=== PATIENT | female | born 1940 | race Caucasian/White ===

== ENCOUNTER 2025-08-19 11:07 | Inpatient (IN) | payer MEDICARE, SELFPAY ==
[2025-08-18] VITALS (8 sets, daily range): BP systolic 123–168; BP diastolic 82–103; BMI 29.9
[2025-08-18 13:05] LABS: Hematocrit 35.8 % (37.0-47.0); Hemoglobin 12.0 g/dL (12.0-16.0); Mean Corp Hgb Conc. 33.5 g/dL (33.0-37.0); Mean Corpuscular Volume 91.6 fL (81.0-99.0); Nucleated Red Blood Cells % 0 %; Platelet Count 263 10^3/uL (130-400); Red Cell Dist. Width 14.0 % (11.5-14.5)
[2025-08-18 13:22] LABS: ALT (SGPT) 13 U/L (0-35); AST (SGOT) 22 U/L (14-36); Albumin 4.5 g/dl (3.5-5.0); Alkaline Phosphatase 81 U/L (38-126); Blood Urea Nitrogen 21 mg/dl (7-17); Calcium 9.5 mg/dl (8.4-10.2); Carbon Dioxide 21 mmol/L (22-30); Chloride 101 mmol/L (98-107); Glucose 86 mg/dl (70-99); Potassium 3.9 mmol/L (3.5-5.1); Sodium 132 mmol/L (135-145); Total Protein 8.3 g/dl (6.3-8.2); eGFR 49.55
--- NOTE | 2025-08-18 17:34 | ED.GENMED ---
History of Present Illness
<Johnnie Oconnell MD - Last Filed: 08/18/25 19:00>
General
Chief Complaint: Swelling
Time Seen by Provider: 08/18/25 17:15
<Sai Wilkerson Jr., PA-C - Last Filed: 08/18/25 20:24>
General
Source: patient
Exam Limitations: none
Nursing documentation reviewed up to this point in time: agreed with
History of Present Illness
History of Present Illness:
85-year-old female past medical history of A-fib CAD presenting to the emergency department today with concerns of leg swelling worsening weight gain difficulty with ambulation over the past few days. Recently had urinary retention as well was
treated in [place] 1 week ago. Denies any specific chest pain does have shortness of breath with exertion.
Past History
<Sai Wilkerson Jr., PA-C - Last Filed: 08/18/25 20:24>
Past History
ED Past Medical History: Arrthythmia, HTN and Other
ED Past Surgical History: Cardiac and Other
Social History
Tobacco: Former smoker
Alcohol: None
Drug: None
Personal:
Living: with family
Employment: Retired
Family History
Family History: Other
Review of Systems
<Sai Wilkerson Jr., PA-C - Last Filed: 08/18/25 20:24>
Review of Systems
Allergies reviewed?: Yes
All Other Systems: ROS reviewed and negative except as documented in HPI and ROS
Phy Exam
<Sai Wilkerson Jr., PA-C - Last Filed: 08/18/25 20:24>
Physical Exam
Physical Exam:
GENERAL: Alert , in no apparent distress
EYE: pupils equal and reactive
NECK: Supple, no significant adenopathy.
ENT: o/p clr, mmm.
CARDIAC: Regular rate and rhythm .
LUNGS: Clear breath sounds bilaterally, no acute respiratory distress, no wheezes/rales/rhonchi
ABDOMEN: Soft, without focal tenderness, no r/g, no cvat
NEUROLOGICAL: Alert and oriented, no focal neuro deficits
SKIN: Warm and dry, skin intact.
MUSCULOSKELETAL: Significant edema to the lower extremities bilaterally from the mid thighs distally.
PSYCH: Normal and appropriate interaction.
Scores
<Sai Wilkerson Jr., PA-C - Last Filed: 08/18/25 20:24>
Heart Failure Risk
Heart Failure Risk Score: Not Applicable
Course
<Johnnie Oconnell MD - Last Filed: 08/18/25 19:00>
Orders/Labs/Results
Orders:
Orders
08/18/25 12:53
Complete Blood Count/With Diff Urgent
Comprehensive Metabolic Panel Urgent
Free T4 Urgent
Comment: ADD ON
TSH Urgent
Comment: ADD ON
08/18/25 17:32
EKG [Electrocardiogram (*1)] Urgent
Reason for Study: Fatigue / Weakness
EKG- Treatment ONCE
Chest [CR Chest - 2 Views ] Urgent
Comment:
Reason For Exam: sob
08/18/25 17:33
Furosemide [Lasix] 40 mg IV NOW STA
08/18/25 17:46
BNP [NT-proBNP] Urgent
Troponin I Urgent
08/18/25 18:20
Add On- LAB Urgent
Tests Added?: tsh free t4
Abnormal Lab Results
08/18/25
12:53
RBC 3.91 L 10^6/uL
(4.20-5.40)
Hct 35.8 L %
(37.0-47.0)
Sodium 132 L mmol/L
(135-145)
Carbon Dioxide 21 L mmol/L
(22-30)
BUN 21 H mg/dl
(7-17)
Creatinine 1.1 H mg/dL
(0.6-1.0)
Total Protein 8.3 H g/dl
(6.3-8.2)
TSH 34.40 H uIU/ml
(0.47-4.68)
08/18/25 12:53
08/18/25 12:53
Vital Signs
Initial and Last Documented VS:
Initial Vital Signs
Temp Pulse Resp BP Pulse Ox
98.4 F 86 18 151/97 97
08/18/25 12:31 08/18/25 12:31 08/18/25 12:31 08/18/25 12:31 08/18/25 12:31
Last Documented Vital Signs
Temp Pulse Resp BP Pulse Ox
97.9 F 91 15 162/98 99
08/18/25 15:32 08/18/25 19:15 08/18/25 19:15 08/18/25 19:00 08/18/25 19:15
<Sai Wilkerson Jr., PA-C - Last Filed: 08/18/25 20:24>
Orders/Labs/Results
Orders:
Orders
08/18/25 12:53
Complete Blood Count/With Diff Urgent
Comprehensive Metabolic Panel Urgent
Free T4 Urgent
Comment: ADD ON
TSH Urgent
Comment: ADD ON
08/18/25 17:32
EKG [Electrocardiogram (*1)] Urgent
Reason for Study: Fatigue / Weakness
EKG- Treatment ONCE
Chest [CR Chest - 2 Views ] Urgent
Comment:
Reason For Exam: sob
08/18/25 17:33
Furosemide [Lasix] 40 mg IV NOW STA
08/18/25 17:46
BNP [NT-proBNP] Urgent
Troponin I Urgent
08/18/25 18:20
Add On- LAB Urgent
Tests Added?: tsh free t4
Abnormal Lab Results
08/18/25
12:53
RBC 3.91 L 10^6/uL
(4.20-5.40)
Hct 35.8 L %
(37.0-47.0)
Sodium 132 L mmol/L
(135-145)
Carbon Dioxide 21 L mmol/L
(22-30)
BUN 21 H mg/dl
(7-17)
Creatinine 1.1 H mg/dL
(0.6-1.0)
Total Protein 8.3 H g/dl
(6.3-8.2)
TSH 34.40 H uIU/ml
(0.47-4.68)
08/18/25 12:53
08/18/25 12:53
Vital Signs
Initial and Last Documented VS:
Initial Vital Signs
Temp Pulse Resp BP Pulse Ox
98.4 F 86 18 151/97 97
08/18/25 12:31 08/18/25 12:31 08/18/25 12:31 08/18/25 12:31 08/18/25 12:31
Last Documented Vital Signs
Temp Pulse Resp BP Pulse Ox
97.9 F 91 15 162/98 99
08/18/25 15:32 08/18/25 19:15 08/18/25 19:15 08/18/25 19:00 08/18/25 19:15
<Sai Wilkerson Jr., PA-C - Last Filed: 08/18/25 20:24>
MDM/Problems Addressed
MDM/Problems Addressed:
85-year-old female presenting to the emergency department today with concerns of worsening leg swelling weight gain difficulty with ambulation. Patient appears to have worsening heart failure symptoms plan for IV diuresis and admission.
<Sai Wilkerson Jr., PA-C - Last Filed: 08/18/25 20:24>
*Pulse Oximetry
SaO2: 93
Oxygen Mode of Delivery: Room air
Patient hypoxic: no (99)
*Critical Care Note
Total Time (30-74mins, 75-104mins- exclusive of procedures): Not Applicable
ED Attending Note
<Johnnie Oconnell MD - Last Filed: 08/18/25 19:00>
ED Attending Note
Patient seen and examined by attending physician: Yes
I performed the substantive portion of visit, reviewed & personally made and approve the management plan that is documented in note by myself or LINDSAY.: Yes
ED Attending Note:
85-year-old female presents with multiple complaints most significant appears to be significant weight gain in a very short brief period of time along with leg swelling. In addition general weakness fatigue constipation. Being treated for UTI.
Diagnosed with urinary retention last week. Multiple recent hospitalizations at [facility].
On exam patient is nontoxic. Chronically ill. However no acute distress.
Lungs have mild crackles in the bases. No respiratory distress. Heart mildly irregular. Abdomen benign. She has significant lower extremity edema bilaterally with mild pitting.
EKG shows atrial fibrillation with at times mild RVR. Labs are stable otherwise.
Pression is heart failure fib with mild RVR. Check thyroid check chest x-ray. Admission for further care
<Sai Wilkerson Jr., PA-C - Last Filed: 08/18/25 20:24>
-
Portions of this chart may have been created with voice recognition software.� Occasional wrong word or��sound alike� substitutions may have occurred due to the inherent limitations of voice recognition software.
Discharge Plan
Departure
Patient Disposition: Admit
Date of Disposition: 08/18/25
Time of Disposition: 20:24
Admit to: Telemetry
Admit to doctor: Jatinder
Presentation/result/management discussed w/ accepting MD/DO: Hospitalist
Patient with high blood pressure during this ER visit?: No
Condition: Good
Covid-19: Not Applicable
Discharge Problem:
Acute exacerbation of CHF (congestive heart failure)
Prescriptions:
No Action
aspirin 81 MG tablet,delayed release (DR/EC)
81 mg PO DAILY
cholecalciferol (vitamin D3) 2,000 UNITS tablet
2,000 unit PO DAILY
acetaminophen [Tylenol Extra Strength] 500 MG tablet
1,000 mg PO TIDPRN PRN (Reason: mild pain)
sennosides [senna] 8.6 mg Tablet
17.2 mg PO HS
cefuroxime axetil 250 mg Tablet
250 mg PO BID
Rx Instructions:
for 10 days starting 08/12/25
thiamine HCl (vitamin B1) 100 mg Tablet
100 mg PO DAILY
levothyroxine [Synthroid] 25 mcg Tablet
25 mcg PO DAILY
docusate sodium [Colace] 100 mg Capsule
100 mg PO BID
gabapentin 100 mg Capsule
100 mg PO TIDPRN PRN (Reason: mild pain)
amiodarone [Pacerone] 200 MG tablet
200 mg PO DAILY
furosemide 20 MG tablet
20 mg PO DAILY
multivitamin with folic acid [Tab-A-Laex] 1 TABLET tablet
1 tab PO DAILY
Referrals:
Shirley Soriano MD [Family Provider]
Interventions
Interventions:
*Risk Screen - Suicide Last Done: 08/18/25 18:57
*General Assessment Last Done: 08/18/25 18:57
*Neglect/Abuse Screening Last Done: 08/18/25 18:57
ED- Cardiac Assessment Last Done: 08/18/25 18:57
ED- Pulmonary Assessment Last Done: 08/18/25 18:57
ED-Skin Assessment Last Done: 08/18/25 18:57
Discharge Date and Time
Print Language: IVORIAN
[2025-08-18] MEDS: LASIX 40 MG IV (17:48)
[2025-08-18 18:23] LABS: Troponin I < 0.012 ng/ml
[2025-08-18 19:07] LABS: TSH 34.40 uIU/ml (0.47-4.68)
--- NOTE | 2025-08-18 19:58 | HPS.HSE ---
Addendum entered and electronically signed by Stanislav Macias MD 08/18/25 21:15:
This is an addendum to H&P written by Yeni Rabago on 08/18/2025. �Patient seen and examined independently with [facility]BA UNDERWRITER.
85-year-old female history of severe aortic stenosis status post aortic valve replacement, CAD status post CABG, paroxysmal atrial fibrillation on Eliquis, paroxysmal SVT, bradycardia/possible sick sinus syndrome, hypertension, hyperlipidemia,
spinal fusion/chronic back pain, remote history of syncope after back surgery, bilateral cataract surgery, fibromyalgia, urinary retention with current Godfrey catheter placed last week presenting for leg swelling and weight gain and chest tightness
but denies shortness of breath.�
She had urinary symptoms last week treated with antibiotic and Godfrey catheter.
She has lower abdominal pain with no bowel movement in 6 days.
Vital signs show tachycardia up to 107.
Labs show cardiac BNP of 1500. �Troponin negative.
Chest x-ray shows no acute abnormality.
Patient with primary issue of increased lower extremity edema, seemingly mild CHF exacerbation. �40 IV Lasix was given. Continue home dose lasix thereafter.�
Patient also with subclinical hypothyroidism with TSH of 34, free T4 of 1.07. �Increase levothyroxine from 25 mcg to 37.5 mcg.
Patient also with constipation so add MiraLAX to docusate and senna. �Dulcolax suppository. �Urinary retention likely from constipation for which she has Godfrey catheter. Continue cefuroxime for UTI until 08/21.�
Original Note:
Family Physician
-
Family Physician: Shirley Soriano MD
Chief Complaint
-
bilateral lower extremity edema
History of Present Illness
Patient is a 85-year-old female with past medical history of hypertension, paroxysmal atrial fibrillation, CAD, hypothyroidism and fibromyalgia who presented to [facility] ED for evaluation of increased bilateral lower extremity edema. Patient reports
increased edema to bilateral lower extremities that resulted in difficulty getting around. Patient reports her BP this morning was elevated so she called her visiting nurse who recommended patient come to ED for evaluation. Patient also reports
significant constipation with last bowel movement 6 days ago. Patient notes mild shortness of breath this morning that has since resolved. Patient seen last week for urinary symptoms and placed on antibiotics for UTI and Godfrey place for acute
urinary retention. She denies any fever, chills, cough, chest pain, palpitations or diarrhea.
Medical History
Past Medical History
Past Medical History: Reports Other
Additional Past Medical History:
hypertension
paroxysmal atrial fibrillation
CAD
hypothyroidism
fibromyalgia
severe aortic stenosis
Past Surgical History: Reports Other
Additional Past Surgical History:
spinal fusion 03/2016
Laparoscopy 03/2016
Tonsillectomy (1958)
Cataract surgery - left eye (2004), right eye (2005)
Left elbow fracture, left wrist injury, left rotator cuff tear from syncope/fall (03/2016)
AVR with a 21mm Trifecta pericardial tissue valve (11/09/17 JSA)
CAB x 1 with SVG to PDA (11/09/17 J[facility])
Social History
Tobacco: Former Smoker (quit 1973)
Alcohol: None
Living: With Family (lives with and caregiver for disabled daughter )
Family History
Family History: Not pertinent
Allergies / Home Medications
Allergies reflects when Allergies were last updated in [facility].
Home Medications with original date entered in [facility]
Allergy/Medication List:
Allergies
Allergy/AdvReac Type Severity Reaction Status Date / Time
bee venom protein (honey bee) Allergy Anaphylaxis Verified 11/26/17 12:18
hydromorphone Allergy Vomiting Verified 08/18/25 20:46
nitrofurantoin Allergy rash and Verified 08/18/25 20:46
itch
nitroglycerin Allergy 'bottomed Verified 11/26/17 12:18
out' with
SL
spider venom Allergy 'poisoning' Verified 11/26/17 12:18
sulfamethoxazole Allergy rash and Verified 08/18/25 20:46
itch
trimethoprim Allergy rash and Verified 08/18/25 20:46
itch
Home Medications
aspirin 81 mg tablet,delayed release 81 mg PO DAILY Heart Disease/Condition 11/08/17
cholecalciferol (vitamin D3) 50 mcg (2,000 unit) tablet 2,000 unit PO DAILY Supplement 11/08/17
acetaminophen 500 mg tablet (Tylenol Extra Strength) 1,000 mg PO TIDPRN PRN mild pain 11/26/17
amiodarone 200 mg tablet (Pacerone) 200 mg PO DAILY Heart Disease/Condition 08/18/25
cefuroxime axetil 250 mg tablet 250 mg PO BID Infection 08/18/25
docusate sodium 100 mg capsule (Colace) 100 mg PO BID Constipation 08/18/25
furosemide 20 mg tablet 20 mg PO DAILY Fluid Retention/Swelling 08/18/25
gabapentin 100 mg capsule 100 mg PO TIDPRN PRN mild pain 08/18/25
levothyroxine 25 mcg tablet (Synthroid) 25 mcg PO DAILY Thyroid 08/18/25
multivitamin with folic acid 400 mcg tablet (Tab-A-Alex) 1 tab PO DAILY Supplement 08/18/25
sennosides 8.6 mg tablet (senna) 17.2 mg PO HS Constipation 08/18/25
thiamine HCl (vitamin B1) 100 mg tablet 100 mg PO DAILY Supplement 08/18/25
Review of Systems
-
History Source: Patient
Constitutional: Reports Weight Gain; Denies Fever or Chills
EENT: Denies Sore Throat
Respiratory: Reports Trouble Breathing (mild shortness of breath earlier today ); Denies Cough or Hemoptysis
Cardiac: Denies Chest Pain, Diaphoresis, Palpitations or Syncope
Abdomen/GI: Reports Constipated (last BM 6 days ago ); Denies Abdominal Pain, Nausea, Vomiting or Diarrhea
: Reports Godfrey (draining clear yellow urine ); Denies Dysuria, Frequency or Urgency
Musculoskeletal: Reports Edema (bilateral lower extremity edema ); Denies Joint Pain
Skin: Denies Itching
Neurological: Denies Dizzy, Headache, Weakness or Numbness
Endocrine: Denies Polyuria or Polydipsia
Hematologic/Lymphatic: Denies Bleeding
Physical Exam
Vital Signs
Vital Signs
Temp Pulse Resp BP Pulse Ox
97.9 F 96 22 168/103 93
08/18/25 15:32 08/18/25 18:45 08/18/25 18:45 08/18/25 18:00 08/18/25 19:00
Physical Exam
General: Well Developed, Well Nourished, No Apparent Distress, Comfortable, Conversant and Obese
HEENT: NormoCephalic, PERRLA, Nose Appears Normal and Ears Appear Normal
Respiratory: Clear and Non Labored Respirations; No Wheezes, Rales or Rhonchi
Cardiac: S1/S2, Regular Rhythm and Peripheral Edema (bilateral lower extremity edema ); No Murmur
GI: Soft, Non Tender, Non Distended and Normal Bowel Sounds
Musculoskeletal: No Clubbing and No Cyanosis
Skin: Warm and IV/Catheter Site
Neuro: Awake and AO x 3
Psych: Calm
Laboratory Results
-
08/18/25 12:53
08/18/25 12:53
Laboratory Results
Total Bilirubin 0.8 mg/dl (0.2-1.3) 08/18/25 12:53
AST 22 U/L (14-36) 08/18/25 12:53
ALT 13 U/L (0-35) 08/18/25 12:53
Alkaline Phosphatase 81 U/L (38-126) 08/18/25 12:53
Troponin I < 0.012 ng/ml 08/18/25 17:46
Data Reviewed
-
Diagnostic Radiology: Report Reviewed by me (CXRL 1. No radiographic evidence for acute pulmonary edema or pleural effusion. 2. Previous CABG surgery and aortic valve replacement. 3. Severe calcific atherosclerotic plaque in aorta. 4.
Moderate tortuosity of the descending thoracic aorta. 5. Osteoporosis.)
Medical Tests (Nuc Med, Echo, EKG etc): Report Reviewed by me (EKG: ATRIAL FIBRILLATION WITH RAPID VENTRICULAR RESPONSE LOW VOLTAGE QRS INCOMPLETE RIGHT BUNDLE BRANCH BLOCK NONSPECIFIC ST AND T WAVE ABNORMALITY)
Lab Data: Labs Reviewed by me (Na 132, BUN 21, Creat 1.1, eGFR 49.55, trop < 0.012, pBNP 1490, TSH 34.40)
Impression/Plan
-
IMPRESSION/PLAN:
#bilateral lower extremity edema 2/2 acute HF vs. generalized edema vs. cellulitis
Na 132, BUN 21, Creat 1.1, eGFR 49.55, trop < 0.012, pBNP 1490
previous hospitalization nots indicate 07/26/25 weight was 75kg
CXR: 1. No radiographic evidence for acute pulmonary edema or pleural effusion.
2. Previous CABG surgery and aortic valve replacement.
3. Severe calcific atherosclerotic plaque in aorta.
4. Moderate tortuosity of the descending thoracic aorta.
5. Osteoporosis.
EKG: ATRIAL FIBRILLATION WITH RAPID VENTRICULAR RESPONSE
LOW VOLTAGE QRS
INCOMPLETE RIGHT BUNDLE BRANCH BLOCK
NONSPECIFIC ST AND T WAVE ABNORMALITY
- Admit to telemetry
- IV lasix given in ED
- I & Os
- daily weights
#UTI
- continue cefuroxime
#urinary retention
Godfrey in place at arrival
likely 2/2 constipation
- monitor I & Os
#constipation
- bowel regimen
- continue Colace and Senna
- suppository now
- start daily Miralax
#paroxysmal atrial fibrillation
- continue amiodarone
#CAD
- continue aspirin
#hypothyroidism
TSH 34.40
- increase levothyroxine 50mcg
#fibromyalgia
- continue gabapentin
#severe aortic stenosis
#hypertension
Code status: full code
DVT prophylaxis: heparin sq
[2025-08-18] MEDS: DULCOLAX 10 MG RECTAL (21:25)
[2025-08-18] MEDS: MIRALAX 17 GRAMS PO (23:54)
[2025-08-18] MEDS: SENOKOT 17.2 MG PO (23:55)
[2025-08-18] MEDS: HEPARIN 5000 UNITS SC (23:55)
--- NOTE | 2025-08-19 00:11 | PTCARENOTE ---
Pt arrived to unit approx 2315, AAOx3, anxious. Per ED report, pt had constipation which was treated. PERFUME COMPOUNDER notified. Per report, disimpaction and suppository administered in ED. On unit, pt given prune juice, senna, and miralax. Pt was oriented to
unit, cooperative with admission process, indwelling odell in place, odell wipes completed on unit, call delgado in reach, pt in lowest position, bed locked.
[2025-08-19 01:29] VITALS: BMI 29.9
[2025-08-19 04:03] VITALS: BP 157/86
[2025-08-19 06:00] VITALS: BMI 29.9
[2025-08-19 07:00] VITALS: BP 155/98
[2025-08-19] MEDS: LASIX 20 MG PO (08:27)
[2025-08-19] MEDS: CEFTIN 250 MG PO ×2 (08:27→19:44)
[2025-08-19] MEDS: ASPIR LOW (ENTERIC COATED) 81 MG PO (08:27)
[2025-08-19] MEDS: SYNTHROID 37.5 MCG PO (08:27)
--- NOTE | 2025-08-19 08:27 | W.PN.HOSP.TC ---
Today's Communication/Plan
-
patient still has bilateral lower extremity edema.
Will switch oral Lasix to IV Lasix.
Assessment / Plan
Assessment / Plan
Impression:
85-year-old female history of severe aortic stenosis status post aortic valve replacement, CAD status post CABG, paroxysmal atrial fibrillation on Eliquis, paroxysmal SVT, bradycardia/possible sick sinus syndrome, hypertension, hyperlipidemia,
spinal fusion/chronic back pain, remote history of syncope after back surgery, bilateral cataract surgery, fibromyalgia, urinary retention with current Godfery catheter placed last week presenting for leg swelling and weight gain and chest tightness
but denies shortness of breath.� She had urinary symptoms last week treated with antibiotic and Godfrey catheter, She has lower abdominal pain with no bowel movement in 6 days.
Patient with primary issue of increased lower extremity edema, seemingly mild CHF exacerbation. �40 IV Lasix was given. Continue home dose lasix thereafter.�
Patient also with subclinical hypothyroidism with TSH of 34, free T4 of 1.07. �Increase levothyroxine from 25 mcg to 37.5 mcg.
Patient also with constipation. Received a bowel regimen now she has diarrhea.
Still bilateral extremity RACHELLE, switch Lasix to IV
Assessment/plan:
bilateral lower extremity edema 2/2 acute HF vs. generalized edema vs. cellulitis
Na 132, BUN 21, Creat 1.1, eGFR 49.55, trop < 0.012, pBNP 1490
previous hospitalization nots indicate 07/26/25 weight was 75kg
CXR: 1. No radiographic evidence for acute pulmonary edema or pleural effusion.
2. Previous CABG surgery and aortic valve replacement.
3. Severe calcific atherosclerotic plaque in aorta.
4. Moderate tortuosity of the descending thoracic aorta.
5. Osteoporosis.
EKG: ATRIAL FIBRILLATION WITH RAPID VENTRICULAR RESPONSE
LOW VOLTAGE QRS
INCOMPLETE RIGHT BUNDLE BRANCH BLOCK
NONSPECIFIC ST AND T WAVE ABNORMALITY
- Admit to telemetry
- IV lasix given in ED
- I & Os
- daily weights
08/19
patient still has bilateral lower extremity edema.
Will switch oral Lasix to IV Lasix.
#UTI
- continue cefuroxime
#urinary retention
Godfrey in place at arrival
likely 2/2 constipation
- monitor I & Os
#constipation
Resolved.
#paroxysmal atrial fibrillation
- continue amiodarone
#CAD
- continue aspirin
#hypothyroidism
TSH 34.40
- increase levothyroxine 37.5 mcg
#fibromyalgia
- continue gabapentin
#severe aortic stenosis
#hypertension
CODE STATUS: Full code
DVT prophylaxis: Heparin
Diet: Cardiac diet
Disposition: patient still has bilateral lower extremity edema.
Will switch oral Lasix to IV Lasix.
Total time spent on today's encounter was 55 minutes which included time spent in counseling the patient/family regarding diagnosis and treatment plan as listed above, goals of care, and symptom management. Case was discussed with nursing staff,
specialists, and care coordinators/case management. All labs and imaging personally reviewed by me. Remainder the time spent in detailed review of previous records, lab data, imaging, and other medical provider documentation.
Anticipated Discharge: Within 24 hours
Subjective/Interval History
-
Date of Service: August 19, 2025
Patient seen and examined at bedside, denies any chest pain or shortness of breath, constipation resolved, patient still has bilateral lower extremity edema.
Will switch oral Lasix to IV Lasix.
Objective Data
-
Labs:
Laboratory Results
08/19/25
08:12
Sodium Pending
Potassium Pending
Chloride Pending
Carbon Dioxide Pending
BUN Pending
Creatinine Pending
Glucose Pending
Calcium Pending
Vital Signs:
Vital Signs
Temp Pulse Resp BP Pulse Ox
98.2 F 110 12 155/98 100
08/19/25 07:00 08/19/25 07:00 08/19/25 07:00 08/19/25 07:00 08/19/25 07:00
I&O
08/18/25 08/19/25 08/20/25
06:59 06:59 06:59
Intake Total 60 / 60
Output Total 2600 / 2600
Balance -2540 / -2540
Physical Exam
-
General: Well Developed, Well Nourished, No Apparent Distress and Comfortable
HEENT: Normocephalic, Atraumatic, Moist Mucous Membranes, No Ptosis, PERRLA and Nose Appears Normal
Respiratory: Clear to Auscultation and Non Labored Respirations
Cardiac: Regular Rhythm and S1/S2
Breast: Deferred by me
GI: Soft, Nontender, Nondistended and Normal Bowel Sounds
Genito-urinary: No Costovertebral Tender
Musculoskeletal: No Clubbing, No Cyanosis, Edema, Right Lower Extrem and Edema, Left Lower Extrem
Skin: Warm
Neuro: Awake, Alert, Oriented, AO x 3 and No Motor Deficits
Psych: Calm
Data Reviewed
-
Diagnostic Radiology: Image personally visualized and interpreted and Report Reviewed by me
CT Scan: Image personally visualized and interpreted and Report Reviewed by me
Ultrasound: Image personally visualized and interpreted and Report Reviewed by me
MRI: Image personally visualized and interpreted and Report Reviewed by me
Medical Tests (Nuc Med, Echo etc): Image personally visualized and interpreted and Report Reviewed by me
Labs: Labs Reviewed by me
Old Records: Reviewed
[2025-08-19] MEDS: HEPARIN 5000 UNITS SC ×2 (08:28→16:34)
[2025-08-19] MEDS: PACERONE 200 MG PO (08:28)
[2025-08-19] MEDS: COLACE PO ×2 (08:30→19:44)
[2025-08-19] MEDS: MIRALAX PO (08:30)
[2025-08-19 09:03] LABS: Calcium 9.1 mg/dl (8.4-10.2); Chloride 100 mmol/L (98-107); Potassium 3.5 mmol/L (3.5-5.1); Sodium 134 mmol/L (135-145)
[2025-08-19 09:13] LABS: Blood Urea Nitrogen 21 mg/dl (7-17); Carbon Dioxide 26 mmol/L (22-30); Estimated Creatinine Clearance 32 ml/min; Glucose 102 mg/dl (70-99); eGFR 44.64
[2025-08-19 11:34] VITALS: BP 117/64
[2025-08-19 14:59] VITALS: BP 119/60
--- NOTE | 2025-08-19 17:14 | CM ---
resource conservation manager reviewed patient's chart and patient was admitted under OBS, BETANCOURT letter provided to patient. Patient lives with her daughter is independent with adl's and ambulation, no longer drives, patient is current with [facility] visiting nurses.
PCP: Shirley Soriano
Pharmacy: [facility] in [place]
Home with [facility] visiting nurses.
[facility]
[phone]
[2025-08-19] MEDS: SENOKOT PO (19:44)
[2025-08-19] MEDS: DESENEX/MITRAZOL/ZEASORB 1 APPLIC TOPICAL (19:44)
[2025-08-19 20:37] VITALS: BP 143/83
[2025-08-19 23:36] VITALS: BP 129/81
[2025-08-20] VITALS (7 sets, daily range): BP systolic 80–154; BP diastolic 57–90; PULSE 81; O2SAT 99; BMI 29.5
[2025-08-20] MEDS: HEPARIN 5000 UNITS SC ×4 (00:33→23:10)
[2025-08-20 08:44] LABS: Hematocrit 28.7 % (37.0-47.0); Hemoglobin 9.7 g/dL (12.0-16.0); Mean Corp Hgb Conc. 33.8 g/dL (33.0-37.0); Mean Corpuscular Volume 91.1 fL (81.0-99.0); Platelet Count 218 10^3/uL (130-400); Red Cell Dist. Width 13.8 % (11.5-14.5)
[2025-08-20] MEDS: LASIX 20 MG IV (08:51)
[2025-08-20] MEDS: CEFTIN 250 MG PO ×2 (09:01→19:47)
[2025-08-20] MEDS: SYNTHROID 37.5 MCG PO (09:01)
[2025-08-20] MEDS: PACERONE 200 MG PO (09:02)
[2025-08-20] MEDS: ASPIR LOW (ENTERIC COATED) 81 MG PO (09:03)
[2025-08-20] MEDS: COLACE 100 MG PO ×2 (09:04→19:47)
[2025-08-20] MEDS: MIRALAX PO (09:06)
[2025-08-20] MEDS: DESENEX/MITRAZOL/ZEASORB 1 APPLIC TOPICAL ×2 (09:07→19:48)
[2025-08-20 09:15] LABS: Blood Urea Nitrogen 22 mg/dl (7-17); Calcium 8.6 mg/dl (8.4-10.2); Carbon Dioxide 28 mmol/L (22-30); Chloride 102 mmol/L (98-107); Estimated Creatinine Clearance 34 ml/min; Glucose 94 mg/dl (70-99); Potassium 3.5 mmol/L (3.5-5.1); Sodium 135 mmol/L (135-145); eGFR 49.55
[2025-08-20] MEDS: TYLENOL 650 MG PO (10:20)
--- NOTE | 2025-08-20 12:00 | WOUNDNOTE ---
[facility] RN note: Patient seen during prevention rounds. Patient admitted with dermal ulcers on coccyx/buttocks suspect r/t moisture. Perineal MASD. Patient incontinent of loose soft brown stool. [place] care given. Silicone border foam applied to
sacral/buttocks. Patient turns with 1 assist. She is on a [employer] air bed. Patient turned to R semi side lying position. Heels off bed with pillow. Air chair cushion given. Discussed with EDMUNDO Modi. Care plan and discharge instructions to be updated.
Consult if needed.
--- NOTE | 2025-08-20 13:52 | W.PN.HOSP.TC ---
Today's Communication/Plan
-
Continue Lasix IV, bowel regimen, pending physical therapy evaluation.
Assessment / Plan
Assessment / Plan
Impression:
85-year-old female history of severe aortic stenosis status post aortic valve replacement, CAD status post CABG, paroxysmal atrial fibrillation on Eliquis, paroxysmal SVT, bradycardia/possible sick sinus syndrome, hypertension, hyperlipidemia,
spinal fusion/chronic back pain, remote history of syncope after back surgery, bilateral cataract surgery, fibromyalgia, urinary retention with current Godfrey catheter placed last week presenting for leg swelling and weight gain and chest tightness
but denies shortness of breath.� She had urinary symptoms last week treated with antibiotic and Godfrey catheter, She has lower abdominal pain with no bowel movement in 6 days.
Patient with primary issue of increased lower extremity edema, seemingly mild CHF exacerbation. �40 IV Lasix was given. Continue home dose lasix thereafter.�
Patient also with subclinical hypothyroidism with TSH of 34, free T4 of 1.07. �Increase levothyroxine from 25 mcg to 37.5 mcg.
Patient also with constipation. Received a bowel regimen now she has diarrhea.
Still bilateral extremity RACHELLE, switch Lasix to IV
Assessment/plan:
bilateral lower extremity edema 2/2 acute HF vs. generalized edema vs. cellulitis
Na 132, BUN 21, Creat 1.1, eGFR 49.55, trop < 0.012, pBNP 1490
previous hospitalization nots indicate 07/26/25 weight was 75kg
CXR: 1. No radiographic evidence for acute pulmonary edema or pleural effusion.
2. Previous CABG surgery and aortic valve replacement.
3. Severe calcific atherosclerotic plaque in aorta.
4. Moderate tortuosity of the descending thoracic aorta.
5. Osteoporosis.
EKG: ATRIAL FIBRILLATION WITH RAPID VENTRICULAR RESPONSE
LOW VOLTAGE QRS
INCOMPLETE RIGHT BUNDLE BRANCH BLOCK
NONSPECIFIC ST AND T WAVE ABNORMALITY
- Admit to telemetry
- IV lasix given in ED
- I & Os
- daily weights
08/19
patient still has bilateral lower extremity edema.
Will switch oral Lasix to IV Lasix.
08/20
Improved with IV lasix
#UTI
- continue cefuroxime
#urinary retention
Godfrey in place at arrival
likely 2/2 constipation
- monitor I & Os
#constipation
Resolved.
#paroxysmal atrial fibrillation
- continue amiodarone
#CAD
- continue aspirin
#hypothyroidism
TSH 34.40
- increase levothyroxine 37.5 mcg
#fibromyalgia
- continue gabapentin
#severe aortic stenosis
#hypertension
CODE STATUS: Full code
DVT prophylaxis: Heparin
Diet: Cardiac diet
Disposition: Continue Lasix IV, bowel regimen, pending physical therapy evaluation.
Total time spent on today's encounter was 55 minutes which included time spent in counseling the patient/family regarding diagnosis and treatment plan as listed above, goals of care, and symptom management. Case was discussed with nursing staff,
specialists, and care coordinators/case management. All labs and imaging personally reviewed by me. Remainder the time spent in detailed review of previous records, lab data, imaging, and other medical provider documentation.
Anticipated Discharge: Within 24 hours
Subjective/Interval History
-
Date of Service: August 20, 2025
Patient seen and examined at bedside, denies any chest pain or shortness of breath, no abdominal pain, no nausea, no vomiting, no more diarrhea , complaining of headache
Objective Data
-
Labs:
Laboratory Results
08/20/25
08:24
WBC 6.4
Hgb 9.7 L
Hct 28.7 L
Plt Count 218
Sodium 135
Potassium 3.5
Chloride 102
Carbon Dioxide 28
BUN 22 H
Creatinine 1.1 H
Glucose 94
Calcium 8.6
Vital Signs:
Vital Signs
Temp Pulse Resp BP Pulse Ox
98 F 78 16 143/77 99
08/20/25 11:00 08/20/25 11:00 08/20/25 11:00 08/20/25 11:00 08/20/25 11:00
I&O
08/19/25 08/20/25 08/21/25
06:59 06:59 06:59
Intake Total 60 / 60 1080 / 1080
Output Total 2600 / 2600 825 / 825
Balance -2540 / -2540 255 / 255
Physical Exam
-
General: Well Developed, Well Nourished, No Apparent Distress and Comfortable
HEENT: Normocephalic, Atraumatic, Moist Mucous Membranes, No Ptosis, PERRLA and Nose Appears Normal
Respiratory: Clear to Auscultation and Non Labored Respirations
Cardiac: Regular Rhythm and S1/S2
Breast: Deferred by me
GI: Soft, Nontender, Nondistended and Normal Bowel Sounds
Genito-urinary: No Costovertebral Tender
Musculoskeletal: No Clubbing, No Cyanosis, Edema, Right Lower Extrem and Edema, Left Lower Extrem
Skin: Warm
Neuro: Awake, Alert, Oriented, AO x 3 and No Motor Deficits
Psych: Calm
--- NOTE | 2025-08-20 16:45 | CM ---
inside sales territory manager spoke with physical therapy and they are recommending skilled placement, per patient she has just completed rehab and has no skilled days left, and patient states she would have to private pay for rehab placement and she cannot afford
to private pay, patient states she wants to return to home with [facility] visiting nurses for PT/OT, nursing and an aide.
[facility]
[phone]
[2025-08-20] MEDS: SENOKOT 17.2 MG PO (19:47)
[2025-08-21] VITALS (7 sets, daily range): BP systolic 106–153; BP diastolic 61–90; PULSE 84–108
[2025-08-21 07:40] LABS: Hematocrit 31.5 % (37.0-47.0); Hemoglobin 10.6 g/dL (12.0-16.0); Mean Corp Hgb Conc. 33.7 g/dL (33.0-37.0); Mean Corpuscular Volume 92.4 fL (81.0-99.0); Platelet Count 244 10^3/uL (130-400); Red Cell Dist. Width 13.6 % (11.5-14.5)
[2025-08-21 08:02] LABS: Blood Urea Nitrogen 18 mg/dl (7-17); Calcium 8.8 mg/dl (8.4-10.2); Carbon Dioxide 30 mmol/L (22-30); Chloride 101 mmol/L (98-107); Estimated Creatinine Clearance 34 ml/min; Glucose 86 mg/dl (70-99); Potassium 3.4 mmol/L (3.5-5.1); Sodium 134 mmol/L (135-145); eGFR 49.55
[2025-08-21] MEDS: SYNTHROID 37.5 MCG PO (09:59)
[2025-08-21] MEDS: COLACE 100 MG PO ×2 (09:59→19:42)
[2025-08-21] MEDS: PACERONE 200 MG PO (10:01)
[2025-08-21] MEDS: CEFTIN 250 MG PO ×2 (10:06→19:42)
[2025-08-21] MEDS: SENOKOT 17.2 MG PO ×2 (10:08→19:42)
[2025-08-21] MEDS: ASPIR LOW (ENTERIC COATED) 81 MG PO (10:08)
[2025-08-21] MEDS: MIRALAX 17 GRAMS PO (10:09)
[2025-08-21] MEDS: HEPARIN 5000 UNITS SC ×3 (10:09→23:21)
[2025-08-21] MEDS: LASIX 20 MG PO (10:09)
[2025-08-21] MEDS: DESENEX/MITRAZOL/ZEASORB 1 APPLIC TOPICAL ×2 (10:11→19:42)
--- NOTE | 2025-08-21 10:37 | PN.CDI ---
CDI
- -
CDI:
Physician Documentation Request
Admit Date: 08/19/25 11:07
Dear Doctor Dedra,
Please review the following and provide your response in the progress notes.
Clinical Indicators:
Pt admitted with bilateral lower extremity edema 2/2 acute HF vs. generalized edema vs. cellulitis
Sodium levels are as below /Pt has been on IV lasix
Laboratory Tests
08/18/25 08/19/25 08/21/25
12:53 08:12 06:47
Sodium 132 L 134 L 134 L
Based on the above, could you clarify in the progress notes, the appropriate diagnosis, if significant, that supports the above abnormalities and additional evaluation, monitoring and/or treatment rendered:
Hyponatremia
Abnormal lab value only
Other ( please specify)
Use of terms such as suspected, likely, concern for, or probable (associated with a specific diagnosis that is being evaluated, monitored, or treated as if it exists) are acceptable and can be coded in the inpatient setting, when documented at the
time of discharge.
Thank you,
Maki Horta RN
CDI Specialist
[place] [facility]
Please use your independent medical judgment in providing your response.
--- NOTE | 2025-08-21 10:43 | PN.CDI ---
CDI
- -
CDI:
Physician Documentation Request
Admit Date: 08/19/25 11:07
Dear Doctor Dedra,
Please review the following and provide your response in the progress notes.
Clinical Indicators:
Pt admitted with bilateral lower extremity edema 2/2 acute HF vs. generalized edema vs. cellulitis
Documented per H&P, ' Patient with primary issue of increased lower extremity edema, seemingly mild CHF exacerbation. �40 IV Lasix was given. Continue home dose lasix thereafter.�..'
Progress note 08/20,' pBNP 1490previous hospitalization nots indicate 07/26/25 weight was 75kg...08/19patient still has bilateral lower extremity edema.Will switch oral Lasix to IV Lasix.08/20Improved with IV Lasix...'
Documented per 11/08/17 scanned cardiology document ,' EF (estimated ) 55 %...'
Per DEC pt is on 20mg PO Lasix at home daily
Please provide further specificity regarding the most likely type and acuity of CHF you are evaluating, treating or monitoring.
Acute on Chronic Diastolic CHF
Acute Diastolic CHF
Acute on Chronic Systolic CHF
Acute Systolic CHF
Use of terms such as suspected, likely, concern for, or probable (associated with a specific diagnosis that is being evaluated, monitored, or treated as if it exists) are acceptable and can be coded in the inpatient setting, when documented at the
time of discharge.
Thank you,
Maki Horta RN
CDI Specialist
[place] [facility]
Please use your independent medical judgment in providing your response.
[2025-08-21] MEDS: LASIX IV (10:56)
--- NOTE | 2025-08-21 11:01 | PN.CDI ---
CDI
- -
CDI:
Physician Documentation Request
Admit Date: 08/19/25 11:07
Dear Doctor Dedra ,
Please review the following and provide your response in the progress notes.
Clinical Indicators:
Pt admitted with bilateral lower extremity edema 2/2 acute HF vs. generalized edema vs. cellulitis
Documented per nursing [facility]OC[facility] documentation 08/18, Present on admission coccyx/buttock pressure injury stage 2....treatment provided silcone border...'
Physician documentation of the type and location of wounds is required for compliant documentation. Based on the above clinical findings and your assessment, please provide the following in your progress note:
1. Location of the ulcer/wound, including laterality.
2. Type (etiology) of ulcer/wound:
- Pressure (decubitus) ulcer
- Non-pressure ulcer
- Other
Use of terms such as suspected, likely, concern for, or probable (associated with a specific diagnosis that is being evaluated, monitored, or treated as if it exists) are acceptable and can be coded in the inpatient setting, when documented at the
time of discharge.
Thank you,
Maki Horta RN
CDI Specialist
[facility]
Please use your independent medical judgment in providing your response.
*Source: National Pressure Ulcer Advisory Panel (NPUAP)
[2025-08-21] MEDS: KLOR-CON 20 MEQ PO (12:46)
--- NOTE | 2025-08-21 13:33 | W.PN.HOSP.TC ---
Today's Communication/Plan
-
Physical therapy evaluation, switch Lasix to oral, check orthostatic.
Assessment / Plan
Assessment / Plan
Impression:
85-year-old female history of severe aortic stenosis status post aortic valve replacement, CAD status post CABG, paroxysmal atrial fibrillation on Eliquis, paroxysmal SVT, bradycardia/possible sick sinus syndrome, hypertension, hyperlipidemia,
spinal fusion/chronic back pain, remote history of syncope after back surgery, bilateral cataract surgery, fibromyalgia, urinary retention with current Godfrey catheter placed last week presenting for leg swelling and weight gain and chest tightness
but denies shortness of breath.� She had urinary symptoms last week treated with antibiotic and Godfrey catheter, She has lower abdominal pain with no bowel movement in 6 days.
Patient with primary issue of increased lower extremity edema, seemingly mild CHF exacerbation. �40 IV Lasix was given. Continue home dose lasix thereafter.�
Patient also with subclinical hypothyroidism with TSH of 34, free T4 of 1.07. �Increase levothyroxine from 25 mcg to 37.5 mcg.
Patient also with constipation. Received a bowel regimen now she has diarrhea.
Still bilateral extremity RACHELLE, switch Lasix to IV
Assessment/plan:
bilateral lower extremity edema
Acute on Chronic Diastolic CHF
Na 132, BUN 21, Creat 1.1, eGFR 49.55, trop < 0.012, pBNP 1490
previous hospitalization nots indicate 07/26/25 weight was 75kg
CXR: 1. No radiographic evidence for acute pulmonary edema or pleural effusion.
2. Previous CABG surgery and aortic valve replacement.
3. Severe calcific atherosclerotic plaque in aorta.
4. Moderate tortuosity of the descending thoracic aorta.
5. Osteoporosis.
EKG: ATRIAL FIBRILLATION WITH RAPID VENTRICULAR RESPONSE
LOW VOLTAGE QRS
INCOMPLETE RIGHT BUNDLE BRANCH BLOCK
NONSPECIFIC ST AND T WAVE ABNORMALITY
Patient received IV Lasix 20 mg daily.
Was orthostatic with physical therapy.
Switch to oral lasix
Orthostatic hypotension.
Switch Lasix to oral
UTI
- continue cefuroxime (was prescribed as outpatient for 10 days starting 08/12)
Hyponatremia
Continue to monitor
hypokalemia
Replace and continue to monitor
Urinary retention
Godfrey in place at arrival
likely 2/2 constipation
- monitor I & Os
Constipation
Resolved.
Paroxysmal atrial fibrillation
- continue amiodarone
CAD
- continue aspirin
Hypothyroidism
TSH 34.40
- increase levothyroxine 37.5 mcg
Fibromyalgia
- continue gabapentin
Severe aortic stenosis
Hypertension
Coccyx/buttock pressure injury stage 2.
Wound care consult
CODE STATUS: Full code
DVT prophylaxis: Heparin
Diet: Cardiac diet
Disposition: Physical therapy evaluation, switch Lasix to oral, check orthostatic.
Total time spent on today's encounter was 55 minutes which included time spent in counseling the patient/family regarding diagnosis and treatment plan as listed above, goals of care, and symptom management. Case was discussed with nursing staff,
specialists, and care coordinators/case management. All labs and imaging personally reviewed by me. Remainder the time spent in detailed review of previous records, lab data, imaging, and other medical provider documentation.
Anticipated Discharge: Within 24 hours
Subjective/Interval History
-
Date of Service: August 21, 2025
Patient seen and examined at bedside, denies any chest pain or shortness of breath, no abdominal pain, no nausea, no vomiting, patient was orthostatic with physical therapy yesterday, Lasix switched to oral.
Objective Data
-
Labs:
Laboratory Results
08/21/25
06:47
WBC 7.5
Hgb 10.6 L
Hct 31.5 L
Plt Count 244
Sodium 134 L
Potassium 3.4 L
Chloride 101
Carbon Dioxide 30
BUN 18 H
Creatinine 1.1 H
Glucose 86
Calcium 8.8
Vital Signs:
Vital Signs
Temp Pulse Resp BP Pulse Ox
98.5 F 89 16 143/82 98
08/21/25 11:04 08/21/25 11:04 08/21/25 11:04 08/21/25 11:04 08/21/25 11:04
I&O
08/20/25 08/21/25 08/22/25
06:59 06:59 06:59
Intake Total 1080 / 1080 520 / 520
Output Total 825 / 825 1100 / 1100
Balance 255 / 255 -580 / -580
Physical Exam
-
General: Well Developed, Well Nourished, No Apparent Distress and Comfortable
HEENT: Normocephalic, Atraumatic, Moist Mucous Membranes, No Ptosis, PERRLA and Nose Appears Normal
Respiratory: Clear to Auscultation and Non Labored Respirations
Cardiac: Regular Rhythm and S1/S2
Breast: Deferred by me
GI: Soft, Nontender, Nondistended and Normal Bowel Sounds
Genito-urinary: No Costovertebral Tender
Musculoskeletal: No Clubbing, No Cyanosis, Edema, Right Lower Extrem and Edema, Left Lower Extrem
Skin: Warm
Neuro: Awake, Alert, Oriented, AO x 3 and No Motor Deficits
Psych: Calm
--- NOTE | 2025-08-21 14:13 | CM ---
Chart reviewed and will follow up with patient's progress, patient insists on returning to home as she just completed rehab, plan is to home with [facility] visiting nurses.
Plan; Home with [facility] visiting nurses.
[facility]
[phone]
--- NOTE | 2025-08-21 18:37 | PTCARENOTE ---
Assumed care of pt from previous nurse. Pt with no output, greatest bladder scan output since bladder scan this a.m. is 74. will cont bladder scan protocol. Pt call delgado is within reach, pt rings kishore. will cont to monitor.
--- NOTE | 2025-08-21 18:40 | PTCARENOTE ---
Assumed care of pt from previous nurse. Pt denies pain. pt conts to be positive orthostatic, MD aware. Pt call delgado is within reach, pt rings kishore. will cont to monitor.
[2025-08-21] MEDS: TYLENOL 650 MG PO (22:29)
[2025-08-22] VITALS (8 sets, daily range): BP systolic 104–166; BP diastolic 67–97; PULSE 100–103; BMI 28.6
[2025-08-22] MEDS: SYNTHROID 37.5 MCG PO (05:47)
[2025-08-22] MEDS: CEFTIN 250 MG PO (08:36)
[2025-08-22] MEDS: PACERONE 200 MG PO (08:41)
[2025-08-22] MEDS: ASPIR LOW (ENTERIC COATED) 81 MG PO (08:42)
[2025-08-22] MEDS: COLACE 100 MG PO ×2 (08:42→19:46)
[2025-08-22] MEDS: SENOKOT 17.2 MG PO ×2 (08:42→19:46)
[2025-08-22] MEDS: MIRALAX 17 GRAMS PO (08:43)
[2025-08-22] MEDS: HEPARIN 5000 UNITS SC ×3 (08:43→23:11)
[2025-08-22] MEDS: LASIX 20 MG PO (08:44)
[2025-08-22] MEDS: DESENEX/MITRAZOL/ZEASORB 1 APPLIC TOPICAL ×2 (08:45→19:48)
[2025-08-22 09:14] LABS: Hematocrit 32.2 % (37.0-47.0); Hemoglobin 10.4 g/dL (12.0-16.0); Mean Corp Hgb Conc. 32.3 g/dL (33.0-37.0); Mean Corpuscular Volume 98.2 fL (81.0-99.0); Platelet Count 239 10^3/uL (130-400); Red Cell Dist. Width 13.5 % (11.5-14.5)
[2025-08-22 09:37] LABS: Blood Urea Nitrogen 15 mg/dl (7-17); Calcium 9.0 mg/dl (8.4-10.2); Carbon Dioxide 32 mmol/L (22-30); Chloride 100 mmol/L (98-107); Estimated Creatinine Clearance 34 ml/min; Glucose 87 mg/dl (70-99); Potassium 4.5 mmol/L (3.5-5.1); Sodium 136 mmol/L (135-145); eGFR 49.55
--- NOTE | 2025-08-22 11:31 | CON.CAR ---
Addendum entered and electronically signed by Cj Cervantes MD 08/22/25 16:27:
I saw and examined the patient independently, and performed majority of MDM.
The BIOMEDICAL ENGINEERING PROFESSOR's note was reviewed and I agree with the note with changes/additions below (specifically regarding eliquis after discussion with daughter).
Comment: 85 yo female with PMH of paroxysmal A fib, atrial flutter (type unknown), hemorrhagic stroke, CAD, h/o CABG and bio-AVR, admitted with severe constipation, edema, weight gain. Her main complaint to me today is constipation. Exam with
irregular rhythm, no murmurs, trace LE edema. Tele: A flutter, HR avg 80s. Cr 1.1. Echo: EF 50-55%, bio-AVR (grads 06/20, no AR).
Paroxysmal A fib, atrial flutter (type unknown). I spoke with her daughter who knows her medical history well. She is on amiodarone for rate control, due to hypotension with other agents. Eliquis was stopped previously due to hemorrhagic stroke.
Continue amiodarone. Remain off of eliquis.
Acute HFPEF, new. Improved s/p IV lasix. Continue lasix 20mg PO daily.
Please call us back with any new issues. She can follow up with her outpatient healthcare network pricing consultant once non-cardiac issues are resolved.
Original Note:
Consultation
Consultation Request
Date/Time Consultation Requested: 08/22/25 11a
Date/Time Consultation Performed: 08/22/25 11:30a
Requesting Provider: Dr. Matthews
Performing Provider: BHARGAV Rothman for Dr. Cervantes
Reason for Consultation: Afib
Medical History
-
Chief Complaint: LE edema
History of Present Illness:
Mrs. Yanes is an 85 yo female with AVR/CABG 11/09/[address] Hui, HTN, HLD, paroxysmal Afib previously on Eliquis (DCCV 10/2017, PVI [address] Melara) off Eliquis per healthcare network pricing consultant/EP, then recurrent Afib with Aflutter last year that is now
permanent, CVA 02/17/25, PSVT, sinus bradycardia/SSS, spinal fusion, chronic back pain, urinary retention with indwelling Godfrey catheter, and fibromyalgia, who presents with c/o LE edema, chest heaviness and weight gain. She is admitted to the
hospitalist service and we are consulted for Afib/Aflutter.
healthcare network pricing consultant Dr. Cabrera [facility]
EP healthcare network pricing consultant Dr. Melara [facility]
Past Medical History
Past Medical History: Other (as above)
Past Surgical History: Cardiac (AVR/CABG)
Social History
Tobacco: Former Smoker
Alcohol: None
Living: With Family
Family History
Family History: Reviewed & Not Pertinent
Allergies / Home Medications
Allergy/AdvReac Type Severity Reaction Status Date / Time
bee venom protein (honey bee) Allergy Anaphylaxis Verified 11/26/17 12:18
hydromorphone Allergy Vomiting Verified 08/18/25 20:46
nitrofurantoin Allergy rash and Verified 08/18/25 20:46
itch
nitroglycerin Allergy 'bottomed Verified 11/26/17 12:18
out' with
SL
spider venom Allergy 'poisoning' Verified 11/26/17 12:18
sulfamethoxazole Allergy rash and Verified 08/18/25 20:46
itch
trimethoprim Allergy rash and Verified 08/18/25 20:46
itch
�Medication �Instructions �Recorded �Confirmed �Type
aspirin 81 mg tablet,delayed 81 mg PO DAILY Heart 11/08/17 08/18/25 History
release Disease/Condition
cholecalciferol (vitamin D3) 50 2,000 unit PO DAILY Supplement 11/08/17 08/18/25 History
mcg (2,000 unit) tablet
acetaminophen 500 mg tablet 1,000 mg PO TIDPRN PRN mild pain 11/26/17 08/18/25 History
(Tylenol Extra Strength)
amiodarone 200 mg tablet (Pacerone) 200 mg PO DAILY Heart 08/18/25 08/18/25 History
Disease/Condition
cefuroxime axetil 250 mg tablet 250 mg PO BID Infection 08/18/25 08/18/25 History
docusate sodium 100 mg capsule 100 mg PO BID Constipation 08/18/25 08/18/25 History
(Colace)
furosemide 20 mg tablet 20 mg PO DAILY Fluid 08/18/25 08/18/25 History
Retention/Swelling
gabapentin 100 mg capsule 100 mg PO TIDPRN PRN mild pain 08/18/25 08/18/25 History
levothyroxine 25 mcg tablet 25 mcg PO DAILY Thyroid 08/18/25 08/18/25 History
(Synthroid)
multivitamin with folic acid 400 1 tab PO DAILY Supplement 08/18/25 08/18/25 History
mcg tablet (Tab-A-Alex)
sennosides 8.6 mg tablet (senna) 17.2 mg PO HS Constipation 08/18/25 08/18/25 History
thiamine HCl (vitamin B1) 100 mg 100 mg PO DAILY Supplement 08/18/25 08/18/25 History
tablet
Review of Systems
-
History Source: Patient
All other systems: Negative unless noted
Physical Exam
Vital Signs
Temp Pulse Resp BP Pulse Ox
97.8 F 89 17 143/77 98
08/22/25 11:17 08/22/25 11:17 08/22/25 11:17 08/22/25 11:17 08/22/25 11:17
Lab Results
08/22/25 08:16
08/22/25 08:16
Troponin I < 0.012 ng/ml 08/18/25 17:46
Psp-N-Zmkhelomiyb Pept 1490 pg/ml 08/18/25 17:46
Physical Exam
General: Well Developed and Well Nourished
HEENT: Normocephalic and Anicteric
Respiratory: Clear and Non Labored Respirations
Cardiac: S1/S2, Irregular Rhythm and Peripheral Edema (mild b/l LE)
Breast: Deferred by me
GI: Soft, Non Tender and Normal Bowel Sounds
Rectal: Deferred by Provider
Genito-urinary: Clear Urine
Musculoskeletal: No Clubbing and No Cyanosis
Skin: Warm and Dry
Neuro: AO x 3
Hematologic/Lymphatic: No Lymphadenopathy
Psych: Calm
Impression / Plan
-
Afib/Aflutter - permanent (per patient).
- rate controlled on Amiodarone.
- s/p ablation in 2022 then Aflutter occurred in 2023 and has been permanent for 1 year.
- she reports plan for repeat PVI as an outpatient at some point.
- [id number] score is 7 (age, female, HTN, CAD, CVA).
- previously on Eliquis then stopped per EP post PVI in 2022 and never resumed despite recurrence of Afib/Aflutter in 2023 and s/p CVA 02/2025, has been on ASA.
- recommend Eliquis 5mg BID and stop ASA.
- h/o sinus bradycardia with SSS, monitor on tele.
CAD - s/p CABG in 2017.
- stable w/o angina.
- continue medical therapy.
AVR - 2017.
- check echo.
CVA - 02/17/25.
- not on OAC, recommend OAC as above.
HTN - stable on medical therapy, continue.
Data Reviewed
-
EKG: Tracing Personally Visualized and interpreted (Afib with RVR 102 bpm, [id number])
Radiology: Report Reviewed by me (CXR: No radiographic evidence for acute pulmonary edema or pleural effusion.)
Medical Tests (Nuc Med, Echo etc): Report Reviewed by me (cath 09/2017 single vessel CAD, EF 63%.)
Labs: Labs Reviewed by me
Old Records: Reviewed
--- NOTE | 2025-08-22 13:38 | W.PN.HOSP.TC ---
Today's Communication/Plan
-
Cardiology consult
Echocardiogram pending
JOEL stockings
Abdominal x-ray with large colonic stool burden
Enema
Assessment / Plan
Assessment / Plan
Impression:
85-year-old female history of severe aortic stenosis status post aortic valve replacement, CAD status post CABG, paroxysmal atrial fibrillation on Eliquis, paroxysmal SVT, bradycardia/possible sick sinus syndrome, hypertension, hyperlipidemia,
spinal fusion/chronic back pain, remote history of syncope after back surgery, bilateral cataract surgery, fibromyalgia, urinary retention with current Godfrey catheter placed last week presenting for leg swelling and weight gain and chest tightness
but denies shortness of breath.� She had urinary symptoms last week treated with antibiotic and Godfrey catheter, She has lower abdominal pain with no bowel movement in 6 days.
Patient with primary issue of increased lower extremity edema, seemingly mild CHF exacerbation. �40 IV Lasix was given. Continue home dose lasix thereafter.�
Patient also with subclinical hypothyroidism with TSH of 34, free T4 of 1.07. �Increase levothyroxine from 25 mcg to 37.5 mcg.
Patient also with constipation. Received a bowel regimen now she has diarrhea.
Still bilateral extremity RACHELLE, switch Lasix to IV
Assessment/plan:
bilateral lower extremity edema
Acute on Chronic Diastolic CHF ?
pBNP 1490
previous hospitalization nots indicate 07/26/25 weight was 75kg
CXR: 1. No radiographic evidence for acute pulmonary edema or pleural effusion.
Outpatient pipe and tank fabricator Dr. Colvin, Dr. Raman and bias machine operator helper of [place]
-Cardiology consult
-Update echocardiogram
Patient received IV Lasix 20 mg daily.
Was orthostatic with physical therapy.
Switch to oral lasix 20 mg
Orthostatic hypotension.
Orthostatic vitals today showed orthostatic hypotension
Switch Lasix to oral
- JOEL stockings
UTI
- continue cefuroxime (was prescribed as outpatient for 10 days starting 08/12)
Hyponatremia, resolved
Continue to monitor
hypokalemia, improved
Replace and continue to monitor
Urinary retention
Godfrey in place at arrival
likely 2/2 constipation
- monitor I & Os
Constipation
-Colace twice daily
-MiraLAX daily
-Senokot twice daily
- Enema 08/22
- 08/22 abdominal x-ray with large colonic stool burden, nonobstructive gas pattern
Paroxysmal atrial fibrillation
- continue amiodarone
- Rate controlled
CAD
- continue aspirin
Hypothyroidism
TSH 34.40
- increase levothyroxine 37.5 mcg
Fibromyalgia
- continue gabapentin
Severe aortic stenosis
Hypertension
Coccyx/buttock pressure injury stage 2.
Wound care consult
CODE STATUS: Full code
DVT prophylaxis: Heparin
Diet: Cardiac diet
Disposition: Physical therapy recommending SNF
Anticipated Discharge: Within 24 hours
Subjective/Interval History
-
Saw patient at bedside, complained of abdominal pain/burning feels like she is constipated again. Patient is unclear whether she has had a diagnosis of heart failure before, reports she was taken off of her anticoagulation for planned procedure but
never put back on follows with Dr. Raman and Dr. Colvin at [facility] operator [facility] of [place]. Reports no shortness of breath no chest pain no palpitations no nausea or vomiting no fevers or chills. Date of Service: August 22, 2025
Objective Data
-
Labs:
Laboratory Results
08/22/25
08:16
WBC 6.0
Hgb 10.4 L
Hct 32.2 L
Plt Count 239
Sodium 136
Potassium 4.5 D
Chloride 100
Carbon Dioxide 32 H
BUN 15
Creatinine 1.1 H
Glucose 87
Calcium 9.0
Vital Signs:
Vital Signs
Temp Pulse Resp BP Pulse Ox
97.8 F 89 17 143/77 98
08/22/25 11:17 08/22/25 11:17 08/22/25 11:17 08/22/25 11:17 08/22/25 11:17
I&O
08/21/25 08/22/25 08/23/25
06:59 06:59 06:59
Intake Total 520 / 520 1440 / 1440
Output Total 1100 / 1100 2500 / 2500
Balance -580 / -580 -1060 / -1060
Review of Systems
-
History Source: Patient
Constitutional: Denies Fever or Chills
EENT: Denies Runny Nose
Respiratory: Denies Cough, Trouble Breathing or Wheezing
Cardiac: Denies Chest Pain or Palpitations
Abdomen/GI: Reports Abdominal Pain and Constipated; Denies Nausea, Vomiting or Diarrhea
Genitourinary: Denies Dysuria
Skin: Denies Itching or Rash
Neuro: Denies Headache or Weakness
Physical Exam
-
General: Well Developed, Well Nourished, No Apparent Distress and Comfortable; Negative Fever
HEENT: Atraumatic
Respiratory: Clear to Auscultation; Negative Wheezes or Non Labored Respirations
Cardiac: S1/S2 and Irregular Rhythm; Negative Murmur
GI: Soft, Nontender, Nondistended and Normal Bowel Sounds
Musculoskeletal: No Clubbing and No Edema
Skin: Warm and Dry
Neuro: Awake, Alert and Oriented
[2025-08-22] MEDS: NSS 250 IV (16:38)
--- NOTE | 2025-08-22 16:43 | CM ---
Patient wants to return to home when stable, has declined skilled placement, patient has been set up with [facility] visiting nurses.
Plan; Home with [facility] visiting nurses
[facility]
[phone]
[2025-08-23] VITALS (7 sets, daily range): BP systolic 107–177; BP diastolic 55–103; BMI 28.3
[2025-08-23] MEDS: SYNTHROID 37.5 MCG PO (05:49)
[2025-08-23 06:50] LABS: Hematocrit 30.8 % (37.0-47.0); Hemoglobin 10.4 g/dL (12.0-16.0); Mean Corp Hgb Conc. 33.8 g/dL (33.0-37.0); Mean Corpuscular Volume 91.9 fL (81.0-99.0); Platelet Count 245 10^3/uL (130-400); Red Cell Dist. Width 13.7 % (11.5-14.5)
[2025-08-23 07:14] LABS: Blood Urea Nitrogen 14 mg/dl (7-17); Calcium 8.9 mg/dl (8.4-10.2); Carbon Dioxide 27 mmol/L (22-30); Chloride 101 mmol/L (98-107); Estimated Creatinine Clearance 37 ml/min; Glucose 77 mg/dl (70-99); Potassium 3.3 mmol/L (3.5-5.1); Sodium 134 mmol/L (135-145); eGFR 55.55
[2025-08-23] MEDS: KCL 40 MEQ PO (08:22)
[2025-08-23] MEDS: SENOKOT 17.2 MG PO ×2 (08:25→20:18)
[2025-08-23] MEDS: COLACE 100 MG PO ×2 (08:29→20:17)
[2025-08-23] MEDS: HEPARIN 5000 UNITS SC ×2 (08:29→15:37)
[2025-08-23] MEDS: LASIX 20 MG PO (08:29)
[2025-08-23] MEDS: PACERONE 200 MG PO (08:30)
[2025-08-23] MEDS: ASPIR LOW (ENTERIC COATED) 81 MG PO (08:30)
[2025-08-23] MEDS: DESENEX/MITRAZOL/ZEASORB 1 APPLIC TOPICAL ×2 (08:31→20:17)
--- NOTE | 2025-08-23 10:32 | W.PN.HOSP.TC ---
Today's Communication/Plan
-
Midodrine as needed
Void trial
Echo EF 50-55%
Dispo planning
Assessment / Plan
Assessment / Plan
Impression:
85-year-old female history of severe aortic stenosis status post aortic valve replacement, CAD status post CABG, paroxysmal atrial fibrillation on Eliquis, paroxysmal SVT, bradycardia/possible sick sinus syndrome, hypertension, hyperlipidemia,
spinal fusion/chronic back pain, remote history of syncope after back surgery, bilateral cataract surgery, fibromyalgia, urinary retention with current Godfrey catheter placed last week presenting for leg swelling and weight gain and chest tightness
but denies shortness of breath.� She had urinary symptoms last week treated with antibiotic and Godfrey catheter, She has lower abdominal pain with no bowel movement in 6 days.
Patient with primary issue of increased lower extremity edema, seemingly mild CHF exacerbation. �40 IV Lasix was given. Continue home dose lasix thereafter.�
Patient also with subclinical hypothyroidism with TSH of 34, free T4 of 1.07. �Increase levothyroxine from 25 mcg to 37.5 mcg.
Patient also with constipation. Received a bowel regimen now she has diarrhea.
Still bilateral extremity RACHELLE, switch Lasix to IV
Assessment/plan:
#Bilateral lower extremity edema, resolving
#Acute on Chronic Diastolic CHF with preserved ejection fraction, resolved
pBNP 1490
previous hospitalization nots indicate 07/26/25 weight was 75kg
CXR: 1. No radiographic evidence for acute pulmonary edema or pleural effusion.
Outpatient boats renter Dr. Colvni, Dr. Raman and wharf tender helper of [place]
-Cardiology consult appreciate recs
- echocardiogram: EF 50-55%, bio-AVR
Was orthostatic with physical therapy.
Switch to oral lasix 20 mg
#Orthostatic hypotension
Due to autonomic dysfunction
Outpatient patient was prescribed midodrine 5 mg 3 times daily, patient did not tolerate well
Midodrine 2.5 mg as needed with therapy
Repeat orthostatic vitals
Switch Lasix to oral
- Tubigrip stockings
UTI
- Completed cefuroxime
- Godfrey in place
Hyponatremia, resolved
Continue to monitor
hypokalemia, improved
Replace and continue to monitor
Urinary retention
Godfrey in place at arrival
likely 2/2 constipation
- monitor I & Os
- Void trial
- Measure PVR
Constipation, resolving
Patient reports not taking opioids
-Colace twice daily
-MiraLAX on hold as it makes patient constipated
-Senokot twice daily
- Enema 08/22
- 08/22 abdominal x-ray with large colonic stool burden, nonobstructive gas pattern
- Manual disimpaction 08/22
Paroxysmal atrial fibrillation
- continue amiodarone
- Rate controlled
- Not on Eliquis due to history of hemorrhagic stroke and cerebral amyloid angiopathy
CAD
- continue aspirin
Hypothyroidism
TSH 34.40
- increase levothyroxine 37.5 mcg
Fibromyalgia
- continue gabapentin
Severe aortic stenosis
Hypertension
Coccyx/buttock pressure injury stage 2.
Wound care consult
CODE STATUS: Full code
DVT prophylaxis: Heparin
Diet: Cardiac diet
Disposition: Physical therapy recommending SNF
Anticipated Discharge: Within 24 hours
Subjective/Interval History
-
Patient seen at bedside. She feels much better than yesterday and was able to stool after disimpaction twice. She reports no fevers chills shortness of breath or vomiting. She does report mild nausea and mild headache. Date of Service: August
2024
Objective Data
-
Labs:
Laboratory Results
08/23/25
05:54
WBC 7.3
Hgb 10.4 L
Hct 30.8 L
Plt Count 245
Sodium 134 L
Potassium 3.3 L D
Chloride 101
Carbon Dioxide 27
BUN 14
Creatinine 1.0
Glucose 77
Calcium 8.9
Vital Signs:
Vital Signs
Temp Pulse Resp BP Pulse Ox
98.3 F 96 18 146/96 99
08/23/25 07:07 08/23/25 07:07 08/23/25 07:07 08/23/25 07:07 08/23/25 07:07
I&O
08/22/25 08/23/25 08/24/25
06:59 06:59 06:59
Intake Total 1440 / 1440 480 / 480
Output Total 2500 / 2500 2200 / 2200
Balance -1060 / -1060 -1720 / -1720
Review of Systems
-
History Source: Patient
Constitutional: Denies Fever or Chills
EENT: Denies Sore Throat or Runny Nose
Respiratory: Denies Cough or Trouble Breathing
Cardiac: Denies Chest Pain or Palpitations
Abdomen/GI: Reports Nausea; Denies Abdominal Pain, Vomiting, Diarrhea or Constipated
Genitourinary: Denies Dysuria
Musculoskeletal: Denies Edema
Neuro: Reports Headache; Denies Weakness or Numbness
Physical Exam
-
General: Well Developed, Well Nourished, No Apparent Distress and Comfortable; Negative Fever or Chills
HEENT: Normocephalic and Atraumatic
Respiratory: Clear to Auscultation and Non Labored Respirations; Negative Wheezes or Crackles
Cardiac: S1/S2 and Irregular Rhythm; Negative Murmur
GI: Soft, Nontender, Nondistended and Normal Bowel Sounds
Genito-urinary: Clear Urine and Godfrey
Musculoskeletal: No Clubbing and No Edema
Skin: Warm and Dry
Neuro: Awake, Alert and Oriented
--- NOTE | 2025-08-23 16:15 | CM ---
F/U: Hospitalist put in consult, FAHAD Bradford read notes and told Hospitalist patient is set up with [facility] when she can discharge, patient cannot go to SNF. IMM completed. PLAN: Home w/ [facility].
[2025-08-24] VITALS (9 sets, daily range): BP systolic 100–159; BP diastolic 64–91; PULSE 82–105; O2SAT 99; BMI 28.4
[2025-08-24] MEDS: HEPARIN 5000 UNITS SC ×3 (00:22→16:34)
[2025-08-24] MEDS: SYNTHROID 37.5 MCG PO (03:56)
[2025-08-24] MEDS: COLACE 100 MG PO (08:15)
[2025-08-24] MEDS: ASPIR LOW (ENTERIC COATED) 81 MG PO (08:15)
[2025-08-24] MEDS: PACERONE 200 MG PO (08:15)
[2025-08-24] MEDS: LASIX 20 MG PO (08:15)
[2025-08-24] MEDS: SENOKOT 17.2 MG PO (08:15)
[2025-08-24] MEDS: DESENEX/MITRAZOL/ZEASORB 1 APPLIC TOPICAL ×2 (08:16→20:32)
--- NOTE | 2025-08-24 10:16 | W.PN.HOSP.TC ---
Today's Communication/Plan
-
Repeat orthostatics
Dispo pending
Assessment / Plan
Assessment / Plan
Impression:
85-year-old female history of severe aortic stenosis status post aortic valve replacement, CAD status post CABG, paroxysmal atrial fibrillation on Eliquis, paroxysmal SVT, bradycardia/possible sick sinus syndrome, hypertension, hyperlipidemia,
spinal fusion/chronic back pain, remote history of syncope after back surgery, bilateral cataract surgery, fibromyalgia, urinary retention with current Godfrey catheter placed last week presenting for leg swelling and weight gain and chest tightness
but denies shortness of breath.� She had urinary symptoms last week treated with antibiotic and Godfrey catheter, She has lower abdominal pain with no bowel movement in 6 days.
Patient with primary issue of increased lower extremity edema, seemingly mild CHF exacerbation. �40 IV Lasix was given. Continue home dose lasix thereafter.�
Patient also with subclinical hypothyroidism with TSH of 34, free T4 of 1.07. �Increase levothyroxine from 25 mcg to 37.5 mcg.
Patient also with constipation. Received a bowel regimen now she has diarrhea.
Still bilateral extremity RACHELLE, switch Lasix to IV
Assessment/plan:
#Bilateral lower extremity edema, resolving
#Acute on Chronic Diastolic CHF with preserved ejection fraction, resolved
pBNP 1490
previous hospitalization nots indicate 07/26/25 weight was 75kg
CXR: 1. No radiographic evidence for acute pulmonary edema or pleural effusion.
Outpatient ring barker operator Dr. Colvin, Dr. Raman and portrait artist of [place]
-Cardiology consult appreciate recs
- echocardiogram: EF 50-55%, bio-AVR
Was orthostatic with physical therapy.
Switch to oral lasix 20 mg
#Orthostatic hypotension
Due to autonomic dysfunction
Outpatient patient was prescribed midodrine 5 mg 3 times daily, patient did not tolerate well
Midodrine 2.5 mg as needed with therapy
Repeat orthostatic vitals
Switch Lasix to oral
- Tubigrip stockings
UTI
- Completed cefuroxime
- Godfrey in place
Hyponatremia, resolved
Continue to monitor
hypokalemia, improved
Replace and continue to monitor
Urinary retention
Godfrey removed
likely 2/2 constipation
- monitor I & Os
- Void trial successful
Constipation, resolving
Patient reports not taking opioids
-Colace twice daily
-MiraLAX on hold as it makes patient constipated
-Senokot twice daily
- Enema 08/22
- 08/22 abdominal x-ray with large colonic stool burden, nonobstructive gas pattern
- Manual disimpaction 08/22
Paroxysmal atrial fibrillation
- continue amiodarone
- Rate controlled
- Not on Eliquis due to history of hemorrhagic stroke and cerebral amyloid angiopathy
CAD
- continue aspirin
Hypothyroidism
TSH 34.40
- increase levothyroxine 37.5 mcg
Fibromyalgia
- continue gabapentin
Severe aortic stenosis
Hypertension
Coccyx/buttock pressure injury stage 2.
Wound care consult
CODE STATUS: Full code
DVT prophylaxis: Heparin
Diet: Cardiac diet
Disposition: Physical therapy recommending SNF
Anticipated Discharge: Within 24 hours
Subjective/Interval History
-
Patient seen at bedside, with no complaints. Patient was able to pass void trial yesterday. Patient still feels weak to walk, discussed that we will get PT involved otherwise no chest pain palpitations no shortness of breath no abdominal pain no
nausea no vomiting or constipation. Date of Service: August 24, 2025
Objective Data
-
Labs:
Laboratory Results
08/24/25
06:00
WBC Pending
Hgb Pending
Hct Pending
Plt Count Pending
Sodium Pending
Potassium Pending
Chloride Pending
Carbon Dioxide Pending
BUN Pending
Creatinine Pending
Glucose Pending
Calcium Pending
Vital Signs:
Vital Signs
Temp Pulse Resp BP Pulse Ox
98.4 F 86 18 150/91 98
08/24/25 07:12 08/24/25 07:12 08/24/25 07:12 08/24/25 08:15 08/24/25 07:12
I&O
08/23/25 08/24/25 08/25/25
06:59 06:59 06:59
Intake Total 480 / 480 640 / 640
Output Total 2200 / 2200
Balance -1720 / -1720 640 / 640
Review of Systems
-
History Source: Patient
Constitutional: Reports No Symptoms; Denies Fever or Chills
EENT: Reports No Symptoms Reported; Denies Runny Nose
Respiratory: Reports No Symptoms; Denies Cough or Trouble Breathing
Cardiac: Denies Chest Pain or Palpitations
Abdomen/GI: Denies Abdominal Pain, Nausea, Vomiting, Diarrhea or Constipated
Genitourinary: Denies Dysuria
Musculoskeletal: Reports Joint Pain (Hip pain at site of arthroplasty)
Neuro: Reports Weakness; Denies Headache
Physical Exam
-
General: Well Developed, Well Nourished, No Apparent Distress and Comfortable; Negative Fever
HEENT: Normocephalic and Atraumatic
Respiratory: Clear to Auscultation and Non Labored Respirations; Negative Wheezes or Crackles
Cardiac: S1/S2 and Irregular Rhythm; Negative Murmur
GI: Soft, Nontender, Nondistended and Normal Bowel Sounds
Genito-urinary: Negative Godfrey
Musculoskeletal: No Clubbing and No Edema
Skin: Warm and Dry
Neuro: Awake and Alert
Psych: Calm
--- NOTE | 2025-08-24 12:01 | PTCARENOTE ---
pt was assisted up to the chair by PT/OT. While only sitting in the chair for five minutes, the pt rang and said that she didn't feel right. The tech was taking vital signs and I had asked her to get some vital signs, and she was 77/40. We helped
her up from the chair and got her back to bed and within two minutes his BP was in the 130's/80's. + orthos noted.
[2025-08-24 12:41] LABS: Hematocrit 32.0 % (37.0-47.0); Hemoglobin 10.5 g/dL (12.0-16.0); Mean Corp Hgb Conc. 32.8 g/dL (33.0-37.0); Mean Corpuscular Volume 94.7 fL (81.0-99.0); Platelet Count 235 10^3/uL (130-400); Red Cell Dist. Width 13.8 % (11.5-14.5)
[2025-08-24 12:58] LABS: Blood Urea Nitrogen 16 mg/dl (7-17); Calcium 9.0 mg/dl (8.4-10.2); Carbon Dioxide 27 mmol/L (22-30); Chloride 101 mmol/L (98-107); Estimated Creatinine Clearance 34 ml/min; Glucose 99 mg/dl (70-99); Potassium 3.4 mmol/L (3.5-5.1); Sodium 131 mmol/L (135-145); eGFR 49.55
--- NOTE | 2025-08-24 15:08 | CM ---
publication manager reviewed patient's chart and spoke with team today, and plan is for possible evaluation for acute rehab, options reviewed with patient and she is agreeable to [facility], referral sent to [facility] at [place]
Plan; Referral sent to [facility] at [facility].
[2025-08-24] MEDS: SENOKOT PO (20:32)
[2025-08-24] MEDS: COLACE PO (20:32)
[2025-08-25] MEDS: TYLENOL 650 MG PO (00:11)
[2025-08-25] MEDS: HEPARIN 5000 UNITS SC ×3 (00:12→15:15)
[2025-08-25 03:00] VITALS: BP 146/83
[2025-08-25] MEDS: ZOFRAN 4 MG PO (03:02)
[2025-08-25] MEDS: SYNTHROID 37.5 MCG PO (05:18)
[2025-08-25] MEDS: COLACE PO (08:01)
[2025-08-25] MEDS: SENOKOT PO (08:01)
[2025-08-25] MEDS: PACERONE 200 MG PO (08:02)
[2025-08-25] MEDS: ASPIR LOW (ENTERIC COATED) 81 MG PO (08:02)
[2025-08-25] MEDS: DESENEX/MITRAZOL/ZEASORB 1 APPLIC TOPICAL ×2 (08:03→21:04)
[2025-08-25] MEDS: LASIX 20 MG PO (08:04)
--- NOTE | 2025-08-25 10:26 | W.PN.HOSP.TC ---
Addendum entered and electronically signed by Samia Colmenares MD 08/25/25 12:14:
Attending�addendum:
I saw and evaluated the patient. I reviewed the resident�s note and agree with findings and plan as documented in the resident�s note.��patient seen and examined at bedside, denies any chest pain or shortness of breath, no abdominal pain, no nausea,
no vomiting, no diarrhea or constipation.
Physical�exam:
GENERAL : Patient is awake, alert, oriented x3
HEENT: Nonicteric sclerae, PERRLA, EOMI. Oropharynx clear. Moist mucous membranes. Conjunctivae appear well perfused.
CHEST: Chest wall is nontender.
HEART: Regular rate and rhythm without murmurs.
LUNGS: Clear to auscultation bilaterally.
ABDOMEN: Soft, positive bowel sounds, nontender, no organomegaly.
RECTAL: Deferred.
MUSCLES/EXTREMITIES: Improved edema
NEUROLOGIC: Cranial nerves II-XII intact without motor/sensory deficit.
�
Assessment/plan:
Acute on chronic diastolic CHF.
Continue Lasix
Orthostatic hypotension.
Added midodrine.
PT/OT,
UTI.
Completed cephalexin
Urinary retention.
Godfrey removed
CODE STATUS: Full code
DVT prophylaxis: Heparin
Diet: cardiac diet
Disposition: Requires statics, midodrine, PT evaluation.
�
Total time spent on today�s encounter was 51 minutes which included time spent in counseling the patient/family regarding diagnosis and treatment plan as listed above, goals of care, and symptom management. Case was discussed with nursing staff,
specialists, and care coordinators/case management. All labs and imaging personally reviewed by me. Remainder the time spent in detailed review of previous records, lab data, imaging, and other medical provider documentation.
Original Note:
Today's Communication/Plan
-
Scheduled midodrine
PM&R consult
Dispo planning
Assessment / Plan
Assessment / Plan
Impression:
85-year-old female history of severe aortic stenosis status post aortic valve replacement, CAD status post CABG, paroxysmal atrial fibrillation on Eliquis, paroxysmal SVT, bradycardia/possible sick sinus syndrome, hypertension, hyperlipidemia,
spinal fusion/chronic back pain, remote history of syncope after back surgery, bilateral cataract surgery, fibromyalgia, urinary retention with current Godfrey catheter placed last week presenting for leg swelling and weight gain and chest tightness
but denies shortness of breath. she had urinary symptoms last week treated with antibiotic and Godfrey catheter, She has lower abdominal pain with no bowel movement in 6 days and received manual disimpaction in the ER. proBNP measured at 1490,
patient received IV Lasix for edema and exacerbation. Cardiology was consulted who updated her echo which showed an EF of 50-55%, stable bio AVR. Outside rate quoting operator were contacted provided more information of patient's home regimen and lack of AC
due to brain hemorrhage previously. Patient also was receiving midodrine outpatient for orthostatic hypotension which was resumed here. Patient's constipation worsened requiring manual disimpaction a second time with relief. After resolving
constipation patient was able to complete successful void trial after completion of antibiotics.
Patient with primary issue of increased lower extremity edema, seemingly mild CHF exacerbation. �40 IV Lasix was given. Continue home dose lasix thereafter.�
Patient also with subclinical hypothyroidism with TSH of 34, free T4 of 1.07. �Increase levothyroxine from 25 mcg to 37.5 mcg.
Patient also with constipation. Received a bowel regimen now she has diarrhea.
Still bilateral extremity RACHELLE, switch Lasix to IV
Assessment/plan:
#Bilateral lower extremity edema, resolving
#Acute on Chronic Diastolic CHF with preserved ejection fraction, resolved
pBNP 1490
previous hospitalization nots indicate 07/26/25 weight was 75kg
CXR: 1. No radiographic evidence for acute pulmonary edema or pleural effusion.
Outpatient rate quoting operator Dr. Colvin, Dr. Raman and substation wireman of [place]
-Cardiology consult appreciate recs
- echocardiogram: EF 50-55%, bio-AVR
Was orthostatic with physical therapy.
Switch to oral lasix 20 mg
#Orthostatic hypotension
Due to autonomic dysfunction
Outpatient patient was prescribed midodrine 5 mg 3 times daily, patient did not tolerate well
Midodrine 2.5 mg scheduled
Repeat orthostatic vitals
Switch Lasix to oral
- Tubigrip stockings
- Consider abdominal binder
UTI
- Completed cefuroxime
- Godfrey removed
Hyponatremia, resolved
Continue to monitor
hypokalemia, improved
Replace and continue to monitor
Urinary retention
Godfrey removed
likely 2/2 constipation
- monitor I & Os
- Void trial successful
Constipation, resolving
Patient reports not taking opioids
-Colace twice daily
-MiraLAX on hold as it makes patient constipated
-Senokot twice daily
- Enema 08/22
- 08/22 abdominal x-ray with large colonic stool burden, nonobstructive gas pattern
- Manual disimpaction 08/22
Paroxysmal atrial fibrillation
- continue amiodarone
- Rate controlled
- Not on Eliquis due to history of hemorrhagic stroke and cerebral amyloid angiopathy
CAD
- continue aspirin
Hypothyroidism
TSH 34.40
- increase levothyroxine 37.5 mcg
Fibromyalgia
- continue gabapentin
Severe aortic stenosis
Hypertension
Coccyx/buttock pressure injury stage 2.
Wound care consult
CODE STATUS: Full code
DVT prophylaxis: Heparin
Diet: Cardiac diet
Disposition: Physical therapy recommending acute, PM&R consult
Anticipated Discharge: Within 24 hours
Subjective/Interval History
-
Patient was seen at bedside, reported dizziness and orthostasis yesterday during PT. Blood pressures dropped to 70/40 this morning without dizziness in bed patient amenable to trying midodrine. No shortness of breath no chest pain no nausea no
vomiting. Date of Service: August 25, 2025
Objective Data
-
Vital Signs:
Vital Signs
Temp Pulse Resp BP Pulse Ox
97.6 F 81 16 146/83 98
08/25/25 03:00 08/25/25 03:00 08/25/25 03:00 08/25/25 03:00 08/25/25 03:00
I&O
08/24/25 08/25/25 08/26/25
06:59 06:59 06:59
Intake Total 640 / 640 540 / 540
Balance 640 / 640 540 / 540
Review of Systems
-
History Source: Patient
Constitutional: Denies Fever or Chills
EENT: Denies Sore Throat or Runny Nose
Respiratory: Denies Cough or Trouble Breathing
Cardiac: Denies Chest Pain or Palpitations
Abdomen/GI: Denies Abdominal Pain, Nausea, Vomiting, Diarrhea or Constipated
Genitourinary: Denies Dysuria
Musculoskeletal: Denies Edema
Skin: Denies Itching or Rash
Neuro: Reports Dizzy; Denies Headache or Weakness
Physical Exam
-
General: Well Developed, Well Nourished, No Apparent Distress and Comfortable; Negative Fever
HEENT: Normocephalic and Atraumatic
Respiratory: Clear to Auscultation and Non Labored Respirations; Negative Wheezes or Crackles
Cardiac: S1/S2 and Irregular Rhythm; Negative Murmur
GI: Soft, Nontender, Nondistended and Normal Bowel Sounds
Musculoskeletal: No Clubbing and No Edema
Neuro: Awake and Alert
[2025-08-25 11:49] VITALS: BP 102/62; BP 110/69; BP 132/75; PULSE 114; PULSE 81; PULSE 86
[2025-08-25 13:23] VITALS: BP 128/63
--- NOTE | 2025-08-25 13:26 | CM ---
Chart reviewed, referral sent to [facility] acute rehab at [facility], PM&R have been consulted.
Plan: Await PM&R, referral sent to [facility] at [facility].
[2025-08-25 17:22] VITALS: BP 121/77; BP 126/80; PULSE 81; PULSE 86; PULSE 93; O2SAT 96
[2025-08-25 19:32] VITALS: BP 110/62
[2025-08-25] MEDS: COLACE 100 MG PO (21:04)
[2025-08-25] MEDS: SENOKOT 17.2 MG PO (21:04)
[2025-08-25 23:13] VITALS: BP 158/77
[2025-08-26] MEDS: HEPARIN 5000 UNITS SC ×2 (00:13→07:28)
[2025-08-26] MEDS: TYLENOL 650 MG PO (03:06)
[2025-08-26 03:09] VITALS: BP 136/78
[2025-08-26] MEDS: SYNTHROID 37.5 MCG PO (05:04)
[2025-08-26 06:00] VITALS: BMI 28.8
[2025-08-26 07:00] VITALS: BP 141/80
[2025-08-26] MEDS: COLACE 100 MG PO (07:25)
[2025-08-26] MEDS: PACERONE 200 MG PO (07:25)
[2025-08-26] MEDS: SENOKOT 17.2 MG PO (07:26)
[2025-08-26] MEDS: DESENEX/MITRAZOL/ZEASORB 1 APPLIC TOPICAL (07:26)
[2025-08-26] MEDS: NEURONTIN 100 MG PO (07:26)
[2025-08-26] MEDS: ASPIR LOW (ENTERIC COATED) 81 MG PO (07:26)
[2025-08-26] MEDS: LASIX 20 MG PO (07:30)
[2025-08-26 07:52] LABS: Hematocrit 29.3 % (37.0-47.0); Hemoglobin 10.2 g/dL (12.0-16.0); Mean Corp Hgb Conc. 34.8 g/dL (33.0-37.0); Mean Corpuscular Volume 92.1 fL (81.0-99.0); Platelet Count 225 10^3/uL (130-400); Red Cell Dist. Width 13.6 % (11.5-14.5)
[2025-08-26 08:24] LABS: Calcium 9.1 mg/dl (8.4-10.2); Carbon Dioxide 25 mmol/L (22-30); Glucose 84 mg/dl (70-99); Potassium 4.0 mmol/L (3.5-5.1)
--- NOTE | 2025-08-26 08:30 | CON.MD ---
Documented by User: Tamara Terry PA-C 08/26/25 09:35
Consultation - Medical
-
Referring Provider:�Aiden Osman
Chief Complaint:�Debility, CHF
�
History of Present Illness:�85-year-old female with PMH of (severe aortic stenosis s/p aortic valve replacement, CAD s/p CABG, paroxysmal atrial fibrillation on Eliquis, paroxysmal SVT, bradycardia/possible sick sinus syndrome, hypertension,
hyperlipidemia, spinal fusion/chronic back pain, remote history of syncope after back surgery, bilateral cataract surgery, fibromyalgia, urinary retention with current Godfrey catheter placed last week presenting for leg swelling and weight gain and
chest tightness but denies shortness of breath.�
She had urinary symptoms last week was treated with antibiotic and Godfrey catheter at [facility]. She has lower abdominal pain with no bowel movement in 6 days. Vital signs show tachycardia up to 107. Labs show cardiac BNP of 1500. �Troponin negative.
Chest x-ray shows no acute abnormality. Patient with primary issue of increased lower extremity edema, seemingly mild CHF exacerbation. �40 IV Lasix was given.
Cardiology was consulted who updated her echo which showed an EF of 50-55%, stable bio AVR. Outside garment cutter ([facility]- Dr. Cabrera- per patient is her garment cutter) were contacted provided more information of patient's home regimen and lack of
AC due to brain hemorrhage previously. Patient also was receiving midodrine outpatient for orthostatic hypotension which was resumed here. Patient's constipation worsened requiring manual disimpaction a second time with relief. After resolving
constipation patient was able to complete successful void trial after completion of antibiotics.
Patient seen at bedside, she is overall improving and doing better. 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 She was told that she has multiple microhemorrhage in her brain. She was hospitalized at [facility]. She has minimal residual
weakness on the right upper extremity. She has weakness in bilateral lower extremities due to lumbar spinal fusion. She also has difficulty with fine motor skills, writing with her right hand and tingling in the bilateral hands, she thinks since
the stroke. She currently voices low back pain rated at 7/10. Cannot find a comfortable position in bed. She also have radicular pain down the bilateral anterior thighs described as an ache. She has some bladder urgency and incontinence due to
inability to get to the bathroom on time. At home she usually uses a pull-up.
She report her last bowel movement to have been 3 days ago. States that MiraLAX does the opposite and causes constipation for her. She is on senna and Colace. She is currently voiding without any issues. She has urinary frequency due to water
pill.
She does not voice any chest pain, shortness of breath, dizziness, lightheadedness, nausea, vomiting, fever, chills, dysuria, abdominal pain. She has orthostasis with standing. She feels that the Tubigrip make her legs stronger when she has them
on. She was receiving home PT/OT once a week at home since her stroke.
�
Past Medical History:�Fibromyalgia, hypertension, constipation, UTI, paroxysmal atrial fibrillation, CAD, severe aortic stenosis,
Procedure History:�Spinal fusion�03/2016, laparoscopy�03/2016, tonsillectomy�195, cataract surgery�left eye�200, right eye�200, left elbow fracture, left wrist injury, left rotator cuff tear from syncope/fall�03/2016, AVR�11/09/2017, CABG x 1 with
SVG to PDA�11/09/2017
Family History:�Mom�hypertension, heart disease, Dad� from [place], brother�CVA, heart disease
�
Social History:�
Functional Level Premorbidly:�Independent with all activities, has [facility] visiting nursing�
Functional Level Currently:�Bed mobility�min assist, transfer�mid�mod assist, ambulation�1 time 15 feet with rolling walker and mod assist x 1. Second person for chair follow given concerns for orthostasis, lower extremity care�dependent,
�
Tobacco:�Denies�
Alcohol:�Denies�
Drug use:�Denies�
�
Lives with:�At home with disabled daughter. Both have left recliners and rolling walkers, Meals on Wheels and grandson who delivers food
24-hour assistance available:�Patient and daughter help each other as far as housework and ADLs. Patient was having home care
Number of floors:�multi level
# steps to enter:�1 7
# steps to second floor:
Potential First floor set up:�Yes
Driving:�no
Occupation:�Retired
�
�
Allergies:�
Allergy/AdvReac Type Severity Reaction Status Date / Time
bee venom protein (honey bee) Allergy Anaphylaxis Verified 11/26/17 12:18
hydromorphone Allergy Vomiting Verified 08/18/25 20:46
nitrofurantoin Allergy rash and Verified 08/18/25 20:46
itch
nitroglycerin Allergy 'bottomed Verified 11/26/17 12:18
out' with
SL
spider venom Allergy 'poisoning' Verified 11/26/17 12:18
sulfamethoxazole Allergy rash and Verified 08/18/25 20:46
itch
trimethoprim Allergy rash and Verified 08/18/25 20:46
itch
�
Review of Systems:�
Constitutional: (x) Normal _
Eye: (x) Normal _
Ear/Nose/Throat: (x) Normal _
Respiratory: (x) Normal _
Cardiovascular: (x) abNormal _A-fib, bilateral leg edema, CHF, orthostatic hypotension
Gastrointestinal: (x) abNormal _constipation requiring disimpaction
Genitourinary: (x) abNormal _urinary retention requiring Godfrey placement and removal
Musculoskeletal: (x) abNormal _low back and bilateral thigh pain, numbness bilateral hands
Integumentary: (x) Normal _
Neurologic: (x) Normal _
Psychiatric: (x) Normal _
Endocrine: (x) abNormal _hypothyroidism
Hematologic/Lymphatic: (x) Normal _
Allergic/Immunologic: (x) Normal _
�
Medications:�
Active Current Visit Medication List
Category Date Time Status
Acetaminophen [Tylenol] Med 08/20/25 09:23 Active
650 mg PO Q6HPRN PRN
Amiodarone [Pacerone] Med 08/19/25 08:00 Active
200 mg PO DAILY
Aspirin Low Dose EC [Aspir Low (Enteric Coated)] Med 08/19/25 08:00 Active
81 mg PO DAILY
Bisacodyl [Dulcolax] Med 08/18/25 22:59 Active
10 mg RECTAL [id number] PRN
Docusate Sodium [Colace] Med 08/19/25 08:00 Active
100 mg PO BID
Flush (0.9% Sodium Chloride) [Flush (Nss)] Med 08/18/25 23:00 Active
See Dose Instructions IV PER PROTOCOL
Furosemide [Lasix] Med 08/21/25 10:00 Active
20 mg PO DAILY
Gabapentin [Neurontin] Med 08/18/25 22:59 Active
100 mg PO TIDPRN PRN mild pain
Heparin Med 08/19/25 00:00 Active
5,000 units SC Q8
Levothyroxine [Synthroid] Med 08/25/25 06:00 Active
37.5 mcg PO DAILY@0600
Miconazole Nitrate [Desenex/Mitrazol/Zeasorb] Med 08/19/25 20:00 Active
See Dose Instructions TOPICAL BID
Midodrine [ProAmatine] Med 08/24/25 20:00 Active
2.5 mg PO BID
Ondansetron HCl [Zofran] Med 08/23/25 08:48 Active
4 mg PO Q8HPRN PRN
Polyethylene Glycol Powder [Miralax] Med 08/19/25 08:00 Hold
17 grams PO DAILY
Sennosides [Senokot] Med 08/20/25 09:23 Active
17.2 mg PO BID
�
Vitals:�
Temp Pulse Resp BP Pulse Ox
98.2 F 80 16 141/80 98
08/26/25 07:00 08/26/25 07:00 08/26/25 07:00 08/26/25 07:00 08/26/25 07:00
Height 5 ft 1 in
Actual Weight 69.059 kg
Body Mass Index (BMI) 28.8
�
Physical Exam:�
General Appearance/Observation: Well-developed, well-nourished individual in no apparent distress.�
Pain/Comfort Assessment: Low back and bilateral upper thighs
Mood/Affect: Appropriate�
�
Integumentary/Operative Site:�
�� Pressure Ulcer Evaluation: absent over heels.�
��
�� Other Type of Wound: absent�
��
�
Eyes: Conjunctiva/Lids: normal���� Pupils: pupils equal round and reactive to light and Accommodation�
Ears/Nose/Throat: oral mucosa moist,� throat clear.������������ Lips/Teeth/Gums: normal�
Neck: No muscle spasm or tenderness�
Cardiovascular: Heart: irregular,irreg, murmur�
Pulses: dorsalis pedis 2+ bilaterally�
Respiratory: Respiratory Effort/Chest Expansion: normal������� Auscultation: Clear to auscultation bilaterally�
Gastrointestinal: abdomen not tender, no distension, normal abdominal bowel sounds
Genitourinary: No Godfrey�
Extremities:�Edema: b/l legs 2+�Cyanosis: None�Trophic�changes: None
�
Neurology Exam:
Orientation: Alert, Oriented to self, Time, Place�
Memory: Intact for immediate medical concerns, Good historian, good talker
Comprehension: Intact
Two step command: Intact
Naming: Intact
Cranial Nerves:
�� CNII:�Pupillary light reflex: Intact����Visual Field: Intact
�� CN III, IV, : Extraocular muscles: Intact�
�� CN V:�Facial Sensation�at�Forehead: Intact,�Maxilla: Intact,�Mandible: Intact
�� CN VII:�Facial movement: Symmetric
�� CN VIII:�Hearing: Normal
�� CN IX/X:�Speech & swallow: Normal,�Position of Uvula: Midline
�� CN XI:�Shoulder shrug: Symmetric
�� CN XII:�Tongue protrusion: Midline
Sensory:
�� Light touch: Intact in bilateral upper and lower extremities
��
�
Reflexes:
�� Biceps: 2+ bilaterally
�� Brachioradialis: 2+ bilaterally
�� Triceps: 2+ bilaterally
�� Patellar:absent bilaterally
�� Achilles:absent bilaterally
�� Babinski: Down going bilaterally
�� Clonus: None
�� Jose: Negative bilaterally�
Cerebellar: Dysmetria/Ataxia: None�
Musculoskeletal:
Motor: (Manual muscle scale 0-5)�
Muscle SA EF WE EE FF FA HF KE DF EHL PF
Right� 5 4+ 4+ 4 4 3+ 5 5 5 5 5
Left 4+ 4 4 5 4 3+ 4 4+ 5 5 5
�
Tone: Normal in all extremities�
Range of Motion: Passively within normal limits ,diminished rom of left shoulder
�
Lab Results:
Labs
WBC 5.6 10^3/uL (4.8-10.8) 08/26/25 07:16
RBC 3.18 10^6/uL (4.20-5.40) L 08/26/25 07:16
Hgb 10.2 g/dL (12.0-16.0) L 08/26/25 07:16
Hct 29.3 % (37.0-47.0) L 08/26/25 07:16
MCV 92.1 fL (81.0-99.0) 08/26/25 07:16
MCH 32.1 pg (27.0-31.0) H 08/26/25 07:16
MCHC 34.8 g/dL (33.0-37.0) 08/26/25 07:16
RDW 13.6 % (11.5-14.5) 08/26/25 07:16
Plt Count 225 10^3/uL (130-400) 08/26/25 07:16
MPV 10.0 fL (7.4-10.4) 08/26/25 07:16
Abs Immat Gran (auto) 0.0 10^3/uL (0-0.05) 08/18/25 12:53
Absolute Neuts (auto) 3.4 10^3/uL (1.4-6.5) 08/18/25 12:53
Absolute Lymphs (auto) 1.5 10^3/uL (1.2-3.4) 08/18/25 12:53
Absolute Monos (auto) 0.5 10^3/uL (0.1-0.6) 08/18/25 12:53
Absolute Eos (auto) 0.2 10^3/uL (0-0.7) 08/18/25 12:53
Absolute Basos (auto) 0.0 10^3/uL (0-0.2) 08/18/25 12:53
Immature Gran % 0.4 % (0-0.5) 08/18/25 12:53
Neutrophils % 59.8 % (42.2-75.2) 08/18/25 12:53
Lymphocytes % 26.8 % (20.5-51.1) 08/18/25 12:53
Monocytes % 8.8 % (1.7-9.3) 08/18/25 12:53
Eosinophils % 3.5 % (0-6) 08/18/25 12:53
Basophils % 0.7 % (0-2) 08/18/25 12:53
Nucleated RBC % 0 % 08/18/25 12:53
Sodium 135 mmol/L (135-145) 08/26/25 07:16
Potassium 4.0 mmol/L (3.5-5.1) 08/26/25 07:16
Chloride 103 mmol/L (98-107) 08/26/25 07:16
Carbon Dioxide 25 mmol/L (22-30) 08/26/25 07:16
BUN 18 mg/dl (7-17) H 08/26/25 07:16
Creatinine 1.2 mg/dL (0.6-1.0) H 08/26/25 07:16
Estimated Creat Clear 31 ml/min 08/26/25 07:16
eGFR 44.64 08/26/25 07:16
Glucose 84 mg/dl (70-99) 08/26/25 07:16
Calcium 9.1 mg/dl (8.4-10.2) 08/26/25 07:16
Total Bilirubin 0.8 mg/dl (0.2-1.3) 08/18/25 12:53
AST 22 U/L (14-36) 08/18/25 12:53
ALT 13 U/L (0-35) 08/18/25 12:53
Alkaline Phosphatase 81 U/L (38-126) 08/18/25 12:53
Troponin I < 0.012 ng/ml 08/18/25 17:46
Hod-W-Ujifwqicicn Pept 1490 pg/ml 08/18/25 17:46
Total Protein 8.3 g/dl (6.3-8.2) H 08/18/25 12:53
Albumin 4.5 g/dl (3.5-5.0) 08/18/25 12:53
TSH 34.40 uIU/ml (0.47-4.68) H 08/18/25 12:53
Free T4 1.07 ng/dl (0.78-2.19) 08/18/25 12:53
�
Diagnostic Results:�as per HPI�
abdominal x-ray, :
Nonobstructive bowel gas pattern. No appreciable intraperitoneal free. Chronic degenerative changes of the spine. Posterior fusion of the lower lumbar spine. Left hip hemiarthroplasty.
�
Large volume colonic stool suggesting constipation.
Nonobstructive bowel gas pattern. No appreciable intraperitoneal free. Chronic degenerative changes of the spine. Posterior fusion of the lower lumbar spine. Left hip hemiarthroplasty.
chest x-ray- 08/22/25
There is evidence for a previous midline sternotomy, coronary artery bypass graft surgery, and aortic valve replacement. The heart appears normal in size. There is severe calcific atherosclerotic plaque in the thoracic and abdominal aorta. There is
moderate tortuosity of the descending thoracic aorta. There is mild cephalization of the upper lobe pulmonary vessels. There is no focal airspace opacity suspicious for pneumonia. There is no radiographic evidence for pleural effusion or
pneumothorax.
The bones appear diffusely demineralized. There is mild bilateral osteoarthritis of the acromioclavicular joints. There is a mild right convex curvature of the midthoracic spine. There is severe multilevel lower thoracic and upper lumbar discogenic
degenerative disease. There is a vertebral body endplate insufficiency fracture in the midthoracic spine with mild to moderate loss of vertebral body height. There is no radiographic evidence for pneumoperitoneum or abnormal bowel dilatation in the
upper abdomen.
IMPRESSION:
1. No radiographic evidence for acute pulmonary edema or pleural effusion.
2. Previous CABG surgery and aortic valve replacement.
3. Severe calcific atherosclerotic plaque in aorta.
4. Moderate tortuosity of the descending thoracic aorta.
5. Osteoporosis.
Assessment: 85-year-old female with PMH of severe aortic stenosis status post aortic valve replacement, CAD status post CABG, paroxysmal atrial fibrillation, hypertension, hyperlipidemia, spinal fusion admitted, CVA in February 2025, admitted for
bilateral lower extremity edema and acute on chronic diastolic CHF.
�
Plan�
PM&R�PT/OT to increase independence with ADLs, improve balance, coordination, endurance, strength, mobility, community reintegration, decreased burden of care on others and family education.�
�
Debility: PT/OT
Acute on chronic CHF: EF 50-55%, stable bio AVR, continue Lasix
Orthostatic hypotension: previously on midodrine 5 mg 3 times decreased to Midodrine 2.5mg bid.
HLD: Statin�
Hypothyroidism: levothyroxine
Coronary artery disease�: Aspirin, statin, beta-lencho�
paroxysmal atrial fibrillation: Amiodarone 200mg ���������������������������
Anemia: Likely multifactorial.� Continue to monitor.��
Psych: Psychology consult.� Monitor mood, adjust medications as needed.�
Skin: monitor for pressure sores/rashes/lesions.�
Chronic back pain: H/o lumbar fusion ,acetaminophen as needed.�Recommend encouraging getting out of bed and sitting more in chair, and when eating
Bowel: Colace and Senna, PRN bisacodyl.� MiraLAX 17 g daily
Bladder/UTI: Time void, PVRs, PRN straight cath.� Completed cephalexin. Godfrey removed. Voiding on own
GI Prophylaxis: Pantoprazole�
DVT Prophylaxis: Heparin 5000 units every 8 hours
Pulmonary: Incentive spirometry�
Safety: Continue to reinforce assistance with all transfers.�
Code Status:� Full code
Dispo�(date/plan/equipment needs): Home with family care.� Social history reviewed.�
�
Functional and Medical Goals:�Modified Independent with ADL�s, ambulation, transfers�
�
Discharge Destination:�Patient would benefit from acute inpatient rehabilitation once medically stable for PT/OT to increase independence with ADLs, improve balance, coordination, endurance, strength, mobility, community reintegration, decreased
burden of care on others and family education.�
�
Summary of recommendations:
Orthostatic hypotension: cont Midodrine 2.5mg bid. Keep patient in upright position in bed after receiving med and schedule medicine at least 30 minutes prior to patient getting out of bed .Add Teds properly sized for patient's legs and as tolerated.
Bowel: Continue Colace and Senna. Add bisacodyl 10mg daily and prn.�
Chronic back pain: H/o lumbar fusion ,acetaminophen as needed.�Recommending patient spending less time in bed and sitting more in chair, and when eating. Can add Lidocaine patch, Bengay PRN, ice bhumika
Pulmonary: Incentive spirometry�
Bladder/UTI: Time void, PVRs, PRN straight cath.
�
Thank you for allowing me to care for your patient. Please contact me with any questions or concerns.
Consultation
-
Date/Time Consultation Requested: 08/25/2025
Date/Time Consultation Performed: 08/26/2025
Requesting Provider: Aiden Osman
Performing Provider: Tamara Terry/Dr. Daugherty
Reason for Consultation: Debility, CHF

Documented by User: Felipe Daugherty MD 08/26/25 21:14
Consultation - Medical
-
Referring Provider:�Aiden Osman
Chief Complaint:�Debility, CHF
�
History of Present Illness:�85-year-old Right handed female with PMH of (severe aortic stenosis s/p aortic valve replacement, CAD s/p CABG, paroxysmal atrial fibrillation on Eliquis, paroxysmal SVT, bradycardia/possible sick sinus syndrome,
hypertension, hyperlipidemia, spinal fusion/chronic back pain, remote history of syncope after back surgery, bilateral cataract surgery, fibromyalgia, urinary retention with current Godfrey catheter placed last week presenting for leg swelling and
weight gain and chest tightness but denies shortness of breath.�
She had urinary symptoms last week was treated with antibiotic and Godfrey catheter at [facility]. She has lower abdominal pain with no bowel movement in 6 days. Vital signs show tachycardia up to 107. Labs show cardiac BNP of 1500. �Troponin negative.
Chest x-ray shows no acute abnormality. Patient with primary issue of increased lower extremity edema, seemingly mild CHF exacerbation. �40 IV Lasix was given.
Cardiology was consulted who updated her echo which showed an EF of 50-55%, stable bio AVR. Outside garment cutter ([facility]- Dr. Cabrera- per patient is her garment cutter) were contacted provided more information of patient's home regimen and lack of
AC due to brain hemorrhage previously. Patient also was receiving midodrine outpatient for orthostatic hypotension which was resumed here. Patient's constipation worsened requiring manual disimpaction a second time with relief. After resolving
constipation patient was able to complete successful void trial after completion of antibiotics.
Patient seen at bedside, she is overall improving and doing better. 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 She was told that she has multiple microhemorrhage in her brain. She was hospitalized at [facility]. She has minimal residual
weakness on the right upper extremity. She has weakness in bilateral lower extremities due to lumbar spinal fusion. She also has difficulty with fine motor skills, writing with her right hand and tingling in the bilateral hands, she thinks since
the stroke. She currently voices low back pain rated at 7/10. Cannot find a comfortable position in bed. She also have radicular pain down the bilateral anterior thighs described as an ache. She has some bladder urgency and incontinence due to
inability to get to the bathroom on time. At home she usually uses a pull-up.
She report her last bowel movement to have been 3 days ago. States that MiraLAX does the opposite and causes constipation for her. She is on senna and Colace. She is currently voiding without any issues. She has urinary frequency due to water
pill.
She does not voice any chest pain, shortness of breath, dizziness, lightheadedness, nausea, vomiting, fever, chills, dysuria, abdominal pain. She has orthostasis with standing. She feels that the Tubigrip make her legs stronger when she has them
on. She was receiving home PT/OT once a week at home since her stroke.
�
Past Medical History:�Fibromyalgia, hypertension, constipation, UTI, paroxysmal atrial fibrillation, CAD, severe aortic stenosis, CVA
Procedure History:�Spinal fusion�03/2016, laparoscopy�03/2016, tonsillectomy�195, cataract surgery�left eye�2005, right eye�2006, left elbow fracture, left wrist injury, left rotator cuff tear from syncope/fall�03/2016, AVR�11/09/2017, CABG x 1 with
SVG to PDA�11/09/2017
Family History:�Mom�hypertension, heart disease, Dad� from [place], brother�CVA, heart disease
�
Social History:�
Functional Level Premorbidly:�Independent with all activities, has [facility] visiting nursing�
Functional Level Currently:�Bed mobility�min assist, transfer�mid�mod assist, ambulation�1 time 15 feet with rolling walker and mod assist x 1. Second person for chair follow given concerns for orthostasis, lower extremity care�dependent,
�
Tobacco:�Denies�
Alcohol:�Denies�
Drug use:�Denies�
�
Lives with:�At home with disabled daughter. Both have left recliners and rolling walkers, Meals on Wheels and grandson who delivers food
24-hour assistance available:�Patient and daughter help each other as far as housework and ADLs. Patient was having home care
Number of floors:�multi level
# steps to enter:�1 7
# steps to second floor:
Potential First floor set up:�Yes
Driving:�no
Occupation:�Retired
�
�
Allergies:�
Allergy/AdvReac Type Severity Reaction Status Date / Time
bee venom protein (honey bee) Allergy Anaphylaxis Verified 11/26/17 12:18
hydromorphone Allergy Vomiting Verified 08/18/25 20:46
nitrofurantoin Allergy rash and Verified 08/18/25 20:46
itch
nitroglycerin Allergy 'bottomed Verified 11/26/17 12:18
out' with
SL
spider venom Allergy 'poisoning' Verified 11/26/17 12:18
sulfamethoxazole Allergy rash and Verified 08/18/25 20:46
itch
trimethoprim Allergy rash and Verified 08/18/25 20:46
itch
�
Review of Systems:�
Constitutional: (x) Normal _
Eye: (x) Normal _
Ear/Nose/Throat: (x) Normal _
Respiratory: (x) Normal _
Cardiovascular: (x) abNormal _A-fib, bilateral leg edema, CHF, orthostatic hypotension
Gastrointestinal: (x) abNormal _constipation requiring disimpaction
Genitourinary: (x) abNormal _urinary retention requiring Godfrey placement and removal
Musculoskeletal: (x) abNormal _low back and bilateral thigh pain, numbness bilateral hands
Integumentary: (x) Normal _
Neurologic: (x) Normal _
Psychiatric: (x) Normal _
Endocrine: (x) abNormal _hypothyroidism
Hematologic/Lymphatic: (x) Normal _
Allergic/Immunologic: (x) Normal _
�
Medications:�
Active Current Visit Medication List
Category Date Time Status
Acetaminophen [Tylenol] Med 08/20/25 09:23 Active
650 mg PO Q6HPRN PRN
Amiodarone [Pacerone] Med 08/19/25 08:00 Active
200 mg PO DAILY
Aspirin Low Dose EC [Aspir Low (Enteric Coated)] Med 08/19/25 08:00 Active
81 mg PO DAILY
Bisacodyl [Dulcolax] Med 08/18/25 22:59 Active
10 mg RECTAL [id number] PRN
Docusate Sodium [Colace] Med 08/19/25 08:00 Active
100 mg PO BID
Flush (0.9% Sodium Chloride) [Flush (Nss)] Med 08/18/25 23:00 Active
See Dose Instructions IV PER PROTOCOL
Furosemide [Lasix] Med 08/21/25 10:00 Active
20 mg PO DAILY
Gabapentin [Neurontin] Med 08/18/25 22:59 Active
100 mg PO TIDPRN PRN mild pain
Heparin Med 08/19/25 00:00 Active
5,000 units SC Q8
Levothyroxine [Synthroid] Med 08/25/25 06:00 Active
37.5 mcg PO DAILY@0600
Miconazole Nitrate [Desenex/Mitrazol/Zeasorb] Med 08/19/25 20:00 Active
See Dose Instructions TOPICAL BID
Midodrine [ProAmatine] Med 08/24/25 20:00 Active
2.5 mg PO BID
Ondansetron HCl [Zofran] Med 08/23/25 08:48 Active
4 mg PO Q8HPRN PRN
Polyethylene Glycol Powder [Miralax] Med 08/19/25 08:00 Hold
17 grams PO DAILY
Sennosides [Senokot] Med 08/20/25 09:23 Active
17.2 mg PO BID
�
Vitals:�
Temp Pulse Resp BP Pulse Ox
98.2 F 80 16 141/80 98
08/26/25 07:00 08/26/25 07:00 08/26/25 07:00 08/26/25 07:00 08/26/25 07:00
Height 5 ft 1 in
Actual Weight 69.059 kg
Body Mass Index (BMI) 28.8
�
Physical Exam:�
General Appearance/Observation: Well-developed, well-nourished individual in no apparent distress.�
Pain/Comfort Assessment: Low back and bilateral upper thighs
Mood/Affect: Appropriate�
�
Integumentary/Operative Site:�
�� Pressure Ulcer Evaluation: absent over heels.�
Eyes: Conjunctiva/Lids: normal���� Pupils: pupils equal round and reactive to light and Accommodation�
Ears/Nose/Throat: oral mucosa moist,� throat clear.������������ Lips/Teeth/Gums: normal�
Neck: No muscle spasm or tenderness�
Cardiovascular: Heart: irregular,irreg, murmur�
Pulses: dorsalis pedis 2+ bilaterally�
Respiratory: Respiratory Effort/Chest Expansion: normal������� Auscultation: Clear to auscultation bilaterally�
Gastrointestinal: abdomen not tender, no distension, normal abdominal bowel sounds
Genitourinary: No Godfrey�
Extremities:�Edema: mild bilateral LE edema�Cyanosis: None�Trophic�changes: None
�
Neurology Exam:
Orientation: Alert, Oriented to self, Time, Place�
Memory: Intact for immediate medical concerns, Good historian, good talker
Comprehension: Intact
Two step command: Intact
Naming: Intact
Cranial Nerves:
�� CNII:�Pupillary light reflex: Intact����Visual Field: Intact
�� CN III, IV, : Extraocular muscles: Intact�
�� CN V:�Facial Sensation�at�Forehead: Intact,�Maxilla: Intact,�Mandible: Intact
�� CN VII:�Facial movement: Symmetric
�� CN VIII:�Hearing: Normal
�� CN IX/X:�Speech & swallow: Normal,�Position of Uvula: Midline
�� CN XI:�Shoulder shrug: Symmetric
�� CN XII:�Tongue protrusion: Midline
Sensory:
�� Light touch: Intact in bilateral upper and lower extremities
��
�
Reflexes:
�� Biceps: 2+ bilaterally
�� Brachioradialis: 2+ bilaterally
�� Triceps: 2+ bilaterally
�� Patellar:absent bilaterally
�� Achilles:absent bilaterally
�� Babinski: Down going bilaterally
�� Clonus: None
�� Jose: Negative bilaterally�
Cerebellar: Dysmetria/Ataxia: None�
Musculoskeletal: Motor: (Manual muscle scale 0-5)�
Muscle SA EF WE EE FF FA HF KE DF EHL PF
Right� 5 4+ 4+ 4 4 3+ 4 5 5 5 5
Left 4+ 4 4 5 4 3+ 3+ 4+ 5 5 5
�
Tone: Normal in all extremities�
Range of Motion: Passively within normal limits ,diminished rom of left shoulder
�
Lab Results:
Labs
WBC 5.6 10^3/uL (4.8-10.8) 08/26/25 07:16
RBC 3.18 10^6/uL (4.20-5.40) L 08/26/25 07:16
Hgb 10.2 g/dL (12.0-16.0) L 08/26/25 07:16
Hct 29.3 % (37.0-47.0) L 08/26/25 07:16
MCV 92.1 fL (81.0-99.0) 08/26/25 07:16
MCH 32.1 pg (27.0-31.0) H 08/26/25 07:16
MCHC 34.8 g/dL (33.0-37.0) 08/26/25 07:16
RDW 13.6 % (11.5-14.5) 08/26/25 07:16
Plt Count 225 10^3/uL (130-400) 08/26/25 07:16
MPV 10.0 fL (7.4-10.4) 08/26/25 07:16
Abs Immat Gran (auto) 0.0 10^3/uL (0-0.05) 08/18/25 12:53
Absolute Neuts (auto) 3.4 10^3/uL (1.4-6.5) 08/18/25 12:53
Absolute Lymphs (auto) 1.5 10^3/uL (1.2-3.4) 08/18/25 12:53
Absolute Monos (auto) 0.5 10^3/uL (0.1-0.6) 08/18/25 12:53
Absolute Eos (auto) 0.2 10^3/uL (0-0.7) 08/18/25 12:53
Absolute Basos (auto) 0.0 10^3/uL (0-0.2) 08/18/25 12:53
Immature Gran % 0.4 % (0-0.5) 08/18/25 12:53
Neutrophils % 59.8 % (42.2-75.2) 08/18/25 12:53
Lymphocytes % 26.8 % (20.5-51.1) 08/18/25 12:53
Monocytes % 8.8 % (1.7-9.3) 08/18/25 12:53
Eosinophils % 3.5 % (0-6) 08/18/25 12:53
Basophils % 0.7 % (0-2) 08/18/25 12:53
Nucleated RBC % 0 % 08/18/25 12:53
Sodium 135 mmol/L (135-145) 08/26/25 07:16
Potassium 4.0 mmol/L (3.5-5.1) 08/26/25 07:16
Chloride 103 mmol/L (98-107) 08/26/25 07:16
Carbon Dioxide 25 mmol/L (22-30) 08/26/25 07:16
BUN 18 mg/dl (7-17) H 08/26/25 07:16
Creatinine 1.2 mg/dL (0.6-1.0) H 08/26/25 07:16
Estimated Creat Clear 31 ml/min 08/26/25 07:16
eGFR 44.64 08/26/25 07:16
Glucose 84 mg/dl (70-99) 08/26/25 07:16
Calcium 9.1 mg/dl (8.4-10.2) 08/26/25 07:16
Total Bilirubin 0.8 mg/dl (0.2-1.3) 08/18/25 12:53
AST 22 U/L (14-36) 08/18/25 12:53
ALT 13 U/L (0-35) 08/18/25 12:53
Alkaline Phosphatase 81 U/L (38-126) 08/18/25 12:53
Troponin I < 0.012 ng/ml 08/18/25 17:46
Iyc-U-Cjlmhyvgqvv Pept 1490 pg/ml 08/18/25 17:46
Total Protein 8.3 g/dl (6.3-8.2) H 08/18/25 12:53
Albumin 4.5 g/dl (3.5-5.0) 08/18/25 12:53
TSH 34.40 uIU/ml (0.47-4.68) H 08/18/25 12:53
Free T4 1.07 ng/dl (0.78-2.19) 08/18/25 12:53
�
Diagnostic Results:�as per HPI�
abdominal x-ray, :
Nonobstructive bowel gas pattern. No appreciable intraperitoneal free. Chronic degenerative changes of the spine. Posterior fusion of the lower lumbar spine. Left hip hemiarthroplasty.
�
Large volume colonic stool suggesting constipation.
Nonobstructive bowel gas pattern. No appreciable intraperitoneal free. Chronic degenerative changes of the spine. Posterior fusion of the lower lumbar spine. Left hip hemiarthroplasty.
chest x-ray- 08/22/25
There is evidence for a previous midline sternotomy, coronary artery bypass graft surgery, and aortic valve replacement. The heart appears normal in size. There is severe calcific atherosclerotic plaque in the thoracic and abdominal aorta. There is
moderate tortuosity of the descending thoracic aorta. There is mild cephalization of the upper lobe pulmonary vessels. There is no focal airspace opacity suspicious for pneumonia. There is no radiographic evidence for pleural effusion or
pneumothorax.
The bones appear diffusely demineralized. There is mild bilateral osteoarthritis of the acromioclavicular joints. There is a mild right convex curvature of the midthoracic spine. There is severe multilevel lower thoracic and upper lumbar discogenic
degenerative disease. There is a vertebral body endplate insufficiency fracture in the midthoracic spine with mild to moderate loss of vertebral body height. There is no radiographic evidence for pneumoperitoneum or abnormal bowel dilatation in the
upper abdomen.
IMPRESSION:
1. No radiographic evidence for acute pulmonary edema or pleural effusion.
2. Previous CABG surgery and aortic valve replacement.
3. Severe calcific atherosclerotic plaque in aorta.
4. Moderate tortuosity of the descending thoracic aorta.
5. Osteoporosis.
Assessment:
85-year-old female with PMH of severe aortic stenosis status post aortic valve replacement, CAD status post CABG, paroxysmal atrial fibrillation, hypertension, hyperlipidemia, spinal fusion admitted, CVA in February 2025, admitted for bilateral lower
extremity edema and acute on chronic diastolic CHF.
�
Plan�
PM&R�PT/OT to increase independence with ADLs, improve balance, coordination, endurance, strength, mobility, community reintegration, decreased burden of care on others and family education.�
�
Debility: PT/OT
Acute on chronic CHF: EF 50-55%, stable bio AVR, continue Lasix
Orthostatic hypotension: previously on midodrine 5 mg 3 times decreased to Midodrine 2.5mg bid.
HLD: Statin�
CVA history: monitor neuro status, patient reports microhemorrhages. Control BP.
Hypothyroidism: levothyroxine
Coronary artery disease�: Aspirin, statin, beta-lencho�
paroxysmal atrial fibrillation: Amiodarone 200mg ���������������������������
Normocytic Anemia: Likely multifactorial.� Continue to monitor.��
Psych: Psychology consult.� Monitor mood, adjust medications as needed.�
Skin: monitor for pressure sores/rashes/lesions.�
Chronic back pain: H/o lumbar fusion ,acetaminophen as needed.�Recommend encouraging getting out of bed and sitting more in chair, and when eating
Bowel: Colace and Senna, PRN bisacodyl.� MiraLAX 17 g daily
Bladder/UTI: Time void, PVRs, PRN straight cath.� Completed cephalexin. Godfrey removed. Voiding on own
GI Prophylaxis: Pantoprazole�
DVT Prophylaxis: Heparin 5000 units every 8 hours
Pulmonary: Incentive spirometry�
Safety: Continue to reinforce assistance with all transfers.�
Code Status:� Full code
Dispo�(date/plan/equipment needs): Home with family care.� Social history reviewed.�
Functional and Medical Goals:�Modified Independent with ADL�s, ambulation, transfers�
Discharge Destination:�Patient would benefit from acute inpatient rehabilitation once medically stable for PT/OT to increase independence with ADLs, improve balance, coordination, endurance, strength, mobility, community reintegration, decreased
burden of care on others and family education.�
Attending Statement: I saw and examined the patient today.� Reviewed care plan with patient, therapy, nursing, and physician program assistant.� I agree with the above subjective and physical exam, and plan as documented by CRISTIANA Terry with adjustments
made as necessary. A total of 60 minutes were spent with the patient preparing for the evaluation, obtaining history, performing examination and evaluation, counseling, data review, case management, care coordination, production recorder, and EMR
documentation.
�
Summary of recommendations:
Orthostatic hypotension: Midodrine 2.5mg bid. Keep patient in upright position in bed after receiving med and schedule medicine at least 30 minutes prior to patient getting out of bed. Add Teds properly sized for patient's legs and as tolerated.
Bowel: Colace and Senna. Add bisacodyl 10mg daily and prn.�
Chronic back pain: H/o lumbar fusion ,acetaminophen as needed.�Recommending patient spending less time in bed and sitting more in chair, and when eating. Can add Lidocaine patch, Bengay PRN, ice bhumika
Pulmonary: Incentive spirometry�
Bladder/UTI: Time void, PVRs, PRN straight cath.
�
Thank you for allowing me to care for your patient. Please contact me with any questions or concerns.
[2025-08-26 08:33] LABS: Blood Urea Nitrogen 18 mg/dl (7-17); Chloride 103 mmol/L (98-107); Estimated Creatinine Clearance 31 ml/min; Sodium 135 mmol/L (135-145); eGFR 44.64
[2025-08-26 09:15] VITALS: BP 117/77; BP 137/69; BP 156/91; PULSE 113; PULSE 87; PULSE 92
[2025-08-26] MEDS: DULCOLAX 5 MG PO (10:41)
--- NOTE | 2025-08-26 11:22 | W.PN.HOSP.TC ---
Addendum entered and electronically signed by Samia Colemnares MD 08/26/25 14:33:
Orthostatic hypotension with autonomic dysfunction only
Addendum entered and electronically signed by Samia Colmenares MD 08/26/25 14:21:
Attending�addendum:
I saw and evaluated the patient. I reviewed the resident�s note and agree with findings and plan as documented in the resident�s note.��patient seen and examined at bedside, denies any chest pain or shortness of breath, no abdominal pain, no nausea,
no vomiting, no diarrhea or constipation.
Physical�exam:
GENERAL : Patient is awake, alert, oriented x3
HEENT: Nonicteric sclerae, PERRLA, EOMI. Oropharynx clear. Moist mucous membranes. Conjunctivae appear well perfused.
CHEST: Chest wall is nontender.
HEART: Regular rate and rhythm without murmurs.
LUNGS: Clear to auscultation bilaterally.
ABDOMEN: Soft, positive bowel sounds, nontender, no organomegaly.
RECTAL: Deferred.
MUSCLES/EXTREMITIES: Improved edema
NEUROLOGIC: Cranial nerves II-XII intact without motor/sensory deficit.
�
Assessment/plan:
Acute on chronic diastolic CHF.
Continue Lasix
Orthostatic hypotension.
Added midodrine.
PT/OT,
UTI.
Completed cephalexin
Urinary retention.
Godfrey removed
CODE STATUS: Full code
DVT prophylaxis: Heparin
Diet: cardiac diet
Disposition: Discharge to rehab, increased midodrine
�
Total time spent on today�s encounter was 51 minutes which included time spent in counseling the patient/family regarding diagnosis and treatment plan as listed above, goals of care, and symptom management. Case was discussed with nursing staff,
specialists, and care coordinators/case management. All labs and imaging personally reviewed by me. Remainder the time spent in detailed review of previous records, lab data, imaging, and other medical provider documentation.
Original Note:
Today's Communication/Plan
-
Midodrine 3 times a day
Pain control with Toradol
EKG with no significant changes
Dispo planning to acute rehab
Assessment / Plan
Assessment / Plan
Impression:
85-year-old female history of severe aortic stenosis status post aortic valve replacement, CAD status post CABG, paroxysmal atrial fibrillation on Eliquis, paroxysmal SVT, bradycardia/possible sick sinus syndrome, hypertension, hyperlipidemia,
spinal fusion/chronic back pain, remote history of syncope after back surgery, bilateral cataract surgery, fibromyalgia, urinary retention with current Godfrey catheter placed last week presenting for leg swelling and weight gain and chest tightness
but denies shortness of breath. she had urinary symptoms last week treated with antibiotic and Godfrey catheter, She has lower abdominal pain with no bowel movement in 6 days and received manual disimpaction in the ER. proBNP measured at 1490,
patient received IV Lasix for edema and exacerbation. Cardiology was consulted who updated her echo which showed an EF of 50-55%, stable bio AVR. Outside segmental wall installer were contacted provided more information of patient's home regimen and lack of AC
due to brain hemorrhage previously. Patient also was receiving midodrine outpatient for orthostatic hypotension which was resumed here. Patient's constipation worsened requiring manual disimpaction a second time with relief. After resolving
constipation patient was able to complete successful void trial after completion of antibiotics.
Patient with primary issue of increased lower extremity edema, seemingly mild CHF exacerbation. �40 IV Lasix was given. Continue home dose lasix thereafter.�
Patient also with subclinical hypothyroidism with TSH of 34, free T4 of 1.07. �Increase levothyroxine from 25 mcg to 37.5 mcg.
Patient also with constipation. Received a bowel regimen now she has diarrhea.
Still bilateral extremity RACHELLE, switch Lasix to IV
Assessment/plan:
#Bilateral lower extremity edema, resolving
#Acute on Chronic Diastolic CHF with preserved ejection fraction, resolved
pBNP 1490
previous hospitalization nots indicate 07/26/25 weight was 75kg
CXR: 1. No radiographic evidence for acute pulmonary edema or pleural effusion.
Outpatient segmental wall installer Dr. Colvin, Dr. Raman and centrifugal separator of [place]
-Cardiology consult appreciate recs
- echocardiogram: EF 50-55%, bio-AVR
Was orthostatic with physical therapy.
Switch to oral lasix 20 mg
#Orthostatic hypotension Due to autonomic dysfunction, only
Outpatient patient was prescribed midodrine 5 mg 3 times daily, patient did not tolerate well
Midodrine 2.5 mg 3 times daily scheduled
Repeat orthostatic vitals
Switch Lasix to oral
- JOEL stockings
- Consider abdominal binder
UTI, resolved
Episodes of incontinence
- Completed cefuroxime
- Godfrey removed
Hyponatremia, resolved
Continue to monitor
hypokalemia, improved
Replace and continue to monitor
Urinary retention
Godfrey removed
likely 2/2 constipation
- monitor I & Os
- Void trial successful
Constipation, resolving
Patient reports not taking opioids
-Colace twice daily
-MiraLAX on hold as it makes patient constipated
-Senokot twice daily
- Enema 08/22
- 08/22 abdominal x-ray with large colonic stool burden, nonobstructive gas pattern
- Manual disimpaction 08/22
Paroxysmal atrial fibrillation
- continue amiodarone
- Rate controlled
- Not on Eliquis due to history of hemorrhagic stroke and cerebral amyloid angiopathy
CAD
Patient with chest pressure
EKG obtained with no changes to previous
- continue aspirin
Hypothyroidism
TSH 34.40
- increase levothyroxine 37.5 mcg
#Fibromyalgia
#Chronic back pain
History of back surgery
-Toradol 10 mg as needed
-Consider Ultram as needed
- gabapentin 100 3 times daily
Severe aortic stenosis
Hypertension
Coccyx/buttock pressure injury stage 2.
Wound care consult
CODE STATUS: Full code
DVT prophylaxis: Heparin
Diet: Cardiac diet
Disposition: PM&R recommending acute rehab
Anticipated Discharge: Within 24 hours
Subjective/Interval History
-
Patient was seen at bedside this morning. Reported chest pressure but no pain that alleviated overnight, no palpitations no syncope no shortness of breath no cough. Patient had tiny bowel movement today reports no abdominal pain. Patient was able
to work with PT minimally yesterday and had some mild dizziness upon standing. Date of Service: August 26, 2025
Objective Data
-
Labs:
Laboratory Results
08/26/25
07:16
WBC 5.6
Hgb 10.2 L
Hct 29.3 L
Plt Count 225
Sodium 135
Potassium 4.0
Chloride 103
Carbon Dioxide 25
BUN 18 H
Creatinine 1.2 H
Glucose 84
Calcium 9.1
Vital Signs:
Vital Signs
Temp Pulse Resp BP Pulse Ox
98.2 F 80 16 141/80 98
08/26/25 07:00 08/26/25 07:00 08/26/25 07:00 08/26/25 07:00 08/26/25 07:00
I&O
08/25/25 08/26/25 08/27/25
06:59 06:59 06:59
Intake Total 540 / 540
Balance 540 / 540
Review of Systems
-
History Source: Patient
Constitutional: Denies Fever or Chills
EENT: Denies Sore Throat or Runny Nose
Respiratory: Denies Cough or Trouble Breathing
Cardiac: Reports Other (Chest pressure); Denies Chest Pain, Palpitations or Syncope
Abdomen/GI: Denies Abdominal Pain, Nausea, Vomiting, Diarrhea or Constipated
Genitourinary: Reports Incontinence; Denies Dysuria
Neuro: Denies Dizzy or Headache
Physical Exam
-
General: Well Developed, Well Nourished, No Apparent Distress and Comfortable; Negative Fever
HEENT: Normocephalic and Atraumatic
Respiratory: Clear to Auscultation and Non Labored Respirations; Negative Wheezes or Crackles
Cardiac: S1/S2 and Irregular Rhythm; Negative Murmur
GI: Soft, Nontender, Nondistended and Normal Bowel Sounds
Musculoskeletal: No Clubbing and No Edema
Skin: Warm and Dry
Neuro: Awake, Alert and Oriented
[2025-08-26 11:33] VITALS: BP 102/65
--- NOTE | 2025-08-26 11:44 | PN.CDI ---
CDI
- -
CDI:
Physician Documentation Request
Admit Date: 08/19/25 11:07
Dear Doctor Dedra/Resident,
Please review the following and provide your response in the progress notes.
Clinical Indicators:
Pt admitted with CHFpEF exacerbation
Progress note 08/24, 'orthostatic hypotension: Will give low-dose midodrine in anticipation of ambulation with PT/OT Repeat orthostatic vital signs TSH was mildly elevated at 34 during this admission, free T4 within normal limits, home levothyroxine
increased to 37.5 mcg daily...'
Documented per progress notes 08/25&08/26, '#Orthostatic hypotension Due to autonomic dysfunctionOutpatient patient was prescribed midodrine 5 mg 3 times daily, patient did not tolerate wellMidodrine 2.5 mg scheduled Repeat orthostatic vitals...
Tubigrip stockings- Consider abdominal binder...'
Based on the above, could you clarify in the progress notes, the appropriate diagnosis, if significant, that supports the above abnormalities and additional evaluation, monitoring and/or treatment rendered:
Neurogenic orthostatic hypotension
Orthostatic hypotension with autonomic dysfunction only
Other ( please specify)
Use of terms such as suspected, likely, concern for, or probable (associated with a specific diagnosis that is being evaluated, monitored, or treated as if it exists) are acceptable and can be coded in the inpatient setting, when documented at the
time of discharge.
Thank you,
Maki Horta RN
CDI Specialist
[employer]
Please use your independent medical judgment in providing your response.
--- NOTE | 2025-08-26 12:03 | CM ---
Addendum entered by Loretta Pierce 08/26/25 14:06:
Patient has been accepted and approved for [facility] today.
[facility]
Report [id number]
Original Note:
social work manager reviewed patient's chart and PM&R are recommending acute rehab, referral sent to [facility] and per [facility] admissions they have no beds available today but will review for possible bed tomorrow, will need to confirm with [facility] admissions.
Plan; Acute rehab placement.
--- NOTE | 2025-08-26 13:30 | WOUNDNOTE ---
BRYAN RN NOTE: Asked to see patient for buttock pressure injury by lpn or medical assistant Danii. With assistance of nurse Carlyn patient stood from recliner chair. Sacrum is intact, foam changed. MASD remains in gluteal folds, unchanged from previous
picture on 08/20. No visible pressure injury on buttock, Calazime applied. Patient is on an air mattress and air cushion in use. Appetite is good patient reports.
[2025-08-26 14:37] VITALS: BP 107/65; BP 114/70; PULSE 91; O2SAT 98
--- NOTE | 2025-08-26 14:46 | W.DCSUMMARY ---
Addendum entered and electronically signed by Samia Colmenares MD 08/26/25 15:25:
Attending�addendum:
I saw and evaluated the patient. I reviewed the resident�s note and agree with findings and plan as documented in the resident�s note.��patient seen and examined at bedside, denies any chest pain or shortness of breath, no abdominal pain, no nausea,
no vomiting, no diarrhea or constipation.
Physical�exam:
GENERAL : Patient is awake, alert, oriented x3
HEENT: Nonicteric sclerae, PERRLA, EOMI. Oropharynx clear. Moist mucous membranes. Conjunctivae appear well perfused.
CHEST: Chest wall is nontender.
HEART: Regular rate and rhythm without murmurs.
LUNGS: Clear to auscultation bilaterally.
ABDOMEN: Soft, positive bowel sounds, nontender, no organomegaly.
RECTAL: Deferred.
MUSCLES/EXTREMITIES: Improved edema
NEUROLOGIC: Cranial nerves II-XII intact without motor/sensory deficit.
�
Assessment/plan:
Acute on chronic diastolic CHF.
Continue Lasix
Orthostatic hypotension.
Added midodrine.
PT/OT,
UTI.
Completed cephalexin
Urinary retention.
Godfrey removed
CODE STATUS: Full code
DVT prophylaxis: Heparin
Diet: cardiac diet
Disposition: Discharge to rehab, increased midodrine
�
Total time spent on today�s encounter was 40 minutes which included time spent in counseling the patient/family regarding diagnosis and treatment plan as listed above, goals of care, and symptom management. Case was discussed with nursing staff,
specialists, and care coordinators/case management. All labs and imaging personally reviewed by me. Remainder the time spent in detailed review of previous records, lab data, imaging, and other medical provider documentation.
Original Note:
Documented by User: Aiden Matthews MD, Resident 08/26/25 14:56
Discharge Summary
Discharge Data
Date of Admission: 08/19/25
Date of Discharge: 08/26/25
-
Pending Results: No
Hospital Course
Discharging Physician :
Dr. Colmenares
Dr. Matthews
Disposition :
Acute rehab
Primary care physician :
Shirley Soriano MD
Principal Discharge diagnosis :
Acute on chronic heart failure exacerbation
Chronic Discharge diagnosis :
Essential hypertension
paroxysmal atrial fibrillation
CAD s/p CABG
CVA with hemorrhage
hypothyroidism
Spinal fusion with chronic back pain
Aortic valve replacement
Orthostatic hypotension
Hypertension
Hospital Course :
Ms. 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
SVT, bradycardia, autonomic orthostatic hypotension, hyperlipidemia, spinal fusion/chronic back pain, remote history of syncope after back surgery, bilateral cataract surgery, fibromyalgia, recent urinary retention who presented for leg swelling and
weight gain and chest tightness but denies shortness of breath. She had urinary symptoms 1 week prior to presentation treated with antibiotic and Godfrey catheter, She has lower abdominal pain with no bowel movement in past 6 days prior to
presentation and received manual disimpaction in the ER. proBNP was measured at 1490, patient received IV Lasix for edema and exacerbation. Cardiology was consulted who updated her echo which showed an EF of 50-55%, stable bio AVR. Outside
rn clinical appeals were contacted provided more information of patient's home regimen and lack of AC due to brain hemorrhage previously. Patient also was receiving midodrine outpatient for orthostatic hypotension which was resumed here at a lower dose,
patient received OJEL stockings with slight improvement in orthostatics and symptoms. Patient's constipation worsened requiring manual disimpaction a second time with relief. After resolving constipation patient was able to complete successful void
trial after completion of antibiotics. Patient was evaluated by physical therapy and determined to be a rehab candidate. At discharge patient was afebrile with stable vital signs.
Important imaging findings :
Chest x-ray 08/18/2025:
IMPRESSION:
1. No radiographic evidence for acute pulmonary edema or pleural effusion.
2. Previous CABG surgery and aortic valve replacement.
3. Severe calcific atherosclerotic plaque in aorta.
4. Moderate tortuosity of the descending thoracic aorta.
5. Osteoporosis.
Abdominal x-ray 08/22/2025:
FINDINGS/IMPRESSION:
Large volume colonic stool suggesting constipation.
Nonobstructive bowel gas pattern. No appreciable intraperitoneal free. Chronic degenerative changes of the spine. Posterior fusion of the lower lumbar spine. Left hip hemiarthroplasty.
Procedure findings :
Echocardiogram 08/22/2025:
SUMMARY
1. Normal left ventricular size, and systolic function. Ejection fraction is 50-55%.
2. Well seated - normally functioning Aortic valve replacement with size 21 Trifecta - Peak gradient 9 mmHg - Mean gradient 5mmHg. No evidence of aortic regurgitation.
3. Mild/moderate mitral valve regurgitation.
4. No prior study available for comparison.
Discharge Plan
-
Patient Disposition: Acute Rehab Facility
Discharge Diagnosis/Procedures: Bilateral lower extremity edema, resolving
Acute on Chronic Diastolic CHF with preserved ejection fraction, resolved
Orthostatic hypotension
Constipation
Diet: Low Cholesterol
Activity: With assistance and As tolerated
Other Services: PT and OT
Activity Restrictions/Additional Instructions:
Wound Care Instructions
Coccyx/buttocks skin breakdown-clean with saline or soap and water, silicone border foam, change every 3 days and as needed for loosened dressing. If foam ineffective, apply zinc barrier ointment 3 times a day instead.
Turning schedule
Pressure redistributing chair cushion (i.e. Air chair cushion).
air mattress
Elevate heels off bed with pillow/s
Follow up at wound care center call for an appointment.
Referrals:
Shirley Soriano MD [Family Provider]
Prescriptions:
New
miconazole nitrate [Miconazorb AF] 2 % Powder
1 applic topical BID Qty: 0 0RF
bisacodyl 10 mg Suppository
10 mg KS [id number] PRN (Reason: constipation) Qty: 0 0RF
bisacodyl 5 mg Tablet,Delayed Release (Dr/Ec)
5 mg PO DAILY Qty: 0 0RF
polyethylene glycol 3350 17 gram Powder In Packet
17 g PO DAILY Qty: 0 0RF
ketorolac 10 mg Tablet
10 mg PO Q4HPRN PRN (Reason: moderate pain) Qty: 0 0RF
midodrine 2.5 mg Tablet
2.5 mg PO TID@0800,1300,1800 Qty: 0 0RF
ondansetron HCl 4 mg Tablet
4 mg PO Q8HPRN PRN (Reason: nausea) Qty: 0 0RF
Continued
aspirin 81 MG tablet,delayed release (DR/EC)
81 mg PO DAILY
cholecalciferol (vitamin D3) 2,000 UNITS tablet
2,000 unit PO DAILY
acetaminophen [Tylenol Extra Strength] 500 MG tablet
1,000 mg PO TIDPRN PRN (Reason: mild pain)
sennosides [senna] 8.6 mg Tablet
17.2 mg PO HS
thiamine HCl (vitamin B1) 100 mg Tablet
100 mg PO DAILY
docusate sodium [Colace] 100 mg Capsule
100 mg PO BID
gabapentin 100 mg Capsule
100 mg PO TIDPRN PRN (Reason: mild pain)
amiodarone [Pacerone] 200 MG tablet
200 mg PO DAILY
furosemide 20 MG tablet
20 mg PO DAILY
multivitamin with folic acid [Tab-A-Alex] 1 TABLET tablet
1 tab PO DAILY
Changed
levothyroxine [Synthroid] 25 mcg Tablet
37.5 mcg PO DAILY Qty: 0 0RF
Discontinued
cefuroxime axetil 250 mg Tablet
250 mg PO BID
Rx Instructions:
for 10 days starting 08/12/25
Discharge Orders:
Discharge Patient (As Directed); Ordered 08/26/25
Ordered By: Samia Colmenares
Discharge Date and Time
Print Language: ITALIAN

Documented by User: Samia Colmenares MD 08/26/25 15:24
Discharge Summary
Discharge Data
Date of Admission: 08/19/25
Date of Discharge: 08/26/25
Discharge Plan
-
Patient Disposition: Acute Rehab Facility
Discharge Diagnosis/Procedures: Bilateral lower extremity edema, resolving
Acute on Chronic Diastolic CHF with preserved ejection fraction, resolved
Orthostatic hypotension
Constipation
Diet: Low Cholesterol
Activity: With assistance and As tolerated
Other Services: PT and OT
Activity Restrictions/Additional Instructions:
Wound Care Instructions
Coccyx/buttocks skin breakdown-clean with saline or soap and water, silicone border foam, change every 3 days and as needed for loosened dressing. If foam ineffective, apply zinc barrier ointment 3 times a day instead.
Turning schedule
Pressure redistributing chair cushion (i.e. Air chair cushion).
air mattress
Elevate heels off bed with pillow/s
Follow up at wound care center call for an appointment.
Referrals:
Shirley Soriano MD [Family Provider]
Prescriptions:
New
miconazole nitrate [Miconazorb AF] 2 % Powder
1 applic topical BID Qty: 0 0RF
bisacodyl 10 mg Suppository
10 mg KS [id number] PRN (Reason: constipation) Qty: 0 0RF
bisacodyl 5 mg Tablet,Delayed Release (Dr/Ec)
5 mg PO DAILY Qty: 0 0RF
polyethylene glycol 3350 17 gram Powder In Packet
17 g PO DAILY Qty: 0 0RF
ketorolac 10 mg Tablet
10 mg PO Q4HPRN PRN (Reason: moderate pain) Qty: 0 0RF
midodrine 2.5 mg Tablet
2.5 mg PO TID@0800,1300,1800 Qty: 0 0RF
ondansetron HCl 4 mg Tablet
4 mg PO Q8HPRN PRN (Reason: nausea) Qty: 0 0RF
Continued
aspirin 81 MG tablet,delayed release (DR/EC)
81 mg PO DAILY
cholecalciferol (vitamin D3) 2,000 UNITS tablet
2,000 unit PO DAILY
acetaminophen [Tylenol Extra Strength] 500 MG tablet
1,000 mg PO TIDPRN PRN (Reason: mild pain)
sennosides [senna] 8.6 mg Tablet
17.2 mg PO HS
thiamine HCl (vitamin B1) 100 mg Tablet
100 mg PO DAILY
docusate sodium [Colace] 100 mg Capsule
100 mg PO BID
gabapentin 100 mg Capsule
100 mg PO TIDPRN PRN (Reason: mild pain)
amiodarone [Pacerone] 200 MG tablet
200 mg PO DAILY
furosemide 20 MG tablet
20 mg PO DAILY
multivitamin with folic acid [Tab-A-Alex] 1 TABLET tablet
1 tab PO DAILY
Changed
levothyroxine [Synthroid] 25 mcg Tablet
37.5 mcg PO DAILY Qty: 0 0RF
Discontinued
cefuroxime axetil 250 mg Tablet
250 mg PO BID
Rx Instructions:
for 10 days starting 08/12/25
Discharge Orders:
Discharge Patient (As Directed); Ordered 08/26/25
Ordered By: Samia Colmenares
Discharge Date and Time
Print Language: ITALIAN
[2025-08-26] MEDS: TORADOL 10 MG PO (15:50)
--- NOTE | 2025-08-27 09:21 | W.HF.CON ---
Heart Failure
- LV Function
Left ventricular function study result: LV Ejection fraction >/= 50%
Ejection Fraction Percentage: 50-55
- ARNI
Patient already on ARNI: No
Heart Failure ARNI Not Indicated: LV Ejection Fraction >/= 40%
- ACEI/ARB
Patient already on ACEI/ARB: No
Heart Failure ACEI/ARB Not Indicated: LV Ejection Fraction > 40%
- Beta Jose A
Patient already on Evidence Based Beta Jose A: No
Heart Failure Evidence Based Beta Jose A Not Indicated: LV Ejection Fraction > 40%
- Mineralocorticord Receptor Antagonist
Patient already on MRA: No
Heart Failure MRA Not Indicated: LV Ejection Fraction > 40%
- SGLT-2 Inhibitor
Patient already on SGLT-2 Inhibitor: No
Heart Failure SGLT-2 Inhibitor Contraindication: Patient Refusal (UTI)
- Afib Anticoagulation
Patient already on Anticoagulation for Afib: No
Heart Failure Afib Anticoagulation Contraindication: Hemorrhagic Tendencies (stroke)
- NYHA CHF Classification
NYHA CHF Classification Level: Class III - Symptoms w/ min exertion, interferes w/ nml daily activity
- ACC/AHA Stage
ACC/AHA Stage: Stage C: Symptomatic Heart Failure
== END 2025-08-26 16:33 | DRG 291 ==
LOC: 4 WEST ACU 11:07
PROVIDERS: Emergency Medicine; Nurse Practitioner Family; Physician Assistant; Student in an Organized Health Care Education/Training Program; ADMITTING PHYSICIAN Hospitalist; ATTENDING PHYSICIAN General Practice; CONSULT PHYSICIAN Internal Medicine; CONSULT PHYSICIAN Physical Medicine & Rehabilitation; EMERGENCY PHYSICIAN Emergency Medicine; FAMILY PHYSICIAN Family Medicine
DX: I11.0 Hypertensive heart disease with heart failure (principal); I50.33 Acute on chronic diastolic (congestive) heart failure; N39.0 Urinary tract infection, site not specified; I95.1 Orthostatic hypotension; Z95.1 Presence of aortocoronary bypass graft; Z95.2 Presence of prosthetic heart valve; Z79.01 Long term (current) use of anticoagulants; E78.5 Hyperlipidemia, unspecified; G89.29 Other chronic pain; M79.7 Fibromyalgia; E03.8 Other specified hypothyroidism; K59.00 Constipation, unspecified; I48.0 Paroxysmal atrial fibrillation; I25.10 Atherosclerotic heart disease of native coronary artery without angina pectoris; Z87.891 Personal history of nicotine dependence; Z88.3 Allergy status to other anti-infective agents; Z79.82 Long term (current) use of aspirin; Z79.890 Hormone replacement therapy; Z79.899 Other long term (current) drug therapy; Z88.2 Allergy status to sulfonamides; Z88.8 Allergy status to other drugs, medicaments and biological substances; L89.152 Pressure ulcer of sacral region, stage 2; I34.0 Nonrheumatic mitral (valve) insufficiency; I69.30 Unspecified sequelae of cerebral infarction; M81.0 Age-related osteoporosis without current pathological fracture; Z82.49 Family history of ischemic heart disease and other diseases of the circulatory system; Z98.1 Arthrodesis status
CPT/HCPCS: 71046; 74018; 80048; 80053; 83880; 84439; 84443; 84484; 85025; 85027; 87045; 87046; 87324; 87427; 87449; 89055; 93005; 93306; 96374; 97110; 97163; 97167; 97530; 97535; 99283

== ENCOUNTER 2025-09-03 16:59 | Inpatient (IN) | payer MEDICARE, SELFPAY ==
[2025-09-03] VITALS (24 sets, daily range): BP systolic 78–173; BP diastolic 53–113; BMI 28.6
--- NOTE | 2025-09-03 14:50 | ED.GENMED ---
History of Present Illness
<Rodrigo Leung DO - Last Filed: 09/03/25 15:25>
General
Chief Complaint: Change in Mental Status
Time Seen by Provider: 09/03/25 14:46
<Roe May PA-C - Last Filed: 09/03/25 19:04>
History of Present Illness
History of Present Illness:
85-year-old female with history of CHF and prior stroke as well as paroxysmal A-fib no longer on Eliquis presents from [facility] as a medical emergency due to abrupt unresponsive episode. She was apparently doing physical therapy when she reported
headache and nausea, when she was taken back to her room she was abruptly noted to be unresponsive. On arrival the patient responds to loud verbal cues with some confusion, appears to be globally weak with no demonstrable effort against gravity to
the extremities. She does have notable blood in the left side of the mouth. No documented history of seizures. 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
Past History
<Rodrigo Leung DO - Last Filed: 09/03/25 15:25>
Past History
ED Past Medical History: Arrthythmia, HTN and Other
ED Past Surgical History: Cardiac and Other
Social History
Tobacco: Former smoker
Alcohol: None
Drug: None
Personal:
Living: with family
Employment: Retired
Family History
Family History: Other
Review of Systems
<Roe May PA-C - Last Filed: 09/03/25 19:04>
Review of Systems
Allergies reviewed?: Yes
All Other Systems: ROS reviewed and negative except as documented in HPI and ROS
Phy Exam
<Roe May PA-C - Last Filed: 09/03/25 19:04>
Physical Exam
Physical Exam:
GEN: Ill-appearing
HEENT: Oral mucosa moist, no scleral icterus, no nasal congestion
Cardiac: Irregular, controlled rate
Lung: No respiratory distress, no tachypnea
MSK: No gross deformity or injuries
Skin: Good color, no pallor or jaundice, no rashes
Neuro: Somnolent, arouses to loud verbal stimuli, oriented to place but confused to time, unable to perform extremity maneuvers, globally weak to all extremities, response to pinprick to 4 extremities symmetrically
Psych: Calm, cooperative
Course
<Rodrigo Leung, DO - Last Filed: 09/03/25 15:25>
Orders/Labs/Results
Orders:
Orders
09/03/25
Electrocardiogram (*1) Stat
Comment: DONE
09/03/25 Breakfast
Sodium, 2 Gram
At Your Request: Limited, Millroom Supervisor Required
09/03/25 14:46
CT HEAD STROKE ALERT W/o Cont Urgent
Comment:
Reason For Exam: AMS
Bedside Glucose- Treatment ONCE
09/03/25 14:56
CT HEAD/NECK ANG STROKE ALERT Urgent
Comment:
Reason For Exam: decreased responsiveness, L sided weakness
09/03/25 14:59
CT BRAIN PERF STROKE ALERT Urgent
Comment:
Reason For Exam: left-sided weakness, decreased responsiveness
Levetiracetam Injectable [Keppra] 4,000 mg IV NOW STA
09/03/25 15:00
Lorazepam [Ativan] 2 mg IV NOW STA
09/03/25 15:02
Lorazepam [Ativan] 4 mg .ROUTE .STK-MED ONE
09/03/25 15:15
EEG [Rapid Point of Care EEG (ED/ICU ONLY)] Q1H
Indications for use:: Altered Mental Status
09/03/25 15:36
Complete Blood Count/No Diff Urgent
Comprehensive Metabolic Panel Urgent
Prothrombin Time Urgent
Troponin I Urgent
09/03/25 15:59
Urinalysis Reflex To Culture Urgent
09/03/25 16:01
US Cerebrovascular Routine
Comment:
Reason For Exam: stenosis
09/03/25 16:12
Admit/Transfer Patient As Directed
Co-Sign Provider:
Level of Care: Inpatient admission
Assign to:: ICU
Physician / Group: Hollie
Diagnosis: Seizure
Reason for Hospitalization: Seizure Work-up
Expected length of stay greater than two midnights?: Yes
ELOS- Estimated Length of Stay in days: 3
I certify the patient meets the requirements for IP care: Yes
PRN Pain Medication Management As Directed
May give lesser potent ordered pain med per pt: Yes
preference::
Protocol:: Medication orders for pain may be administered in a
manner that supports deferring to patient preference
when the pt is:
- Requesting an ordered lesser potent pain medication.
Least to most potent pain medications are defined
as: acetaminophen < NSAID < tramadol < opioids
(morphine, oxycodone, hydromorphone).
- Requesting a lesser dose of the same medication IF
ORDERED.
- Requesting a less intrusive route of administration
if both routes are prescribed by the provider (PO <
IV).
09/03/25 16:17
Code Status As Directed
Resuscitation Status: Full Code
Nursing to Place Non Medication Order As Directed
Physician Order: please bladder scan and TT me result
Above order entered?: Yes
09/03/25 16:32
Urine Osmolality Random [Osmolality, Random Urine] Routine
Urine Sodium Routine
09/03/25 17:41
Acetaminophen [Tylenol] 650 mg PO Q4HPRN PRN
09/03/25 17:41
Advertising Project Manager Consult Routine
Consulting Provider: Low Gimenez
Was physician already notified: Yes
NEUROLOGY CONSULT Routine
Consulting Provider: Declan Chavez
Was physician already notified: Yes
CBC/With Diff [Complete Blood Count/With Diff] Routine
MR Brain Without Contrast Routine
Comment:
Reason For Exam: Seizure
Recent pill cam endoscopy?: No
Activity As Directed
Activity Level: Out of Bed- Chair
Bladder Scan As Directed
Follow Bladder Retention/Intermittent Cath Algorithm?: Yes
PRN if no void in __ hours: 6
Frequency: Per Retention Algorithm
If Bladder Scan Result >: 400
then:: Straight cath
I&O [Intake/ Output] As Directed
Frequency: q12h
Neurological Checks As Directed
Frequency: Per unit guidelines
Precautions As Directed
Type of Precautions: Seizure
Straight Cath As Directed
Frequency: Per Retention Algorithm
Additional Instructions: straight cath as needed per acute urinary retention algorithm for 24 hrs
Additional Instructions: for bladder scan greater than 400 mL
Teds [Anti-embolism (JOEL) Hose] As Directed
Type: Knee high
Vital Signs As Directed
Frequency: Per unit guidelines
Weight As Directed
Frequency: Daily
09/03/25 18:00
Midodrine [ProAmatine] 10 mg PO TID@0800,1300,1800
09/03/25 22:00
Gabapentin [Neurontin] 100 mg PO TID
Sennosides [Senokot] 17.2 mg PO HS
09/04/25 00:00
Heparin 5,000 units SC Q8
09/04/25 06:00
Basic Metabolic Panel IN AM
Levothyroxine [Synthroid] 37.5 mcg PO DAILY@0600
09/04/25 08:00
Amiodarone [Pacerone] 200 mg PO DAILY
Aspirin Low Dose EC [Aspir Low (Enteric Coated)] 81 mg PO DAILY
Bisacodyl [Dulcolax] 10 mg PO DAILY
Levetiracetam Injectable [Keppra] 1,000 mg IV Q12
Pantoprazole [Protonix] 40 mg PO DAILY
Polyethylene Glycol Powder [Miralax] 17 grams PO DAILY
09/04/25 16:30
Orthostatic Vital Signs As Directed
Orthostatic VS Frequency: BID
09/04/25 22:00
Famotidine [Pepcid] 20 mg PO Q48H
Abnormal Lab Results
09/03/25
15:36
RBC 3.53 L 10^6/uL
(4.20-5.40)
Hgb 11.0 L g/dL
(12.0-16.0)
Hct 34.3 L %
(37.0-47.0)
MCH 31.2 H pg
(27.0-31.0)
MCHC 32.1 L g/dL
(33.0-37.0)
RDW 14.6 H %
(11.5-14.5)
Sodium 129 L mmol/L
(135-145)
Chloride 94 L mmol/L
(98-107)
BUN 20 H mg/dl
(7-17)
Creatinine 1.6 H mg/dL
(0.6-1.0)
09/03/25 15:36
09/03/25 15:36
Vital Signs
Initial and Last Documented VS:
Initial Vital Signs
BP
173/105
09/03/25 15:17
Last Documented Vital Signs
Temp Pulse Resp BP Pulse Ox
97.6 F 69 18 158/84 97
09/03/25 18:09 09/03/25 18:32 09/03/25 18:15 09/03/25 18:30 09/03/25 18:30
<Roe May PA-C - Last Filed: 09/03/25 19:04>
Orders/Labs/Results
Orders:
Orders
09/03/25
Electrocardiogram (*1) Stat
Comment: DONE
09/03/25 Breakfast
Sodium, 2 Gram
At Your Request: Limited, Millroom Supervisor Required
09/03/25 14:46
CT HEAD STROKE ALERT W/o Cont Urgent
Comment:
Reason For Exam: AMS
Bedside Glucose- Treatment ONCE
09/03/25 14:56
CT HEAD/NECK ANG STROKE ALERT Urgent
Comment:
Reason For Exam: decreased responsiveness, L sided weakness
09/03/25 14:59
CT BRAIN PERF STROKE ALERT Urgent
Comment:
Reason For Exam: left-sided weakness, decreased responsiveness
Levetiracetam Injectable [Keppra] 4,000 mg IV NOW STA
09/03/25 15:00
Lorazepam [Ativan] 2 mg IV NOW STA
09/03/25 15:02
Lorazepam [Ativan] 4 mg .ROUTE .STK-MED ONE
09/03/25 15:15
EEG [Rapid Point of Care EEG (ED/ICU ONLY)] Q1H
Indications for use:: Altered Mental Status
09/03/25 15:36
Complete Blood Count/No Diff Urgent
Comprehensive Metabolic Panel Urgent
Prothrombin Time Urgent
Troponin I Urgent
09/03/25 15:59
Urinalysis Reflex To Culture Urgent
09/03/25 16:01
US Cerebrovascular Routine
Comment:
Reason For Exam: stenosis
09/03/25 16:12
Admit/Transfer Patient As Directed
Co-Sign Provider:
Level of Care: Inpatient admission
Assign to:: ICU
Physician / Group: Hollie
Diagnosis: Seizure
Reason for Hospitalization: Seizure Work-up
Expected length of stay greater than two midnights?: Yes
ELOS- Estimated Length of Stay in days: 3
I certify the patient meets the requirements for IP care: Yes
PRN Pain Medication Management As Directed
May give lesser potent ordered pain med per pt: Yes
preference::
Protocol:: Medication orders for pain may be administered in a
manner that supports deferring to patient preference
when the pt is:
- Requesting an ordered lesser potent pain medication.
Least to most potent pain medications are defined
as: acetaminophen < NSAID < tramadol < opioids
(morphine, oxycodone, hydromorphone).
- Requesting a lesser dose of the same medication IF
ORDERED.
- Requesting a less intrusive route of administration
if both routes are prescribed by the provider (PO <
IV).
09/03/25 16:17
Code Status As Directed
Resuscitation Status: Full Code
Nursing to Place Non Medication Order As Directed
Physician Order: please bladder scan and TT me result
Above order entered?: Yes
09/03/25 16:32
Urine Osmolality Random [Osmolality, Random Urine] Routine
Urine Sodium Routine
09/03/25 17:41
Acetaminophen [Tylenol] 650 mg PO Q4HPRN PRN
09/03/25 17:41
Advertising Project Manager Consult Routine
Consulting Provider: Low Gimenez
Was physician already notified: Yes
NEUROLOGY CONSULT Routine
Consulting Provider: Declan Chavez
Was physician already notified: Yes
CBC/With Diff [Complete Blood Count/With Diff] Routine
MR Brain Without Contrast Routine
Comment:
Reason For Exam: Seizure
Recent pill cam endoscopy?: No
Activity As Directed
Activity Level: Out of Bed- Chair
Bladder Scan As Directed
Follow Bladder Retention/Intermittent Cath Algorithm?: Yes
PRN if no void in __ hours: 6
Frequency: Per Retention Algorithm
If Bladder Scan Result >: 400
then:: Straight cath
I&O [Intake/ Output] As Directed
Frequency: q12h
Neurological Checks As Directed
Frequency: Per unit guidelines
Precautions As Directed
Type of Precautions: Seizure
Straight Cath As Directed
Frequency: Per Retention Algorithm
Additional Instructions: straight cath as needed per acute urinary retention algorithm for 24 hrs
Additional Instructions: for bladder scan greater than 400 mL
Teds [Anti-embolism (JOEL) Hose] As Directed
Type: Knee high
Vital Signs As Directed
Frequency: Per unit guidelines
Weight As Directed
Frequency: Daily
09/03/25 18:00
Midodrine [ProAmatine] 10 mg PO TID@0800,1300,1800
09/03/25 22:00
Gabapentin [Neurontin] 100 mg PO TID
Sennosides [Senokot] 17.2 mg PO HS
09/04/25 00:00
Heparin 5,000 units SC Q8
09/04/25 06:00
Basic Metabolic Panel IN AM
Levothyroxine [Synthroid] 37.5 mcg PO DAILY@0600
09/04/25 08:00
Amiodarone [Pacerone] 200 mg PO DAILY
Aspirin Low Dose EC [Aspir Low (Enteric Coated)] 81 mg PO DAILY
Bisacodyl [Dulcolax] 10 mg PO DAILY
Levetiracetam Injectable [Keppra] 1,000 mg IV Q12
Pantoprazole [Protonix] 40 mg PO DAILY
Polyethylene Glycol Powder [Miralax] 17 grams PO DAILY
09/04/25 16:30
Orthostatic Vital Signs As Directed
Orthostatic VS Frequency: BID
09/04/25 22:00
Famotidine [Pepcid] 20 mg PO Q48H
Abnormal Lab Results
09/03/25
15:36
RBC 3.53 L 10^6/uL
(4.20-5.40)
Hgb 11.0 L g/dL
(12.0-16.0)
Hct 34.3 L %
(37.0-47.0)
MCH 31.2 H pg
(27.0-31.0)
MCHC 32.1 L g/dL
(33.0-37.0)
RDW 14.6 H %
(11.5-14.5)
Sodium 129 L mmol/L
(135-145)
Chloride 94 L mmol/L
(98-107)
BUN 20 H mg/dl
(7-17)
Creatinine 1.6 H mg/dL
(0.6-1.0)
09/03/25 15:36
09/03/25 15:36
Vital Signs
Initial and Last Documented VS:
Initial Vital Signs
BP
173/105
09/03/25 15:17
Last Documented Vital Signs
Temp Pulse Resp BP Pulse Ox
97.6 F 69 18 158/84 97
09/03/25 18:09 09/03/25 18:32 09/03/25 18:15 09/03/25 18:30 09/03/25 18:30
Melvinlt;Roe May PA-C - Last Filed: 09/03/25 19:04>
MDM/Problems Addressed
MDM/Problems Addressed:
85-year-old female arrives from [facility] as a rapid response due to episode of unresponsiveness. On arrival a stroke alert was called due to the severe mental status abnormalities and global weakness with concern for intracranial hemorrhage given
severe hypertension. However during workup with CT imaging she was noted to have tonic-clonic seizure lasting proxy 1 minute. Did not require benzodiazepines for this event but was ultimately loaded with levetiracetam. Neurology was present at
the bedside throughout evaluation. Given that her postictal period was notable for profound left-sided weakness, it was deemed that the patient is not a thrombolytic candidate as the events that preceded her arrival as well as in the emergency
department most likely represent recurrent seizures with postictal paralysis. Cerebell was initiated in the emergency department and remained quiet with no seizure episodes after Keppra load. No evidence for large vessel occlusion or intracranial
hemorrhage. Will be admitted to the intensive care unit
<Roe May PA-C - Last Filed: 09/03/25 19:04>
*Pulse Oximetry
Patient hypoxic: no
*Critical Care Note
Total Time (30-74mins, 75-104mins- exclusive of procedures): 45 minutes
comment:
Critical care time: 45 minutes
Critical care time was exclusive of: Separately billable procedures, treating other patients, and teaching time
Critical care was necessary to treat or prevent imminent or life-threatening deterioration of the following conditions: Encephalopathy/seizures
Critical care time spent personally by me on the following activities:
[x] Review of old charts
[x] Obtaining history from patient or surrogate
[x] Ordering and review of the laboratory studies
[x] Ordering and review of radiographic studies
[x] Ordering and performing treatments and interventions
[x] Patient patient's response to treatment
[x] Development of treatment plan with patient or surrogate
[x] Discussion with consultants
ED Attending Note
<Rodrigo Leung DO - Last Filed: 09/03/25 15:25>
ED Attending Note
Patient seen and examined by attending physician: Yes
I performed the substantive portion of visit, reviewed & personally made and approve the management plan that is documented in note by myself or LINDSAY.: Yes
ED Attending Note:
I have seen and evaluated the patient with a [id number] encounter. I have spoken to the advance practicer provider and involved in the medical history, the physical exam, medical decision making.
Evaluation and management service: agree unless noted differently below.
Results interpretation: agree unless noted differently below.
Focused HPI: 85-year-old female [facility] as a ' emergency response alert'. Bradycardia alert, patient became unresponsive and hypertensive. Patient is weak and fatigued
Physical exam: Very weak appearing. Frail. Poor muscle strength throughout
Medical Decision Making: Prior records indicate history of CVA and recent CHF exacerbation. Stroke alert was called given the sudden onset of mental status change. Patient sent to CT scan immediately
Update: Patient had a seizure while in CAT scan. CT negative for any obvious bleeding. Neurology indicating patient is not a TNK candidate
The seizing did resolve. Patient was brought back to her room. The portable cerebral EEG was placed on the patient. Patient started on Keppra. At this point, Ativan was not given since the seizure self resolved
-
Portions of this chart may have been created with voice recognition software.� Occasional wrong word or��sound alike� substitutions may have occurred due to the inherent limitations of voice recognition software.
Discharge Plan
Departure
Patient Disposition: Admit
Date of Disposition: 09/03/25
Time of Disposition: 15:31
Admit to: ICU
Presentation/result/management discussed w/ accepting MD/DO: Hospitalist
Discharge Problem:
Seizure
Interventions
Interventions:
*Risk Screen - Suicide Last Done: 09/03/25 15:20
*General Assessment Last Done: 09/03/25 15:20
*Neglect/Abuse Screening Last Done: 09/03/25 15:20
*ED- Fall Risk Assessment Last Done: 09/03/25 15:20
*ED COVID-19 Vaccine History Last Done: 09/03/25 15:20
*ED Influenza Vaccine History Last Done: 09/03/25 15:20
*Nursing Disposition Last Done: 09/03/25 17:53
ED- Pulmonary Assessment Last Done: 09/03/25 17:53
ED-Psychological Assessment Last Done: 09/03/25 17:53
ED- Neurological Assessment Last Done: 09/03/25 15:20
ED- Cardiac Assessment Last Done: 09/03/25 17:53
ED Swallowing Screen Last Done: 09/03/25 17:53
Discharge Date and Time
Discharge Date/Time: 09/03/25 17:54
--- NOTE | 2025-09-03 15:03 | CON.NEURO4 ---
Addendum entered and electronically signed by Declan Chavez MD 09/03/25 16:22:
Studies reviewed.
I have personally examined the patient. I reviewed and agree with the GASKET SUPERVISOR's Note.
My addenda:
Awake, interactive, sluggishly. No acute distress.
Speech reduced significantly and output. Clarity of speech intact.
Follows 1-step requests w/ difficulty. No tremor.
Extra-ocular movements grossly intact.
Facial movements minimally weaker on the left. Hearing intact to normal conversational volume.
Minimal movements left upper and left lower extremity. Appears to be full movements on the right-hand side
Neck: full ROM.
Chest: no dyspnea
Heart: no JVD
Ext: (-) Clubbing, (-) Cyanosis, (-) Edema
IMPRESSIONS/RECOMMENDATIONS:
Abrupt onset of change in mental status and witnessed 1 minute seizure separately. In a patient with described recent CHF. The etiology for the patient's seizure could be her recent stroke. Correction. The patient did not receive lorazepam in
the CT scanner when her [address].
Provide levetiracetam, loading dose 4 g then 1 g twice a day
Check Ceribell device as availability of EEG is limited at this hour for possible status epilepticus
Continue thiamine
Check MRI of brain without contrast to ensure no recurrent stroke is taken place, although CTP did not suggest same currently
Check carotid ultrasound as there is a suggestion by CTA that there is a left ICA 66% stenosis. Goal of carotid ultrasound is to confirm or refute narrowing
Will continue to follow patient.
Original Note:
Documented by User: Yeni Hamilton NP 09/03/25 15:59
Consultation - Neurology 4
-
CONSULTING PHYSICIAN: Declan Chavez MD
REFERRING PHYSICIAN: MONICO/Roe May PA-C
DICTATED BY: BHARGAV Marie
DATE/TIME OF REQUEST: 09/03/25
DATE/TIME OF CONSULTATION: 09/03/25
Reason for Consultation: Stroke Alert
History of Present Illness:
This is an 85-year-old female who has presented to the hospital from [facility] with report of decreased responsiveness, left-sided weakness, and tongue bite. Patient was hospitalized at [facility] in February 2025 for right upper extremity
weakness and was found to have 'multiple microhemorrhages' in her brain. Her apixaban that she taking for Afib was held indefinitely at that time and she was ultimately started on aspirin 81mg daily.
She was hospitalized at [facility] from 08/19/25-08/26/25 with increased bilateral lower extremity edema and elevated blood pressure reading. One week prior she was started on antibiotics for a UTI/urinary retention. She was treated for a mild CHF
exacerbation and discharged to [facility] on 08/26/25. She reports persistent headaches since her hemorrhage in February and had a head CT completed on 09/02/25 due to report of headache, it was negative for any acute abnormalities.
This afternoon (09/03/25), she was in physical therapy when she reported having a bad headache and nausea. She was taken back to her room and then became unresponsive, prompting a rapid response to be called. She was noted to have blood on the left
side of her mouth following this event. In the ER, a stroke alert was activated due to left-sided weakness and altered mental status. NIHSS was 9. She notably had left-sided weakness with a left gaze preference and perseveration of speech
intermittently. While in the CT scanner, she had witnessed whole body shaking with facial twitching lasting one minute. She was given lorazepam and loaded with levetiracetam. She is currently still weak on the left-side. CT head, CTA head/neck, and
CT brain perfusion are negative for any acute abnormalities. CTA is suggestive of L ICA 66% stenosis. She is not a candidate for TNK/IAT due to low concern for stroke, no LVO, and recent reported cerebral hemorrhages. She reports ongoing headache,
nausea, and chronic back pain.
Past Medical History: Afib (aspirin), cerebral microhemorrhages [facility] 02/2025, orthostatic hypotension, HFpEF, HTN, HLD, severe aortic stenosis s/p AVR, CAD s/p CABG, SVT, bradycardia/possible sick sinus syndrome, syncope, fibromyalgia, chronic back
pain, urinary retention
Surgical History: AVR, CABG, lumbar spinal fusion, tonsillectomy, b/l cataract removal, left elbow repair
Family History: Reviewed and noncontributory.
Social History: Former smoker. Denies alcohol and illicit drug use.
Allergies: See below.
Home Medications: See below.
Review of Symptoms:
Patient denies any fever, headache, chest pain, shortness of breath, or symptoms.
�Per the HPI.�All systems are reviewed negative except above.
Physical Exam:
The patient is afebrile, abdomen is nondistended, breathing is unlabored, skin is warm and dry, +2 BLE edema. There is a left tongue laceration.
NIH Stroke Scale:
I performed the NIH stroke scale on the patient on 09/03/25 at 1500. The patient scored 9 points on the NIH stroke scale assessment, which were assigned as follows: See below.
Neurologic Examination:
The patient is drowsy, opens eyes to voice. She is oriented x3. She is able to follow commands and answer questions appropriately. There is mild aphasia with perseveration. No dysarthria. On cranial nerve assessment, pupils are 3 mm bilateral,
round and reactive to light and accommodation. Visual brandon are challenging to assess but appear full. Extraocular movements are intact, left gaze preference resolved after lorazepam was administered. There is no facial asymmetry. Hearing is intact
bilaterally to normal conversation volume. Tongue palate and uvula are midline, there is a left tongue laceration. Motor strengths are 5-/5 RUE, 2/5 LUE, 4/5 RLE, 2/5 LLE on medical research [place] scale. Currently there is no involuntary movement
noted. Deep tendon reflexes are 1+ bilateral upper and lower extremities and Babinski is absent bilaterally. EVERARDO double simultaneous due to aphasia. Coordination is intact by finger to nose in the RUE, EVERARDO LUE.
Lab Results: See below.
Neuro Imaging:
1. CT head 09/03/25: No evidence of acute intracranial abnormality. ASPECT score: 10.
2. CTA head/neck 09/03/25: No evidence for intracranial large vessel occlusion or high-grade stenosis. No evidence for hemodynamically significant stenosis of the right carotid bulb or proximal right internal carotid artery. Focal calcification and
luminal narrowing of the proximal left ICA 2 cm superior to its origin, measured diameter reduction of 66%, likely a hemodynamically significant stenosis. As warranted, consider further evaluation with cerebrovascular ultrasound. No significant
narrowing involving the vertebral or basilar arteries. Enlargement of the main pulmonary artery, suggesting pulmonary hypertension.
3. CT Brain perfusion 09/03/25: CBF 0ml, Tmax 0ml.
Differentials for the patient's presentation include:
1. Altered mental status associated with left-sided weakness, left gaze preference, and left tongue bite in the setting of a witnessed generalized seizure. Cannot entirely exclude an acute small ischemic stroke due to not being on anticoagulation
for Afib.
2. Cerebral microhemorrhages 02/2025.
3. Hypertensive urgency.
Patient has the following risk factors for their symptoms: Microhemorrhages, Afib not on OAC, HTN
IV Tenecteplase/IAT candidacy: She is not a candidate for TNK/IAT due to low concern for stroke and recent reported cerebral hemorrhages.
Recommendations:
-Continue levetiracetam 1000mg q12hrs.
-MRI brain w/ and w/o contrast.
-Carotid ultrasound pending for confirmation of L ICA stenosis.
-Continue aspirin 81mg daily.
-Neurological checks per unit guidelines.
-Seizure precautions.
-DVT prophylaxis.
Discussed patient care with: Dr. Chavez, the patient
Medications
-
Active Medications
Generic Name Dose Route Start Last Admin
Trade Name Freq PRN Reason Stop Dose Admin
Lorazepam 2 mg 09/03/25 15:00
Lorazepam 2 Mg/Ml Vial IV 09/03/25 15:01
NOW STA
Home Medications
�Medication �Instructions �Recorded
aspirin 81 mg tablet,delayed 81 mg PO DAILY Heart 11/08/17
release Disease/Condition
cholecalciferol (vitamin D3) 50 2,000 unit PO DAILY Supplement 11/08/17
mcg (2,000 unit) tablet
acetaminophen 500 mg tablet 1,000 mg PO TIDPRN PRN mild pain 11/26/17
(Tylenol Extra Strength)
amiodarone 200 mg tablet (Pacerone) 200 mg PO DAILY Heart 08/18/25
Disease/Condition
docusate sodium 100 mg capsule 100 mg PO BID Constipation 08/18/25
(Colace)
furosemide 20 mg tablet 20 mg PO DAILY Fluid 08/18/25
Retention/Swelling
gabapentin 100 mg capsule 100 mg PO TIDPRN PRN mild pain 08/18/25
multivitamin with folic acid 400 1 tab PO DAILY Supplement 08/18/25
mcg tablet (Tab-A-Alex)
sennosides 8.6 mg tablet (senna) 17.2 mg PO HS Constipation 08/18/25
thiamine HCl (vitamin B1) 100 mg 100 mg PO DAILY Supplement 08/18/25
tablet
bisacodyl 10 mg rectal suppository 10 mg MI [id number] PRN constipation 08/26/25
#0 ea
bisacodyl 5 mg tablet,delayed 5 mg PO DAILY #0 tabs 08/26/25
release
ketorolac 10 mg tablet 10 mg PO Q4HPRN PRN moderate pain 08/26/25
#0 tabs
levothyroxine 25 mcg tablet 37.5 mcg (1.5 x 25 mcg) PO DAILY 08/26/25
(Synthroid) Thyroid #0 tabs
miconazole nitrate 2 % topical 1 applic topical BID #0 grams 08/26/25
powder (Miconazorb AF)
midodrine 2.5 mg tablet 2.5 mg PO TID@0800,1300,1800 #0 08/26/25
tabs
ondansetron HCl 4 mg tablet 4 mg PO Q8HPRN PRN nausea #0 tabs 08/26/25
polyethylene glycol 3350 17 gram 17 g PO DAILY #0 ea 08/26/25
oral powder packet
NIH Stroke Score
Subsequent NIH Scale
Date of Subsequent NIH Scale: 09/03/25
Time of Subsequent NIH Scale: 15:00
NIH Stroke Score
Level of Consciousness: 1 - Arousable
LOC Questions: 0-Answers both correctly
LOC Commands: 0-Performs both correctly
Best Horizontal Gaze: 0-Normal
Visual Brandon: 0=Normal, no visual loss
Facial Palsy: 0=Normal, symmetrical
Motor - Right Arm: 0=No drift 10 seconds
Motor - Left Arm: 3=None vs. gravity
Motor - Right Le-Drift < 5 seconds
Motor - Left Le-None vs. gravity
Limb Ataxia: 0-Absent
Sensation: 0-Normal
Best Language: 1-Mild aphasia
Dysarthria: 0-Normal
Extinction and Inattention: 0-No abnormality
NIH Total Score:: 9
Modified [place] (mRS) Score
Modified [place] Scale (mRS): Moderately severe disability. Unable to attend to bodily needs/walk.
Score: 4
Alteplase Contraindication
Inclusion and Exclusion criteria reviewed: Yes
IAT Contraindications: Imaging doesn't show large vessel occlusion as cause of stroke
Vital Signs and Labs
-
Vital Signs and Labs:
Vital Signs
Temp Pulse Resp BP Pulse Ox
96.5 F L 79 12 173/105 94
09/03/25 15:20 09/03/25 15:30 09/03/25 15:30 09/03/25 15:20 09/03/25 15:30
Lab Results
09/03/25 15:36
09/03/25 15:36
PT 13.2 Sec (11.4-14.6) 09/03/25 15:36
INR 0.95 09/03/25 15:36
Sodium 129 mmol/L (135-145) L 09/03/25 15:36
Potassium 4.7 mmol/L (3.5-5.1) 09/03/25 15:36
BUN 20 mg/dl (7-17) H 09/03/25 15:36
Glucose 85 mg/dl (70-99) 09/03/25 15:36
Calcium 9.2 mg/dl (8.4-10.2) 09/03/25 15:36

Documented by User: Declan Chavez MD 09/03/25 16:11
NIH Stroke Score
NIH Stroke Score
NIH Total Score:: 9
Modified [place] (mRS) Score
Score: 4
[2025-09-03] MEDS: KEPPRA 4000 MG IV (15:35)
[2025-09-03 15:46] LABS: Hematocrit 34.3 % (37.0-47.0); Hemoglobin 11.0 g/dL (12.0-16.0); Mean Corp Hgb Conc. 32.1 g/dL (33.0-37.0); Mean Corpuscular Volume 97.2 fL (81.0-99.0); Platelet Count 247 10^3/uL (130-400); Red Cell Dist. Width 14.6 % (11.5-14.5)
--- NOTE | 2025-09-03 15:46 | W.PN.UPDATE ---
Addendum entered and electronically signed by Valentine Browne MD 09/03/25 18:47:
carotid US ordered for finding of left ICA narrowing on CTA
Original Note:
Update Note
Progress Note Update
This is an addendum to H&P written by DIGITAL TRAFFIC COORDINATOR Deanne Gracia
I saw and examined the patient.
The DIGITAL TRAFFIC COORDINATOR's note was reviewed and I agree with the note.
Comment:
Ms. Flora Yanes is a 85 yo woman with hx paroxysmal afib/aflutter, hemorrhagic stroke (03/09), CAD s/p CABG, severe s/p bio AVR, admission 08/19-08/26/25 for acute heart failure exacerbation discharged to [facility] sent to the ER for abrupt unresponsive
episode. Patient was sent to CT scan upon arrival with witnessed seizure activity. Portable cerebral EEG placed and patient was started on Keppra.
Triage VS significant for hypertension. Labs: WBC 10.3, Hg 11, PLT 247, Na 129, K+ 4.7, Cr 1.6, liver enzymes WNL
HEAD CT
IMPRESSION:
No evidence of acute intracranial abnormality.
HEAD/NECK CTA
IMPRESSION: No evidence for intracranial large vessel occlusion or high-grade stenosis.
No evidence for hemodynamically significant stenosis of the right carotid bulb or proximal right internal carotid artery.
Focal calcification and luminal narrowing of the proximal left ICA 2 cm superior to its origin, measured diameter reduction of 66%, likely a hemodynamically significant stenosis. As warranted, consider further evaluation with cerebrovascular
ultrasound.
No significant narrowing involving the vertebral or basilar arteries.
Enlargement of the main pulmonary artery, suggesting pulmonary hypertension.
Percent stenosis is calculated using NASCET criteria.
If the patient has emphysema, patient should be assessed for an annual low dose lung cancer CT program, as pulmonary emphysema is an independent risk factor for lung cancer.
Seizure
-s/p Keppra in ER
-admit to ICU as required for Ceribell testing
-appreciate neurology input
-continue Keppra BID
-MRI Brain
Acute on chronic kidney injury
CKD III
-patient had urinary retention - will continue bladder scans with straight cath PRN, may need odell catheter if persists
-patient does not look overloaded on exam. Hold WATER RECLAMATION SYSTEMS OPERATOR Lasix for now - monitor volume status closely
Heart Failure preserved EF
-hold WATER RECLAMATION SYSTEMS OPERATOR Lasix for now
-daily weights, monitor volume status closely
Urinary Retention
-recent treatment of UTI with Ertapenem
-patient is s/p 4 days of treatment, hold further antibiotics
-bladder scan and straight cath PRN (patient required straight cath this morning at [facility])
Paroxysmal Afib/Aflutter
-continue WATER RECLAMATION SYSTEMS OPERATOR Amiodarone
-patient is not on Eliquis given hx hemorrhagic stroke and cerebral amyloid angiopathy
Hyponatremia
-follow up urine studies
-fluid restriction
Hx Hemorrhagic stroke 03/09
CAD s/p CABG 11/09/17
Aortic Stenosis s/p AVR 11/09/17
-WATER RECLAMATION SYSTEMS OPERATOR aspirin
Hypothyroidism - WATER RECLAMATION SYSTEMS OPERATOR Synthroid
Remainder of plan per PA note
76 minutes spent on patient care
[2025-09-03 15:53] LABS: INR 0.95; PT 13.2 Sec (11.4-14.6)
[2025-09-03 15:57] LABS: ALT (SGPT) 18 U/L (0-35); AST (SGOT) 22 U/L (14-36); Albumin 4.6 g/dl (3.5-5.0); Alkaline Phosphatase 72 U/L (38-126); Blood Urea Nitrogen 20 mg/dl (7-17); Calcium 9.2 mg/dl (8.4-10.2); Carbon Dioxide 23 mmol/L (22-30); Chloride 94 mmol/L (98-107); Glucose 85 mg/dl (70-99); Potassium 4.7 mmol/L (3.5-5.1); Sodium 129 mmol/L (135-145); Total Protein 7.5 g/dl (6.3-8.2); eGFR 31.61
--- NOTE | 2025-09-03 16:05 | HPS.HSE ---
Family Physician
-
Family Physician: INTERVIEWE UNKNOWN - PT NOT
Chief Complaint
-
Seizure
History of Present Illness
Patient is a 85 y/o female past medical history of CHF, CAD, Aortic Stenosis, A-Fib, Cerebral Microhemorrhages, Orthostatic Hypotension and Hypothyroidism who presents following a seizure. Patient was recently hospitalized at [place] in the
spring with cerebral microhemorrhages, and decision was made to stop her anticoagulation. Patient was hospitalized at [facility] from Aug 19- with acute heart failure. She was diuresed and then discharge to [facility]. Patient notes
headaches since she was diagnosed with the microhemorrhages. Today patient was complaining of worsening headache with nausea, and while working with PT her blood pressure was noted to be very high. She was taken back to her room and became
unresponsive. While in the CT scan patient had a witnessed episode of seizure activity. Patient was being treated with Invanz for a urinary tract infection the past few days, and her midodrine dose has been increased due to persistent orthostatic
hypotension.
Medical History
Past Medical History
Past Medical History: Reports Other
Additional Past Medical History:
Chronic HFpEF
Coronary Artery Disease s/p CABG
Severe Aortic Stenosis s/p TAVR
Paroxysmal Atrial Fibrillation
Cerebral Microhemorrhages
Orthostatic Hypotension
Hypothyroidism
Fibromyalgia
Past Surgical History: Reports Other
Additional Past Surgical History:
spinal fusion 03/2016
Laparoscopy 03/2016
Tonsillectomy (1958)
Cataract surgery - left eye (2004), right eye (2005)
Left elbow fracture, left wrist injury, left rotator cuff tear from syncope/fall (03/2016)
AVR with a 21mm Trifecta pericardial tissue valve (11/09/17 JSA)
CAB x 1 with SVG to PDA (11/09/17 JSA)
Social History
Tobacco: Former Smoker (quit 1973)
Alcohol: None
Living: With Family (lives with and caregiver for disabled daughter )
Family History
Family History: Not pertinent
Allergies / Home Medications
Allergies reflects when Allergies were last updated in [facility].
Home Medications with original date entered in [facility]
Allergy/Medication List:
Allergies
Allergy/AdvReac Type Severity Reaction Status Date / Time
bee venom protein (honey bee) Allergy Anaphylaxis Verified 11/26/17 12:18
hydromorphone Allergy Vomiting Verified 08/18/25 20:46
nitrofurantoin Allergy rash and Verified 08/18/25 20:46
itch
nitroglycerin Allergy 'bottomed Verified 11/26/17 12:18
out' with
SL
spider venom Allergy 'poisoning' Verified 11/26/17 12:18
sulfamethoxazole Allergy rash and Verified 08/18/25 20:46
itch
trimethoprim Allergy rash and Verified 08/18/25 20:46
itch
Home Medications
aspirin 81 mg tablet,delayed release 81 mg PO DAILY Heart Disease/Condition 11/08/17
cholecalciferol (vitamin D3) 50 mcg (2,000 unit) tablet 2,000 unit PO DAILY Supplement 11/08/17
acetaminophen 500 mg tablet (Tylenol Extra Strength) 1,000 mg PO TIDPRN PRN mild pain 11/26/17
amiodarone 200 mg tablet (Pacerone) 200 mg PO DAILY Heart Disease/Condition 08/18/25
docusate sodium 100 mg capsule (Colace) 100 mg PO BID Constipation 08/18/25
furosemide 20 mg tablet 20 mg PO DAILY Fluid Retention/Swelling 08/18/25
gabapentin 100 mg capsule 100 mg PO TID 08/18/25
multivitamin with folic acid 400 mcg tablet (Tab-A-Alex) 1 tab PO DAILY Supplement 08/18/25
sennosides 8.6 mg tablet (senna) 17.2 mg PO HS Constipation 08/18/25
bisacodyl 10 mg rectal suppository 10 mg HI [id number] PRN constipation #0 ea 08/26/25
levothyroxine 25 mcg tablet (Synthroid) 37.5 mcg (1.5 x 25 mcg) PO DAILY Thyroid #0 tabs 08/26/25
miconazole nitrate 2 % topical powder (Miconazorb AF) 1 applic topical BID #0 grams 08/26/25
ondansetron HCl 4 mg tablet 4 mg PO Q8HPRN PRN nausea #0 tabs 08/26/25
polyethylene glycol 3350 17 gram oral powder packet 17 g PO DAILY #0 ea 08/26/25
Lactobac no.2-Bifidobac no.1-S. thermo 112.5 billion cell capsule (Visbiome) 1 cap PO DAILY 09/03/25
aluminum-mag hydroxide-simethicone 200 mg-200 mg-20 mg/5 mL oral susp 30 ml PO QIDPRN PRN gerd 09/03/25
bisacodyl 5 mg tablet,delayed release 10 mg PO DAILY 09/03/25
clotrimazole 1 % topical cream 1 applic topical BID buttock,b/l breasts 09/03/25
cyanocobalamin (vitamin B-12) 1,000 mcg tablet 1,000 mcg PO DAILY 09/03/25
ertapenem 1 gram solution for injection 1 g IV DAILY 09/03/25
famotidine 20 mg tablet (Pepcid) 20 mg PO HS 09/03/25
heparin (porcine) 5,000 unit/mL injection solution 5,000 unit SC TID 09/03/25
loratadine 10 mg tablet (Claritin) 10 mg PO DAILY 09/03/25
methyl salicylate 15 %-menthol 10 % topical cream 1 applic topical TID lower back 09/03/25
midodrine 2.5 mg tablet 10 mg PO TID@0800,1300,1800 09/03/25
pantoprazole 40 mg tablet,delayed release (Protonix) 40 mg PO DAILY 09/03/25
tamsulosin 0.4 mg capsule 0.4 mg PO HS 09/03/25
zinc oxide 1 applic topical TID perianal area 09/03/25
Review of Systems
-
Unable to obtain full review of systems at this time due to: Acuity (Patient is post-ictal)
Physical Exam
Vital Signs
Vital Signs
Temp Pulse Resp BP Pulse Ox
96.5 F L 79 12 173/105 94
09/03/25 15:20 09/03/25 15:30 09/03/25 15:30 09/03/25 15:20 09/03/25 15:30
Physical Exam
General: Well Developed and Well Nourished
HEENT: Anicteric and Moist mucous membranes
Respiratory: Clear and Non Labored Respirations
Cardiac: S1/S2, Irregular Rhythm and Murmur; No Tachycardia
GI: Soft and Non Tender
Musculoskeletal: No Clubbing, No Cyanosis and No Edema
Skin: Warm and Dry
Neuro: Other (Slightly lethargiv but easily arousable; She follows some commands and answers a few simple questions)
Psych: Calm
Laboratory Results
-
09/03/25 15:36
09/03/25 15:36
Laboratory Results
PT 13.2 Sec (11.4-14.6) 09/03/25 15:36
INR 0.95 09/03/25 15:36
Total Bilirubin 0.3 mg/dl (0.2-1.3) 09/03/25 15:36
AST 22 U/L (14-36) 09/03/25 15:36
ALT 18 U/L (0-35) 09/03/25 15:36
Alkaline Phosphatase 72 U/L (38-126) 09/03/25 15:36
Data Reviewed
-
CT Scan: Report Reviewed by me
Lab Data: Labs Reviewed by me
Impression/Plan
-
New Onset Seizure
-Admit to ICU for Ceribell continuous EEG monitoring
-Appreciate Neurology consult
-Continue Keppra
-Check Brain MRI
Elevated Creatinine, possibly related to urinary retention
-Hold Lasix
-Continue to trend
Recent Citrobacter UTI
-Patient received 4 doses of Invanz
-Hold on further antibiotics
-Recheck urinalysis
Urinary Retention
-Patient has been requiring intermittent straight cath
-Continue to monitor bladder scans
-Patient started on Flomax, but would recommend stopping as this can worsen her orthostatic hypotension
Hyponatremia, slightly lower than baseline
-Lasix on hold
-Check urine sodium and urine osmo
Left Carotid Artery Stenosis
-CTA with 66% of left internal carotid artery
-Check carotid ultrasound
Chronic HFpEF
-Lasix on hold as above
-Monitor Daily Weights
Coronary Artery Disease s/p CABG
-Continue aspirin
Severe Aortic Stenosis s/p TAVR
-Monitor Daily Weights
Paroxysmal Atrial Fibrillation
-Patient is not on anticoagulation secondary to cerebral microhemorrhages
-Continue amiodarone
Cerebral Microhemorrhages
-Stable
Orthostatic Hypotension
-BP running high in the ED
-Add parameters to hold midodrine for SBP greater than 140
-Stop Flomax
-Add JOEL stocking
-Monitor orthostatic VS
Hypothyroidism
-Continue levothyroxine
Chronic Constipation
-Continue bowel regimen
GERD
-Continue Pepcid and Protonix
DVT proph: SC Heparin
Code Status: Full Code
[2025-09-03 16:07] LABS: Troponin I < 0.012 ng/ml
[2025-09-03 18:05] LABS: Glucose - Point of Care 102 mg/dl (70-99)
--- NOTE | 2025-09-03 18:30 | PTCARENOTE ---
Rec'd patient from ED at 1745. Patient drowsy. Oriented. MAEx4; generalized weakness. Anxious, tearful. Aflutter on monitor. BP elevated. Midodrine held per parameters. Saturated in urine. Complete bed bath performed. Ceribell placed on and
monitoring initiated at 1800. Seizure burden 0%.
[2025-09-03 19:20] LABS: Magnesium 2.0 mg/dl (1.6-2.3)
[2025-09-03 20:08] LABS: Urine Character Clear (Clear)
[2025-09-03 20:27] LABS: Urine Squamous Cell 26-30 /LPF (Few)
[2025-09-03 20:35] LABS: Urine White Cell 70-80 /HPF (0-5)
[2025-09-03] MEDS: SENOKOT PO (21:16)
[2025-09-03] MEDS: NEURONTIN PO (21:16)
--- NOTE | 2025-09-03 21:35 | PTCARENOTE ---
on assessment pt drowsy but AAOx3, c/o head pressure, wrong size ceribell band placed by ED, new band placed and pt states feeling 'much better', tearful but calm, family called and updated, AFIB/flutter on the monitor in the 60s ASSISTANT PROFESSOR OF DIETETICS made aware, temp
95.5 rectally, cliff hugger placed per orders, RA 98%, NPO at 0000, purwick in place, urine sent, foam placed on sacrum, bed alarm on and call delgado in reach
--- NOTE | 2025-09-03 23:04 | PTCARENOTE ---
pt remains drowsy, AAOx3, cliff MELGOZA on medium, temp now 97.1
[2025-09-03] MEDS: HEPARIN 5000 UNITS SC (23:43)
[2025-09-04] VITALS (29 sets, daily range): BP systolic 89–152; BP diastolic 51–89; PULSE 77–92; O2SAT 98; BMI 28.4
[2025-09-04 02:17] LABS: APTT 37.6 Sec (23.4-35.0); INR 0.95; PT 13.2 Sec (11.4-14.6)
[2025-09-04 02:30] LABS: Hematocrit 20.8 % (37.0-47.0); Hemoglobin 7.0 g/dL (12.0-16.0); Mean Corp Hgb Conc. 33.7 g/dL (33.0-37.0); Mean Corpuscular Volume 93.7 fL (81.0-99.0); Platelet Count 288 10^3/uL (130-400); Red Cell Dist. Width 14.6 % (11.5-14.5)
[2025-09-04 02:37] LABS: Blood Urea Nitrogen 21 mg/dl (7-17); Calcium 9.2 mg/dl (8.4-10.2); Carbon Dioxide 30 mmol/L (22-30); Chloride 97 mmol/L (98-107); Estimated Creatinine Clearance 25 ml/min; Glucose 77 mg/dl (70-99); Potassium 4.3 mmol/L (3.5-5.1); Sodium 134 mmol/L (135-145); eGFR 34.15
[2025-09-04 02:53] LABS: Hematocrit 31.7 % (37.0-47.0); Hemoglobin 10.8 g/dL (12.0-16.0); Mean Corp Hgb Conc. 34.1 g/dL (33.0-37.0); Mean Corpuscular Volume 94.9 fL (81.0-99.0); Platelet Count 234 10^3/uL (130-400); Red Cell Dist. Width 14.5 % (11.5-14.5)
[2025-09-04 03:23] LABS: Blood Urea Nitrogen 21 mg/dl (7-17); Calcium 9.1 mg/dl (8.4-10.2); Carbon Dioxide 30 mmol/L (22-30); Chloride 97 mmol/L (98-107); Estimated Creatinine Clearance 25 ml/min; Glucose 78 mg/dl (70-99); Potassium 4.2 mmol/L (3.5-5.1); Sodium 133 mmol/L (135-145); eGFR 34.15
--- NOTE | 2025-09-04 04:43 | W.PN.UPDATE ---
Update Note
Progress Note Update
DC Ceribell, no seizure burden noted.
--- NOTE | 2025-09-04 05:12 | PTCARENOTE ---
ceribell removed per TOMATO PASTE MAKER, 0% seizure burden noted, pt AAOx3, bed alarm on and call delgado in reach
[2025-09-04] MEDS: SYNTHROID PO (06:02)
--- NOTE | 2025-09-04 07:22 | W.RAPID.EEG ---
Rapid EEG
-
Procedure Date: 09/03/25
Patient Status: Emergency Room
Results:
Impression:
No evidence status epilepticus
Recording Information:
Diagnostic Recording Time: 04:36:23 (276 minutes)
Recording 1:
Start Time: Sep 03, 2025 15:41 PM End Time: Sep 03, 2025 20:17 PM
Recording Technique: This EEG was obtained using a 10 lead, 8 channel system positioned circumferentially without any parasagittal coverage (rapid EEG). Computer selected EEG is reviewed as well as background features and all clinically significant
events. Clarity algorithm utilized and implemented to provide analysis of underlying activity and seizure detection used to facilitate reading. ICD-10 Code NE52A22
Clinical History: LINDA SORTO is a 85 year old Prior Seizure patient undergoing EEG to screen for non-convulsive status epilepticus.
--- NOTE | 2025-09-04 07:27 | W.RAPID.EEG ---
Rapid EEG
-
Procedure Date: 09/03/25
Patient Status: Inpatient
Results:
Impression:
No evidence of status epilepticus in this repeat study
Recording Information:
Diagnostic Recording Time: 05:07:19 (307 minutes)
Recording 1:
Start Time: Sep 03, 2025 20:22 PM End Time: Sep 04, 2025 01:30 AM
Recording Technique: This EEG was obtained using a 10 lead, 8 channel system positioned circumferentially without any parasagittal coverage (rapid EEG). Computer selected EEG is reviewed as well as background features and all clinically significant
events. Clarity algorithm utilized and implemented to provide analysis of underlying activity and seizure detection used to facilitate reading. ICD-10 Code KM40E47
Clinical History: LINDA SORTO is a 85 year old Prior Seizure patient undergoing EEG to screen for non-convulsive status epilepticus.
--- NOTE | 2025-09-04 07:39 | EEGC.RPT ---
Continuous EEG Report
Recording
Start Date of Data Reviewed: 09/03/25
Start Time of Data Reviewed: 07:00
End Date of Data Reviewed: 09/04/25
End Time of Data Reviewed: 07:00
Type of EEG: Continuous
Done with Video Recording: Yes
Study Sequence: Continuation of ongoing Study
Electrocardiogram: Unremarkable
Patient Status: Inpatient
[2025-09-04] MEDS: HEPARIN 5000 UNITS SC ×2 (08:50→15:19)
[2025-09-04] MEDS: KEPPRA 1000 MG IV ×2 (08:51→21:06)
--- NOTE | 2025-09-04 09:22 | W.PN.NEURO.1 ---
Today's Communication / Plan
-
Based on the patient's improvement, continue levetiracetam 1 g twice a day
Continue thiamine
Await MRI of brain to ensure no new structural abnormality
Await carotid ultrasound due to suggested left internal carotid artery significant stenosis
repeat MRI lumbar spine due to incontinence if structural etiology not discovered otherwise and routine self catheterization is persistently needed
Neuro Assessment/Plan
Assessment
Abrupt onset of change in mental status including 1 witnessed 1 minute seizure separately. The etiology for the patient's seizure could be her recent stroke.
Plan
Based on the patient's improvement, continue levetiracetam 1 g twice a day
Continue thiamine
Await MRI of brain to ensure no new structural abnormality
Await carotid ultrasound due to suggested left internal carotid artery significant stenosis
repeat MRI lumbar spine due to incontinence if structural etiology not discovered otherwise and routine self catheterization is persistently needed
Will follow, peripherally
Subjective/Objective
Subjective Data
Date of Service: September 04, 2025
Improved. Had aura of headache.
Objective Data
Vital Signs
Temp Pulse Resp BP Pulse Ox
36.1 C L 74 17 122/73 99
09/04/25 08:00 09/04/25 09:00 09/04/25 09:00 09/04/25 09:00 09/04/25 09:06
Lab Results
09/04/25 02:40
09/04/25 02:40
PT 13.2 Sec (11.4-14.6) 09/04/25 01:51
INR 0.95 09/04/25 01:51
APTT 37.6 Sec (23.4-35.0) H 09/04/25 01:51
Sodium 133 mmol/L (135-145) L 09/04/25 02:40
Potassium 4.2 mmol/L (3.5-5.1) 09/04/25 02:40
BUN 21 mg/dl (7-17) H 09/04/25 02:40
Glucose 78 mg/dl (70-99) 09/04/25 02:40
Calcium 9.1 mg/dl (8.4-10.2) 09/04/25 02:40
Phosphorus Cancelled 09/03/25 17:51
Patient Allergies
bee venom protein (honey bee) Allergy (Verified 11/26/17 12:18)
Anaphylaxis
nitrofurantoin Allergy (Verified 08/18/25 20:46)
rash and itch
spider venom Allergy (Verified 11/26/17 12:18)
'poisoning'
sulfamethoxazole Allergy (Verified 08/18/25 20:46)
rash and itch
trimethoprim Allergy (Verified 08/18/25 20:46)
rash and itch
hydromorphone Adverse Reaction (Verified 09/03/25 18:00)
Vomiting
nitroglycerin Adverse Reaction (Verified 09/03/25 18:00)
'bottomed out' with SL
Review of Systems
-
History Source: Patient
All other systems: Reviewed and negative
Respiratory: Negative Trouble Breathing
Cardiac: Negative Chest Pain
Genitourinary: Negative Incontinence
Musculoskeletal: Neck Pain; Negative Back Pain
Neuro: Headache; Negative Dizzy
Physical Exam
-
General: No Apparent Distress and Appears Stated Age
Eyes: Round OU, [place] Conjunctivae and No Ptosis
HEENT: Anicteric and Moist Mucous Membranes
Neck: Full Range of Motion
Respiratory: No Dyspnea
Cardiac: No JVD
GI: Non-distended
Skin: Unremarkable
Extremities: No Clubbing, No Cyanosis and No Edema
Psych: Negative Intact Judgement/Insight
Extended Neurological Exam
Mood & Affect: Mood Unremarkable and Affect Unremarkable
Attention Span & Concentration: Awake, Alert, Interactive and Other (no problem 1-step requests)
Memory: Able to Recall (Month, year, location), Unable to Recall (Events in the last 12 hours) and Other (Some repetitive questions)
Tremor: Hand Tremor Absent and Head Tremor Absent
Speech: Quality Unremarkable and Quantity Unremarkable
Cranial Nerve II: Left Eye: Pupillary Size Unremarkable and Visual Brandon Grossly Intact
Cranial Nerve II: Right Eye: Pupillary Size Unremarkable and Visual Brandon Grossly Intact
Cranial Nerves III, IV, : Extraocular Movement: Grossly Intact
Cranial Nerve VII: Facial Symmetry: Normal Facial Symmetry
Cranial Nerve VIII: Hearing: Unremarkable Hearing to Normal Conversational Volume
Cranial Nerve XI: Shoulder Shrug: Unremarkable
Muscle Strength, Overall: Full in Upper Extremities
Muscle Bulk & Tone: Bulk Unremarkable and Tone Unremarkable
Pronator Drift: No Drift in Upper Extremities
Touch Sensation: Unremarkable
Coordination: [id number] Testing Unremarkable
Data Reviewed
-
CT-A: Report Reviewed
CT-Perfusion: Report Reviewed
CT Head: Report Reviewed
MRI Head: Ordered
Carotid Ultrasound: Pending
EEG: Report Reviewed
Labs: Report Reviewed
Reviewed with: Physician, Nurse and Patient
Old Records: Summarized
--- NOTE | 2025-09-04 09:30 | PTCARENOTE ---
Rec'd care of patient at 0700. AAOx3, drowsy. PERRLA. MAEx4; strength improved. Forgetful. Severe headache resolved per patient. Afib/aflutter, rate controlled. +2 edema in b/l LE. JOEL stockings reapplied. Pulse ox 98-99% on RA. Lung sounds
diminished; crackles auscultated in left base. +BS. No BM. NPO. contacted for diet advancement. Patient continues to require intermittent straight catheterizations. Purewick removed. Peripheral sites capped. Carotid US and MRI of brain ordered
for today.
--- NOTE | 2025-09-04 10:43 | CM ---
Chart reviewed Spoke with patient in ICU room 2130
Recent hx of admission at 08/19- for UTI per previous CM note pt exhausted 100 SNF days
tx to [facility] at 08/26-09/03 then readmitted here with seizure?
PLOF at home
Lives with dtr at home Independent with ADLs and ambulation
at [facility] needs assist with all ADLs and ambulation
PCP Dr. Shirley Benjamin
Pharmacy [facility] in [place]
VN was opened to [facility] in [facility]
CM spoke with Ly at [facility]
hx of [facility]
DCP to be discussed
acute rehab vs home with services?
CM will continue to follow up for any dcp needs
--- NOTE | 2025-09-04 11:00 | PTCARENOTE ---
Patient downgraded to tele level of care. Diet advanced. Patient c/o some difficulty swallowing at times. Swallow eval completed prior to administration of meds. No urine output. Scanned for > 500 cc's. Straight cath'd for 540 cc's.
--- NOTE | 2025-09-04 11:06 | W.PN.HOSP.TC ---
Today's Communication/Plan
-
Empiric IV Zosyn for UTI
Continue Keppra
Transfer to floor
Assessment / Plan
Assessment / Plan
85F with paroxysmal afib/aflutter, hemorrhagic stroke (03/09), CAD s/p CABG, severe s/p bio AVR, admission 08/19-08/26/25 for acute heart failure exacerbation discharged to [facility] sent to the ER for abrupt unresponsive episode. Patient was sent to
CT scan upon arrival with witnessed seizure activity. Portable cerebral EEG placed and patient was started on Keppra.
Seizure
- No further seizure activity
- No seizure on Ceribell testing
-appreciate neurology input
-continue Keppra BID, thiamine
- MRI Brain pending
- Mild hyponatremia, doubt this is contributing
Possible carotid stenosis
CTA with finding of left ICA narrowing
Carotid ultrasound pending for confirmation
If confirmed, will have vascular surgery consult
Acute on chronic kidney injury
CKD III
-patient had urinary retention - will continue bladder scans with straight cath PRN, may need odell catheter if persists
-patient does not look overloaded on exam. Hold HOSE TENDER Lasix for now - monitor volume status closely
If urinary retention persists, consider repeat MRI lumbar spine as per neurology recommendation
Heart Failure preserved EF
-hold HOSE TENDER Lasix for now
-daily weights, monitor volume status closely
Urinary tract infection
UA positive, UCX pending
Based on recent culture data, will start Zosyn
Paroxysmal Afib/Aflutter
-continue HOSE TENDER Amiodarone
-patient is not on Eliquis given hx hemorrhagic stroke and cerebral amyloid angiopathy
Hyponatremia, mild
- Improving
-Normal urine sodium, low Uosm
- fluid restriction
Hx Hemorrhagic stroke 03/09
CAD s/p CABG 11/09/17
Aortic Stenosis s/p AVR 11/09/17
-HOSE TENDER aspirin
Hypothyroidism
Synthroid
Orthostatic Hypotension
-Add parameters to hold midodrine for SBP greater than 140
-Stop Flomax
-Add JOEL stocking
-Monitor orthostatic VS
DVT PPx
Heparin SC
Anticipated Discharge: > 48 hours
Subjective/Interval History
-
Date of Service: September 04, 2025
States she is having a mild headache, denies vision issues, some abdominal pain, described as aching, mild, denies N/V. RN at bedside
Objective Data
-
Labs:
Laboratory Results
09/04/25 09/04/25
01:51 02:40
WBC 7.7 5.6
Hgb 7.0 L D 10.8 L D
Hct 20.8 L* 31.7 L
Plt Count 288 234
PT 13.2
INR 0.95
APTT 37.6 H
Sodium 134 L 133 L
Potassium 4.3 4.2
Chloride 97 L 97 L
Carbon Dioxide 30 30
BUN 21 H 21 H
Creatinine 1.5 H 1.5 H
Glucose 77 78
Calcium 9.2 9.1
Vital Signs:
Vital Signs
Temp Pulse Resp BP Pulse Ox
96.9 F L 91 14 129/78 97
09/04/25 08:00 09/04/25 10:00 09/04/25 10:00 09/04/25 10:00 09/04/25 10:00
I&O
09/03/25 09/04/25 09/05/25
06:59 06:59 06:59
Output Total 800 / 800
Balance -800 / -800
Review of Systems
-
All other systems: Reviewed and negative
Physical Exam
-
General: No Apparent Distress
HEENT: Moist Mucous Membranes, Anicteric and PERRLA
Respiratory: Clear to Auscultation; Negative Wheezes, Rales or Rhonchi
Cardiac: Regular Rhythm and S1/S2; Negative Murmur, Rub or Gallop
GI: Soft, Nontender, Nondistended and Normal Bowel Sounds
Musculoskeletal: No Edema
Skin: Warm and Dry; Negative Rash, Ulcers or Lesions
Neuro: Awake, AO x 3, No Motor Deficits and Nonfocal/Grossly Intact; Negative Tremors
Hematologic / Lymphatic: No Lymphadenopathy
Psych: Calm
Data Reviewed
-
CT Scan: Report Reviewed by me and Discussed with Physician
Labs: Labs Reviewed by me and Discussed with Patient
[2025-09-04] MEDS: DULCOLAX 10 MG PO (11:07)
[2025-09-04] MEDS: ASPIR LOW (ENTERIC COATED) 81 MG PO (11:07)
[2025-09-04] MEDS: PROTONIX 40 MG PO (11:07)
[2025-09-04] MEDS: NEURONTIN 100 MG PO ×2 (11:08→21:05)
[2025-09-04] MEDS: MIRALAX 17 GRAMS PO (11:08)
[2025-09-04] MEDS: PACERONE 200 MG PO (11:08)
[2025-09-04] MEDS: TYLENOL 650 MG PO ×2 (11:12→16:40)
[2025-09-04] MEDS: ZOFRAN 4 MG IV (11:13)
--- NOTE | 2025-09-04 11:18 | W.PN.INTV ---
Addendum entered and electronically signed by Low Gimenez MD 09/04/25 12:21:
- Patient hemodynamically stable, awake, alert, encephalopathy resolved
- No further seizure activity noted
- Patient can be transferred out of ICU, senior sous chef service will sign off, please call as needed
Original Note:
Today's Communication / Plan
Recommendations
MRI brain
Carotid ultrasound
Continue ertapenem for UTI, Zosyn DC'd
Continue Keppra, neurology following
Downgrade to floors
Assessment
-
Assessment:
An 85-year-old female with a past medical history of HFrEF, CAD s/p CABG, severe aortic stenosis s/p TAVR, paroxysmal atrial fibrillation not anticoagulated due to cerebral microhemorrhages, orthostatic hypotension and hypothyroidism who presented
from [facility] with hypertensive urgency and a witnessed seizure in the CT scanner. Concurrent issues include UTI due to Citrobacter, urinary retention requiring intermittent straight catheterization, hyponatremia, MITCHEL and headaches since
microhemorrhage diagnosis. Patient was admitted to the ICU with continuous EEG monitoring and neurological evaluation. EEG was discontinued as no seizure burden was noted 09/04/2025 4:[address] head 09/03/2025: No evidence of acute intracranial abnormality.
CTA head/neck 09/03/2025: No evidence for intracranial large vessel occlusion or high-grade stenosis.
No evidence for hemodynamically significant stenosis of the right carotid bulb or proximal right internal carotid artery.
Focal calcification and luminal narrowing of the proximal left ICA 2 cm superior to its origin, measured diameter reduction of 66%, likely a hemodynamically significant stenosis. As warranted, consider further evaluation with cerebrovascular
ultrasound.
No significant narrowing involving the vertebral or basilar arteries.
Enlargement of the main pulmonary artery, suggesting pulmonary hypertension.
Percent stenosis is calculated using NASCET criteria.
If the patient has emphysema, patient should be assessed for an annual low dose lung cancer CT program, as pulmonary emphysema is an independent risk factor for lung cancer.
CXR 09/03/2025:No acute disease of the chest. Cardiomegaly. Stable
Plan:
# New onset seizures
# Headaches in the setting of cerebral microhemorrhages
- Patient admitted to the ICU for EEG monitoring. EEG discontinued 09/04 4:45 AM as no seizure burden noted
- Neurology consulted and following
- Continue Keppra
- Head CT showed no acute abnormality
- CTA showed 66% left ICA stenosis
- MRI brain pending
- Care to head ultrasound to follow-up on CTA stenosis findings
- Neurochecks
- Monitor for seizures
- Regular diet
# Hypertensive urgency at presentation
# Orthostatic hypotension
# Paroxysmal atrial fibrillation
# Hemorrhagic stroke February 2025
# History of HFpEF, CAD, severe aortic stenosis s/p TAVR
- BP 118/78, HR 81 (rate controlled)
- Hold midodrine for SBP > 140
- Continue aspirin 81 mg daily
- Continue amiodarone 200 mg daily
- JOEL stockings; orthostatic vital signs daily
- Hold Flomax
# Hyponatremia
#Acute on chronic CKD stage III
- 09/03 BUN 20, CR 1.6; 09/04 BUN 21 CR 1.5
- Na 129 on arrival, improved to 133 09/04/2025
- Fluid restriction
- Trend BMP
- Hold Lasix, resume based on renal recovery/volume status
- I/Os, daily weights
- Bladder scan showing > 500 cc urine this morning, continue intermittent straight catheterization
# Recent UTI due to Citrobacter
- Status post ertapenem x4 doses
- Continue ertapenem to finish course. Yuval serrano
- Urine culture pending
- Afebrile, no leukocytosis
- Trend CBC
# Back pain likely in the setting of titanium implant and spine
- Patient will benefit from MRI back
# Sacral decubitus ulcer stage I
# Hypothyroidism
- Continue levothyroxine
DVT prophylaxis: Heparin SC
CODE STATUS: Full code
Subjective Dataa
Subjective Data
Date of Service:
Date of Service: September 04, 2025
Patient evaluated at bedside this morning. She states she had a severe headache overnight but resolved. She has a dull headache now which is similar to headaches she has had since the diagnosis of cerebral microhemorrhages in February 2025. Patient
was straight catheterized at 2 AM last night (800cc urine), repeat bladder scan this morning shows >500 cc. Patient also states that she has been having back pain and has a history of a titanium implant in the spine.
Chief Complaint: Pediatric Geneticist Follow Up
Review of Systems
Genitourinary: Other (Retention)
Objective Data
Data Reviewed
Vital Signs / I&O / Oxygen:
Vital Signs
Temp Pulse Resp BP Pulse Ox
97.4 F 80 19 121/62 98
09/04/25 11:07 09/04/25 11:08 09/04/25 11:00 09/04/25 11:08 09/04/25 11:00
Intake and Output
09/03/25 09/04/25 09/05/25
06:59 06:59 06:59
Output Total 800 / 800
Balance -800 / -800
SaO2 98
Physical Exam
General: Comfortable
HEENT: Normocephalic, Anicteric and Moist Mucous Membranes
Cardiovascular: S1-S2, Irregular Rhythm and Peripheral Edema
Respiratory: Clear and Non-Labored Respirations
GI: Soft, Non Distended and Non Tender
Neurology: Awake and AO x 3
Skin: Warm
Labs/Micro/Reports
Lab Data
09/04/25 02:40
09/04/25 02:40
Laboratory Results
09/03/25 09/03/25 09/04/25
15:36 17:51 01:51
PT 13.2 13.2
INR 0.95 0.95
APTT Cancelled 37.6 H
[2025-09-04] MEDS: INVANZ 55 MG IV (12:15)
--- NOTE | 2025-09-04 13:32 | TRANSFER ---
Patient transferred to via bed. VSS. No complaints.
--- NOTE | 2025-09-04 13:46 | PTCARENOTE ---
pt arrived from ICU via bed. VSS, pt AAOx3 no complaints at this time. POC ongoing.
--- NOTE | 2025-09-04 14:44 | PN.CDI ---
CDI
- -
CDI:
Physician Documentation Request
Admit Date: 09/03/25 16:59
Dear Doctor Juan Carlos,
Clinical Indicators:
Patient admitted with new onset seizure
09/04 PN, 'Hyponatremia'
Urine studies:
09/03/25
19:58
Urine Osmolality 233 L
Urine Sodium 68
Based on the above, could you clarify in the progress notes, the appropriate diagnosis, if significant, that supports the above abnormalities and additional evaluation, monitoring and/or treatment rendered:
SIADH
Hyponatremia only
Other, please specify
Use of terms such as suspected, likely, concern for, or probable (associated with a specific diagnosis that is being evaluated, monitored, or treated as if it exists) are acceptable and can be coded in the inpatient setting, when documented at the
time of discharge.
Thank you,
ARABELLA Ghotra RN
CDI Specialist
available via tiger text
Please use your independent medical judgment in providing your response.
--- NOTE | 2025-09-04 14:55 | PN.CDI ---
CDI
- -
CDI:
Physician Documentation Request
Admit Date: 09/03/25 16:59
Dear Doctor Juan Carlos,
Clinical Indicators:
Patient admitted with new onset seizure.
09/04 PN, 'Heart Failure preserved EF-hold COMPUTATOR Lasix for now'
Please specify the acuity of the HFpEF:
Chronic
Other, please specify
Use of terms such as suspected, likely, concern for, or probable (associated with a specific diagnosis that is being evaluated, monitored, or treated as if it exists) are acceptable and can be coded in the inpatient setting, when documented at the
time of discharge.
Thank you,
ARABELLA Ghotra RN
CDI Specialist
available via tiger text
Please use your independent medical judgment in providing your response.
[2025-09-04] MEDS: NEURONTIN PO ×2 (15:19→15:23)
[2025-09-04] MEDS: SENOKOT 17.2 MG PO (21:05)
[2025-09-04] MEDS: PEPCID 20 MG PO (21:05)
[2025-09-05] VITALS (9 sets, daily range): BP systolic 71–151; BP diastolic 49–93; PULSE 82–95; O2SAT 99; BMI 28.2
[2025-09-05] MEDS: HEPARIN 5000 UNITS SC ×3 (00:42→18:22)
[2025-09-05] MEDS: SYNTHROID 37.5 MCG PO (05:43)
[2025-09-05 08:03] LABS: Hematocrit 34.3 % (37.0-47.0); Hemoglobin 11.1 g/dL (12.0-16.0); Mean Corp Hgb Conc. 32.4 g/dL (33.0-37.0); Mean Corpuscular Volume 99.4 fL (81.0-99.0); Nucleated Red Blood Cells % 0 %; Platelet Count 239 10^3/uL (130-400); Red Cell Dist. Width 14.6 % (11.5-14.5)
[2025-09-05 08:36] LABS: Blood Urea Nitrogen 19 mg/dl (7-17); Calcium 9.3 mg/dl (8.4-10.2); Carbon Dioxide 30 mmol/L (22-30); Chloride 97 mmol/L (98-107); Estimated Creatinine Clearance 28 ml/min; Glucose 69 mg/dl (70-99); Potassium 4.4 mmol/L (3.5-5.1); Sodium 134 mmol/L (135-145); eGFR 40.55
[2025-09-05] MEDS: PROTONIX 40 MG PO (08:37)
[2025-09-05] MEDS: DULCOLAX 10 MG PO (08:37)
[2025-09-05] MEDS: NEURONTIN 100 MG PO ×3 (08:38→21:51)
[2025-09-05] MEDS: PACERONE 200 MG PO (08:39)
[2025-09-05] MEDS: ASPIR LOW (ENTERIC COATED) 81 MG PO (08:39)
[2025-09-05] MEDS: DESENEX/MITRAZOL/ZEASORB 1 APPLIC TOPICAL ×2 (08:40→21:56)
[2025-09-05] MEDS: KEPPRA 1000 MG IV ×2 (08:40→19:47)
[2025-09-05] MEDS: TYLENOL 650 MG PO (08:52)
[2025-09-05] MEDS: MIRALAX PO (09:11)
[2025-09-05 10:12] LABS: Folate 7.5 ng/ml (2.76-20); Vitamin B12 672 pg/ml (239-931)
--- NOTE | 2025-09-05 10:15 | W.PN.HOSP.TC ---
Today's Communication/Plan
-
Repeat EEG for continued headache
MRI brain, T/L-spine
Odell
Amoxicillin for UTI
Assessment / Plan
Assessment / Plan
85F with paroxysmal afib/aflutter, hemorrhagic stroke (03/09), CAD s/p CABG, severe s/p bio AVR, admission 08/19-08/26/25 for acute heart failure exacerbation discharged to [facility] sent to the ER for abrupt unresponsive episode. Patient was sent to
CT scan upon arrival with witnessed seizure activity. Portable cerebral EEG placed and patient was started on Keppra.
Seizure
-continue Keppra BID, thiamine. Considered Keppra as the etiology of headache, have discussed with neurology, will continue Keppra for now. Seizure was preceded by severe headache, patient is again reporting headache, discussed with neurology Dr.
Chavez he will check another EEG.
-Could be sequela of stroke, or new structural abnormality in brain, consider possible adverse effect of ertapenem which was recently started, also has Mild hyponatremia, doubt this is contributing. Recheck TSH as it was abnormal 3 weeks ago.
- MRI Brain pending
Ruled out carotid stenosis
CTA with finding of left ICA narrowing 66%
Follow-up carotid ultrasound did not show significant stenosis
Improved� acute on chronic kidney injury
CKD III
-patient had urinary retention - will continue bladder scans with straight cath PRN, may need odell catheter if persists
-patient does not look overloaded on exam. Hold TURBO OPERATOR Lasix for now - monitor volume status closely
Urinary retention
Was started on Flomax at rehab facility on 09/03. Per notes was previously using a Odell, but then passed a void trial. Here in the hospital has not been able to void on her own, requiring frequent straight caths.
MRI thoracic/lumbar spine as per neurology recommendation
Have discussed with urology, no indication for inpatient consult, will have Odell placed and follow-up as outpatient
Heart Failure preserved EF
-hold TURBO OPERATOR Lasix for now
-daily weights, monitor volume status closely
Urinary tract infection
09/03 UA positive, UCX shows enterococcus. Final C/S pending. Empirically placed on amoxicillin.
Reviewed previous urine culture, 08/28 Citrobacter freundii that was resistant to amoxicillin/Keflex/ceftriaxone. reviewed [facility] notes, they were concerned about her listed allergies to Bactrim and nitrofurantoin, and shows ertapenem.
Ertapenem stopped on admission per admitting team, notably ertapenem can cause SQL SERVER CONSULTANT effects including seizure, RF include history of stroke. Another dose was given when patient was in ICU, however will stop.
Per patient, her allergy to Bactrim/Macrobid was a rash that occurred in the 70s. Unclear if she remains allergic but she may benefit from outpt allergy eval to see if she can tolerate these in the future.
Paroxysmal Afib/Aflutter
-continue TURBO OPERATOR Amiodarone
-patient is not on Eliquis given hx hemorrhagic stroke and cerebral amyloid angiopathy
Hyponatremia, resolved
- Improving
-Normal urine sodium, low Uosm
- fluid restriction
Hx Hemorrhagic stroke 03/09
CAD s/p CABG 11/09/17
Aortic Stenosis s/p AVR 11/09/17
-TURBO OPERATOR aspirin
Hypothyroidism
Synthroid
TSH 34 on 08/18, recheck now
Orthostatic Hypotension
-Add parameters to hold midodrine for SBP greater than 140
-Stop Flomax
-Add JOEL stocking
-Monitor orthostatic VS
DVT PPx
Heparin SC
Anticipated Discharge: > 48 hours
Subjective/Interval History
-
Date of Service: September 05, 2025
Patient reports worsening of her headache. Feeling quite tired did not sleep well overnight, says that was uncomfortable. Patient retaining urine, has had multiple straight caths, discussed with RN at bedside
Objective Data
-
Labs:
Laboratory Results
09/05/25
06:40
WBC 4.8
Hgb 11.1 L
Hct 34.3 L
Plt Count 239
Sodium 134 L
Potassium 4.4
Chloride 97 L
Carbon Dioxide 30
BUN 19 H
Creatinine 1.3 H
Glucose 69 L
Calcium 9.3
Vital Signs:
Vital Signs
Temp Pulse Resp BP Pulse Ox
98.3 F 77 16 129/83 96
09/05/25 07:08 09/05/25 08:38 09/05/25 07:08 09/05/25 08:38 09/05/25 07:08
I&O
09/04/25 09/05/25 09/06/25
06:59 06:59 06:59
Intake Total 595 / 595
Output Total 800 / 800 990 / 990
Balance -800 / -800 -395 / -395
Review of Systems
-
All other systems: Reviewed and negative
Physical Exam
-
General: No Apparent Distress
HEENT: Moist Mucous Membranes, Anicteric and PERRLA
Respiratory: Clear to Auscultation; Negative Wheezes, Rales or Rhonchi
Cardiac: Regular Rhythm and S1/S2; Negative Murmur, Rub or Gallop
GI: Soft, Nontender, Nondistended and Normal Bowel Sounds
Musculoskeletal: No Edema
Skin: Warm and Dry; Negative Rash, Ulcers or Lesions
Neuro: Awake, AO x 3, No Motor Deficits and Nonfocal/Grossly Intact; Negative Tremors
Hematologic / Lymphatic: No Lymphadenopathy
Psych: Calm
Data Reviewed
-
CT Scan: Report Reviewed by me and Discussed with Physician
Labs: Labs Reviewed by me and Discussed with Patient
[2025-09-05] MEDS: AMOXIL 500 MG PO ×2 (10:17→18:21)
[2025-09-05] MEDS: COMPAZINE 10 MG PO (10:18)
--- NOTE | 2025-09-05 13:36 | EEG.RPT ---
Electroencephalogram Report
Recording
Date of EE09/05/25
Type of EEG: Routine
Length of EEG recordin minutes
Done with Video Recording: Yes
Patient Status: Inpatient
Recording Conditions: Awake, Drowsy and Asleep
Hyperventilation Performed: No
Photic Stimulation Performed: Yes
Report
GREATER THAN 1 HOUR EEG REPORT
EEG INTERPRETATION:
Likely unremarkable EEG for age
CLINICAL CORRELATION:
Although normative values not been established for a person of this advanced age, the patient�s symmetry of the background suggests that this study was unremarkable.
A normal EEG does not rule out a diagnosis of epilepsy. If clinical suspicion for seizure persists, a prolonged recording may be warranted.
Clinical correlation is advised.
METHODS:
A 21 channel digitized electroencephalogram (EEG) was performed using the 10/20 international system of electrode placement and one-lead of ECG recorded. The [employer] quantitative review system was utilized.
ELECTROENCEPHALOGRAPHER IMPRESSION(S):
Quality of study
Good
Background
There was an unremarkable anterior-posterior voltage gradient of alpha frequency.
With eye opening the background activity changed to a low voltage mixture of frequencies.
There were no significant asymmetries of background activity noted.
Sleep
Drowsiness present
Stage II sleep characterized by K complexes and sleep spindles
Photic Stimulation
No driving
ECG
Normal sinus rhythm
--- NOTE | 2025-09-05 16:32 | PTCARENOTE ---
1600 patient is off unit, neuro check is not completed.
[2025-09-05] MEDS: DULCOLAX 10 MG RECTAL (19:47)
[2025-09-05] MEDS: SENOKOT 17.2 MG PO (21:51)
[2025-09-05] MEDS: COLACE 100 MG PO (21:51)
[2025-09-06] MEDS: HEPARIN 5000 UNITS SC ×4 (01:08→23:00)
[2025-09-06] MEDS: AMOXIL 500 MG PO ×2 (01:08→10:06)
[2025-09-06 03:43] VITALS: BP 145/95
[2025-09-06] MEDS: SYNTHROID 37.5 MCG PO (05:53)
[2025-09-06 06:00] VITALS: BMI 28.4
[2025-09-06 06:47] LABS: Hematocrit 31.0 % (37.0-47.0); Hemoglobin 10.7 g/dL (12.0-16.0); Mean Corp Hgb Conc. 34.5 g/dL (33.0-37.0); Mean Corpuscular Volume 92.0 fL (81.0-99.0); Nucleated Red Blood Cells % 0 %; Platelet Count 218 10^3/uL (130-400); Red Cell Dist. Width 14.5 % (11.5-14.5)
[2025-09-06 07:15] VITALS: BP 125/70
[2025-09-06 07:52] LABS: Blood Urea Nitrogen 19 mg/dl (7-17); Calcium 9.2 mg/dl (8.4-10.2); Carbon Dioxide 28 mmol/L (22-30); Chloride 100 mmol/L (98-107); Estimated Creatinine Clearance 28 ml/min; Glucose 89 mg/dl (70-99); Potassium 4.2 mmol/L (3.5-5.1); Sodium 133 mmol/L (135-145); eGFR 40.55
[2025-09-06] MEDS: ASPIR LOW (ENTERIC COATED) 81 MG PO (09:23)
[2025-09-06] MEDS: DULCOLAX 10 MG PO (09:23)
[2025-09-06] MEDS: PACERONE 200 MG PO (09:23)
[2025-09-06] MEDS: COLACE 100 MG PO ×2 (09:24→20:04)
[2025-09-06] MEDS: NEURONTIN 100 MG PO ×3 (09:24→21:00)
[2025-09-06] MEDS: PROTONIX 40 MG PO (09:24)
[2025-09-06] MEDS: KEPPRA 1000 MG IV ×2 (09:25→20:05)
[2025-09-06] MEDS: MIRALAX 17 GRAMS PO (09:25)
[2025-09-06] MEDS: TYLENOL 650 MG PO ×2 (09:27→18:48)
[2025-09-06] MEDS: DESENEX/MITRAZOL/ZEASORB 1 APPLIC TOPICAL ×2 (09:37→20:04)
[2025-09-06 11:29] VITALS: BP 124/82; BP 142/81; PULSE 76; PULSE 81
--- NOTE | 2025-09-06 11:54 | W.PN.HOSP.TC ---
Today's Communication/Plan
-
Continued headache, discussed with neurology
Based on sensitivities, changed to vancomycin for UTI
Assessment / Plan
Assessment / Plan
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 Patient was sent to
CT scan upon arrival with witnessed seizure activity. Portable cerebral EEG placed and patient was started on Keppra.
Seizure
-continue Keppra BID, thiamine. Considered Keppra as the etiology of headache, have discussed with neurology, will continue Keppra for now. Seizure was preceded by severe headache, patient is again reporting headache, discussed with neurology DrHipolito
Kathy he states will check another EEG.
-Could be sequela of stroke, or new structural abnormality in brain, consider possible adverse effect of ertapenem which was recently started, also has Mild hyponatremia, doubt this is contributing. Recheck TSH as it was abnormal 3 weeks ago.
- MRI Brain shows no acute infarct, amyloid angiopathy
Ruled out carotid stenosis
CTA with finding of left ICA narrowing 66%
Follow-up carotid ultrasound did not show significant stenosis
Improved� acute on chronic kidney injury
CKD III
-patient had urinary retention -Godfrey placed.
-patient does not look overloaded on exam. Hold MEMBER OF TECHNICAL STAFF Lasix for now - monitor volume status closely
Urinary retention
Was started on Flomax at rehab facility on 09/03. Per notes was previously using a Godfrey, but then passed a void trial. Here in the hospital has not been able to void on her own, requiring frequent straight caths. Godfrey placed. Discussed with
urology, no indication for inpatient consult, will have outpatient follow-up
MRI thoracic/lumbar spine as per neurology recommendation reviewed, severe right foraminal stenosis at L1-2
Have discussed with urology, no indication for inpatient consult, will have Godfrey placed and follow-up as outpatient
Heart Failure preserved EF
-hold [employer] Lasix for now
-daily weights, monitor volume status closely
Urinary tract infection
09/03 UA positive, UCX shows enterococcus. R to ampicillin, levofloxacin, tetracycline. S to Macrobid, vancomycin, gentamicin. Changed to vancomycin.
Reviewed previous urine culture, 08/28 Citrobacter freundii that was resistant to amoxicillin/Keflex/ceftriaxone. reviewed [facility] notes, they were concerned about her listed allergies to Bactrim and nitrofurantoin, and shows ertapenem.
Ertapenem stopped on admission per admitting team, notably ertapenem can cause YARN WRAPPER effects including seizure, RF include history of stroke. Another dose was given when patient was in ICU, however will stop.
Per patient, her allergy to Bactrim/Macrobid was a rash that occurred in the 70s. Unclear if she remains allergic but she may benefit from outpt allergy eval to see if she can tolerate these in the future.
Paroxysmal Afib/Aflutter
-continue MEM[employer]AFF Amiodarone
-patient is not on Eliquis given hx hemorrhagic stroke and cerebral amyloid angiopathy
Hyponatremia, resolved
- Improving
-Normal urine sodium, low Uosm
- fluid restriction
Hx Hemorrhagic stroke 03/09
CAD s/p CABG 11/09/17
Aortic Stenosis s/p AVR 11/09/17
-MEMBER OF TECHNICAL STAFF aspirin
Hypothyroidism
Synthroid
TSH 34 on 08/18, recheck now
Orthostatic Hypotension
-Add parameters to hold midodrine for SBP greater than 140
-Stop Flomax
-Add JOEL stocking
-Monitor orthostatic VS
DVT PPx
Heparin SC
Anticipated Discharge: > 48 hours
Subjective/Interval History
-
Date of Service: September 06, 2025
Patient still having headache, denies vision issues, nausea or vomiting.
Objective Data
-
Labs:
Laboratory Results
09/06/25
06:18
WBC 6.1
Hgb 10.7 L
Hct 31.0 L
Plt Count 218
Sodium 133 L
Potassium 4.2
Chloride 100
Carbon Dioxide 28
BUN 19 H
Creatinine 1.3 H
Glucose 89
Calcium 9.2
Vital Signs:
Vital Signs
Temp Pulse Resp BP Pulse Ox
98.1 F 76 18 142/81 98
09/06/25 11:29 09/06/25 11:29 09/06/25 11:29 09/06/25 11:29 09/06/25 11:29
I&O
09/05/25 09/06/25 09/07/25
06:59 06:59 06:59
Intake Total 595 / 595 1000 / 1000
Output Total 990 / 990 650 / 650
Balance -395 / -395 350 / 350
Review of Systems
-
All other systems: Reviewed and negative
Physical Exam
-
General: No Apparent Distress
HEENT: Moist Mucous Membranes, Anicteric and PERRLA
Respiratory: Clear to Auscultation; Negative Wheezes, Rales or Rhonchi
Cardiac: Regular Rhythm and S1/S2; Negative Murmur, Rub or Gallop
GI: Soft, Nontender, Nondistended and Normal Bowel Sounds
Musculoskeletal: No Edema
Skin: Warm and Dry; Negative Rash, Ulcers or Lesions
Neuro: Awake, AO x 3, No Motor Deficits and Nonfocal/Grossly Intact; Negative Tremors
Hematologic / Lymphatic: No Lymphadenopathy
Psych: Calm
Data Reviewed
-
CT Scan: Report Reviewed by me and Discussed with Physician
MRI: Report Reviewed by me, Discussed with Physician and Discussed with Patient
Labs: Labs Reviewed by me and Discussed with Patient
--- NOTE | 2025-09-06 12:14 | PHA.VAN.IN ---
Assessment
- Assessment
Renal Function: SCR Appears Elevated from baseline (BASELINE SCR ~1.1 MG/DL)
Plan
- Plan
Initial / Loading Dose: VANCO 1500MG X1
Monitoring: RANDOM 09/07 @0600
Pharmacokinetics Vancomycin I
- -
Patient Age: 85
Patient Sex: Female
Vancomycin Day #: 1
Indication: Genito-Urinary Tract
Pertinent Antimicrobial Allergies:
NITROFURANTOIN (RASH AND ITCH)
TRIMETHOPRIM-SULFAMETHOXAZOLE (RASH AND ITCH)
Height / Weight:
Height 5 ft 1 in
Actual Weight 68.152 kg
- Vital Signs / Lab Results
Temp Pulse Resp BP Pulse Ox
98.1 F 76 18 142/81 98
09/06/25 11:29 09/06/25 11:29 09/06/25 11:29 09/06/25 11:29 09/06/25 11:29
Lab Results - Hematology
09/03/25 09/03/25 09/04/25
15:36 17:41 01:51
WBC 10.3 Cancelled 7.7
09/04/25 09/05/25 09/06/25
02:40 06:40 06:18
WBC 5.6 4.8 6.1
Lab Results - Chemistry
09/03/25 09/04/25 09/04/25
15:36 01:51 02:40
BUN 20 H 21 H 21 H
Creatinine 1.6 H 1.5 H 1.5 H
Estimated Creat Clear 25 25
Albumin 4.6
09/05/25 09/06/25
06:40 06:18
BUN 19 H 19 H
Creatinine 1.3 H 1.3 H
Estimated Creat Clear 28 28
Albumin
Lab Results - Urine
09/03/25
19:58
Urine Nitrite (Reflex) Negative
Leukocyte Esterase Rfl 3+ A
Urine WBC (Reflex) 70-80 A
Ur Squamous Epith Cells 26-30
Urine Bacteria (Reflex) Many A
Microbiology Results
09/03/25 19:58 Urine Culture - Final
Urine Enterococcus faecium
[2025-09-06] MEDS: VANCOCIN 530 MG IV (13:11)
[2025-09-06 13:52] LABS: TSH 41.80 uIU/ml (0.47-4.68)
--- NOTE | 2025-09-06 14:17 | W.PN.NEURO.1 ---
Today's Communication / Plan
-
Start IV methylprednisolone 1g x 3-5 days for treatment of CAARI, conntinue tylenol PRN, continue levetiracetam.
Neuro Assessment/Plan
Assessment
Flora Yanes is a 85 yo F with PMH , AFIB, HTN, HLD, CAD, HFpEF, CKD, aortic stenosis s/p AVR, [facility] with abrupt headache, encephalopathy, followed by event of left gaze deviation, perservative speech, and convulsion
concerning for seizure. MRI brain without evidence of new infarct, however multifocal cortical microbleeds highly consistent with cerebral amyloid angiopathy (CAA). Given concurrent symptoms of severe refractory headache, seizures,
lethargy/cognitive changes, subcortical white matter changes, consider cerebral amyloid angiopathy related inflammation (CAARI). This is treated with high dose corticosteroids. Differential includes refractory migraines, notably also treated with
steroids in refractory cases. Basic workup otherwise unremarkable apart from mild hyponatremia and baseline elevated Cr.
Her headaches are unlikely to be secondary to levetiracetam (only rare side effect and notably preceded initiation of levetiracetam) and can be managed with tylenol PRN.
No hemodynamically significant stenosis > 50% on carotid ultrasound, although has moderate calcified plaques in both proximal ICAS.
Her MRI Lumbar spine demonstrates moderate to severe stenosis at L1-L3 and post-surgical changes at L4-L5, however would favor that these changes are not clearly related to urinary symptoms.
Plan
- start methylprednisolone 1g x3-5 days for treatment of CAARI - evaluate for improvement in headaches and mentation; if improved then consider oral predinsone taper
- continue levetiracetam 1000 mg twice daily (at discharge)
- continue acetominophen 1000 mg PRN for headaches
- continue thiamine supplementation
- continue to avoid anticoagulation
- continue PT/OT
Subjective/Objective
Subjective Data
Date of Service: September 06, 2025
- No interval seizures
- Patient reports headache for at least 1 week. She describes symptoms as initially severe, however currently 'dull' persistent '3-410' frontal, associated with photophobia and nausea. Tylenol 1000 mg TID has not provided benefit.
- Continued of levetiracetam 1000 mg twice daily
Objective Data
Vital Signs
Temp Pulse Resp BP Pulse Ox
36.7 C 76 18 142/81 98
09/06/25 11:29 09/06/25 11:29 09/06/25 11:29 09/06/25 11:29 09/06/25 11:29
Lab Results
09/06/25 06:18
09/06/25 06:18
PT 13.2 Sec (11.4-14.6) 09/04/25 01:51
INR 0.95 09/04/25 01:51
APTT 37.6 Sec (23.4-35.0) H 09/04/25 01:51
Sodium 133 mmol/L (135-145) L 09/06/25 06:18
Potassium 4.2 mmol/L (3.5-5.1) 09/06/25 06:18
BUN 19 mg/dl (7-17) H 09/06/25 06:18
Glucose 89 mg/dl (70-99) 09/06/25 06:18
Calcium 9.2 mg/dl (8.4-10.2) 09/06/25 06:18
Phosphorus Cancelled 09/03/25 17:51
Vitamin B12 Cancelled 09/05/25 07:57
Patient Allergies
bee venom protein (honey bee) Allergy (Verified 11/26/17 12:18)
Anaphylaxis
hydromorphone Allergy (Verified 09/04/25 18:21)
Vomiting
nitrofurantoin Allergy (Verified 08/18/25 20:46)
rash and itch
nitroglycerin Allergy (Verified 09/04/25 18:21)
'bottomed out' with SL
spider venom Allergy (Verified 11/26/17 12:18)
'poisoning'
sulfamethoxazole Allergy (Verified 08/18/25 20:46)
rash and itch
trimethoprim Allergy (Verified 08/18/25 20:46)
rash and itch
MRI brain - multifocal cortical microbleeds and subcortical white matter hyperintensities consistent with cerebral amyloid angiopathy related inflammation
Review of Systems
-
Constitutional: Weakness and Other (Lethargy, diffuse pain)
Neuro: Headache
Physical Exam
-
General: Appears in Distress
HEENT: Normocephalic and Atraumatic
Extended Neurological Exam
Mood & Affect: Mood Unremarkable
Attention Span & Concentration: Lethargic (Oriented to person, place, and time. )
Involuntary Movement: None
Speech: Quality Unremarkable and Quantity Unremarkable
Cranial Nerve II: Left Eye: Visual Brandon Grossly Intact
Cranial Nerve II: Right Eye: Visual Brandon Grossly Intact
Cranial Nerves III, IV, : Extraocular Movement: Extraocular Movement Full in all Directions
Cranial Nerve V: Facial Sensation: Intact to Light Touch
Cranial Nerve VII: Facial Symmetry: Normal Facial Symmetry
Cranial Nerve VIII: Hearing: Unremarkable Hearing to Normal Conversational Volume
Cranial Nerves IX, X: Palate Movement: Palate Elevation Symmetric
Cranial Nerve XI: Shoulder Shrug: Unremarkable
Cranial Nerve XII: Tongue Protusion: Midline
Muscle Strength, Overall: Full Throughout (4/5 in bilateral hip flexion, pain limited, otherwise bursts to full strength in bilateral legs. )
Muscle Bulk & Tone: Decreased Bulk
Pronator Drift: No Drift in Upper Extremities and No Drift in Lower Extremities
Deep Tendon Reflexes: Other (Absent patellars bilaterally, 2+ in uppers and Achilles )
Vibration Sensation: Testing in Upper Extremities and Unremarkable
Touch Sensation: Testing in Upper Extremities and Unremarkable
Coordination: Eutsoh-jhek-qhbktj Testing Unremarkable
Data Reviewed
-
MRI Head: Image Reviewed (MRI brain without contrast (09/05/25): Diffuse volume loss, moderate small vessel ischemic disease, multifocal supra- and infratentorial areas of susceptbility artifact consistent with cortical microbleeds, as in cerebral
amyloid angiopathy (CAA))
MRI Thoracic Spine: Image Reviewed (MRI T spine 09/05: No acute compression or severe abnormality. T9 chronic inferior endplate compression. )
MRI Lumbar Spine: Image Reviewed (MRI Lumbar spine 09/05: Multifocal degenerative changes s/p L4-L5 repair, with moderate to severe central stenosis at L1-L3, multilevel neural foraminal stenosis L>R)
Carotid Ultrasound: Report Reviewed (Moderate amount of calcified plaque within both carotid bulbs and proximal internal carotid arteries. No significant velocity elevations appreciated. Any stenosis is less than 50% based upon velocity criteria.)
[2025-09-06 14:56] VITALS: BP 135/63
[2025-09-06] MEDS: SOLU-MEDROL 258 MG IV (18:35)
[2025-09-06 19:27] VITALS: BP 127/80; BP 130/83; PULSE 79; PULSE 84
[2025-09-06] MEDS: SENOKOT 17.2 MG PO (20:05)
[2025-09-06] MEDS: PEPCID 20 MG PO (21:00)
[2025-09-06 23:03] VITALS: BP 142/91
[2025-09-07] VITALS (7 sets, daily range): BP systolic 121–158; BP diastolic 57–88; PULSE 75–102; BMI 28.8
[2025-09-07] MEDS: TYLENOL 650 MG PO ×2 (03:25→15:33)
[2025-09-07] MEDS: SYNTHROID 37.5 MCG PO (03:25)
[2025-09-07] MEDS: DULCOLAX 10 MG RECTAL (03:55)
[2025-09-07 06:24] LABS: Blood Urea Nitrogen 17 mg/dl (7-17); Calcium 9.3 mg/dl (8.4-10.2); Carbon Dioxide 26 mmol/L (22-30); Chloride 99 mmol/L (98-107); Estimated Creatinine Clearance 34 ml/min; Glucose 149 mg/dl (70-99); Potassium 4.8 mmol/L (3.5-5.1); Sodium 130 mmol/L (135-145); eGFR 49.55
[2025-09-07 06:41] LABS: Hematocrit 31.6 % (37.0-47.0); Hemoglobin 10.9 g/dL (12.0-16.0); Mean Corp Hgb Conc. 34.5 g/dL (33.0-37.0); Mean Corpuscular Volume 94.3 fL (81.0-99.0); Platelet Count 203 10^3/uL (130-400); Red Cell Dist. Width 14.3 % (11.5-14.5)
--- NOTE | 2025-09-07 07:58 | PHA.VAN.FU ---
Vancomycin Assessment / Plan
- Assessment
Renal Function: SCR Decreasing
WBC's are: WNL
In the past 24 hrs, patient has been: Hypothermic (TMIN 96.4 F)
- Assessment - Therapeutic Drug Monitoring
Random Level: 15.2 DRAWN ~16 HRS AFTER PREVIOUS VANCO 1500MG
- Dosing Plan
Dosing by Level: Re-dose today (VANCO 1000MG X1)
- Monitoring Plan
Random Level: 09/08 @0600
- Follow Up
Pharmacy will continue to follow.
Vancomycin Follow UP
- -
Patient Age: 85
Patient Sex: Female
Vancomycin Day #: 2
Indication: Genito-Urinary Tract
Pertinent Antimicrobial Allergies:
NITROFURANTOIN (RASH AND ITCH)
TRIMETHOPRIM-SULFAMETHOXAZOLE (RASH AND ITCH)
Height / Weight:
Height 5 ft 1 in
Actual Weight 69 kg
- Vital Signs / Lab Results
Temp Pulse Resp BP Pulse Ox
97.0 F 70 18 158/88 95
09/07/25 03:34 09/07/25 03:34 09/07/25 03:34 09/07/25 03:34 09/07/25 03:34
Lab Results - Hematology
09/05/25 09/06/25 09/07/25
06:40 06:18 05:16
WBC 4.8 6.1 4.8
Lab Results - Chemistry
09/05/25 09/06/25 09/07/25
06:40 06:18 05:16
BUN 19 H 19 H 17
Creatinine 1.3 H 1.3 H 1.1 H
Estimated Creat Clear 28 28 34
Microbiology Results
09/03/25 19:58 Urine Culture - Final
Urine Enterococcus faecium
Therapeutic Drug Monitoring
Random Vancomycin 15.2 ug/ml 09/07/25 05:16
--- NOTE | 2025-09-07 08:08 | W.PN.HOSP.TC ---
Today's Communication/Plan
-
Initiated high dose IV steroids last night for CAARI
increase synthroid for high TSH
continue IV vancomycin for UTI
Avoiding A/C
Assessment / Plan
Assessment / Plan
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 Patient was sent to
CT scan upon arrival with witnessed seizure activity. Portable cerebral EEG placed and patient was started on Keppra.
Cerebral amyloid angiopathy related inflammation
neurology consulted, appreciate management
IV methylprednisolone 1000mg 3-5 days
avoiding a/c
Seizure
-continue Keppra BID, thiamine. Seizure was preceded by severe headache, patient is again reporting headache, discussed with neurology, treating with prn tylenol.
Suspected secondary to CVA AMNA, see above
-ddx also included sequela of stroke, or new structural abnormality in brain, consider possible adverse effect of ertapenem which was recently started, also has Mild hyponatremia, doubt this is contributing. TSH elevated with T4 WNL.
- MRI Brain shows no acute infarct, +amyloid angiopathy
Urinary retention
Was started on Flomax at rehab facility on 09/03. Per notes was previously using a Godfrey, but then passed a void trial. Here in the hospital has not been able to void on her own, requiring frequent straight caths. Godfrey placed. Discussed with
urology, no indication for inpatient consult, will have outpatient follow-up
MRI thoracic/lumbar spine as per neurology recommendation reviewed, severe right foraminal stenosis at L1-2, not likely the cause of the retention
Have discussed with urology, no indication for inpatient consult, will have Godfrey placed and follow-up as outpatient
Urinary tract infection
09/03 UA positive, UCX shows enterococcus. R to ampicillin, levofloxacin, tetracycline. S to Macrobid, vancomycin, gentamicin. Changed to vancomycin.
Reviewed previous urine culture, 08/28 Citrobacter freundii that was resistant to amoxicillin/Keflex/ceftriaxone. reviewed [facility] notes, they were concerned about her listed allergies to Bactrim and nitrofurantoin, and shows ertapenem.
Ertapenem stopped on admission per admitting team, notably ertapenem can cause GOLD BLOWER effects including seizure, RF include history of stroke. Another dose was given when patient was in ICU, however will stop.
Per patient, her allergy to Bactrim/Macrobid was a rash that occurred in the 70s. Unclear if she remains allergic but she may benefit from outpt allergy eval to see if she can tolerate these in the future.
Ruled out carotid stenosis
CTA with finding of left ICA narrowing 66%
Follow-up carotid ultrasound did not show significant stenosis
Improved� acute on chronic kidney injury
CKD III
-patient had urinary retention -Godfrey placed.
-patient does not look overloaded on exam. Hold FLOOR POLISHER Lasix for now - monitor volume status closely
Heart Failure preserved EF
-hold FLOOR POLISHER Lasix for now
-daily weights, monitor volume status closely
Paroxysmal Afib/Aflutter
-continue FLOOR POLISHER Amiodarone
-patient is not on Eliquis given hx hemorrhagic stroke and cerebral amyloid angiopathy
Hyponatremia
persists, mild
-Normal urine sodium, low Uosm
- fluid restriction
Hx Hemorrhagic stroke 03/09
CAD s/p CABG 11/09/17
Aortic Stenosis s/p AVR 11/09/17
Hypothyroidism
TSH 34 on 08/18, recheck 41, T4 1.05
increase synthroid and repeat in 1 month as outpt. Base don weight her dose should be 110mcg, currently on 37.5mcg, will increase to 62.5 mcg
Orthostatic Hypotension
-Add parameters to hold midodrine for SBP greater than 140
-Stop Flomax
-Add JOEL stocking
-Monitor orthostatic VS
DVT PPx
SCDs
Anticipated Discharge: > 48 hours
Subjective/Interval History
-
Date of Service: September 07, 2025
Patient still noticing headache
Objective Data
-
Labs:
Laboratory Results
09/07/25
05:16
WBC 4.8
Hgb 10.9 L
Hct 31.6 L
Plt Count 203
Sodium 130 L
Potassium 4.8
Chloride 99
Carbon Dioxide 26
BUN 17
Creatinine 1.1 H
Glucose 149 H
Calcium 9.3
Vital Signs:
Vital Signs
Temp Pulse Resp BP Pulse Ox
97.4 F 83 18 135/83 97
09/07/25 07:00 09/07/25 07:00 09/07/25 07:00 09/07/25 07:00 09/07/25 07:00
I&O
09/06/25 09/07/25 09/08/25
06:59 06:59 06:59
Intake Total 1000 / 1000 2290 / 2290
Output Total 650 / 650 575 / 575
Balance 350 / 350 1715 / 1715
Review of Systems
-
All other systems: Reviewed and negative
Physical Exam
-
General: No Apparent Distress
HEENT: Moist Mucous Membranes, Anicteric and PERRLA
Respiratory: Clear to Auscultation; Negative Wheezes, Rales or Rhonchi
Cardiac: Regular Rhythm and S1/S2; Negative Murmur, Rub or Gallop
GI: Soft, Nontender, Nondistended and Normal Bowel Sounds
Musculoskeletal: No Edema
Skin: Warm and Dry; Negative Rash, Ulcers or Lesions
Neuro: Awake, AO x 3, No Motor Deficits and Nonfocal/Grossly Intact; Negative Tremors
Hematologic / Lymphatic: No Lymphadenopathy
Psych: Calm
Data Reviewed
-
CT Scan: Report Reviewed by me and Discussed with Physician
MRI: Report Reviewed by me, Discussed with Physician and Discussed with Patient
Labs: Labs Reviewed by me and Discussed with Patient
[2025-09-07 08:09] LABS: Nucleated Red Blood Cells % 0 %
[2025-09-07] MEDS: NEURONTIN 100 MG PO ×3 (09:35→22:41)
[2025-09-07] MEDS: ASPIR LOW (ENTERIC COATED) 81 MG PO (09:35)
[2025-09-07] MEDS: PACERONE 200 MG PO (09:35)
[2025-09-07] MEDS: DULCOLAX 10 MG PO (09:35)
[2025-09-07] MEDS: HEPARIN SC (09:35)
[2025-09-07] MEDS: COLACE 100 MG PO ×2 (09:35→20:51)
[2025-09-07] MEDS: PROTONIX 40 MG PO (09:36)
[2025-09-07] MEDS: KEPPRA 1000 MG IV ×2 (09:36→20:29)
[2025-09-07] MEDS: DESENEX/MITRAZOL/ZEASORB 1 APPLIC TOPICAL ×2 (09:43→20:52)
[2025-09-07] MEDS: VANCOCIN 200 IV (09:45)
[2025-09-07] MEDS: MIRALAX PO (09:55)
--- NOTE | 2025-09-07 12:50 | CM ---
Patient seen at bedside
OT rec Acute Rehab
Await PT eval
Patient states was at [facility]
had [facility]
PLAN: Acute rehab vs. Home Health
[2025-09-07] MEDS: SOLU-MEDROL 258 MG IV (13:05)
--- NOTE | 2025-09-07 18:07 | W.PN.NEURO.1 ---
Today's Communication / Plan
-
Continue IVMP 1g x3-5 days, trend daily exam (headaches, alertness, cognition, etc).
Neuro Assessment/Plan
Assessment
Flora Yanes is a 85 yo F with PMH , AFIB, HTN, HLD, CAD, HFpEF, CKD, aortic stenosis s/p AVR, initially presenting [facility] with abrupt headache, encephalopathy, followed by event of left gaze deviation, perservative speech, and convulsion
concerning for seizure. MRI brain without evidence of new infarct, however multifocal cortical microbleeds highly consistent with cerebral amyloid angiopathy (CAA). Given concurrent symptoms of severe refractory headache, seizures,
lethargy/cognitive changes, subcortical white matter changes, consider cerebral amyloid angiopathy related inflammation (CAARI). This is treated with high dose corticosteroids. Differential includes refractory migraines, notably also treated with
steroids in refractory cases. Basic workup otherwise unremarkable apart from mild hyponatremia and baseline elevated Cr, UTI. Today s/p day 1 of IVMP she self-reports increased alertness and fluency, also noted on neurological exam. However she
still has refractory dull headache; will continue to monitor following steroid treatment.
- MRI Lumbar spine demonstrates moderate to severe stenosis at L1-L3 and post-surgical changes at L4-L5, however would favor that these changes are not clearly related to urinary symptoms.
Plan
- continue methylprednisolone 1g x3-5 days for treatment of CAARI - evaluate for improvement in headaches and mentation; if improved then consider oral predinsone taper
- continue levetiracetam 1000 mg twice daily (at discharge)
- continue acetominophen 1000 mg PRN for headaches
- continue thiamine supplementation
- continue to avoid anticoagulation
- continue PT/OT
- No hemodynamically significant stenosis > 50% on carotid ultrasound, although has moderate calcified plaques in both proximal ICAS; no indication for surgical intervention.
Subjective/Objective
Subjective Data
Date of Service: September 07, 2025
- Started on IVMP 1g
- Reports that her headache remains persistent and 'dull' frontal, although notes that she is more alert with fluent speech.
Objective Data
Vital Signs
Temp Pulse Resp BP Pulse Ox
36.4 C 81 18 156/57 99
09/07/25 15:05 09/07/25 15:05 09/07/25 15:05 09/07/25 15:05 09/07/25 15:05
Lab Results
09/07/25 05:16
09/07/25 05:16
PT 13.2 Sec (11.4-14.6) 09/04/25 01:51
INR 0.95 09/04/25 01:51
APTT 37.6 Sec (23.4-35.0) H 09/04/25 01:51
Sodium 130 mmol/L (135-145) L 09/07/25 05:16
Potassium 4.8 mmol/L (3.5-5.1) 09/07/25 05:16
BUN 17 mg/dl (7-17) 09/07/25 05:16
Glucose 149 mg/dl (70-99) H 09/07/25 05:16
Calcium 9.3 mg/dl (8.4-10.2) 09/07/25 05:16
Phosphorus Cancelled 09/03/25 17:51
Vitamin B12 Cancelled 09/05/25 07:57
Patient Allergies
bee venom protein (honey bee) Allergy (Verified 11/26/17 12:18)
Anaphylaxis
hydromorphone Allergy (Verified 09/04/25 18:21)
Vomiting
nitrofurantoin Allergy (Verified 08/18/25 20:46)
rash and itch
nitroglycerin Allergy (Verified 09/04/25 18:21)
'bottomed out' with SL
spider venom Allergy (Verified 11/26/17 12:18)
'poisoning'
sulfamethoxazole Allergy (Verified 08/18/25 20:46)
rash and itch
trimethoprim Allergy (Verified 08/18/25 20:46)
rash and itch
Review of Systems
-
All other systems: Reviewed and negative
Physical Exam
-
General: Well Developed and Well Nourished
Eyes: PERRLA
HEENT: Normocephalic and Atraumatic
Extended Neurological Exam
Attention Span & Concentration: Awake, Alert, Interactive and No Difficulty with 2 Step Request
Tremor: Hand Tremor Absent
Involuntary Movement: None
Speech: Quality Unremarkable and Quantity Unremarkable
Cranial Nerve II: Left Eye: Pupillary Reactivity Unremarkable and Visual Brandon Intact
Cranial Nerve II: Right Eye: Pupillary Reactivity Unremarkable and Visual Brandon Intact
Cranial Nerves III, IV, : Extraocular Movement: Extraocular Movement Full in all Directions
Cranial Nerve V: Facial Sensation: Facial Sensation Unremarkable to Cold
Cranial Nerve VII: Facial Symmetry: Normal Facial Symmetry
Cranial Nerve VIII: Hearing: Unremarkable Hearing to Normal Conversational Volume
Cranial Nerves IX, X: Palate Movement: Palate Elevation Symmetric
Cranial Nerve XI: Shoulder Shrug: Unremarkable
Cranial Nerve XII: Tongue Protusion: Midline
Muscle Strength, Overall: Full Throughout
Muscle Bulk & Tone: Bulk Unremarkable
Pronator Drift: No Drift in Upper Extremities and No Drift in Lower Extremities
Touch Sensation: Testing in Upper Extremities and Unremarkable
Coordination: [id number] Testing Unremarkable
Data Reviewed
-
MRI Head: Image Reviewed
[2025-09-07] MEDS: PEPCID 20 MG PO (20:52)
[2025-09-07] MEDS: SENOKOT 17.2 MG PO (20:52)
[2025-09-08] VITALS (9 sets, daily range): BP systolic 121–160; BP diastolic 70–100; PULSE 79–102; O2SAT 98; BMI 29.7
[2025-09-08] MEDS: TYLENOL 650 MG PO ×2 (01:53→11:14)
[2025-09-08] MEDS: MORPHINE SULFATE 1 MG IV (03:13)
[2025-09-08] MEDS: SYNTHROID 62.5 MCG PO (06:41)
[2025-09-08] MEDS: DULCOLAX 10 MG PO (08:03)
[2025-09-08] MEDS: PROTONIX 40 MG PO (08:03)
[2025-09-08] MEDS: PACERONE 200 MG PO (08:03)
[2025-09-08] MEDS: NEURONTIN 100 MG PO ×3 (08:03→22:08)
[2025-09-08] MEDS: ASPIR LOW (ENTERIC COATED) 81 MG PO (08:03)
[2025-09-08] MEDS: KEPPRA 1000 MG IV ×2 (08:04→19:38)
[2025-09-08] MEDS: COLACE 100 MG PO ×2 (08:04→19:37)
[2025-09-08] MEDS: MIRALAX PO (08:05)
[2025-09-08 08:13] LABS: Hematocrit 31.5 % (37.0-47.0); Hemoglobin 10.6 g/dL (12.0-16.0); Mean Corp Hgb Conc. 33.7 g/dL (33.0-37.0); Mean Corpuscular Volume 92.9 fL (81.0-99.0); Nucleated Red Blood Cells % 0 %; Platelet Count 212 10^3/uL (130-400); Red Cell Dist. Width 14.4 % (11.5-14.5)
[2025-09-08] MEDS: DESENEX/MITRAZOL/ZEASORB 1 APPLIC TOPICAL ×2 (08:30→19:38)
[2025-09-08 08:50] LABS: Blood Urea Nitrogen 21 mg/dl (7-17); Calcium 9.5 mg/dl (8.4-10.2); Carbon Dioxide 24 mmol/L (22-30); Chloride 99 mmol/L (98-107); Estimated Creatinine Clearance 34 ml/min; Glucose 128 mg/dl (70-99); Potassium 4.6 mmol/L (3.5-5.1); Sodium 132 mmol/L (135-145); eGFR 49.55
--- NOTE | 2025-09-08 08:56 | CM ---
PT OT indicate acute rehab .
Prior admission to [facility] noted.
[facility] referral placed in care port .
Will follow up with [facility] liaison Dominique.
PLAN Discharge planning ongoing
--- NOTE | 2025-09-08 09:48 | PHA.VAN.FU ---
Vancomycin Assessment / Plan
- Assessment
Renal Function: Stable
WBC's are: WNL
In the past 24 hrs, patient has been: Afebrile
- Assessment - Therapeutic Drug Monitoring
Random Level: 16.5 - drawn ~22H after previous dose of 1g
- Dosing Plan
Dosing by Level: Re-dose today (Vanc 750mg)
Dosing Comments: trial reduced dosing today
- Monitoring Plan
Random Level: 09/09 06
- Follow Up
Pharmacy will continue to follow.
Vancomycin Follow UP
- -
Patient Age: 85
Patient Sex: Female
Vancomycin Day #: 3
Indication: Genito-Urinary Tract
Requesting Provider: Dr. Rangel
Pertinent Antimicrobial Allergies:
nitrofurantoin (rash and itch)
trimethoprim-sulfamethoxazole (rash and itch)
Height / Weight:
Height 5 ft 1 in
Actual Weight 71.214 kg
- Vital Signs / Lab Results
Temp Pulse Resp BP Pulse Ox
97.4 F 85 18 148/85 100
09/08/25 07:58 09/08/25 08:03 09/08/25 07:58 09/08/25 08:03 09/08/25 07:58
Lab Results - Hematology
09/06/25 09/07/25 09/08/25
06:18 05:16 07:57
WBC 6.1 4.8 8.9
Lab Results - Chemistry
09/06/25 09/07/25 09/08/25
06:18 05:16 07:57
BUN 19 H 17 21 H
Creatinine 1.3 H 1.1 H 1.1 H
Estimated Creat Clear 28 34 34
Microbiology Results
09/03/25 19:58 Urine Culture - Final
Urine Enterococcus faecium
Therapeutic Drug Monitoring
Random Vancomycin 16.5 ug/ml 09/08/25 07:57
[2025-09-08] MEDS: SOLU-MEDROL 258 MG IV (11:08)
[2025-09-08] MEDS: TYLENOL 325 MG PO (12:05)
[2025-09-08 12:33] LABS: Magnesium 2.2 mg/dl (1.6-2.3)
[2025-09-08] MEDS: MAGNESIUM SULFATE 100 IV (13:03)
--- NOTE | 2025-09-08 13:03 | W.PN.HOSP.TC ---
Today's Communication/Plan
-
IV methylprednisolone day 3
IV Vancomycin for UTI
trial of compazine for headache
Assessment / Plan
Assessment / Plan
85F with paroxysmal afib/aflutter, hemorrhagic stroke (03/09), CAD s/p CABG, severe s/p bio AVR, admission 08/19-08/26/25 for acute heart failure exacerbation discharged to [facility] sent to the ER for abrupt unresponsive episode. Patient was sent to
CT scan upon arrival with witnessed seizure activity. Portable cerebral EEG placed and patient was started on Keppra.
Cerebral amyloid angiopathy related inflammation
-neurology consulted, appreciate management
-IV methylprednisolone 1000mg 3-5 days, today is day 3
-avoiding a/c
Seizure
-continue Keppra BID, thiamine. Seizure was preceded by severe headache, patient is again reporting headache (see below)
Suspected secondary to CAARI
-ddx also included sequela of stroke, or new structural abnormality in brain, consider possible adverse effect of ertapenem which was recently started, also has Mild hyponatremia, doubt this is contributing. TSH elevated with T4 WNL.
- MRI Brain shows no acute infarct, +amyloid angiopathy
Headache
-additional tylenol, IV Mag, trial of compazine (QTc 468)
Urinary retention
Was started on Flomax at rehab facility on 09/03. Per notes was previously using a Odell, but then passed a void trial. Here in the hospital has not been able to void on her own, requiring frequent straight caths. Odell placed. Discussed with
urology, no indication for inpatient consult, will have outpatient follow-up
MRI thoracic/lumbar spine as per neurology recommendation reviewed, severe right foraminal stenosis at L1-2, not likely the cause of the retention
keep odell in until outpatient Urology follow up, hopefully with treatment of UTI will resolve
Urinary tract infection
09/03 UA positive, UCX shows enterococcus. R to ampicillin, levofloxacin, tetracycline. S to Macrobid, vancomycin, gentamicin. Changed to vancomycin.
Reviewed previous urine culture, 08/28 Citrobacter freundii that was resistant to amoxicillin/Keflex/ceftriaxone. reviewed [facility] notes, they were concerned about her listed allergies to Bactrim and nitrofurantoin, and shows ertapenem.
Ertapenem stopped on admission per admitting team, notably ertapenem can cause NEURO UROLOGIST effects including seizure, RF include history of stroke. Another dose was given when patient was in ICU, however will stop.
Per patient, her allergy to Bactrim/Macrobid was a rash that occurred in the 70s. Unclear if she remains allergic but she may benefit from outpt allergy eval to see if she can tolerate these in the future.
Ruled out carotid stenosis
CTA with finding of left ICA narrowing 66%
Follow-up carotid ultrasound did not show significant stenosis
Improved� acute on chronic kidney injury
CKD III
-patient had urinary retention -Odell placed.
-patient does not look overloaded on exam. Hold CATIA DESIGNER Lasix for now - monitor volume status closely
Heart Failure preserved EF
-hold CATIA DESIGNER Lasix for now
-daily weights, monitor volume status closely
Paroxysmal Afib/Aflutter
-continue CATIA DESIGNER Amiodarone
-patient is not on Eliquis given hx hemorrhagic stroke and cerebral amyloid angiopathy
Hyponatremia
persists, mild
-Normal urine sodium, low Uosm
- fluid restriction
Hx Hemorrhagic stroke 03/09
CAD s/p CABG 11/09/17
Aortic Stenosis s/p AVR 11/09/17
Hypothyroidism
TSH 34 on 08/18, recheck 41, T4 1.05
increase synthroid and repeat in 1 month as outpt. Base don weight her dose should be 110mcg, currently on 37.5mcg, will increase to 62.5 mcg
Orthostatic Hypotension
-Add parameters to hold midodrine for SBP greater than 140
-Stop Flomax
-Add JOEL stocking
-Monitor orthostatic VS
DVT PPx
SCDs
Anticipated Discharge: > 48 hours
Subjective/Interval History
-
Date of Service: September 08, 2025
she continues to have frontal headache, light sensitivity
she is oriented and answering questions appropriatley
Objective Data
-
Labs:
Laboratory Results
09/08/25
07:57
WBC 8.9
Hgb 10.6 L
Hct 31.5 L
Plt Count 212
Sodium 132 L
Potassium 4.6
Chloride 99
Carbon Dioxide 24
BUN 21 H
Creatinine 1.1 H
Glucose 128 H
Calcium 9.5
Vital Signs:
Vital Signs
Temp Pulse Resp BP Pulse Ox
97.5 F 85 18 148/85 96
09/08/25 11:44 09/08/25 08:03 09/08/25 11:44 09/08/25 08:03 09/08/25 11:44
I&O
09/07/25 09/08/25 09/09/25
06:59 06:59 06:59
Intake Total 2290 / 2290 898 / 898 480 / 480
Output Total 575 / 575 300 / 300 325 / 325
Balance 1715 / 1715 598 / 598 155 / 155
Review of Systems
-
History Source: Patient
All other systems: Reviewed and negative
Physical Exam
-
General: Other (appears slightly uncomfortable )
HEENT: PERRLA
Respiratory: Clear to Auscultation; Negative Wheezes
Cardiac: Regular Rhythm and S1/S2
GI: Soft and Nontender
Musculoskeletal: No Edema
Skin: Warm and Dry
Neuro: AO x 3
Psych: Calm
Data Reviewed
-
Diagnostic Radiology: Report Reviewed by me
Labs: Labs Reviewed by me
[2025-09-08] MEDS: VANCOCIN 150 IV (14:13)
[2025-09-08] MEDS: COMPAZINE 5 MG IV ×2 (14:16→18:25)
--- NOTE | 2025-09-08 15:30 | W.PN.NEURO.1 ---
Today's Communication / Plan
-
. MRI brain without evidence of new infarct, however multifocal cortical microbleeds highly consistent with cerebral amyloid angiopathy (CAA). Given concurrent symptoms of severe refractory headache, seizures, lethargy/cognitive changes, subcortical
white matter changes, consider cerebral amyloid angiopathy related inflammation (CAARI). This is treated with high dose corticosteroids.
. Today s/p day 2 of IVMP she self-reports increased alertness and fluency, also noted on neurological exam. However she still has refractory dull headache; will continue to monitor following steroid treatment.
. On neurologic examination the patient is alert and oriented x 3, speech is clear, the cranial nerves II to XII grossly intact, she has antigravity strength in all 4 extremities, and there was no limb ataxia seen.
. Continue Keppra 1,000 mg BID.
. The patient has a history of atrial fibrillation but is not on anticoagulation at this time due to the risk of hemorrhage.
. Continue IV methylprednisolone 1000 mg daily for 3 to 5 days, and the plan is to taper the glucocorticoids over 6 to 12 weeks and to get a repeat MRI of the brain after 4 to 6 weeks.
Subjective/Objective
Subjective Data
Date of Service: September 08, 2025
The patient was seen and examined today.
Flora Yanes is a 85 yo F with PMH , AFIB, HTN, HLD, CAD, HFpEF, CKD, aortic stenosis s/p AVR, initially presenting from [facility] with abrupt headache, encephalopathy, followed by event of left gaze deviation, perservative speech, and convulsion
concerning for seizure.
. MRI brain without evidence of new infarct, however multifocal cortical microbleeds highly consistent with cerebral amyloid angiopathy (CAA). Given concurrent symptoms of severe refractory headache, seizures, lethargy/cognitive changes, subcortical
white matter changes, consider cerebral amyloid angiopathy related inflammation (CAARI). This is treated with high dose corticosteroids.
. Today s/p day 2 of IVMP she self-reports increased alertness and fluency, also noted on neurological exam. However she still has refractory dull headache; will continue to monitor following steroid treatment.
. On neurologic examination the patient is alert and oriented x 3, speech is clear, the cranial nerves II to XII grossly intact, she has antigravity strength in all 4 extremities, and there was no limb ataxia seen.
. Continue Keppra 1,000 mg BID.
. The patient has a history of atrial fibrillation but is not on anticoagulation at this time due to the risk of hemorrhage.
. Continue IV methylprednisolone 1000 mg daily for 3 to 5 days, and the plan is to taper the glucocorticoids over 6 to 12 weeks and to get a repeat MRI of the brain after 4 to 6 weeks.
Objective Data
Vital Signs
Temp Pulse Resp BP Pulse Ox
36.4 C 82 18 144/87 96
09/08/25 11:44 09/08/25 13:30 09/08/25 11:44 09/08/25 13:31 09/08/25 11:44
Lab Results
09/08/25 07:57
09/08/25 07:57
PT 13.2 Sec (11.4-14.6) 09/04/25 01:51
INR 0.95 09/04/25 01:51
APTT 37.6 Sec (23.4-35.0) H 09/04/25 01:51
Sodium 132 mmol/L (135-145) L 09/08/25 07:57
Potassium 4.6 mmol/L (3.5-5.1) 09/08/25 07:57
BUN 21 mg/dl (7-17) H 09/08/25 07:57
Glucose 128 mg/dl (70-99) H 09/08/25 07:57
Calcium 9.5 mg/dl (8.4-10.2) 09/08/25 07:57
Phosphorus Cancelled 09/03/25 17:51
Vitamin B12 Cancelled 09/05/25 07:57
Patient Allergies
bee venom protein (honey bee) Allergy (Verified 11/26/17 12:18)
Anaphylaxis
hydromorphone Allergy (Verified 09/04/25 18:21)
Vomiting
nitrofurantoin Allergy (Verified 08/18/25 20:46)
rash and itch
nitroglycerin Allergy (Verified 09/04/25 18:21)
'bottomed out' with SL
spider venom Allergy (Verified 11/26/17 12:18)
'poisoning'
sulfamethoxazole Allergy (Verified 08/18/25 20:46)
rash and itch
trimethoprim Allergy (Verified 08/18/25 20:46)
rash and itch
Vital Signs and Labs
-
Vital Signs and Labs:
Vital Signs
Temp Pulse Resp BP Pulse Ox
36.5 C 87 18 144/84 98
09/08/25 15:43 09/08/25 15:43 09/08/25 15:43 09/08/25 18:20 09/08/25 15:43
Lab Results
09/08/25 07:57
09/08/25 07:57
PT 13.2 Sec (11.4-14.6) 09/04/25 01:51
INR 0.95 09/04/25 01:51
APTT 37.6 Sec (23.4-35.0) H 09/04/25 01:51
Sodium 132 mmol/L (135-145) L 09/08/25 07:57
Potassium 4.6 mmol/L (3.5-5.1) 09/08/25 07:57
BUN 21 mg/dl (7-17) H 09/08/25 07:57
Glucose 128 mg/dl (70-99) H 09/08/25 07:57
Calcium 9.5 mg/dl (8.4-10.2) 09/08/25 07:57
Phosphorus Cancelled 09/03/25 17:51
Vitamin B12 Cancelled 09/05/25 07:57
Medications
-
Active Medications
Generic Name Dose Route Start Last Admin
Trade Name Freq PRN Reason Stop Dose Admin
Acetaminophen 1,000 mg 09/08/25 11:45 09/08/25 18:22
Acetaminophen 325 Mg Tablet PO 10/06/25 11:44 1,000 mg
Q6HPRN PRN Administration
mild pain/ fever>100.5F
Amiodarone HCl 200 mg 09/04/25 08:00 09/08/25 08:03
Amiodarone 200 Mg Tablet PO 10/02/25 07:59 200 mg
DAILY MICHAEL Administration
Aspirin 81 mg 09/04/25 08:00 09/08/25 08:03
Aspirin 81 Mg (Enteric Coated) Tablet PO 10/02/25 07:59 81 mg
DAILY MICHAEL Administration
Bisacodyl 10 mg 09/04/25 08:00 09/08/25 08:03
Bisacodyl 5 Mg Enteric Coated Tablet PO 10/02/25 07:59 10 mg
DAILY MICHAEL Administration
Docusate Sodium 100 mg 09/05/25 20:50 09/08/25 08:04
Docusate Sodium 100 Mg Capsule PO 10/03/25 20:49 100 mg
BID MICHAEL Administration
Famotidine 20 mg 09/07/25 22:00 09/07/25 20:52
Famotidine 20 Mg Tablet PO 10/05/25 21:59 20 mg
HS MICHAEL Administration
Gabapentin 100 mg 09/03/25 22:00 09/08/25 16:57
Gabapentin 100 Mg Capsule PO 10/01/25 21:59 100 mg
TID MICHAEL Administration
Vancomycin HCl 1 each/ Device 0 mls @ 0 mls/hr 09/06/25 12:05
IV
PER PROTOCOL MICHAEL
As Directed
Methylprednisolone Sodium 258 mls @ 258 mls/hr 09/06/25 18:00 09/08/25 11:08
Succinate 1,000 mg/ Sodium IV 10/04/25 17:59 258 mls
Chloride DAILY@1200 MICHAEL Administration
Levetiracetam 1,000 mg 09/04/25 08:00 09/08/25 08:04
Levetiracetam (100 Mg/Ml) 500 Mg/5 Ml Vial IV 10/02/25 07:59 1,000 mg
Q12 MICHAEL Administration
Levothyroxine Sodium 62.5 mcg 09/08/25 06:00 09/08/25 06:41
Levothyroxine 25 Mcg Tablet PO 10/06/25 05:59 62.5 mcg
DAILY@0600 MICHAEL Administration
Miconazole Nitrate 0 applic 09/05/25 08:00 09/08/25 08:30
Miconazole Powder Bottle TOPICAL 10/03/25 07:59 1 applic
BID MICHAEL Administration
Midodrine 10 mg 09/03/25 18:00 09/08/25 18:20
Midodrine 5 Mg Tablet PO 10/01/25 17:59 Not Given
TID@0800,1300,1800 MICHAEL
Morphine Sulfate 1 mg 09/04/25 18:19 09/08/25 03:13
Morphine 2 Mg/Ml Syringe IV 09/18/25 18:18 1 mg
Q4HPRN PRN Administration
moderate to severe pain
Pantoprazole Sodium 40 mg 09/04/25 08:00 09/08/25 08:03
Pantoprazole 40 Mg Delayed Release Tablet PO 10/02/25 07:59 40 mg
DAILY MICHAEL Administration
Polyethylene Glycol 17 grams 09/04/25 08:00 09/08/25 08:05
Polyethylene Glycol Powder 17 Grams Packet PO 10/02/25 07:59 Not Given
DAILY MICHAEL
Prochlorperazine Edisylate 5 mg 09/08/25 13:05 09/08/25 14:16
Prochlorperazine 10 Mg/2 Ml Vial IV 10/06/25 13:04 5 mg
Q6HPRN PRN Administration
headache, nausea
Sennosides 17.2 mg 09/03/25 22:00 09/07/25 20:52
Sennosides (Senokot) 8.6 Mg Tablet PO 10/01/25 21:59 17.2 mg
HS MICHAEL Administration
Sodium Chloride 0 flush 09/03/25 18:00
Sodium Chloride 0.9% (Flush) Syringe IV 10/01/25 17:59
PER PROTOCOL MICHAEL
Home Medications
�Medication �Instructions �Recorded
aspirin 81 mg tablet,delayed 81 mg PO DAILY Heart 11/08/17
release Disease/Condition
cholecalciferol (vitamin D3) 50 2,000 unit PO DAILY Supplement 11/08/17
mcg (2,000 unit) tablet
acetaminophen 500 mg tablet 1,000 mg PO TIDPRN PRN mild pain 11/26/17
(Tylenol Extra Strength)
amiodarone 200 mg tablet (Pacerone) 200 mg PO DAILY Heart 08/18/25
Disease/Condition
docusate sodium 100 mg capsule 100 mg PO BID Constipation 08/18/25
(Colace)
furosemide 20 mg tablet 20 mg PO DAILY Fluid 08/18/25
Retention/Swelling
gabapentin 100 mg capsule 100 mg PO TID 08/18/25
multivitamin with folic acid 400 1 tab PO DAILY Supplement 08/18/25
mcg tablet (Tab-A-Alex)
sennosides 8.6 mg tablet (senna) 17.2 mg PO HS Constipation 08/18/25
bisacodyl 10 mg rectal suppository 10 mg AK [id number] PRN constipation 08/26/25
#0 ea
levothyroxine 25 mcg tablet 37.5 mcg (1.5 x 25 mcg) PO DAILY 08/26/25
(Synthroid) Thyroid #0 tabs
miconazole nitrate 2 % topical 1 applic topical BID #0 grams 08/26/25
powder (Miconazorb AF)
ondansetron HCl 4 mg tablet 4 mg PO Q8HPRN PRN nausea #0 tabs 08/26/25
polyethylene glycol 3350 17 gram 17 g PO DAILY #0 ea 08/26/25
oral powder packet
Lactobac no.2-Bifidobac no.1-S. 1 cap PO DAILY 09/03/25
thermo 112.5 billion cell capsule
(Visbiome)
aluminum-mag hydroxide-simethicone 30 ml PO QIDPRN PRN gerd 09/03/25
200 mg-200 mg-20 mg/5 mL oral susp
bisacodyl 5 mg tablet,delayed 10 mg PO DAILY 09/03/25
release
clotrimazole 1 % topical cream 1 applic topical BID buttock,b/l 09/03/25
breasts
cyanocobalamin (vitamin B-12) 1,000 mcg PO DAILY 09/03/25
1,000 mcg tablet
ertapenem 1 gram solution for 1 g IV DAILY 09/03/25
injection
famotidine 20 mg tablet (Pepcid) 20 mg PO HS 09/03/25
heparin (porcine) 5,000 unit/mL 5,000 unit SC TID 09/03/25
injection solution
loratadine 10 mg tablet (Claritin) 10 mg PO DAILY 09/03/25
methyl salicylate 15 %-menthol 10 1 applic topical TID lower back 09/03/25
% topical cream
midodrine 2.5 mg tablet 10 mg PO TID@0800,1300,1800 09/03/25
pantoprazole 40 mg tablet,delayed 40 mg PO DAILY 09/03/25
release (Protonix)
tamsulosin 0.4 mg capsule 0.4 mg PO HS 09/03/25
zinc oxide 1 applic topical TID perianal area 09/03/25
[2025-09-08] MEDS: TYLENOL 1000 MG PO (18:22)
[2025-09-08] MEDS: PEPCID 20 MG PO (22:09)
[2025-09-08] MEDS: SENOKOT 17.2 MG PO (22:09)
[2025-09-09] VITALS (8 sets, daily range): BP systolic 133–160; BP diastolic 46–98; PULSE 78–88; BMI 29.3
[2025-09-09] MEDS: SYNTHROID 62.5 MCG PO (06:13)
[2025-09-09] MEDS: TYLENOL 1000 MG PO ×2 (06:29→20:59)
--- NOTE | 2025-09-09 09:08 | PHA.VAN.FU ---
Vancomycin Assessment / Plan
- Assessment
WBC's are: WNL
In the past 24 hrs, patient has been: Afebrile
- Assessment - Therapeutic Drug Monitoring
Random Level: 16.7 - drawn ~17H after previous dose of 750mg
- Dosing Plan
Dosing by Level: Hold off on dosing today (will hold dosing to assess half-life as level relatively stable despite reduced dosing)
- Monitoring Plan
Random Level: 09/10 06
- Follow Up
Pharmacy will continue to follow.
Vancomycin Follow UP
- -
Patient Age: 85
Patient Sex: Female
Vancomycin Day #: 4
Indication: Genito-Urinary Tract
Requesting Provider: Dr. Rangel
Pertinent Antimicrobial Allergies:
nitrofurantoin (rash and itch)
trimethoprim-sulfamethoxazole (rash and itch)
Height / Weight:
Height 5 ft 1 in
Actual Weight 70.335 kg
- Vital Signs / Lab Results
Temp Pulse Resp BP Pulse Ox
98.0 F 84 17 133/83 96
09/09/25 08:00 09/09/25 08:00 09/09/25 08:00 09/09/25 08:00 09/09/25 08:00
Lab Results - Hematology
09/07/25 09/08/25
05:16 07:57
WBC 4.8 8.9
Lab Results - Chemistry
09/07/25 09/08/25
05:16 07:57
BUN 17 21 H
Creatinine 1.1 H 1.1 H
Estimated Creat Clear 34 34
Therapeutic Drug Monitoring
Random Vancomycin 16.7 ug/ml 09/09/25 07:25
[2025-09-09] MEDS: PROTONIX 40 MG PO (09:40)
[2025-09-09] MEDS: NEURONTIN 100 MG PO ×3 (09:40→20:59)
[2025-09-09] MEDS: PACERONE 200 MG PO (09:40)
[2025-09-09] MEDS: DESENEX/MITRAZOL/ZEASORB 1 APPLIC TOPICAL ×2 (09:41→20:34)
[2025-09-09] MEDS: DULCOLAX 10 MG PO (09:41)
[2025-09-09] MEDS: COLACE 100 MG PO ×2 (09:41→20:34)
[2025-09-09] MEDS: MIRALAX PO (09:42)
[2025-09-09] MEDS: KEPPRA 1000 MG IV ×2 (09:42→20:34)
[2025-09-09] MEDS: ASPIR LOW (ENTERIC COATED) 81 MG PO (09:45)
--- NOTE | 2025-09-09 10:54 | W.PN.HOSP.TC ---
Today's Communication/Plan
-
day 4 steroids
continue symptomatic treatment of VILLAR
follow up further Neurology recommendations
Physiatry consult for return to [place] after steroid completion
Assessment / Plan
Assessment / Plan
85F with paroxysmal afib/aflutter, hemorrhagic stroke (03/09), CAD s/p CABG, severe s/p bio AVR, admission 08/19-08/26/25 for acute heart failure exacerbation discharged to [facility] sent to the ER for abrupt unresponsive episode. Patient was sent to
CT scan upon arrival with witnessed seizure activity. Portable cerebral EEG placed and patient was started on Keppra.
Cerebral amyloid angiopathy related inflammation
-neurology consulted, appreciate management
-IV methylprednisolone 1000mg 3-5 days, today is day 3
-avoiding a/c
Seizure
-continue Keppra BID, thiamine. Seizure was preceded by severe headache, patient is again reporting headache (see below)
Suspected secondary to CAARI
-ertapenem may have also lowered threshold
- MRI Brain shows no acute infarct, +amyloid angiopathy
Headache
-increased dose of tylenol
-PRN compazine
-continued monitored response to steroids
Urinary retention
Was started on Flomax at rehab facility on 09/03.
recurrent retention in-house requiring replacement of odell
MRI thoracic/lumbar spine as per neurology recommendation reviewed, severe right foraminal stenosis at L1-2, not likely the cause of the retention
outpatient Urology follow up
treat UTi as below
Urinary tract infection
09/03 UA positive, UCX shows enterococcus. R to ampicillin, levofloxacin, tetracycline. S to Macrobid, vancomycin, gentamicin. Changed to vancomycin.
Reviewed previous urine culture, 08/28 Citrobacter freundii that was resistant to amoxicillin/Keflex/ceftriaxone. reviewed [facility] notes, they were concerned about her listed allergies to Bactrim and nitrofurantoin, and shows ertapenem.
Ertapenem stopped on admission per admitting team, notably ertapenem can cause FARMWORKER effects including seizure, RF include history of stroke. Another dose was given when patient was in ICU, however will stop.
Per patient, her allergy to Bactrim/Macrobid was a rash that occurred in the 70s. Unclear if she remains allergic but she may benefit from outpt allergy eval to see if she can tolerate these in the future.
Ruled out severe carotid stenosis
CTA with finding of left ICA narrowing 66%
Follow-up carotid ultrasound did not show significant stenosis
Improved� acute on chronic kidney injury
CKD III
-patient had urinary retention -Odell placed.
-patient does not look overloaded on exam. Hold FLIGHT SURVEYOR Lasix for now - monitor volume status closely
Heart Failure preserved EF
-hold FLIGHT SURVEYOR Lasix for now
-daily weights, monitor volume status closely
-her weight has been relatively stable
Paroxysmal Afib/Aflutter
-continue FLIGHT SURVEYOR Amiodarone
-patient is not on Eliquis given hx hemorrhagic stroke and cerebral amyloid angiopathy
Hyponatremia
persists, mild
-Normal urine sodium, low Uosm
- fluid restriction
Hx Hemorrhagic stroke 03/09
CAD s/p CABG 11/09/17
Aortic Stenosis s/p AVR 11/09/17
Hypothyroidism
TSH 34 on 08/18, recheck 41, T4 1.05
increase synthroid and repeat in 1 month as outpt. Base don weight her dose should be 110mcg, currently on 37.5mcg, will increase to 62.5 mcg
Orthostatic Hypotension
-Add parameters to hold midodrine for SBP greater than 140
-Stop Flomax
-Add JOEL stocking
-Monitor orthostatic VS
DVT PPx
SCDs
Anticipated Discharge: 24 - 48 hours
Subjective/Interval History
-
Date of Service: September 09, 2025
sitting up in chair
looks improved but headache still present
Objective Data
-
Vital Signs:
Vital Signs
Temp Pulse Resp BP Pulse Ox
98.0 F 84 17 133/83 96
09/09/25 08:00 09/09/25 08:00 09/09/25 08:00 09/09/25 08:00 09/09/25 08:00
I&O
09/08/25 09/09/25 09/10/25
06:59 06:59 06:59
Intake Total 898 / 898 720 / 720
Output Total 300 / 300 735 / 735
Balance 598 / 598 -15 / -15
Review of Systems
-
History Source: Patient
All other systems: Reviewed and negative
Physical Exam
-
General: Other (appears slightly uncomfortable )
HEENT: PERRLA
Respiratory: Clear to Auscultation; Negative Wheezes
Cardiac: Regular Rhythm and S1/S2
GI: Soft and Nontender
Musculoskeletal: No Edema
Skin: Warm and Dry
Neuro: AO x 3
Psych: Calm
Data Reviewed
-
Diagnostic Radiology: Report Reviewed by me
Labs: Labs Reviewed by me
--- NOTE | 2025-09-09 11:18 | PN.CDI ---
CDI
- -
CDI:
Physician Documentation Request
Admit Date: 09/03/25 16:59
Dear Doctor Hollie,
Clinical Indicators:
09/07, 09/08 RN skin/wound assessments, Sacrum Stage 2 Pressure Injury
Treatment: silicone border foam dressing.
Physician documentation of the type and location of wounds is required for compliant documentation. Based on the above clinical findings and your assessment, please provide the following in your progress note:
1. Location of the ulcer/wound, including laterality.
2. Type (etiology) of ulcer/wound:
- Pressure (decubitus) ulcer
- Other
3. If a pressure ulcer, please also include the stage* of the ulcer:
- Stage 1 - Skin intact, non-blanchable redness
- Stage 2 - Partial thickness loss of dermis, includes intact or open blister
- Stage 3 - Full thickness tissue not including bone, tendon or muscle
- Stage 4 - Full thickness tissue loss, including exposed bone, tendon or muscle
- Unstageable - Full thickness loss in which the base of the ulcer is covered by slough (yellow, miller, chu, green or brown) and/or eschar (miller, brown or black) in the wound bed.
- Unable to determine
Use of terms such as suspected, likely, concern for, or probable (associated with a specific diagnosis that is being evaluated, monitored, or treated as if it exists) are acceptable and can be coded in the inpatient setting, when documented at the
time of discharge.
Thank you,
ARABELLA Ghotra RN
CDI Specialist
available via tiger text
Please use your independent medical judgment in providing your response.
*Source: National Pressure Ulcer Advisory Panel (NPUAP)
[2025-09-09] MEDS: SOLU-MEDROL 258 MG IV (12:54)
--- NOTE | 2025-09-09 14:49 | PTCARENOTE ---
Called down to [facility]- pt needs size up in Tubigrip stockings.
--- NOTE | 2025-09-09 15:45 | CM ---
PT OT indicate acute rehab .
Pt would like to return to [facility]
Requested PM&R consult from MD.
Prior admission to [facility] noted.
[facility] referral placed in care port .
Will follow up with [facility] liaison Dominique.
PLAN Discharge planning ongoing
--- NOTE | 2025-09-09 17:04 | W.PN.NEURO.1 ---
Today's Communication / Plan
-
. Continue IV methylprednisolone 1,000 mg today. She self-reports increased alertness and fluency. However she still has refractory dull headache, will continue to monitor following steroid treatment. Starting tomorrow will start prednisone 60 mg
daily. Plan to taper the glucocorticoids over 6 to 12 weeks and to get a repeat MRI of the brain after 4 to 6 weeks.
To start tomorrow prednisone 60 mg daily x 1 week. Plan to decrease prednisone by 10 mg every week.
. Protonix 40 mg daily.
. On neurologic examination the patient is alert and oriented x 3, speech is clear, the cranial nerves II to XII grossly intact, she has antigravity strength in all 4 extremities, and there was no limb ataxia seen.
. Continue Keppra 1,000 mg BID.
. The patient has a history of atrial fibrillation but is not on anticoagulation at this time due to the risk of hemorrhage.
. Follow up in Neurology in 4 weeks.
. Will sign off. Please call if you have any question.
Subjective/Objective
Subjective Data
Date of Service: September 09, 2025
. MRI brain without evidence of new infarct, however multifocal cortical microbleeds highly consistent with cerebral amyloid angiopathy (CAA). Given concurrent symptoms of severe refractory headache, seizures, lethargy/cognitive changes, subcortical
white matter changes, consider cerebral amyloid angiopathy related inflammation (CAARI). This is treated with high dose corticosteroids.
. Continue IV methylprednisolone 1,000 mg today. She self-reports increased alertness and fluency. However she still has refractory dull headache, will continue to monitor following steroid treatment. Starting tomorrow will start prednisone 60 mg
daily. Plan to taper the glucocorticoids over 6 to 12 weeks and to get a repeat MRI of the brain after 4 to 6 weeks.
To start tomorrow prednisone 60 mg daily x 1 week. Plan to decrease prednisone by 10 mg every week.
. Protonix 40 mg daily.
. On neurologic examination the patient is alert and oriented x 3, speech is clear, the cranial nerves II to XII grossly intact, she has antigravity strength in all 4 extremities, and there was no limb ataxia seen.
. Continue Keppra 1,000 mg BID.
. The patient has a history of atrial fibrillation but is not on anticoagulation at this time due to the risk of hemorrhage.
Objective Data
Vital Signs
Temp Pulse Resp BP Pulse Ox
36.7 C 89 18 150/93 98
09/09/25 15:18 09/09/25 15:18 09/09/25 15:18 09/09/25 15:18 09/09/25 15:18
Lab Results
09/08/25 07:57
09/08/25 07:57
PT 13.2 Sec (11.4-14.6) 09/04/25 01:51
INR 0.95 09/04/25 01:51
APTT 37.6 Sec (23.4-35.0) H 09/04/25 01:51
Sodium 132 mmol/L (135-145) L 09/08/25 07:57
Potassium 4.6 mmol/L (3.5-5.1) 09/08/25 07:57
BUN 21 mg/dl (7-17) H 09/08/25 07:57
Glucose 128 mg/dl (70-99) H 09/08/25 07:57
Calcium 9.5 mg/dl (8.4-10.2) 09/08/25 07:57
Phosphorus Cancelled 09/03/25 17:51
Vitamin B12 Cancelled 09/05/25 07:57
Patient Allergies
bee venom protein (honey bee) Allergy (Verified 11/26/17 12:18)
Anaphylaxis
hydromorphone Allergy (Verified 09/04/25 18:21)
Vomiting
nitrofurantoin Allergy (Verified 08/18/25 20:46)
rash and itch
nitroglycerin Allergy (Verified 09/04/25 18:21)
'bottomed out' with SL
spider venom Allergy (Verified 11/26/17 12:18)
'poisoning'
sulfamethoxazole Allergy (Verified 08/18/25 20:46)
rash and itch
trimethoprim Allergy (Verified 08/18/25 20:46)
rash and itch
Vital Signs and Labs
-
Vital Signs and Labs:
Vital Signs
Temp Pulse Resp BP Pulse Ox
36.7 C 89 18 150/93 98
09/09/25 15:18 09/09/25 17:00 09/09/25 15:18 09/09/25 17:00 09/09/25 15:18
Lab Results
09/08/25 07:57
09/08/25 07:57
PT 13.2 Sec (11.4-14.6) 09/04/25 01:51
INR 0.95 09/04/25 01:51
APTT 37.6 Sec (23.4-35.0) H 09/04/25 01:51
Sodium 132 mmol/L (135-145) L 09/08/25 07:57
Potassium 4.6 mmol/L (3.5-5.1) 09/08/25 07:57
BUN 21 mg/dl (7-17) H 09/08/25 07:57
Glucose 128 mg/dl (70-99) H 09/08/25 07:57
Calcium 9.5 mg/dl (8.4-10.2) 09/08/25 07:57
Phosphorus Cancelled 09/03/25 17:51
Vitamin B12 Cancelled 09/05/25 07:57
Medications
-
Active Medications
Generic Name Dose Route Start Last Admin
Trade Name Freq PRN Reason Stop Dose Admin
Acetaminophen 1,000 mg 09/09/25 06:26 09/09/25 06:29
Acetaminophen 500 Mg Tablet PO 10/07/25 06:25 1,000 mg
Q6HPRN PRN Administration
mild pain/ fever>100.5F
Amiodarone HCl 200 mg 09/04/25 08:00 09/09/25 09:40
Amiodarone 200 Mg Tablet PO 10/02/25 07:59 200 mg
DAILY MICHAEL Administration
Aspirin 81 mg 09/04/25 08:00 09/09/25 09:45
Aspirin 81 Mg (Enteric Coated) Tablet PO 10/02/25 07:59 81 mg
DAILY MICHAEL Administration
Bisacodyl 10 mg 09/04/25 08:00 09/09/25 09:41
Bisacodyl 5 Mg Enteric Coated Tablet PO 10/02/25 07:59 10 mg
DAILY MICHAEL Administration
Docusate Sodium 100 mg 09/05/25 20:50 09/09/25 09:41
Docusate Sodium 100 Mg Capsule PO 10/03/25 20:49 100 mg
BID MICHAEL Administration
Famotidine 20 mg 09/07/25 22:00 09/08/25 22:09
Famotidine 20 Mg Tablet PO 10/05/25 21:59 20 mg
HS MICHAEL Administration
Gabapentin 100 mg 09/03/25 22:00 09/09/25 17:09
Gabapentin 100 Mg Capsule PO 10/01/25 21:59 100 mg
TID MICHAEL Administration
Vancomycin HCl 1 each/ Device 0 mls @ 0 mls/hr 09/06/25 12:05
IV
PER PROTOCOL MICHAEL
As Directed
Methylprednisolone Sodium 258 mls @ 258 mls/hr 09/06/25 18:00 09/09/25 12:54
Succinate 1,000 mg/ Sodium IV 10/04/25 17:59 258 mls
Chloride DAILY@1200 MICHAEL Administration
Levetiracetam 1,000 mg 09/04/25 08:00 09/09/25 09:42
Levetiracetam (100 Mg/Ml) 500 Mg/5 Ml Vial IV 10/02/25 07:59 1,000 mg
Q12 MICHAEL Administration
Levothyroxine Sodium 62.5 mcg 09/08/25 06:00 09/09/25 06:13
Levothyroxine 25 Mcg Tablet PO 10/06/25 05:59 62.5 mcg
DAILY@0600 MICHAEL Administration
Miconazole Nitrate 0 applic 09/05/25 08:00 09/09/25 09:41
Miconazole Powder Bottle TOPICAL 10/03/25 07:59 1 applic
BID MICHAEL Administration
Midodrine 10 mg 09/03/25 18:00 09/09/25 17:00
Midodrine 5 Mg Tablet PO 10/01/25 17:59 Not Given
TID@0800,1300,1800 MICHAEL
Morphine Sulfate 1 mg 09/04/25 18:19 09/08/25 03:13
Morphine 2 Mg/Ml Syringe IV 09/18/25 18:18 1 mg
Q4HPRN PRN Administration
moderate to severe pain
Pantoprazole Sodium 40 mg 09/04/25 08:00 09/09/25 09:40
Pantoprazole 40 Mg Delayed Release Tablet PO 10/02/25 07:59 40 mg
DAILY MICHAEL Administration
Polyethylene Glycol 17 grams 09/04/25 08:00 09/09/25 09:42
Polyethylene Glycol Powder 17 Grams Packet PO 10/02/25 07:59 Not Given
DAILY MICHAEL
Prochlorperazine Edisylate 5 mg 09/08/25 13:05 09/08/25 14:16
Prochlorperazine 10 Mg/2 Ml Vial IV 10/06/25 13:04 5 mg
Q6HPRN PRN Administration
headache, nausea
Sennosides 17.2 mg 09/03/25 22:00 09/08/25 22:09
Sennosides (Senokot) 8.6 Mg Tablet PO 10/01/25 21:59 17.2 mg
HS MICHAEL Administration
Sodium Chloride 0 flush 09/03/25 18:00
Sodium Chloride 0.9% (Flush) Syringe IV 10/01/25 17:59
PER PROTOCOL MICHAEL
Home Medications
�Medication �Instructions �Recorded
aspirin 81 mg tablet,delayed 81 mg PO DAILY Heart 11/08/17
release Disease/Condition
cholecalciferol (vitamin D3) 50 2,000 unit PO DAILY Supplement 11/08/17
mcg (2,000 unit) tablet
acetaminophen 500 mg tablet 1,000 mg PO TIDPRN PRN mild pain 11/26/17
(Tylenol Extra Strength)
amiodarone 200 mg tablet (Pacerone) 200 mg PO DAILY Heart 08/18/25
Disease/Condition
docusate sodium 100 mg capsule 100 mg PO BID Constipation 08/18/25
(Colace)
furosemide 20 mg tablet 20 mg PO DAILY Fluid 08/18/25
Retention/Swelling
gabapentin 100 mg capsule 100 mg PO TID 08/18/25
multivitamin with folic acid 400 1 tab PO DAILY Supplement 08/18/25
mcg tablet (Tab-A-Alex)
sennosides 8.6 mg tablet (senna) 17.2 mg PO HS Constipation 08/18/25
bisacodyl 10 mg rectal suppository 10 mg IL [id number] PRN constipation 08/26/25
#0 ea
levothyroxine 25 mcg tablet 37.5 mcg (1.5 x 25 mcg) PO DAILY 08/26/25
(Synthroid) Thyroid #0 tabs
miconazole nitrate 2 % topical 1 applic topical BID #0 grams 08/26/25
powder (Miconazorb AF)
ondansetron HCl 4 mg tablet 4 mg PO Q8HPRN PRN nausea #0 tabs 08/26/25
polyethylene glycol 3350 17 gram 17 g PO DAILY #0 ea 08/26/25
oral powder packet
Lactobac no.2-Bifidobac no.1-S. 1 cap PO DAILY 09/03/25
thermo 112.5 billion cell capsule
(Visbiome)
aluminum-mag hydroxide-simethicone 30 ml PO QIDPRN PRN gerd 09/03/25
200 mg-200 mg-20 mg/5 mL oral susp
bisacodyl 5 mg tablet,delayed 10 mg PO DAILY 09/03/25
release
clotrimazole 1 % topical cream 1 applic topical BID buttock,b/l 09/03/25
breasts
cyanocobalamin (vitamin B-12) 1,000 mcg PO DAILY 09/03/25
1,000 mcg tablet
ertapenem 1 gram solution for 1 g IV DAILY 09/03/25
injection
famotidine 20 mg tablet (Pepcid) 20 mg PO HS 09/03/25
heparin (porcine) 5,000 unit/mL 5,000 unit SC TID 09/03/25
injection solution
loratadine 10 mg tablet (Claritin) 10 mg PO DAILY 09/03/25
methyl salicylate 15 %-menthol 10 1 applic topical TID lower back 09/03/25
% topical cream
midodrine 2.5 mg tablet 10 mg PO TID@0800,1300,1800 09/03/25
pantoprazole 40 mg tablet,delayed 40 mg PO DAILY 09/03/25
release (Protonix)
tamsulosin 0.4 mg capsule 0.4 mg PO HS 09/03/25
zinc oxide 1 applic topical TID perianal area 09/03/25
[2025-09-09] MEDS: SENOKOT 17.2 MG PO (20:35)
[2025-09-09] MEDS: PEPCID 20 MG PO (20:35)
--- NOTE | 2025-09-09 23:46 | CON.MD ---
Consultation - Medical
-
Chief Complaint:�Cerebral amyloid angiopathy
�
History of Present Illness:�85-year-old female with PMH of (severe aortic stenosis s/p aortic valve replacement, CAD s/p CABG, paroxysmal atrial fibrillation on Eliquis, paroxysmal SVT, bradycardia/possible sick sinus syndrome, hypertension,
hyperlipidemia, spinal fusion/chronic back pain, remote history of syncope after back surgery, bilateral cataract surgery, fibromyalgia, urinary retention with Godfrey catheter) presented to [facility] 08/18/2025 with leg swelling and weight
gain and chest tightness but denies shortness of breath.� Concern for mild CHF exacerbation and given Lasix. Echo which showed an EF of 50-55%, stable bio AVR. Outside repairer art objects ([facility]- Dr. Cabrera) - lack of AC due to brain hemorrhage
previously. Patient also was receiving midodrine outpatient for orthostatic hypotension. Patient also with constipation requiring manual disimpaction a second time with relief. After resolving constipation patient was able to complete successful
void trial after completion of antibiotics.
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 She was told that she has multiple microhemorrhage in her brain. She was hospitalized at [facility]. She has minimal residual weakness on the right upper extremity. She has weakness in bilateral
lower extremities due to lumbar spinal fusion. She also has difficulty with fine motor skills, writing with her right hand and tingling in the bilateral hands, she thinks since the stroke. She was admitted to [place] rehab on 08/26/2025. She had
some persistent headaches with CT of the head showing no acute concerns. She had an unresponsive episode and was sent back to [facility] on 09/03/2025.
She was noted to have a seizure in CAT scan. She had mild hyponatremia as well. She was given IV Zosyn and then changed to vancomycin for UTI with Godfrey replaced for retention. MRI of the brain with no new infarct but multifocal cortical
microbleeds highly consistent with cerebral amyloid angiopathy. Given severe refractory headache, seizures, lethargy/cognitive changes, subcortical white matter changes, consider cerebral amyloid angiopathy related inflammation. She was started on
high-dose steroids. MRI lumbar spine noting moderate to severe stenosis at L1-L3 and postsurgical changes L4-L5. This is thought to not be related to her urinary symptoms per neurology.
Overall she is doing better with IV steroids and Keppra. Plan for IV methylprednisolone 1 g daily for 3 to 5 days and then tapering of glucocorticoids over 6 to 12 weeks with a repeat MRI of the brain in 4 to 6 weeks per neurology. Patient is
feeling stiff but overall better. She would like to return to rehab as she feels like her strength has gotten worse since being readmitted to the hospital. Still with headaches.
�
Functional Level Premorbidly:�Independent with all activities, has [facility] visiting nursing�
Functional Level Currently:�Bed mobility�min assist, transfer�mid�mod assist, ambulation�1 time 15 feet with rolling walker and mod assist x 1. Second person for chair follow given concerns for orthostasis, lower extremity care�dependent,
�
Tobacco:�Denies�
Alcohol:�Denies�
Drug use:�Denies�
�
Lives with:�At home with disabled daughter. Both have left recliners and rolling walkers, Meals on Wheels and grandson who delivers food
24-hour assistance available:�Patient and daughter help each other as far as housework and ADLs. Patient was having home care
Number of floors:�multi level
# steps to enter:�1 7
# steps to second floor:
Potential First floor set up:�Yes
Driving:�no
Occupation:�Retired
�
�
Allergies:�
Allergy/AdvReac Type Severity Reaction Status Date / Time
bee venom protein (honey bee) Allergy Anaphylaxis Verified 11/26/17 12:18
hydromorphone Allergy Vomiting Verified 09/04/25 18:21
nitrofurantoin Allergy rash and Verified 08/18/25 20:46
itch
nitroglycerin Allergy 'bottomed Verified 09/04/25 18:21
out' with
SL
spider venom Allergy 'poisoning' Verified 11/26/17 12:18
sulfamethoxazole Allergy rash and Verified 08/18/25 20:46
itch
trimethoprim Allergy rash and Verified 08/18/25 20:46
itch
�
Review of Systems:�
Constitutional: (x) abNormal _fatigue
Eye: (x) Normal _
Ear/Nose/Throat: (x) Normal _
Respiratory: (x) Normal _
Cardiovascular: (x) abNormal _recent CHF
Gastrointestinal: (x) abNormal _had urinary retention, able to void today
Genitourinary: (x) Normal _
Musculoskeletal: (x) Normal _
Integumentary: (x) Normal _
Neurologic: (x) abNormal _headaches with amyloid angiopathy and seizures
Psychiatric: (x) Normal _
Endocrine: (x) Normal _
Hematologic/Lymphatic: (x) Normal _
Allergic/Immunologic: (x) Normal _
�
Medications:�
Active Current Visit Medication List
Category Date Time Status
Acetaminophen [Tylenol] Med 09/09/25 06:26 Active
1,000 mg PO Q6HPRN PRN
Amiodarone [Pacerone] Med 09/04/25 08:00 Active
200 mg PO DAILY
Aspirin Low Dose EC [Aspir Low (Enteric Coated)] Med 09/04/25 08:00 Active
81 mg PO DAILY
Bisacodyl [Dulcolax] Med 09/04/25 08:00 Active
10 mg PO DAILY
Docusate Sodium [Colace] Med 09/05/25 20:50 Active
100 mg PO BID
Famotidine [Pepcid] Med 09/07/25 22:00 Active
20 mg PO HS
Flush (0.9% Sodium Chloride) [Flush (Nss)] Med 09/03/25 18:00 Active
See Dose Instructions IV PER PROTOCOL
Gabapentin [Neurontin] Med 09/03/25 22:00 Active
100 mg PO TID
Levetiracetam Injectable [Keppra] Med 09/04/25 08:00 Active
1,000 mg IV Q12
Levothyroxine [Synthroid] Med 09/08/25 06:00 Active
62.5 mcg PO DAILY@0600
MethylPREDNISolone. [Solu-Medrol] 1,000 mg Med 09/06/25 18:00 Active
0.9% Sodium Chloride 250 ml [Nss] 250 ml
IV DAILY@1200
Miconazole Nitrate [Desenex/Mitrazol/Zeasorb] Med 09/05/25 08:00 Active
See Dose Instructions TOPICAL BID
Midodrine [ProAmatine] Med 09/03/25 18:00 Active
10 mg PO TID@0800,1300,1800
Morphine Sulfate Med 09/04/25 18:19 Active
1 mg IV Q4HPRN PRN
Pantoprazole [Protonix] Med 09/04/25 08:00 Active
40 mg PO DAILY
Polyethylene Glycol Powder [Miralax] Med 09/04/25 08:00 Active
17 grams PO DAILY
Prochlorperazine [Compazine] Med 09/08/25 13:05 Active
5 mg IV Q6HPRN PRN
Sennosides [Senokot] Med 09/03/25 22:00 Active
17.2 mg PO HS
VANCOMYCIN Pharmacy to Dose [VANCOCIN Pharmacy to Dose] Med 09/06/25 12:05 Active
1 each
Pharmacy To Prepare [Call Pharmacy To Prepare] 0
ml
IV PER PROTOCOL
�
Vitals:�
Temp Pulse Resp BP Pulse Ox
98.4 F 93 20 160/96 96
09/09/25 23:57 09/09/25 23:57 09/09/25 23:57 09/09/25 23:57 09/09/25 23:57
Height 5 ft 1 in
Actual Weight 70.335 kg
Body Mass Index (BMI) 29.3
�
Physical Exam:�
General Appearance/Observation: Well-developed, well-nourished female in no apparent distress.�
Pain/Comfort Assessment: Moderate to severe headaches, persistent. Mild to moderate low back pain, chronic.
Mood/Affect: Appropriate�
�
Integumentary/Operative Site:�No lesions noted during course of exam.
�
Eyes: Conjunctiva/Lids: normal��� Pupils: pupils equal round and reactive to light and Accommodation
Ears/Nose/Throat: oral mucosa moist, throat clear.������������ Lips/Teeth/Gums: normal
Neck: No muscle spasm or tenderness�
Cardiovascular: Heart: regular, no murmur�
Pulses: dorsalis pedis 2+ bilaterally�
Respiratory: Respiratory Effort/Chest Expansion: normal������ Auscultation: Clear to auscultation bilaterally
Gastrointestinal: abdomen not tender, no distension, normal abdominal bowel sounds
Genitourinary: No Godfrey�
Rectal Exam: Deferred�
Extremities:�Edema: None�Cyanosis: None�Trophic�changes: None
�
Neurology Exam:
Orientation: Alert, Oriented to self, Time, Place�
Memory: Intact
Comprehension: Intact
Two step command: Intact
Cranial Nerves:
�� CNII:�Pupillary light reflex: Intact���Visual Field: Intact
�� CN III, IV, : Extraocular muscles: Intact�
�� CN V:�Facial Sensation�at�Forehead: Intact,�Maxilla: Intact,�Mandible: Intact
�� CN VII:�Facial movement: Symmetric
�� CN VIII:�Hearing: Normal
�� CN IX/X:�Speech & swallow: Normal,�Position of Uvula: Midline
�� CN XI:�Shoulder shrug: Symmetric
�� CN XII:�Tongue protrusion: Midline
Sensory:
�� Light touch: Intact in bilateral upper and lower extremities
�
Reflexes:
�� Biceps: 2+ bilaterally
�� Brachioradialis: 2+ bilaterally
�� Triceps: 2+ bilaterally
�� Patellar: 2+ bilaterally
�� Achilles: 2+ bilaterally
�� Babinski: Down going bilaterally
�� Clonus: None
�� Jose: Negative bilaterally�
Cerebellar: Dysmetria/Ataxia: None�
Musculoskeletal: Motor: (Manual muscle scale 0-5)
Muscle SA EF WE EE FF FA HF KE DF EHL PF
Right� 5 4+ 4+ 4 4 3+ 4 5 5 5 5
Left 4+ 4 4 5 4 3+ 3+ 4+ 5 5 5
�
Tone: Normal in all extremities�
Range of Motion: Passively within normal limits ,diminished ROM of left shoulder
�
Lab Results
Laboratory Data
09/08/25 07:57
09/08/25 07:57
PT 13.2 Sec (11.4-14.6) 09/04/25 01:51
INR 0.95 09/04/25 01:51
APTT 37.6 Sec (23.4-35.0) H 09/04/25 01:51
Total Bilirubin 0.3 mg/dl (0.2-1.3) 09/03/25 15:36
AST 22 U/L (14-36) 09/03/25 15:36
ALT 18 U/L (0-35) 09/03/25 15:36
Alkaline Phosphatase 72 U/L (38-126) 09/03/25 15:36
Total Protein 7.5 g/dl (6.3-8.2) 09/03/25 15:36
Albumin 4.6 g/dl (3.5-5.0) 09/03/25 15:36
�
Diagnostic Results:�as per HPI�
�
Assessment
85-year-old female with PMH of severe aortic stenosis status post aortic valve replacement, CAD status post CABG, paroxysmal atrial fibrillation, hypertension, hyperlipidemia, spinal fusion admitted, CVA in February 2025, admitted for bilateral lower
extremity edema and acute on chronic diastolic CHF with hospital stay complicated by seizures and severe headache thought secondary to cerebral amyloid angiopathy related inflammation now improved with high-dose steroids but with persistent ADL and
ambulatory dysfunction.
�
Plan�
PM&R�PT/OT to increase independence with ADLs, improve balance, coordination, endurance, strength, mobility, community reintegration, decreased burden of care on others and family education.�
�
Cerebral amyloid angiopathy related inflammation: methylprednisolone 1 g for 3 to 5 days followed by taper with follow-up MRI in 4 to 6 weeks per neurology.
Seizure: Keppra and thiamine. Ertapenem discontinued as it can lower seizure threshold.
Acute on chronic CHF: EF 50-55%, stable bio AVR,
Orthostatic hypotension: Midodrine 10 mg TID of midodrine.
Enterococcus UTI with recent Citrobacter UTI: Vancomycin.
HLD: Statin
h/o CVA- February 2025. 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
Headache: since stroke in February 2025. Tylenol prn. Consider codeine trial
Hypothyroidism: levothyroxine 37.5mg daily
Coronary artery disease�: Aspirin, statin, not on beta-lencho
paroxysmal atrial fibrillation: Amiodarone 200mg daily, aspirin 81 daily. No anticoagulation with hemorrhagic CVA.���������������������������
Anemia: 10.6 from 10.9 from 10.7. Likely multifactorial.� Continue to monitor.��
FEN: Mild persistent hyponatremia. Monitor.
Psych: Monitor mood, adjust medications as needed.�
Chronic back pain: H/o lumbar fusion, acetaminophen PRN.�Gabapentin 100mg tid. Bengay topical
Bowel: Colace, MiraLAX and Senna, PRN bisacodyl.� MiraLAX 17 g daily (09/01) bowel regiment placed on hold due to frequent bowel movements. Visbiome 1 cap daily added
Bladder/urinary retention: Required Godfrey catheter, now removed and patient voiding on her own. Continue to monitor check bladder scan/postvoid residual
GI Prophylaxis/heartburn: Pantoprazole�40mg daily. Maalox as needed
DVT Prophylaxis: Mechanical and consider heparin 5000 units every 8 hours
Pulmonary: Incentive spirometry�
Safety: Continue to reinforce assistance with all transfers.�
Code Status:� Full code
Functional and Medical Goals:�Modified Independent with ADL�s, ambulation, transfers�
Discharge Destination:�Acute inpatient rehabilitation�
A total of 60 minutes were spent with the patient preparing for the evaluation, obtaining history, performing examination and evaluation, counseling, data review, case management, care coordination, weight recorder, and EMR documentation.
�
Thank you for allowing me to care for your patient. Please contact me with any questions or concerns.
Consultation
-
Date/Time Consultation Requested: 09/09/25
Date/Time Consultation Performed: 09/09/25
Requesting Provider: Dr. Valentine Browne
Performing Provider: Dr. Felipe Daugherty
Reason for Consultation: Rehab placement
[2025-09-10 03:35] VITALS: BP 148/93
[2025-09-10] MEDS: SYNTHROID 62.5 MCG PO (05:38)
[2025-09-10 06:00] VITALS: BMI 30.3
[2025-09-10 07:00] VITALS: BP 146/100
--- NOTE | 2025-09-10 08:30 | PHA.VAN.FU ---
Vancomycin Assessment / Plan
- Assessment
Renal Function: No New Labs Today
In the past 24 hrs, patient has been: Afebrile
- Assessment - Therapeutic Drug Monitoring
Random Level: 10.8 - drawn ~22H after previous dose of 16.7; ~38H after prior dose
Calculated ke: 0.0199
Calculated half life (H): 34.9
- Dosing Plan
Dosing by Level: Re-dose today (Vanc 1000mg)
- Monitoring Plan
No level(s) ordered at this time: consider level for Monday based on half-life
- Follow Up
Pharmacy will continue to follow.
Vancomycin Follow UP
- -
Patient Age: 85
Patient Sex: Female
Vancomycin Day #: 5
Indication: Genito-Urinary Tract
Requesting Provider: Dr. Rangel
Pertinent Antimicrobial Allergies:
nitrofurantoin (rash and itch)
trimethoprim-sulfamethoxazole (rash and itch)
Height / Weight:
Height 5 ft 1 in
Actual Weight 72.66 kg
- Vital Signs / Lab Results
Temp Pulse Resp BP Pulse Ox
97.7 F 94 12 146/100 99
09/10/25 07:00 09/10/25 07:00 09/10/25 07:00 09/10/25 07:00 09/10/25 07:00
Lab Results - Hematology
09/08/25
07:57
WBC 8.9
Lab Results - Chemistry
09/08/25
07:57
BUN 21 H
Creatinine 1.1 H
Estimated Creat Clear 34
Therapeutic Drug Monitoring
Random Vancomycin 10.8 ug/ml 09/10/25 05:22
[2025-09-10] MEDS: PACERONE 200 MG PO (08:45)
[2025-09-10] MEDS: COLACE 100 MG PO (08:46)
[2025-09-10] MEDS: NEURONTIN 100 MG PO (08:46)
[2025-09-10] MEDS: DULCOLAX 10 MG PO (08:46)
[2025-09-10] MEDS: PROTONIX 40 MG PO (08:46)
[2025-09-10] MEDS: ASPIR LOW (ENTERIC COATED) 81 MG PO (08:46)
[2025-09-10] MEDS: TYLENOL 1000 MG PO (08:46)
[2025-09-10] MEDS: MIRALAX PO (08:47)
[2025-09-10] MEDS: KEPPRA 1000 MG IV (08:47)
[2025-09-10] MEDS: DESENEX/MITRAZOL/ZEASORB 1 APPLIC TOPICAL (08:48)
--- NOTE | 2025-09-10 10:16 | CM ---
PT OT indicate acute rehab .
PM&R consult indicates Acute rehab
Aleyda Flowers called to say bed was available today at [facility]
notified awaiting MD rizo
Lionel
report [phone]
fax [phone]
PLAN To [place] when medically ready
[2025-09-10] MEDS: VANCOCIN 200 IV (10:52)
[2025-09-10 11:00] VITALS: BP 163/85
--- NOTE | 2025-09-10 12:10 | W.DS.TRANS ---
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
-
Discharge Instructions:
Sleep Apnea Risk Low
Discharge Diagnosis/Procedures seizure, Cerebral amyloid angiopathy related
inflammation, urinary tract infection with
retention
Diet Low Cholesterol
Activity As tolerated
Driving Restrictions No driving
Bathing Restrictions None
Blood Work thyroid function tests in 3 weeks
Other Services PT,OT
Instructions:
Stand-Alone Forms:
Changes to Home Medications: Yes
Discharge Medications:
DC Medications w/original date entered in [facility]
aspirin 81 mg tablet,delayed release 81 mg PO DAILY Heart Disease/Condition 11/08/17
cholecalciferol (vitamin D3) 50 mcg (2,000 unit) tablet 2,000 unit PO DAILY Supplement 11/08/17
acetaminophen 500 mg tablet (Tylenol Extra Strength) 1,000 mg PO TIDPRN PRN mild pain 11/26/17
amiodarone 200 mg tablet (Pacerone) 200 mg PO DAILY Heart Disease/Condition 08/18/25
docusate sodium 100 mg capsule (Colace) 100 mg PO BID Constipation 08/18/25
gabapentin 100 mg capsule 100 mg PO TID 08/18/25
multivitamin with folic acid 400 mcg tablet (Tab-A-Alex) 1 tab PO DAILY Supplement 08/18/25
sennosides 8.6 mg tablet (senna) 17.2 mg PO HS Constipation 08/18/25
bisacodyl 10 mg rectal suppository 10 mg MS [id number] PRN constipation #0 ea 08/26/25
miconazole nitrate 2 % topical powder (Miconazorb AF) 1 applic topical BID #0 grams 08/26/25
polyethylene glycol 3350 17 gram oral powder packet 17 g PO DAILY #0 ea 08/26/25
Lactobac no.2-Bifidobac no.1-S. thermo 112.5 billion cell capsule (Visbiome) 1 cap PO DAILY 09/03/25
aluminum-mag hydroxide-simethicone 200 mg-200 mg-20 mg/5 mL oral susp 30 ml PO QIDPRN PRN gerd 09/03/25
bisacodyl 5 mg tablet,delayed release 10 mg PO DAILY 09/03/25
clotrimazole 1 % topical cream 1 applic topical BID buttock,b/l breasts 09/03/25
cyanocobalamin (vitamin B-12) 1,000 mcg tablet 1,000 mcg PO DAILY 09/03/25
famotidine 20 mg tablet (Pepcid) 20 mg PO HS 09/03/25
loratadine 10 mg tablet (Claritin) 10 mg PO DAILY 09/03/25
methyl salicylate 15 %-menthol 10 % topical cream 1 applic topical TID lower back 09/03/25
midodrine 2.5 mg tablet 10 mg PO TID@0800,1300,1800 09/03/25
pantoprazole 40 mg tablet,delayed release (Protonix) 40 mg PO DAILY 09/03/25
tamsulosin 0.4 mg capsule 0.4 mg PO HS 09/03/25
zinc oxide 1 applic topical TID perianal area 09/03/25
furosemide 20 mg tablet 20 mg PO DAILY PRN Fluid Retention/Swelling #0 tabs 09/10/25
levetiracetam 1,000 mg tablet (Keppra) 1,000 mg PO BID #60 tabs 09/10/25
levothyroxine 25 mcg tablet 62.5 mcg (2.5 x 25 mcg) PO DAILY@0600 #30 tabs 09/10/25
prochlorperazine maleate 5 mg tablet (Compazine) 5 mg PO QID PRN headache or nausea #30 tabs 09/10/25
Home Medication Changes
Your Levothyroxine dosing is increased from 37.5mcg to 62.5mcg (your TSH was 41).
Take Keppra 1,000mg twice a day for seizure prevention
Stop Zofran, Take Compazine as needed for nausea or headache
YOu did not receive Lasix during your hospitalization. Take if needed for lower extremity swelling or weight gain.
Stop Ertapenem, you completed 5 days of Vancomycin during your hospitalization
Pending Results: No
--- NOTE | 2025-09-10 12:10 | W.PN.HOSP.TC ---
Today's Communication/Plan
-
DC to [place] today
Assessment / Plan
Assessment / Plan
85F with paroxysmal afib/aflutter, hemorrhagic stroke (03/09), CAD s/p CABG, severe s/p bio AVR, admission 08/19-08/26/25 for acute heart failure exacerbation discharged to [place] sent to the ER for abrupt unresponsive episode. Patient was sent to
CT scan upon arrival with witnessed seizure activity. Portable cerebral EEG placed and patient was started on Keppra.
Cerebral amyloid angiopathy related inflammation
-neurology consulted, appreciate management
-IV methylprednisolone 1000mg 3-5 days, today is day 5
-avoiding a/c
Seizure
-continue Keppra BID, thiamine. Seizure was preceded by severe headache, patient is again reporting headache (see below)
Suspected secondary to CAARI
-ertapenem may have also lowered threshold
- MRI Brain shows no acute infarct, +amyloid angiopathy
Headache
-increased dose of tylenol
-PRN compazine
-continued monitored response to steroids
-asking Neurology if any further recommendations
Urinary retention
Was started on Flomax at rehab facility on 09/03.
recurrent retention in-house requiring replacement of odell
MRI thoracic/lumbar spine as per neurology recommendation reviewed, severe right foraminal stenosis at L1-2, not likely the cause of the retention
outpatient Urology follow up
s/p treatment UTI
odell removed - patient urinating
Sacrum Stage 2 Pressure Injury
-appreciate wound care
Urinary tract infection
-s/p 5 days IV Vancomycin
Ruled out severe carotid stenosis
CTA with finding of left ICA narrowing 66%
Follow-up carotid ultrasound did not show significant stenosis
Improved� acute on chronic kidney injury
CKD III
-patient had urinary retention -Odell placed.
-patient does not look overloaded on exam. 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
Heart Failure preserved EF
-PRN dosing for Lasix
-daily weights, monitor volume status closely
-her weight has been relatively stable
Paroxysmal Afib/Aflutter
-continue RIVET MACHINE OPERATOR Amiodarone
-patient is not on Eliquis given hx hemorrhagic stroke and cerebral amyloid angiopathy
Hyponatremia
persists, mild
-Normal urine sodium, low Uosm
- fluid restriction
Hx Hemorrhagic stroke 03/09
CAD s/p CABG 11/09/17
Aortic Stenosis s/p AVR 11/09/17
Hypothyroidism
TSH 34 on 08/18, recheck 41, T4 1.05
increase synthroid and repeat in 1 month as outpt. Base don weight her dose should be 110mcg, currently on 37.5mcg, will increase to 62.5 mcg
Orthostatic Hypotension
-Add parameters to hold midodrine for SBP greater than 140
-Stop Flomax
-Add JOEL stocking
-Monitor orthostatic VS
DVT PPx
SCDs
Anticipated Discharge: Today
Subjective/Interval History
-
Date of Service: September 10, 2025
Objective Data
-
Vital Signs:
Vital Signs
Temp Pulse Resp BP Pulse Ox
98 F 87 12 163/85 98
09/10/25 11:00 09/10/25 11:00 09/10/25 11:00 09/10/25 11:00 09/10/25 11:00
I&O
09/09/25 09/10/25 09/11/25
06:59 06:59 06:59
Intake Total 720 / 720 960 / 960
Output Total 735 / 735
Balance -15 / -15 960 / 960
[2025-09-10] MEDS: SOLU-MEDROL 258 MG IV (12:41)
[2025-09-10 13:26] VITALS: BP 148/91; BP 163/85; PULSE 91; PULSE 94
--- NOTE | 2025-09-10 14:58 | W.DCSUMMARY ---
Discharge Summary
Discharge Data
Date of Admission: 09/03/25
Date of Discharge: 09/10/25
-
Pending Results: No
Hospital Course
Discharging Physician : Dr. Valentine Browne
Disposition : Acute Rehab
Principal Discharge diagnosis : Seziure, Cerebral Amyloid Angiopathy Related Inflammation, Headache, Urinary retention and treatment for UTI
Hospital Course :
Ms. Flora Yanes is a 85 yo woman with hx paroxysmal afib/aflutter, hemorrhagic stroke (03/09), CAD s/p CABG, severe s/p bio AVR, admission 08/19-08/26/25 for acute heart failure exacerbation discharged to [facility] sent to the ER for abrupt unresponsive
episode. Triage VS significant for hypertension. Labs: WBC 10.3, Hg 11, PLT 247, Na 129, K+ 4.7, Cr 1.6, liver enzymes WNL Head CT without acute event. Patient was sent to CT scan upon arrival with witnessed seizure activity. Portable cerebral
EEG placed and patient was started on Keppra.
Patient was continued on Keppra 1G twice a day. MRI Brain obtained which showed no acute infarct, amyloid angiopathy. Patient continued to complain of headache and she was lethargic. Concern raised for cerebral amyloid angiopathy and she was
prescribed high dose steroids. She received 5 days with improvement in cognition, alertness, but continues to have headache. She is prescribed Tylenol, Compazine PRN. She is also prescribed a prednisone taper on discharge. Per Neuro, repeat MRI
recommended in 4 weeks and outpatient Neurology follow up.
Patient had urinary retention here requiring odell that is now removed. Urine culture grew Enterococcus and she is s/p 5 days treatment with IV Vancomycin.
Patient had mild MITCHEL on admission. Her Lasix was held. During hospitalization she did not receive Lasix and does not appear volume overloaded. This is changed to PRN on discharge.
Given risk hemorrhages with CAA,she is not on blood thinners for afib.
Patient is discharged back to [facility] [facility].
Time spent on discharge was 45 minutes.
Important imaging findings :
HEAD CT 09/03/25
IMPRESSION:
No evidence of acute intracranial abnormality.
HEAD/NECK CTA 09/03/25
IMPRESSION: No evidence for intracranial large vessel occlusion or high-grade stenosis.
No evidence for hemodynamically significant stenosis of the right carotid bulb or proximal right internal carotid artery.
Focal calcification and luminal narrowing of the proximal left ICA 2 cm superior to its origin, measured diameter reduction of 66%, likely a hemodynamically significant stenosis. As warranted, consider further evaluation with cerebrovascular
ultrasound.
No significant narrowing involving the vertebral or basilar arteries.
Enlargement of the main pulmonary artery, suggesting pulmonary hypertension.
Percent stenosis is calculated using NASCET criteria.
If the patient has emphysema, patient should be assessed for an annual low dose lung cancer CT program, as pulmonary emphysema is an independent risk factor for lung cancer.
Brain MRI 09/05/25
IMPRESSION:
No acute infarct.
Amyloid angiopathy.
Moderate chronic microvascular white matter ischemic disease.
Signal intensity in the right mastoid air cells likely reactive sterile effusion. Recommend clinical correlation to exclude the possibility of mastoiditis.
Lumbar Spine MRI 09/05/25
IMPRESSION:
Postsurgical changes.
Degenerative changes at multiple levels, and multilevel mild anterolisthesis.
Unremarkable conus terminating at T12-L1.
L1-2: Severe right foraminal stenosis. Right lateral recess stenosis compressing the descending right L2 nerve root. Mild central canal narrowing. Moderate left foraminal stenosis.
L2-3: Mild to moderate central canal stenosis. Mild bilateral lateral recess stenosis. Slight compression of the descending L3 nerve roots. Moderate bilateral foraminal stenosis.
L3-4: Mild central canal stenosis. Moderate left and mild right foraminal stenosis.
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
Thoracic Spine MRI 09/05/25
IMPRESSION:
No acute compression. Chronic mild to moderate inferior endplate compression deformity of T9.
Small protrusion at T1 to with mild right foraminal narrowing.
No other disc protrusion, central canal, or foraminal stenosis.
No intrinsic thoracic cord signal alteration.
Procedure findings :
Discharge Plan
-
Patient Disposition: Acute Rehab Facility
Discharge Diagnosis/Procedures: seizure, Cerebral amyloid angiopathy related inflammation, urinary tract infection with retention
Diet: Low Cholesterol
Activity: As tolerated
Driving Restrictions: No driving
Bathing Restrictions: None
Blood Work: thyroid function tests in 3 weeks
Others Tests: MRI of the brain after 4 to 6 weeks
Other Services: PT and OT
Referrals:
Declan Chavez MD [Active, Neurology] - in four to six weeks
UNKNOWN - PT NOT,INTERVIEWE [Family Provider]
Additional Discharge Medication Instructions: Your Levothyroxine dosing is increased from 37.5mcg to 62.5mcg (your TSH was 41).
Take Keppra 1,000mg twice a day for seizure prevention
You are discharged on an oral Prednisone taper: 60mg daily x 1 week then decrease by 10mg every week until off.
You are started on Protonix to protect stomach lining while on steroids.
Stop Zofran, Take Compazine as needed for nausea or headache
YOu did not receive Lasix during your hospitalization. Take if needed for lower extremity swelling or weight gain.
Stop Ertapenem, you completed 5 days of Vancomycin during your hospitalization
Prescriptions:
New
levothyroxine 25 mcg Tablet
62.5 mcg PO DAILY@0600 Qty: 30 0RF
levetiracetam [Keppra] 1,000 mg tablet
1,000 mg PO BID Qty: 60 0RF
prochlorperazine maleate [Compazine] 5 mg tablet
5 mg PO QID PRN (Reason: headache or nausea) Qty: 30 0RF
pantoprazole [Protonix] 40 mg tablet,delayed release (DR/EC)
40 mg PO DAILY Qty: 90 0RF
prednisone 10 mg tablet
10 mg PO DIRECTED Qty: 60 0RF
Rx Instructions:
Take 60mg daily x 1 week then decrease by 10mg every week
Continued
aspirin 81 MG tablet,delayed release (DR/EC)
81 mg PO DAILY
cholecalciferol (vitamin D3) 2,000 UNITS tablet
2,000 unit PO DAILY
acetaminophen [Tylenol Extra Strength] 500 MG tablet
1,000 mg PO TIDPRN PRN (Reason: mild pain)
sennosides [senna] 8.6 mg Tablet
17.2 mg PO HS
docusate sodium [Colace] 100 mg Capsule
100 mg PO BID
gabapentin 100 mg Capsule
100 mg PO TID
amiodarone [Pacerone] 200 MG tablet
200 mg PO DAILY
multivitamin with folic acid [Tab-A-Alex] 1 TABLET tablet
1 tab PO DAILY
miconazole nitrate [Miconazorb AF] 2 % Powder
1 applic topical BID Qty: 0 0RF
bisacodyl 10 mg Suppository
10 mg TX [id number] PRN (Reason: constipation) Qty: 0 0RF
polyethylene glycol 3350 17 gram Powder In Packet
17 g PO DAILY Qty: 0 0RF
cyanocobalamin (vitamin B-12) 1,000 mcg Tablet
1,000 mcg PO DAILY
famotidine [Pepcid] 20 mg Tablet
20 mg PO HS
tamsulosin 0.4 mg Capsule
0.4 mg PO HS
pantoprazole [Protonix] 40 mg Tablet,Delayed Release (Dr/Ec)
40 mg PO DAILY
alum-mag hydroxide-simeth 200-200-20 mg/5 mL Suspension
30 ml PO QIDPRN PRN (Reason: gerd)
clotrimazole 1 % Cream
1 applic TOPICAL BID
loratadine [Claritin] 10 mg Tablet
10 mg PO DAILY
zinc oxide Ointment
1 applic TOPICAL TID
methyl salicylate-menthol 15-10 % Cream
1 applic TOPICAL TID
Visbiome 112.5 billion cell Capsule
1 cap PO DAILY
bisacodyl 5 mg tablet,delayed release (DR/EC)
10 mg PO DAILY
midodrine 2.5 mg tablet
10 mg PO TID@0800,1300,1800
Changed
furosemide 20 MG tablet
20 mg PO DAILY PRN (Reason: Fluid Retention/Swelling) Qty: 0 0RF
Discontinued
ondansetron HCl 4 mg Tablet
4 mg PO Q8HPRN PRN (Reason: nausea) Qty: 0 0RF
levothyroxine [Synthroid] 25 mcg Tablet
37.5 mcg PO DAILY Qty: 0 0RF
heparin (porcine) 5,000 unit/mL Solution
5,000 unit SC TID
ertapenem [Invanz] 1 gram Recon Soln
1 g IV DAILY
Discharge Orders:
Discharge Patient (As Directed); Ordered 09/10/25
Ordered By: Valentine Browne
Discharge Date and Time
Discharge Date/Time: 09/10/25 14:37
Print Language: MAORI
== END 2025-09-10 14:37 | DRG 546 ==
LOC: 4 EAST ACU 16:59
PROVIDERS: Internal Medicine; Nurse Practitioner Primary Care; Physician Assistant; Physician Assistant Medical; ADMITTING PHYSICIAN Student in an Organized Health Care Education/Training Program; CONSULT PHYSICIAN Physical Medicine & Rehabilitation; CONSULT PHYSICIAN Psychiatry & Neurology Neurology; EMERGENCY PHYSICIAN Student in an Organized Health Care Education/Training Program
DX: E85.4 Organ-limited amyloidosis (principal); E87.1 Hypo-osmolality and hyponatremia; N39.0 Urinary tract infection, site not specified; N17.9 Acute kidney failure, unspecified; I13.0 Hypertensive heart and chronic kidney disease with heart failure and stage 1 through stage 4 chronic kidney disease, or unspecified chronic kidney disease; I48.92 Unspecified atrial flutter; I50.32 Chronic diastolic (congestive) heart failure; Z87.891 Personal history of nicotine dependence; I68.0 Cerebral amyloid angiopathy; R56.9 Unspecified convulsions; N18.30 Chronic kidney disease, stage 3 unspecified; I48.0 Paroxysmal atrial fibrillation; Z79.01 Long term (current) use of anticoagulants; E03.9 Hypothyroidism, unspecified; I95.1 Orthostatic hypotension; L89.152 Pressure ulcer of sacral region, stage 2; Z79.899 Other long term (current) drug therapy
CPT/HCPCS: 0042T; 70450; 70496; 70498; 70551; 71045; 72146; 72148; 80048; 80053; 80202; 81003; 81015; 82570; 82607; 82746; 82962; 83735; 83935; 84100; 84300; 84439; 84443; 84484; 85025; 85027; 85610; 85730; 87077; 87086; 87186; 93005; 93880; 95705; 95813; 96361; 97163; 97167; 97530; 97535; 99291; J1335; Q9967

== ENCOUNTER 2025-09-25 16:23 | Inpatient (IN) | payer MEDICARE, SELFPAY ==
[2025-09-25] VITALS (11 sets, daily range): BP systolic 134–184; BP diastolic 90–117; PULSE 84–136; BMI 28.6
--- NOTE | 2025-09-25 13:08 | ED.GENMED ---
History of Present Illness
<Johnnie Oconnell MD - Last Filed: 09/25/25 13:12>
General
Chief Complaint: Blood Pressure Problem
Time Seen by Provider: 09/25/25 11:59
<Kelly Mccoy PA-C - Last Filed: 09/25/25 14:56>
History of Present Illness
History of Present Illness:
Flora is an 85-year-old who was into the ER from [facility] where she had been receiving therapy and found to be recurrently orthostatic despite being on midodrine today had a near syncope while standing. Reports daily dizziness and lightheadedness.
Discussion had with rehab physician client services assistant who states that they are unsure why patient is persistently orthostatic and now extremely symptomatic despite midodrine dosing. She was also tested for UTI with positive urine culture however was not
treated for this as she was asymptomatic at the time. Patient denies any dysuria but reports urinary urgency today.
Past History
<Johnnie Oconnell MD - Last Filed: 09/25/25 13:12>
Past History
ED Past Medical History: Arrthythmia, HTN and Other
ED Past Surgical History: Cardiac and Other
Social History
Tobacco: Former smoker
Alcohol: None
Drug: None
Personal:
Living: with family
Employment: Retired
Family History
Family History: Other
Phy Exam
<Kelly Mccoy PA-C - Last Filed: 09/25/25 14:56>
General Physical Exam
General Presentation: well appearing and no apparent distress
General Skin: warm and dry
General Habitus: normal
General Mental: alert
General Hydration: appears well hydrated
ENT Exam
ENT Exam: EOMI, pharynx normal, neck supple and normocephalic
Eye Exam
Eye Exam: PERRL, cornea clear and conjunctiva normal
Cardiovascular Exam
Cardiovascular Exam: regular rate/rhythm, no edema, no murmur and normal peripheral pulses
Pulmonary Exam
Pulmonary Exam: lungs clear, no respiratory distress, no rales, no crackles, no rhonchi, no stridor, no wheezing and no cough
Gastrointestinal Exam
Gastrointestinal Exam: normal bowel sounds, non tender, soft, no organomegaly, no pulsatile mass and non distended
Neurological Exam
Neurological Exam: alert, oriented x3, no motor deficits and speech normal
Musculoskeletal Exam
Musculoskeletal Exam: full ROM and no edema
Skin Exam
Skin Exam: normal color, warm/dry, no rash and no petechia
Psychiatric Exam
Psychiatric Exam: normal mood/affect
Course
<Johnnie Oconnell MD - Last Filed: 09/25/25 13:12>
Orders/Labs/Results
Orders:
Orders
09/25/25 10:02
Electrocardiogram (*1) Urgent
Reason for Study: Chest Pain
EKG- Treatment ONCE
09/25/25 12:13
Orthostatic VS- Treatment ONCE
09/25/25 13:26
Basic Metabolic Panel Urgent
Complete Blood Count/With Diff Urgent
09/25/25 13:43
Urinalysis Reflex To Culture Urgent
Date Specimen was Collected: 09/25/25
Time Specimen was Collected: 13:37
Urine Microscopic Reflex Cult Urgent
Urine Culture Urgent
PAIGE Source: U
Specimen Description:
Date Specimen was Collected: 09/25/25
Time Specimen was Collected: 13:37
Abnormal Lab Results
09/25/25 09/25/25
13:26 13:43
WBC 12.4 H 10^3/uL
(4.8-10.8)
RBC 3.50 L 10^6/uL
(4.20-5.40)
Hgb 11.1 L g/dL
(12.0-16.0)
Hct 32.1 L %
(37.0-47.0)
MCH 31.7 H pg
(27.0-31.0)
RDW 15.9 H %
(11.5-14.5)
Abs Immat Gran (auto) 0.1 H 10^3/uL
(0-0.05)
Absolute Neuts (auto) 10.9 H 10^3/uL
(1.4-6.5)
Absolute Lymphs (auto) 0.8 L 10^3/uL
(1.2-3.4)
Immature Gran % 0.8 H %
(0-0.5)
Neutrophils % 87.8 H %
(42.2-75.2)
Lymphocytes % 6.4 L %
(20.5-51.1)
Sodium 132 L mmol/L
(135-145)
BUN 34 H mg/dl
(7-17)
Creatinine 1.1 H mg/dL
(0.6-1.0)
Ur Occult Blood Reflex 1+ A
(Negative)
Leukocyte Esterase Rfl 2+ A
(Negative)
Urine RBC 3-6 A /HPF
(0-2)
Urine WBC (Reflex) >100 A /HPF
(0-5)
Urine Bacteria (Reflex) Many A
(Negative)
Urine Albumin (Reflex) 1+ A
(Neg - Trace)
09/25/25 13:26
09/25/25 13:26
Vital Signs
Initial and Last Documented VS:
Initial Vital Signs
Temp Pulse Resp BP Pulse Ox
36.5 C 91 20 134/90 99
09/25/25 09:56 09/25/25 09:56 09/25/25 09:56 09/25/25 09:56 09/25/25 09:56
Last Documented Vital Signs
Temp Pulse Resp BP Pulse Ox
36.5 C 80 12 158/96 99
09/25/25 09:56 09/25/25 14:45 09/25/25 14:15 09/25/25 12:04 09/25/25 13:11
<Kelly Mccoy PA-C - Last Filed: 09/25/25 14:56>
Orders/Labs/Results
Orders:
Orders
09/25/25 10:02
Electrocardiogram (*1) Urgent
Reason for Study: Chest Pain
EKG- Treatment ONCE
09/25/25 12:13
Orthostatic VS- Treatment ONCE
09/25/25 13:26
Basic Metabolic Panel Urgent
Complete Blood Count/With Diff Urgent
09/25/25 13:43
Urinalysis Reflex To Culture Urgent
Date Specimen was Collected: 09/25/25
Time Specimen was Collected: 13:37
Urine Microscopic Reflex Cult Urgent
Urine Culture Urgent
PAIGE Source: U
Specimen Description:
Date Specimen was Collected: 09/25/25
Time Specimen was Collected: 13:37
Abnormal Lab Results
09/25/25 09/25/25
13:26 13:43
WBC 12.4 H 10^3/uL
(4.8-10.8)
RBC 3.50 L 10^6/uL
(4.20-5.40)
Hgb 11.1 L g/dL
(12.0-16.0)
Hct 32.1 L %
(37.0-47.0)
MCH 31.7 H pg
(27.0-31.0)
RDW 15.9 H %
(11.5-14.5)
Abs Immat Gran (auto) 0.1 H 10^3/uL
(0-0.05)
Absolute Neuts (auto) 10.9 H 10^3/uL
(1.4-6.5)
Absolute Lymphs (auto) 0.8 L 10^3/uL
(1.2-3.4)
Immature Gran % 0.8 H %
(0-0.5)
Neutrophils % 87.8 H %
(42.2-75.2)
Lymphocytes % 6.4 L %
(20.5-51.1)
Sodium 132 L mmol/L
(135-145)
BUN 34 H mg/dl
(7-17)
Creatinine 1.1 H mg/dL
(0.6-1.0)
Ur Occult Blood Reflex 1+ A
(Negative)
Leukocyte Esterase Rfl 2+ A
(Negative)
Urine RBC 3-6 A /HPF
(0-2)
Urine WBC (Reflex) >100 A /HPF
(0-5)
Urine Bacteria (Reflex) Many A
(Negative)
Urine Albumin (Reflex) 1+ A
(Neg - Trace)
09/25/25 13:26
09/25/25 13:26
Vital Signs
Initial and Last Documented VS:
Initial Vital Signs
Temp Pulse Resp BP Pulse Ox
36.5 C 91 20 134/90 99
09/25/25 09:56 09/25/25 09:56 09/25/25 09:56 09/25/25 09:56 09/25/25 09:56
Last Documented Vital Signs
Temp Pulse Resp BP Pulse Ox
36.5 C 80 12 158/96 99
09/25/25 09:56 09/25/25 14:45 09/25/25 14:15 09/25/25 12:04 09/25/25 13:11
<Kelly Mccoy PA-C - Last Filed: 09/25/25 14:56>
MDM/Problems Addressed
Differential Diagnosis Includes:
Lab work obtained and reviewed. No evidence of infection given no white blood cell count, afebrile, and UA negative. EKG unchanged from prior. Case discussed with Dr. Francisco and cardiology who feel that patient would benefit from admission for
further workup.
<Johnnie Oconnell MD - Last Filed: 09/25/25 13:12>
*Pulse Oximetry
SaO2: 99
Oxygen Mode of Delivery: Room air
<Kelly Mccoy PA-C - Last Filed: 09/25/25 14:56>
*Pulse Oximetry
Patient hypoxic: no
*Critical Care Note
Total Time (30-74mins, 75-104mins- exclusive of procedures): Not Applicable
ED Attending Note
<Johnnie Oconnell MD - Last Filed: 09/25/25 13:12>
ED Attending Note
Patient seen and examined by attending physician: Yes
I performed the substantive portion of visit, reviewed & personally made and approve the management plan that is documented in note by myself or LINDSAY.: Yes
ED Attending Note:
85-year-old female sent over for recurrent severe orthostatic hypotension. This has been an issue in the past a more severe episode earlier today. She also had a urine which showed E. coli which is currently not being treated. She apparently had
no symptoms. She previously did have an indwelling Godfrey catheter. Currently patient has no acute symptoms denying chest pain shortness of breath headache neurologic symptoms etc.
On exam patient is nontoxic elderly and frail. Fully awake and alert. Mildly pale. Warm and dry. Perfusing well. Lungs are clear and equal. Heart irregular irregular. Abdomen soft and nontender. Grossly nonfocal.
Reviewed the notes from rehab and from inpatient notes.
Concern for very symptomatic orthostatic hypotension and possibly near syncope. Not sure she has ever had this caught in a monitor to see if she has runs of ventricular pauses with her atrial fibrillation. Doubt a UTI is the acute issue although
we will recheck a catheter urine. Will discuss with cardiology
-
Portions of this chart may have been created with voice recognition software.� Occasional wrong word or��sound alike� substitutions may have occurred due to the inherent limitations of voice recognition software.
Discharge Plan
Departure
Patient Disposition: Admit
Date of Disposition: 09/25/25
Time of Disposition: 13:58
Presentation/result/management discussed w/ accepting MD/DO: Hospitalist
Discharge Problem:
Near syncope, Orthostasis, Leukocytosis
Prescriptions:
No Action
aspirin 81 MG tablet,delayed release (DR/EC)
81 mg PO DAILY
cholecalciferol (vitamin D3) 2,000 UNITS tablet
2,000 unit PO DAILY
acetaminophen [Tylenol Extra Strength] 500 MG tablet
1,000 mg PO TIDPRN PRN (Reason: mild pain)
gabapentin 100 mg Capsule
100 mg PO TID
amiodarone [Pacerone] 200 MG tablet
200 mg PO DAILY
multivitamin with folic acid [Tab-A-Alex] 1 TABLET tablet
1 tab PO DAILY
polyethylene glycol 3350 17 gram Powder In Packet
17 g PO DAILY Qty: 0 0RF
cyanocobalamin (vitamin B-12) 1,000 mcg Tablet
1,000 mcg PO DAILY
famotidine [Pepcid] 20 mg Tablet
20 mg PO HS
tamsulosin 0.4 mg Capsule
0.4 mg PO HS
clotrimazole 1 % Cream
1 applic TOPICAL BID
loratadine [Claritin] 10 mg Tablet
10 mg PO DAILY
midodrine 2.5 mg tablet
10 mg PO TID@0800,1300,1800
levothyroxine 25 mcg Tablet
62.5 mcg PO DAILY@0600 Qty: 30 0RF
furosemide 20 MG tablet
20 mg PO DAILY PRN (Reason: Fluid Retention/Swelling) Qty: 0 0RF
levetiracetam [Keppra] 1,000 mg tablet
1,000 mg PO BID Qty: 60 0RF
pantoprazole [Protonix] 40 mg tablet,delayed release (DR/EC)
40 mg PO DAILY Qty: 90 0RF
prednisone 10 mg tablet
10 mg PO DIRECTED Qty: 60 0RF
Rx Instructions:
Take 60mg daily x 1 week then decrease by 10mg every week
Referrals:
Shirley Soriano MD [Family Provider]
Interventions
Interventions:
*Risk Screen - Suicide Last Done: 09/25/25 09:56
*General Assessment Last Done: 09/25/25 09:56
*Neglect/Abuse Screening Last Done: 09/25/25 09:56
*ED COVID-19 Vaccine History Last Done: 09/25/25 13:42
*ED Influenza Vaccine History Last Done: 09/25/25 13:42
[facility] Fall Risk Assessment Tool Last Done: 09/25/25 13:48
ED- Cardiac Assessment Last Done: 09/25/25 13:40
ED- Neurological Assessment Last Done: 09/25/25 13:40
ED- Pulmonary Assessment Last Done: 09/25/25 13:41
Discharge Date and Time
Print Language: SLOVENIAN
[2025-09-25 13:38] LABS: Hematocrit 32.1 % (37.0-47.0); Hemoglobin 11.1 g/dL (12.0-16.0); Mean Corp Hgb Conc. 34.6 g/dL (33.0-37.0); Mean Corpuscular Volume 91.7 fL (81.0-99.0); Nucleated Red Blood Cells % 0 %; Platelet Count 186 10^3/uL (130-400); Red Cell Dist. Width 15.9 % (11.5-14.5)
[2025-09-25 13:49] LABS: Blood Urea Nitrogen 34 mg/dl (7-17); Calcium 9.0 mg/dl (8.4-10.2); Carbon Dioxide 26 mmol/L (22-30); Chloride 98 mmol/L (98-107); Estimated Creatinine Clearance 35 ml/min; Glucose 84 mg/dl (70-99); Sodium 132 mmol/L (135-145); eGFR 49.55
[2025-09-25 13:56] LABS: Urine Character Slightly Cloudy (Clear)
[2025-09-25 14:13] LABS: Urine Squamous Cell 0-2 /LPF (Few)
[2025-09-25 14:15] LABS: Urine White Cell >100 /HPF (0-5)
--- NOTE | 2025-09-25 14:26 | CON.CAR ---
Addendum entered and electronically signed by Cj Cervantes MD 09/25/25 17:47:
I saw and examined the patient independently, and performed majority of MDM.
The [employer] OPERATIONS MANAGER's note was reviewed and I agree with the note with changes/additions below.
Comment: 85 yo female with permanent A fib, atrial flutter (type unknown), hemorrhagic stroke (no OAC), CAD with h/o CABG and aortic valve disease s/p bio-AVR, chronic HFpEF, cerebral amyloid angiopathy, orthostatic hypotension admitted from [facility]
rehab admitted with severe symptomatic orthostatic hypotension. She felt near syncope. No chest pain. Exam with irregular rhythm, no murmurs, 1+ LE edema. Cr 1.1. Tele: A fib 80s-90s.
Severe symptomatic orthostatic hypotension. Will start by holding lasix. Continue midodrine. May need to increase dose.
Chronic HFPEF. Stable. Hold lasix as noted above.
Original Note:
Consultation
Consultation Request
Date/Time Consultation Requested: 09/25/25 1405
Date/Time Consultation Performed: 09/25/25 1427
Requesting Provider: Kelly Mccoy
Performing Provider: Jessica DURANT for Dr. Cervantes
Reason for Consultation: orthostatic hypotension
Medical History
-
Chief Complaint: orthostatic hypotension
History of Present Illness:
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 Melara) with PMH of permanent A fib, atrial flutter (type unknown), hemorrhagic stroke, CAD with h/o CABG and aortic valve disease s/p bio-AVR, HFpEF, cerebral amyloid angiopathy, orthostatic
hypotension, seizures, urinary retention/UTI/hx odell catheter. She has been in rehab at [facility] and has had issues with orthostatic hypotension. She reports this AM was particularly bad. She stood up for therapy and felt like she was swaying. Improves
with sitting. No syncope. Rehab note reports drop from SBP 145 to 79 sitting to standing today. She is wearing compression socks. She is off tamsulosin. She is not on BP medications. She reports she is eating and drinking normally. Recent echo
unremarkable as noted. She is calm and comfortable at the time of my assessment and is happy she is VILLAR free currently. There is also suspicion for UTI per chart.
Past Medical History
Past Medical History: Other (as above)
Past Surgical History: Cardiac (AVR/CABG)
Social History
Tobacco: Former Smoker
Alcohol: None
Living: Other (has been in rehab)
Family History
Family History: Reviewed & Not Pertinent
Allergies / Home Medications
Allergy/AdvReac Type Severity Reaction Status Date / Time
bee venom protein (honey bee) Allergy Anaphylaxis Verified 09/25/25 10:01
hydromorphone Allergy Vomiting Verified 09/25/25 10:01
nitrofurantoin Allergy rash and Verified 09/25/25 10:01
itch
nitroglycerin Allergy 'bottomed Verified 09/25/25 10:01
out' with
SL
spider venom Allergy 'poisoning' Verified 09/25/25 10:01
sulfamethoxazole Allergy rash and Verified 09/25/25 10:01
itch
trimethoprim Allergy rash and Verified 09/25/25 10:01
itch
�Medication �Instructions �Recorded �Confirmed �Type
aspirin 81 mg tablet,delayed 81 mg PO DAILY Heart 11/08/17 09/10/25 History
release Disease/Condition
cholecalciferol (vitamin D3) 50 2,000 unit PO DAILY Supplement 11/08/17 09/10/25 History
mcg (2,000 unit) tablet
acetaminophen 500 mg tablet 1,000 mg PO TIDPRN PRN mild pain 11/26/17 09/10/25 History
(Tylenol Extra Strength)
amiodarone 200 mg tablet (Pacerone) 200 mg PO DAILY Heart 08/18/25 09/10/25 History
Disease/Condition
docusate sodium 100 mg capsule 100 mg PO BID Constipation 08/18/25 09/10/25 History
(Colace)
gabapentin 100 mg capsule 100 mg PO TID 08/18/25 09/10/25 History
multivitamin with folic acid 400 1 tab PO DAILY Supplement 08/18/25 09/10/25 History
mcg tablet (Tab-A-Alex)
sennosides 8.6 mg tablet (senna) 17.2 mg PO HS Constipation 08/18/25 09/10/25 History
bisacodyl 10 mg rectal suppository 10 mg MI [id number] PRN constipation 08/26/25 09/10/25 Rx
#0 ea
miconazole nitrate 2 % topical 1 applic topical BID #0 grams 08/26/25 09/10/25 Rx
powder (Miconazorb AF)
polyethylene glycol 3350 17 gram 17 g PO DAILY #0 ea 08/26/25 09/10/25 Rx
oral powder packet
Lactobac no.2-Bifidobac no.1-S. 1 cap PO DAILY 09/03/25 09/10/25 History
thermo 112.5 billion cell capsule
(Visbiome)
aluminum-mag hydroxide-simethicone 30 ml PO QIDPRN PRN gerd 09/03/25 09/10/25 History
200 mg-200 mg-20 mg/5 mL oral susp
bisacodyl 5 mg tablet,delayed 10 mg PO DAILY 09/03/25 09/10/25 History
release
clotrimazole 1 % topical cream 1 applic topical BID buttock,b/l 09/03/25 09/10/25 History
breasts
cyanocobalamin (vitamin B-12) 1,000 mcg PO DAILY 09/03/25 09/10/25 History
1,000 mcg tablet
famotidine 20 mg tablet (Pepcid) 20 mg PO HS 09/03/25 09/10/25 History
loratadine 10 mg tablet (Claritin) 10 mg PO DAILY 09/03/25 09/10/25 History
methyl salicylate 15 %-menthol 10 1 applic topical TID lower back 09/03/25 09/10/25 History
% topical cream
midodrine 2.5 mg tablet 10 mg PO TID@0800,1300,1800 09/03/25 09/10/25 History
tamsulosin 0.4 mg capsule 0.4 mg PO HS 09/03/25 09/10/25 History
zinc oxide 1 applic topical TID perianal area 09/03/25 09/10/25 History
furosemide 20 mg tablet 20 mg PO DAILY PRN Fluid 09/10/25 09/10/25 Rx
Retention/Swelling #0 tabs
levetiracetam 1,000 mg tablet 1,000 mg PO BID #60 tabs 09/10/25 09/10/25 Rx
(Keppra)
levothyroxine 25 mcg tablet 62.5 mcg (2.5 x 25 mcg) PO 09/10/25 09/10/25 Rx
DAILY@0600 #30 tabs
pantoprazole 40 mg tablet,delayed 40 mg PO DAILY #90 tabs 09/10/25 09/10/25 Rx
release (Protonix)
prednisone 10 mg tablet 10 mg PO DIRECTED #60 tabs 09/10/25 09/10/25 Rx
prochlorperazine maleate 5 mg 5 mg PO QID PRN headache or nausea 09/10/25 09/10/25 Rx
tablet (Compazine) #30 tabs
Review of Systems
-
History Source: Patient and Other (and chart)
All other systems: Negative unless noted
Neurological: Other (swaying feeling with standing at times)
Physical Exam
Vital Signs
Temp Pulse Resp BP Pulse Ox
97.7 F 91 16 158/96 99
09/25/25 09:56 09/25/25 09:56 09/25/25 12:05 09/25/25 12:04 09/25/25 13:11
Lab Results
09/25/25 13:26
09/25/25 13:26
Physical Exam
General: Well Developed, Well Nourished and No Apparent Distress
HEENT: Normocephalic and Anicteric
Respiratory: Clear and Non Labored Respirations
Cardiac: Irregular Rhythm
Musculoskeletal: No Edema
Skin: Warm and Dry
Neuro: AO x 3
Psych: Calm
Impression / Plan
-
Orthostatic hypotension:
-chart reviewed. On midodrine 10 mg po BID. Patient has been off tamsulosin. Not on any BP medications. BLE compression is in place. Eating and drinking normally. Appears euvolemic. Continue to work with PT as tolerated. Can trial abdominal binder
as well if needed.
-recent echo as noted below
Suspected UTI:
-management per primary team
AFIB/flutter: permanent
-not on OAC due to history of hemorrhagic stroke
-on amiodarone for rate control as she cannot tolerate other agents due to hypotension- continue
HFpEF: chronic
-appears euvolemic
-monitor volume
CAD with hx CABG 2018:
-stable without CP
bioAVR:
-stable on recent echo
Data Reviewed
-
EKG: Tracing Personally Visualized and interpreted (Aflutter 84 BPM)
Medical Tests (Nuc Med, Echo etc): Report Reviewed by me (echo 08/22/25: . Normal left ventricular size, and systolic function. Ejection fraction is 50-55%. 2. Well seated - normally functioning Aortic valve replacement with size 21 Trifecta - Peak
gradient 9 mmHg - Mean gradient 5mmHg. No evidence of aortic regurgitation. 3. Mild/moderate MR)
Labs: Labs Reviewed by me
--- NOTE | 2025-09-25 16:02 | HPS.HSE ---
Family Physician
-
Family Physician: Shirley Soriano MD
Chief Complaint
-
Orthostasis, presyncope.
History of Present Illness
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 Patient with extensive
cardiovascular history including atrial flutter, CAD, status post aortic valve replacement, bioprosthetic valve. She does have a chronic orthostasis requiring midodrine. Today in acute rehab while participating with physical therapy patient had
presyncopal episode. She was able to recall events being severely lightheaded and about to pass out, she denies any loss of consciousness. She denies any respiratory symptoms, abdominal complaints or urinary complaints. She recently had Godfrey
catheter removed which was in place for urinary retention. She has been incontinent since after.
While in the emergency room patient presents to be hemodynamically stable, afebrile, stable respiratory status.
On exam she is nontoxic-appearing
Neurologic exam revealed no focal findings
Her EKG showed atrial flutter with alternating block
Urinalysis with pyuria
CBC relevant for mild leukocytosis at 12. BMP with mild azotemia and creatinine of 1.1.
Medical History
Past Medical History
Past Medical History: Reports Arrhythmia (A flutter), CAD, CVA (I am allowed angiopathy), Hypothyroidism and Other (Seizure disorder new onset in the settings of acute CVA)
Past Surgical History: Reports Other (Aortic valve replacement)
Social History
Tobacco: Non-smoker
Alcohol: None
Drug: None
Living: With Family
Family History
Family History: Not pertinent
Allergies / Home Medications
Allergies reflects when Allergies were last updated in [employer].
Home Medications with original date entered in [employer]
Allergy/Medication List:
Allergies
Allergy/AdvReac Type Severity Reaction Status Date / Time
bee venom protein (honey bee) Allergy Anaphylaxis Verified 09/25/25 10:01
hydromorphone Allergy Vomiting Verified 09/25/25 10:01
nitrofurantoin Allergy rash and Verified 09/25/25 10:01
itch
nitroglycerin Allergy 'bottomed Verified 09/25/25 10:01
out' with
SL
spider venom Allergy 'poisoning' Verified 09/25/25 10:01
sulfamethoxazole Allergy rash and Verified 09/25/25 10:01
itch
trimethoprim Allergy rash and Verified 09/25/25 10:01
itch
Home Medications
aspirin 81 mg tablet,delayed release 81 mg PO DAILY Heart Disease/Condition 11/08/17
cholecalciferol (vitamin D3) 50 mcg (2,000 unit) tablet 2,000 unit PO DAILY Supplement 11/08/17
amiodarone 200 mg tablet (Pacerone) 200 mg PO DAILY Heart Disease/Condition 08/18/25
gabapentin 100 mg capsule 100 mg PO BID 08/18/25
polyethylene glycol 3350 17 gram oral powder packet 17 g PO DAILY #0 ea 08/26/25
clotrimazole 1 % topical cream 1 applic topical BID buttock,b/l breasts 09/03/25
cyanocobalamin (vitamin B-12) 1,000 mcg tablet 1,000 mcg PO DAILY 09/03/25
famotidine 20 mg tablet (Pepcid) 20 mg PO HS 09/03/25
loratadine 10 mg tablet (Claritin) 10 mg PO DAILYPRN PRN constipation 09/03/25
levetiracetam 1,000 mg tablet (Keppra) 1,000 mg PO BID #60 tabs 09/10/25
levothyroxine 25 mcg tablet 62.5 mcg (2.5 x 25 mcg) PO DAILY@0600 #30 tabs 09/10/25
pantoprazole 40 mg tablet,delayed release (Protonix) 40 mg PO DAILY #90 tabs 09/10/25
prednisone 10 mg tablet 10 mg PO DIRECTED #60 tabs 09/10/25
Lactobac no.2-Bifidobac no.1-S. thermo 112.5 billion cell capsule (Visbiome) 1 cap PO DAILY 09/25/25
acetaminophen 325 mg tablet (Tylenol) 650 mg PO Q6HPRN PRN mild pain 09/25/25
aluminum-mag hydroxide-simethicone 200 mg-200 mg-20 mg/5 mL oral susp 30 ml PO QIDPRN PRN gerd 09/25/25
ascorbic acid (vitamin C) 250 mg tablet (Vitamin C) 250 mg PO DAILY 09/25/25
bisacodyl 10 mg rectal suppository (Dulcolax (bisacodyl)) 10 mg LA HSPRN PRN if no bm aftr oral tablets 09/25/25
bisacodyl 5 mg tablet,delayed release (Dulcolax (bisacodyl)) 10 mg PO DAILYPRN PRN constipation 09/25/25
camphor 4 %-methyl salicylate 30 %-menthol 10 % topical cream (Bengay Ultra Strength) 1 applic topical TIDPRN PRN lower back 09/25/25
docusate sodium 100 mg capsule (Colace) 100 mg PO BID Constipation 09/25/25
furosemide 20 mg tablet 20 mg PO DAILY Fluid Retention/Swelling 09/25/25
gabapentin 100 mg capsule 200 mg PO HS 09/25/25
heparin (porcine) 5,000 unit/mL injection solution 5,000 unit SC TID 09/25/25
lidocaine 4 % topical patch 1 patch topical DAILY left lower back 09/25/25
miconazole nitrate 2 % topical powder (Desenex) 1 applic topical BID b/l groin 09/25/25
midodrine 10 mg tablet 10 mg PO BID 09/25/25
ondansetron HCl 4 mg tablet 4 mg PO Q6HPRN PRN nausea 09/25/25
prochlorperazine maleate 5 mg tablet (Compazine) 5 mg PO QIDPRN PRN nausea 09/25/25
sennosides 8.6 mg tablet (senna) 17.2 mg PO DAILY@1200 Constipation 09/25/25
Review of Systems
-
A 12 point ROS was completed and negative except as noted: Yes
Physical Exam
Vital Signs
Vital Signs
Temp Pulse Resp BP Pulse Ox
97.7 F 80 18 158/96 99
09/25/25 09:56 09/25/25 14:45 09/25/25 15:18 09/25/25 12:04 09/25/25 13:11
Physical Exam
General: Well Developed, Well Nourished and No Apparent Distress
HEENT: NormoCephalic, Moist mucous membranes and Atraumatic
Respiratory: Clear
Cardiac: S1/S2, Regular Rhythm and Murmur (LSB); No Rub
GI: Soft, Non Tender, Non Distended and Normal Bowel Sounds; No Organomegaly
Rectal: Deferred by Provider
Musculoskeletal: No Clubbing, No Cyanosis and No Edema
Skin: No Rash
Neuro: Awake, Alert, Oriented, AO x 3 and Nonfocal/grossly intact
Laboratory Results
-
09/25/25 13:26
09/25/25 13:26
Impression/Plan
-
IMPRESSION:
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
Presyncopal episode
Conditions prior to admission
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
Seizure disorder in the settings of CVA
Left ICA stenosis at 66%
CKD stage IIIa
Chronic CHF preserved EF
CAD, status post CABG x 1
Paroxysmal atrial fibrillation/flutter
Aortic valve replacement with bioprosthetic valve 2018
Hypothyroidism on replacement
Chronic orthostatic hypotension requiring midodrine
Acute urinary retention requiring Godfrey catheter
Enterococcal UTI
PLAN:
Presyncopal episode.
Patient with history of chronic orthostatic hypotension currently on midodrine 10 mg twice daily.
Could be multifactorial in settings of mild dehydration (noted with elevated BUN and creatinine), less likely due to arrhythmia while patient is in a flutter, versus new neurologic event, although with no focal findings upon presentation
Admit for further evaluation and treatment.
Continue cardiac monitoring.
Challenge with isotonic solution.
Continue midodrine at 10 mg twice daily, consider increase the dose to 3 times daily.
Chronic CHF preserved EF.
Echocardiogram 08/22/2025: LVEF 50-55%, well-seated bioprosthetic aortic valve with no evidence of aortic regurgitation mild/moderate MR.
Volume status is compensated, noted mild contraction given increased BUN and creatinine.
Hold as needed Lasix.
Monitor closely for
Paroxysmal A-flutter/A-fib.
Continue amiodarone.
Not on any AV anurag blocking agent prior to patient
CHADS-VASC 8 (CHF, hypertension, CVA, vascular disease, age, female). Not on anticoagulation given amyloid angiopathy and risk of bleeding/recent micro hemorrhagic infarct
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
On presentation patient is generally weak, although with no focal findings on exam.
Given worsening orthostasis, new presyncopal event, will update MRI of the brain
Continue prednisone taper. Corticosteroids initiated on 09/09 with prednisone taper 60 mg daily by 10 mg every week. She is currently on 40 mg daily. Insulin sliding scale with serial Accu-Cheks
Seizure disorder. Continue Keppra
Consider neurology evaluation while inpatient
Continue gabapentin
Urinary retention with prior history of UTI.
Godfrey catheter removed
Urinalysis indicative of pyuria, although not a clean-catch.
Bladder scan.
Monitor closely off antibiotics pending cultures.
Noted with mild leukocytosis, follow CBC
Hypothyroidism on replacement
--- NOTE | 2025-09-25 16:58 | CM ---
Chart reviewed
Pt was sent to [facility] from on 09/12 plan was to dc home with dtr tomorrow
She lives with dtr in an apartment Independent prior to admission
PCP Dr. Shirley Mendoza
[facility]
hx of [facility]
hx of [facility]
DCP is to go home with service vs rehab?
will need BLS transport at DC
will continue to follow up for any dcp needs
[2025-09-25] MEDS: NSS 1000 IV (19:33)
[2025-09-25 19:43] LABS: Glucose - Point of Care 113 mg/dl (70-99)
[2025-09-25] MEDS: NOVOLOG FLEXPEN-LOW RESISTANCE SC (19:47)
[2025-09-25] MEDS: NEURONTIN PO (20:32)
[2025-09-25] MEDS: COLACE 100 MG PO (20:39)
[2025-09-25] MEDS: KEPPRA 1000 MG PO (20:39)
[2025-09-25] MEDS: NEURONTIN 200 MG PO (20:39)
[2025-09-25] MEDS: PEPCID 20 MG PO (20:39)
[2025-09-25] MEDS: REMOVE LIDOCAINE PATCH 1 PATCH REMOVE (20:44)
[2025-09-25] MEDS: BenGay-Like 1 APPLIC TOPICAL (20:44)
[2025-09-25] MEDS: LOTRIMIN 1% CREAM 1 APPLIC TOPICAL (20:44)
[2025-09-25 21:47] LABS: Glucose - Point of Care 126 mg/dl (70-99)
[2025-09-26] VITALS (10 sets, daily range): BP systolic 83–168; BP diastolic 51–111; PULSE 91–99; O2SAT 98–99
--- NOTE | 2025-09-26 04:54 | PTCARENOTE ---
Pt complaining of throbbing chest pain and back pain. Her blood pressure 168/111, p-90. EKG obtained. 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
[2025-09-26] MEDS: MAALOX 30 ML PO (05:13)
[2025-09-26] MEDS: MORPHINE SULFATE 1 MG IV (05:19)
[2025-09-26] MEDS: SYNTHROID 62.5 MCG PO (05:59)
[2025-09-26 06:02] LABS: Hematocrit 33.3 % (37.0-47.0); Hemoglobin 11.4 g/dL (12.0-16.0); Mean Corp Hgb Conc. 34.2 g/dL (33.0-37.0); Mean Corpuscular Volume 93.3 fL (81.0-99.0); Nucleated Red Blood Cells % 0 %; Platelet Count 151 10^3/uL (130-400); Red Cell Dist. Width 15.6 % (11.5-14.5)
[2025-09-26 06:23] LABS: ALT (SGPT) 58 U/L (0-35); AST (SGOT) 32 U/L (14-36); Albumin 4.0 g/dl (3.5-5.0); Alkaline Phosphatase 70 U/L (38-126); Blood Urea Nitrogen 28 mg/dl (7-17); Calcium 8.9 mg/dl (8.4-10.2); Carbon Dioxide 23 mmol/L (22-30); Chloride 103 mmol/L (98-107); Estimated Creatinine Clearance 34 ml/min; Glucose 72 mg/dl (70-99); Magnesium 2.4 mg/dl (1.6-2.3); Potassium 4.6 mmol/L (3.5-5.1); Sodium 134 mmol/L (135-145); Total Protein 6.9 g/dl (6.3-8.2); eGFR 49.55
[2025-09-26 06:26] LABS: Troponin I 0.015 ng/ml
--- NOTE | 2025-09-26 06:34 | W.PN.UPDATE ---
Update Note
Progress Note Update
0450 RN reports pt c/o severe chest pain. EGK with know aflutter and ST depressions. CBC, cmp, mag, trop ordered. Morphine and maalox x1. Nitro not given as pt has issue with 'bottoming BP.'
On eval pt states pain is in center of chest. When asked if she ever had pain like this she stated that she once had gastritis real bad and doc had to give her 'white stuff.' Pain seems reproducible on palpation. Explained that i ordered maalox,
and morphine and will check labs for any cardiac abnormalities. OF note pt was laying flat in bed, asked for assistance in sitting pt more upright. Bed not working properly. Asked nursing to replace bed as pt cannot move head up and down. Once
repositioned pt started belching and pain was going away.
[2025-09-26 07:49] LABS: Glucose - Point of Care 90 mg/dl (70-99)
[2025-09-26] MEDS: NOVOLOG FLEXPEN-LOW RESISTANCE SC ×2 (09:42→11:55)
[2025-09-26] MEDS: PROTONIX 40 MG PO (09:42)
[2025-09-26] MEDS: KEPPRA 1000 MG PO ×2 (09:42→20:53)
[2025-09-26] MEDS: DELTASONE 40 MG PO (09:43)
[2025-09-26] MEDS: VISBIOME 1 CAP PO (09:43)
[2025-09-26] MEDS: PACERONE 200 MG PO (09:43)
[2025-09-26] MEDS: VITAMIN B-12 1000 MCG PO (09:43)
[2025-09-26] MEDS: VITAMIN D3 (cholecalciferol) 50 MCG PO (09:43)
[2025-09-26] MEDS: LIDOCAINE 4% PATCH 1 PATCH TOPICAL (09:44)
[2025-09-26] MEDS: MIRALAX 17 GRAMS PO (09:44)
[2025-09-26] MEDS: NEURONTIN 100 MG PO ×2 (09:44→16:29)
[2025-09-26] MEDS: VITAMIN C 250 MG PO (09:44)
[2025-09-26] MEDS: FLUSH (NSS) 1 FLUSH IV (09:44)
[2025-09-26] MEDS: COLACE 100 MG PO ×2 (09:44→20:52)
[2025-09-26] MEDS: ASPIR LOW (ENTERIC COATED) 81 MG PO (09:44)
[2025-09-26] MEDS: LOTRIMIN 1% CREAM 1 APPLIC TOPICAL ×2 (10:19→20:53)
[2025-09-26 10:35] LABS: Troponin I 0.015 ng/ml
[2025-09-26 11:05] LABS: Glycohemoglobin (HgbA1c) 5.4 % (4.0-5.9)
--- NOTE | 2025-09-26 11:23 | W.PN.CD ---
Today's Communication / Plan
-
hold lasix
increase midodrine dose to 15mg
cont to work with PT/OT
Impression / Plan
-
Orthostatic hypotension: severe
-Patient has been off tamsulosin. Not on any BP medications. BLE compression is in place. Eating and drinking normally. Appears euvolemic. Continue to work with PT as tolerated. Can trial abdominal binder as well if needed.
-hold lasix
-increase midodrine dose to 15mg
AFIB/flutter: permanent
-not on OAC due to history of hemorrhagic stroke
-on amiodarone for rate control as she cannot tolerate other agents due to hypotension- continue
HFpEF: chronic
-appears euvolemic
-monitor volume
-lasix will now be prn
CAD with hx CABG 2018:
-stable without CP
bioAVR:
-stable on recent echo 08/2025: EF 50-55%, bio-AVR (grads 06/20, no AR).
Physical Exam
Vital Signs/Labs
Vital Signs
Temp Pulse Resp BP Pulse Ox
97.6 F 89 18 87/51 97
09/26/25 11:21 09/26/25 11:21 09/26/25 11:21 09/26/25 11:21 09/26/25 11:21
09/25/25 09/26/25 09/27/25
06:59 06:59 06:59
Actual Weight 68.521 kg
09/26/25 05:18
09/26/25 05:18
Magnesium 2.4 mg/dl (1.6-2.3) H 09/26/25 05:18
LAB Results
09/26/25 09/26/25
05:18 10:00
Troponin I 0.015 0.015
Physical Exam
Constitutional: No acute distress and Comfortable
EENT: Moist mucous membranes
Cardiovascular: Rhythm & rate is regular, Pedal edema is absent, JVD pressure is normal and Systolic murmur absent
Respiratory: Respiratory effort normal and Lungs clear to auscul.
Neuro/Psych: AO x 3
Data Reviewed
-
Date of Service: September 26, 2025
EKG: Other (Tele: A fib 100-110)
Labs: Labs Reviewed by me
[2025-09-26 11:51] LABS: Glucose - Point of Care 93 mg/dl (70-99)
[2025-09-26] MEDS: SENOKOT 17.2 MG PO (11:55)
--- NOTE | 2025-09-26 13:13 | W.PN.HOSP.TC ---
Today's Communication/Plan
-
Observe off IV fluids
Increase midodrine to 15 mg twice daily
Hold Lasix
Physical therapy and monitor for recurrent orthostasis
Repeat urinalysis with straight cath.
Monitor for recurrent epigastric pain
Assessment / Plan
Assessment / Plan
IMPRESSION:
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
Presyncopal episode
Conditions prior to admission
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
Seizure disorder in the settings of CVA
Left ICA stenosis at 66%
CKD stage IIIa
Chronic CHF preserved EF
CAD, status post CABG x 1
Paroxysmal atrial fibrillation/flutter
Aortic valve replacement with bioprosthetic valve 2018
Hypothyroidism on replacement
Chronic orthostatic hypotension requiring midodrine
Acute urinary retention requiring Godfrey catheter
Enterococcal UTI
PLAN:
Presyncopal episode.
Patient with history of chronic orthostatic hypotension currently on midodrine 10 mg twice daily.
Could be multifactorial in settings of mild dehydration (noted with elevated BUN and creatinine), less likely due to arrhythmia while patient is in a flutter, versus new neurologic event, although with no focal findings upon presentation
Remains orthostatic. No evidence for arrhythmia since admission.
Status post IV fluids
Increase midodrine to 15 mg twice daily. Follow response
Hold Lasix
Episode of atypical chest pain on 09/25 - 09/26 night
She describes pain mostly in the epigastric area which is currently resolved.
No evidence of ischemia on ECG with negative cardiac markers
She is on tapering steroid dose
Suspect dyspepsia
Continue PPI and H2 lencho
If recurrent pain, consider increase PPI to twice daily with addition of Carafate.
Chronic CHF preserved EF.
Echocardiogram 08/22/2025: LVEF 50-55%, well-seated bioprosthetic aortic valve with no evidence of aortic regurgitation mild/moderate MR.
Volume status is compensated, noted mild contraction given increased BUN and creatinine.
Continue holding Lasix given orthostasis. Monitor volume status closely
Paroxysmal A-flutter/A-fib.
Continue amiodarone.
Not on any AV anurag blocking agent prior to patient
CHADS-VASC 8 (CHF, hypertension, CVA, vascular disease, age, female). Not on anticoagulation given amyloid angiopathy and risk of bleeding/recent micro hemorrhagic infarct
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
On presentation patient is generally weak, although with no focal findings on exam.
Follow-up MRI of the brain on 09/26 with chronic microvascular hemorrhages, with no acute changes.
Continue prednisone taper. Corticosteroids initiated on 09/09 with prednisone taper 60 mg daily by 10 mg every week. She is currently on 40 mg daily. Insulin sliding scale with serial Accu-Cheks
Seizure disorder. Continue Keppra
Consider neurology evaluation while inpatient
Continue gabapentin
Urinary retention with prior history of UTI.
Godfrey catheter removed
Patient grossly incontinent.
Noted mild leukocytosis, although afebrile.
Repeat urinalysis with straight cath. Follow cultures.
Hypothyroidism on replacement
Anticipated Discharge: 24 - 48 hours
Subjective/Interval History
-
Date of Service: September 26, 2025
Objective Data
-
Labs:
Laboratory Results
09/26/25
05:18
WBC 12.2 H
Hgb 11.4 L
Hct 33.3 L
Plt Count 151
Sodium 134 L
Potassium 4.6
Chloride 103
Carbon Dioxide 23
BUN 28 H
Creatinine 1.1 H
Glucose 72
Calcium 8.9
Total Bilirubin 1.1
AST 32
ALT 58 H
Alkaline Phosphatase 70
Vital Signs:
Vital Signs
Temp Pulse Resp BP Pulse Ox
97.6 F 90 18 96/48 97
09/26/25 11:21 09/26/25 11:55 09/26/25 11:21 09/26/25 11:55 09/26/25 11:21
Physical Exam
-
General: Other (appears slightly uncomfortable )
HEENT: PERRLA
Respiratory: Clear to Auscultation; Negative Wheezes
Cardiac: Regular Rhythm and S1/S2
GI: Soft and Nontender
Musculoskeletal: No Edema
Skin: Warm and Dry
Neuro: AO x 3
Psych: Calm
--- NOTE | 2025-09-26 13:50 | PTCARENOTE ---
Pt straight cathed x1 for 400 ml; UA reflex cx sent. Pt DTV by 20:00pm, will continue to monitor.
[2025-09-26 14:05] LABS: Urine Character Slightly Cloudy (Clear)
--- NOTE | 2025-09-26 14:17 | PN.CDI ---
CDI
- -
CDI:
Physician Documentation Request
Admit Date: 09/25/25 16:23
Dear Doctor Elijah,
Patient admitted with Presyncopal episode.
History of atrial fibrillation/flutter.
Hospitalist notes states 'Paroxysmal atrial fibrillation/flutter'
Cardiology 'AFIB/flutter: permanent'
In an attempt to clarify potentially conflicting documentation, please clarify the type of atrial fibrillation:
Paroxysmal atrial fibrillation - terminates spontaneously or with intervention within 7 days of onset
Permanent atrial fibrillation - when a decision has been made to accept the presence of AF and there is no further attempt to restore or maintain sinus rhythm
Other - please specify
Use of terms such as suspected, likely, concern for, or probable (associated with a specific diagnosis that is being evaluated, monitored, or treated as if it exists) are acceptable and can be coded in the inpatient setting, when documented at the
time of discharge.
Thank you,
Shwetha Mejia RN, BSN
CDI Specialist
tiger text
Please use your independent medical judgment in providing your response.
[2025-09-26 14:22] LABS: Urine Red Blood Cell 0-2 /HPF (0-2); Urine White Cell >100 /HPF (0-5)
[2025-09-26 14:23] LABS: Urine Squamous Cell 0-2 /LPF (Few); Urine Urothelial Cell 0-2 /LPF (FEW)
--- NOTE | 2025-09-26 16:03 | PTCARENOTE ---
Pt AAO x3, anxious and tremulous at times. MELGOZA; OOB to chair/able top transfer with assist x2/walker, pt weak/unsteady w/OOB activity. VSS. Telemetry: Afib. On room air- pulse ox 96%, no SOB noted. Abd large, soft, darian PO. Pt DTV after straight
cath for urine specimen. Resting in bed at present. Will continue to monitor.
[2025-09-26 16:48] LABS: Glucose - Point of Care 223 mg/dl (70-99)
[2025-09-26] MEDS: NOVOLOG FLEXPEN-LOW RESISTANCE 2 UNITS SC (17:56)
[2025-09-26] MEDS: REMOVE LIDOCAINE PATCH 1 PATCH REMOVE (20:54)
[2025-09-26] MEDS: NEURONTIN 200 MG PO (21:07)
[2025-09-26] MEDS: PEPCID 20 MG PO (21:07)
[2025-09-26 21:22] LABS: Glucose - Point of Care 165 mg/dl (70-99)
[2025-09-27] VITALS (7 sets, daily range): BP systolic 88–148; BP diastolic 49–87; PULSE 98–104; BMI 28.4
[2025-09-27] MEDS: TYLENOL 650 MG PO (02:13)
[2025-09-27] MEDS: BenGay-Like 1 APPLIC TOPICAL (02:53)
--- NOTE | 2025-09-27 03:07 | W.PN.UPDATE ---
Update Note
Progress Note Update
pt was str cath yesterday for clean urine specimen.
UA with +3 leukocytes, WBC>100 mod bacteria. culture from 09/25 with e coli
Pt started with chills and low grade temp 99.7 will start cephtriaxone pending repeat culture
[2025-09-27] MEDS: MORPHINE SULFATE 1 MG IV (03:10)
[2025-09-27] MEDS: ROCEPHIN 1000 MG IV (03:16)
[2025-09-27] MEDS: STERILE WATER FOR INJECTION 10 ML IV (03:16)
[2025-09-27] MEDS: SYNTHROID 62.5 MCG PO (04:21)
--- NOTE | 2025-09-27 04:31 | PTCARENOTE ---
Pt assisted to BSC, voided a small amount of sari cloudy urine. After going back to bed, pt had chills, shivering and extensive shakiness. Pt's oral temp=98.2, rectal temp=99.7. Pt also complaining of back pain. Tylenol given. ALCOHOL RUBBER made aware of pt
condition and the need to start the pt on Abx. Pt UA by straight cath earlier yesterday was positive for bacteria. Urine cx is pending, but the first urine cx was pos for E.Coli. ALCOHOL RUBBER ordered Rocephin for UTI and Morphine for pain. Morphine and
Rocephin given. Pt was incontinent for a large amount of urine. Pt states that she is feeling better, the chills is nearly resolved and the back pain is significantly improved. Pt is sleeping comfortably at this time. Will continue to monitor the pt.
[2025-09-27 08:32] LABS: Glucose - Point of Care 100 mg/dl (70-99)
[2025-09-27] MEDS: MIRALAX 17 GRAMS PO (09:34)
[2025-09-27] MEDS: VITAMIN C 250 MG PO (09:35)
[2025-09-27] MEDS: PROTONIX 40 MG PO (09:35)
[2025-09-27] MEDS: VITAMIN B-12 1000 MCG PO (09:35)
[2025-09-27] MEDS: DELTASONE 40 MG PO (09:35)
[2025-09-27] MEDS: ASPIR LOW (ENTERIC COATED) 81 MG PO (09:36)
[2025-09-27] MEDS: PACERONE 200 MG PO (09:36)
[2025-09-27] MEDS: NEURONTIN 100 MG PO ×2 (09:36→17:37)
[2025-09-27] MEDS: KEPPRA 1000 MG PO ×2 (09:36→20:13)
[2025-09-27] MEDS: COLACE 100 MG PO ×2 (09:36→20:13)
[2025-09-27] MEDS: VISBIOME 1 CAP PO (09:36)
[2025-09-27] MEDS: VITAMIN D3 (cholecalciferol) 50 MCG PO (09:36)
[2025-09-27] MEDS: LIDOCAINE 4% PATCH 1 PATCH TOPICAL (09:37)
[2025-09-27] MEDS: LOTRIMIN 1% CREAM 1 APPLIC TOPICAL ×2 (09:39→20:15)
[2025-09-27] MEDS: NOVOLOG FLEXPEN-LOW RESISTANCE SC (09:39)
[2025-09-27] MEDS: FLUSH (NSS) 1 FLUSH IV (09:41)
[2025-09-27 09:51] LABS: Hematocrit 27.6 % (37.0-47.0); Hemoglobin 9.4 g/dL (12.0-16.0); Mean Corp Hgb Conc. 34.1 g/dL (33.0-37.0); Mean Corpuscular Volume 94.5 fL (81.0-99.0); Nucleated Red Blood Cells % 0 %; Red Cell Dist. Width 15.8 % (11.5-14.5)
[2025-09-27 12:41] LABS: Blood Urea Nitrogen 40 mg/dl (7-17); Calcium 8.3 mg/dl (8.4-10.2); Carbon Dioxide 25 mmol/L (22-30); Chloride 101 mmol/L (98-107); Estimated Creatinine Clearance 25 ml/min; Glucose 120 mg/dl (70-99); Potassium 4.1 mmol/L (3.5-5.1); Sodium 133 mmol/L (135-145); eGFR 34.15
[2025-09-27 12:43] LABS: Glucose - Point of Care 193 mg/dl (70-99)
--- NOTE | 2025-09-27 12:47 | W.PN.HOSP.TC ---
Addendum entered and electronically signed by Gene Rehman DO 09/27/25 12:59:
Started empiric ceftriaxone pending urine culture. Pyuria noted on urinalysis. She did have a Godfrey catheter recently. Rule out catheter associated UTI.
Original Note:
Today's Communication/Plan
-
Monitor renal function
Tubigrips
PT/OT
Continue midodrine
Assessment / Plan
Assessment / Plan
Gen-AAOx3, NAD
HEENT-NC, AT, anicteric, clear oral mm
Neck-supple
CV-reg, no M, +S1/S2
Lungs-clear B/L
Abd-soft, NT, ND
Ext-no edema
Musculoskeletal-no cyanosis, clubbing
Skin-warm and dry
Neuro-grossly non-focal
Psych-calm, cooperative
Near syncope -due to orthostatic hypotension. Midodrine dose increased to 15 mg twice daily. Ideally will need to use compression stockings but patient cannot tolerate. Tubigrips ordered. Discussed with nursing. If no improvement, will need
abdominal binder.
Received IV fluids. Lasix on hold.
MITCHEL on CKD 3a -creatinine up to 1.5 today. Admission creatinine 1.1.
Etiology unclear, could be due to hypotension induced ATN.
Bladder scan 197 cc.
If renal function worsens, check renal ultrasound, consult nephrology. Lasix on hold.
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
On presentation patient is generally weak, although with no focal findings on exam.
Follow-up MRI of the brain on 09/26 with chronic microvascular hemorrhages, with no acute changes.
Continue prednisone taper. Corticosteroids initiated on 09/09 with prednisone taper 60 mg daily by 10 mg every week. She is currently on 40 mg daily. Insulin sliding scale with serial Accu-Cheks
Seizure disorder -in the settings of CVA. Continue Keppra.
Urinary retention with prior history of UTI.
Godfrey catheter removed
Patient grossly incontinent.
Noted mild leukocytosis, although afebrile.
Repeat urinalysis with straight cath. Follow cultures.
Left ICA stenosis at 66%
Chronic CHF preserved EF -stable.
CAD, status post CABG x 1
Paroxysmal atrial fibrillation/flutter -Continue amiodarone.
Not on any AV anurag blocking agent prior to patient
CHADS-VASC 8 (CHF, hypertension, CVA, vascular disease, age, female). Not on anticoagulation given amyloid angiopathy and risk of bleeding/recent micro hemorrhagic infarct
Aortic valve replacement -with bioprosthetic valve 2018
Hypothyroidism -on replacement
Full code
Dispo -back to [facility] when medically stable.
Anticipated Discharge: > 48 hours
Subjective/Interval History
-
Date of Service: September 27, 2025
Patient seen and examined, no complaints currently.
Objective Data
-
Labs:
Laboratory Results
09/27/25 09/27/25
08:43 12:05
WBC 13.7 H
Hgb 9.4 L
Hct 27.6 L
Plt Count
Sodium Cancelled 133 L
Potassium Cancelled 4.1
Chloride Cancelled 101
Carbon Dioxide Cancelled 25
BUN Cancelled 40 H
Creatinine Cancelled 1.5 H
Glucose Cancelled 120 H
Calcium Cancelled 8.3 L
Vital Signs:
Vital Signs
Temp Pulse Resp BP Pulse Ox
97.5 F 102 16 93/51 100
09/27/25 07:42 09/27/25 07:42 09/27/25 07:42 09/27/25 07:42 09/27/25 07:42
I&O
09/26/25 09/27/25 09/28/25
06:59 06:59 06:59
Intake Total 960 / 960
Output Total 400 / 400
Balance 560 / 560
Review of Systems
-
History Source: Patient
All other systems: Reviewed and negative
[2025-09-27] MEDS: SENOKOT 17.2 MG PO (13:01)
[2025-09-27] MEDS: NOVOLOG FLEXPEN-LOW RESISTANCE 1 UNITS SC (13:02)
--- NOTE | 2025-09-27 16:23 | W.PN.CD ---
Today's Communication / Plan
-
holding lasix
increased midodrine dose to 15mg this admission
Impression / Plan
-
Orthostatic hypotension: severe
-Patient has been off tamsulosin. Not on any BP medications. BLE compression is in place. Eating and drinking normally. Appears euvolemic. Continue to work with PT as tolerated. Can trial abdominal binder as well if needed.
-holding lasix
-increased midodrine dose to 15mg this admission
AFIB/flutter: permanent
-not on OAC due to history of hemorrhagic stroke
-on amiodarone for rate control as she cannot tolerate other agents due to hypotension- continue
HFpEF: chronic
-appears euvolemic
-monitor volume
-lasix will now be prn
CAD with hx CABG 2018:
-stable without CP
bioAVR:
-stable on recent echo 08/2025: EF 50-55%, bio-AVR (grads 06/20, no AR).
Physical Exam
Vital Signs/Labs
Vital Signs
Temp Pulse Resp BP Pulse Ox
97.7 F 98 18 93/49 99
09/27/25 11:40 09/27/25 11:40 09/27/25 11:40 09/27/25 11:40 09/27/25 11:40
09/26/25 09/27/25 09/28/25
06:59 06:59 06:59
Actual Weight 68.521 kg 68.209 kg
09/27/25 08:43
09/27/25 12:05
Magnesium 2.4 mg/dl (1.6-2.3) H 09/26/25 05:18
LAB Results
09/26/25 09/26/25
05:18 10:00
Troponin I 0.015 0.015
Physical Exam
Constitutional: No acute distress and Comfortable
EENT: Moist mucous membranes
Cardiovascular: Rhythm & rate is regular, Pedal edema is absent, JVD pressure is normal and Systolic murmur absent
Respiratory: Respiratory effort normal and Lungs clear to auscul.
Neuro/Psych: AO x 3
Data Reviewed
-
Date of Service: September 27, 2025
EKG: Other (Tele: SR 80s)
Labs: Labs Reviewed by me
[2025-09-27 17:07] LABS: Glucose - Point of Care 211 mg/dl (70-99)
[2025-09-27] MEDS: NOVOLOG FLEXPEN-LOW RESISTANCE 2 UNITS SC (17:37)
[2025-09-27] MEDS: REMOVE LIDOCAINE PATCH 1 PATCH REMOVE (20:14)
[2025-09-27] MEDS: NEURONTIN 200 MG PO (21:11)
[2025-09-27] MEDS: PEPCID 20 MG PO (21:11)
[2025-09-27 21:41] LABS: Glucose - Point of Care 177 mg/dl (70-99)
[2025-09-28 03:29] VITALS: BP 147/80
[2025-09-28] MEDS: SYNTHROID 62.5 MCG PO (04:55)
[2025-09-28] MEDS: ROCEPHIN 1000 MG IV (04:55)
[2025-09-28] MEDS: STERILE WATER FOR INJECTION 10 ML IV (04:55)
[2025-09-28 05:14] VITALS: BMI 28.7
[2025-09-28 07:30] VITALS: BP 148/97
[2025-09-28 08:34] LABS: Glucose - Point of Care 134 mg/dl (70-99)
--- NOTE | 2025-09-28 08:49 | W.PN.HOSP.TC ---
Today's Communication/Plan
-
Await labs
Assessment / Plan
Assessment / Plan
Gen-AAOx3, NAD
HEENT-NC, AT, anicteric, clear oral mm
Neck-supple
CV-reg, no M, +S1/S2
Lungs-clear B/L
Abd-soft, NT, ND
Ext-no edema
Musculoskeletal-no cyanosis, clubbing
Skin-warm and dry
Neuro-grossly non-focal
Psych-calm, cooperative
Near syncope -due to orthostatic hypotension. Midodrine dose increased to 15 mg twice daily. Ideally will need to use compression stockings but patient cannot tolerate. Tubigrips ordered. Discussed with nursing. If no improvement, will need
abdominal binder.
Received IV fluids. Lasix on hold.
Orthostatic vitals from yesterday looked improved. Denies lightheadedness.
MITCHEL on CKD 3a -labs pending for today.
Etiology unclear, could be due to hypotension induced ATN.
Bladder scan 197 cc.
If renal function worsens, check renal ultrasound, consult nephrology. Lasix on hold.
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
On presentation patient is generally weak, although with no focal findings on exam.
Follow-up MRI of the brain on 09/26 with chronic microvascular hemorrhages, with no acute changes.
Continue prednisone taper. Corticosteroids initiated on 09/09 with prednisone taper 60 mg daily by 10 mg every week. She is currently on 40 mg daily. Insulin sliding scale with serial Accu-Cheks
Seizure disorder -in the settings of CVA. Continue Keppra.
Urinary retention with prior history of UTI.
Godfrey catheter removed
Patient grossly incontinent.
Noted mild leukocytosis, although afebrile.
Repeat urinalysis with straight cath. Follow cultures.
Left ICA stenosis at 66%
Chronic CHF preserved EF -stable.
CAD, status post CABG x 1
Paroxysmal atrial fibrillation/flutter -Continue amiodarone.
Not on any AV anurag blocking agent prior to patient
CHADS-VASC 8 (CHF, hypertension, CVA, vascular disease, age, female). Not on anticoagulation given amyloid angiopathy and risk of bleeding/recent micro hemorrhagic infarct
Aortic valve replacement -with bioprosthetic valve 2017
Hypothyroidism -on replacement
Full code
Dispo -back to [facility] when medically stable.
Anticipated Discharge: 24 - 48 hours
Subjective/Interval History
-
Date of Service: September 28, 2025
Patient seen and examined, no complaints.
Objective Data
-
Labs:
Laboratory Results
09/28/25
08:04
WBC Pending
Hgb Pending
Hct Pending
Plt Count Pending
Sodium Pending
Potassium Pending
Chloride Pending
Carbon Dioxide Pending
BUN Pending
Creatinine Pending
Glucose Pending
Calcium Pending
Vital Signs:
Vital Signs
Temp Pulse Resp BP Pulse Ox
98.6 F 83 18 147/80 99
09/28/25 03:29 09/28/25 03:29 09/28/25 03:29 09/28/25 03:29 09/28/25 03:29
I&O
09/27/25 09/28/25 09/29/25
06:59 06:59 06:59
Intake Total 960 / 960 840 / 840
Output Total 400 / 400
Balance 560 / 560 840 / 840
Review of Systems
-
History Source: Patient
All other systems: Reviewed and negative
[2025-09-28 08:56] LABS: Hematocrit 29.4 % (37.0-47.0); Hemoglobin 10.0 g/dL (12.0-16.0); Mean Corp Hgb Conc. 34.0 g/dL (33.0-37.0); Mean Corpuscular Volume 94.5 fL (81.0-99.0); Nucleated Red Blood Cells % 0 %; Red Cell Dist. Width 15.3 % (11.5-14.5)
[2025-09-28] MEDS: DELTASONE 40 MG PO (09:54)
[2025-09-28] MEDS: PROTONIX 40 MG PO (09:54)
[2025-09-28] MEDS: NEURONTIN 100 MG PO ×2 (09:54→16:59)
[2025-09-28] MEDS: KEPPRA 1000 MG PO ×2 (09:54→19:40)
[2025-09-28] MEDS: VITAMIN C 250 MG PO (09:55)
[2025-09-28] MEDS: VISBIOME 1 CAP PO (09:55)
[2025-09-28] MEDS: VITAMIN B-12 1000 MCG PO (09:57)
[2025-09-28] MEDS: ASPIR LOW (ENTERIC COATED) 81 MG PO (09:57)
[2025-09-28] MEDS: PACERONE 200 MG PO (09:57)
[2025-09-28] MEDS: VITAMIN D3 (cholecalciferol) 50 MCG PO (09:57)
[2025-09-28] MEDS: MIRALAX 17 GRAMS PO (09:58)
[2025-09-28] MEDS: LOTRIMIN 1% CREAM 1 APPLIC TOPICAL ×2 (09:58→19:40)
[2025-09-28] MEDS: NOVOLOG FLEXPEN-LOW RESISTANCE SC (09:58)
[2025-09-28] MEDS: COLACE 100 MG PO ×2 (09:58→19:40)
[2025-09-28] MEDS: LIDOCAINE 4% PATCH 1 PATCH TOPICAL (09:58)
[2025-09-28] MEDS: FLUSH (NSS) 1 FLUSH IV (09:59)
--- NOTE | 2025-09-28 10:48 | W.PN.CD ---
Today's Communication / Plan
-
lasix will now be prn
midodrine dose is now 15mg
PT/OT
please call us back with additional questions
Impression / Plan
-
Orthostatic hypotension: severe
-Patient has been off tamsulosin. Not on any BP medications. BLE compression is in place. Eating and drinking normally. Appears euvolemic. Continue to work with PT as tolerated. Can trial abdominal binder as well if needed.
-holding lasix
-increased midodrine dose to 15mg this admission
AFIB/flutter: permanent
-not on OAC due to history of hemorrhagic stroke
-on amiodarone for rate control as she cannot tolerate other agents due to hypotension- continue
HFpEF: chronic
-appears euvolemic
-monitor volume
-lasix will now be prn
CAD with hx CABG 2018:
-stable without CP
bioAVR:
-stable on recent echo 08/2025: EF 50-55%, bio-AVR (grads 06/20, no AR).
Physical Exam
Vital Signs/Labs
Vital Signs
Temp Pulse Resp BP Pulse Ox
97.6 F 106 16 148/97 100
09/28/25 07:30 09/28/25 07:30 09/28/25 07:30 09/28/25 07:30 09/28/25 07:30
09/27/25 09/28/25 09/29/25
06:59 06:59 06:59
Actual Weight 68.209 kg 68.748 kg
09/28/25 08:04
Magnesium 2.4 mg/dl (1.6-2.3) H 09/26/25 05:18
LAB Results
09/26/25 09/26/25
05:18 10:00
Troponin I 0.015 0.015
Physical Exam
Constitutional: No acute distress
EENT: Moist mucous membranes
Cardiovascular: Pedal edema is absent, JVD pressure is normal, Rhythm/rate is irregular and Systolic murmur present
Respiratory: Respiratory effort normal and Lungs clear to auscul.
Neuro/Psych: AO x 3
Data Reviewed
-
Date of Service: September 28, 2025
EKG: Other (Tele: A flutter 60s-80s)
Labs: Labs Reviewed by me
[2025-09-28 11:04] LABS: Blood Urea Nitrogen 35 mg/dl (7-17); Calcium 8.7 mg/dl (8.4-10.2); Carbon Dioxide 26 mmol/L (22-30); Chloride 103 mmol/L (98-107); Estimated Creatinine Clearance 37 ml/min; Glucose 108 mg/dl (70-99); Potassium 4.4 mmol/L (3.5-5.1); Sodium 132 mmol/L (135-145); eGFR 55.55
[2025-09-28 11:16] VITALS: BP 136/84
[2025-09-28 12:29] LABS: Glucose - Point of Care 172 mg/dl (70-99)
[2025-09-28] MEDS: NOVOLOG FLEXPEN-LOW RESISTANCE 1 UNITS SC (12:32)
[2025-09-28] MEDS: SENOKOT 17.2 MG PO (12:32)
[2025-09-28 13:16] VITALS: BP 114/66; BP 143/85; BP 144/77; PULSE 104; PULSE 110; PULSE 97
[2025-09-28 15:37] VITALS: BP 148/95
[2025-09-28 17:29] LABS: Glucose - Point of Care 264 mg/dl (70-99)
[2025-09-28] MEDS: NOVOLOG FLEXPEN-LOW RESISTANCE 3 UNITS SC (17:56)
[2025-09-28] MEDS: REMOVE LIDOCAINE PATCH 1 PATCH REMOVE (19:40)
[2025-09-28 21:20] LABS: Glucose - Point of Care 240 mg/dl (70-99)
[2025-09-28] MEDS: PEPCID 20 MG PO (21:33)
[2025-09-28] MEDS: NEURONTIN 200 MG PO (21:33)
[2025-09-28 23:05] VITALS: BP 154/85
[2025-09-29] MEDS: STERILE WATER FOR INJECTION 10 ML IV (04:43)
[2025-09-29] MEDS: ROCEPHIN 1000 MG IV (04:43)
[2025-09-29] MEDS: SYNTHROID 62.5 MCG PO (04:45)
[2025-09-29 05:11] VITALS: BMI 28.8
[2025-09-29 07:08] VITALS: BP 167/85
[2025-09-29 07:51] LABS: Glucose - Point of Care 78 mg/dl (70-99)
[2025-09-29] MEDS: NOVOLOG FLEXPEN-LOW RESISTANCE SC ×2 (08:27→12:15)
[2025-09-29] MEDS: VITAMIN B-12 1000 MCG PO (08:31)
[2025-09-29] MEDS: VITAMIN D3 (cholecalciferol) 50 MCG PO (08:31)
[2025-09-29] MEDS: NEURONTIN 100 MG PO ×2 (08:31→17:13)
[2025-09-29] MEDS: VISBIOME 1 CAP PO (08:31)
[2025-09-29] MEDS: PROTONIX 40 MG PO (08:31)
[2025-09-29] MEDS: COLACE 100 MG PO ×2 (08:31→21:35)
[2025-09-29] MEDS: MIRALAX 17 GRAMS PO (08:31)
[2025-09-29] MEDS: DELTASONE 40 MG PO (08:31)
[2025-09-29] MEDS: ASPIR LOW (ENTERIC COATED) 81 MG PO (08:31)
[2025-09-29] MEDS: LIDOCAINE 4% PATCH 1 PATCH TOPICAL (08:31)
[2025-09-29] MEDS: LOTRIMIN 1% CREAM 1 APPLIC TOPICAL ×2 (08:32→21:36)
[2025-09-29] MEDS: PACERONE 200 MG PO (08:32)
[2025-09-29] MEDS: KEPPRA 1000 MG PO ×2 (08:32→21:35)
[2025-09-29] MEDS: VITAMIN C 250 MG PO (08:33)
[2025-09-29 08:36] LABS: Blood Urea Nitrogen 25 mg/dl (7-17); Calcium 8.7 mg/dl (8.4-10.2); Carbon Dioxide 26 mmol/L (22-30); Chloride 104 mmol/L (98-107); Estimated Creatinine Clearance 47 ml/min; Glucose 90 mg/dl (70-99); Potassium 4.5 mmol/L (3.5-5.1); Sodium 136 mmol/L (135-145); eGFR > 60.00
[2025-09-29 09:01] VITALS: BP 113/71; BP 136/72; BP 94/75; PULSE 100; PULSE 114; PULSE 117
[2025-09-29 12:13] LABS: Glucose - Point of Care 115 mg/dl (70-99)
[2025-09-29] MEDS: SENOKOT 17.2 MG PO (12:58)
[2025-09-29 15:10] VITALS: BP 138/95
[2025-09-29 16:56] LABS: Glucose - Point of Care 211 mg/dl (70-99)
[2025-09-29] MEDS: NOVOLOG FLEXPEN-LOW RESISTANCE 2 UNITS SC (17:13)
--- NOTE | 2025-09-29 17:29 | W.PN.HOSP.TC ---
Today's Communication/Plan
-
PT assessment
Monitor for orthostasis
Continue antibiotics for UTI
Assessment / Plan
Assessment / Plan
IMPRESSION:
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
Presyncopal episode
Conditions prior to admission
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
Seizure disorder in the settings of CVA
Left ICA stenosis at 66%
CKD stage IIIa
Chronic CHF preserved EF
CAD, status post CABG x 1
Paroxysmal atrial fibrillation/flutter
Aortic valve replacement with bioprosthetic valve 2017
Hypothyroidism on replacement
Chronic orthostatic hypotension requiring midodrine
Acute urinary retention requiring Godfrey catheter
Enterococcal UTI
PLAN:
Presyncopal episode.
Patient with history of chronic orthostatic hypotension currently on midodrine 10 mg twice daily.
Could be multifactorial in settings of mild dehydration (noted with elevated BUN and creatinine), less likely due to arrhythmia while patient is in a flutter, versus new neurologic event, although with no focal findings upon presentation
Improved with hydration and on increased dose of midodrine.
Episode of atypical chest pain on 09/25 - 09/26 night
She describes pain mostly in the epigastric area which is currently resolved.
No evidence of ischemia on ECG with negative cardiac markers
She is on tapering steroid dose
Suspect dyspepsia
Continue PPI and H2 lencho
If recurrent pain, consider increase PPI to twice daily with addition of Carafate.
Chronic CHF preserved EF.
Echocardiogram 08/22/2025: LVEF 50-55%, well-seated bioprosthetic aortic valve with no evidence of aortic regurgitation mild/moderate MR.
Volume status is compensated, noted mild contraction given increased BUN and creatinine.
Continue holding Lasix given orthostasis. Monitor volume status closely
Paroxysmal A-flutter/A-fib.
Continue amiodarone.
Not on any AV anurag blocking agent prior to patient
CHADS-VASC 8 (CHF, hypertension, CVA, vascular disease, age, female). Not on anticoagulation given amyloid angiopathy and risk of bleeding/recent micro hemorrhagic infarct
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
On presentation patient is generally weak, although with no focal findings on exam.
Follow-up MRI of the brain on 09/26 with chronic microvascular hemorrhages, with no acute changes.
Continue prednisone taper. Corticosteroids initiated on 09/09 with prednisone taper 60 mg daily by 10 mg every week. She is currently on 40 mg daily. Insulin sliding scale with serial Accu-Cheks
Seizure disorder. Continue Keppra
Consider neurology evaluation while inpatient
Continue gabapentin
Urinary retention with prior history of UTI.
Godfrey catheter removed
Patient grossly incontinent.
Noted mild leukocytosis, although afebrile.
Repeated urine culture with straight cath on 09/26 E. coli and Klebsiella. Initiated on ceftriaxone on 09/27. Plan is to complete 5-day course of antibiotics
Hypothyroidism on replacement
Anticipated Discharge: 24 - 48 hours
Subjective/Interval History
-
Date of Service: September 29, 2025
Objective Data
-
Labs:
Laboratory Results
09/29/25
07:58
Sodium 136
Potassium 4.5
Chloride 104
Carbon Dioxide 26
BUN 25 H
Creatinine 0.8
Glucose 90
Calcium 8.7
Vital Signs:
Vital Signs
Temp Pulse Resp BP Pulse Ox
98.1 F 106 16 138/95 99
09/29/25 15:10 09/29/25 15:10 09/29/25 15:10 09/29/25 15:10 09/29/25 15:10
I&O
09/28/25 09/29/25 09/30/25
06:59 06:59 06:59
Intake Total 840 / 840 480 / 480
Balance 840 / 840 480 / 480
Physical Exam
-
General: Well Developed and No Apparent Distress
HEENT: Normocephalic, Atraumatic and Moist Mucous Membranes
Respiratory: Clear to Auscultation
Cardiac: Regular Rhythm and S1/S2; Negative Murmur, Rub or Gallop
GI: Soft, Nontender, Nondistended and Normal Bowel Sounds; Negative Organomegaly
Rectal: Deferred by Provider
Musculoskeletal: No Clubbing, No Cyanosis and No Edema
Skin: Negative Rash
Neuro: Nonfocal/Grossly Intact
[2025-09-29 21:34] LABS: Glucose - Point of Care 127 mg/dl (70-99)
[2025-09-29] MEDS: PEPCID 20 MG PO (21:35)
[2025-09-29] MEDS: NEURONTIN 200 MG PO (21:35)
[2025-09-29] MEDS: REMOVE LIDOCAINE PATCH 1 PATCH REMOVE (21:37)
[2025-09-29 23:49] VITALS: BP 150/109
[2025-09-30 03:16] VITALS: BP 163/104
--- NOTE | 2025-09-30 04:33 | PTCARENOTE ---
patients BP elevated throughout night, pt without complaints of pain or headache. 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 pt resting comfortably in bed.
[2025-09-30] MEDS: STERILE WATER FOR INJECTION 10 ML IV (04:50)
[2025-09-30] MEDS: ROCEPHIN 1000 MG IV (04:50)
[2025-09-30] MEDS: SYNTHROID 62.5 MCG PO (04:52)
[2025-09-30 06:00] VITALS: BMI 29.0
[2025-09-30 07:20] LABS: Glucose - Point of Care 82 mg/dl (70-99)
[2025-09-30] MEDS: NOVOLOG FLEXPEN-LOW RESISTANCE SC ×3 (08:09→17:14)
[2025-09-30] MEDS: NEURONTIN 100 MG PO ×2 (08:14→16:17)
[2025-09-30] MEDS: PROTONIX 40 MG PO (08:14)
[2025-09-30] MEDS: DELTASONE 30 MG PO (08:14)
[2025-09-30] MEDS: KEPPRA 1000 MG PO ×2 (08:14→21:06)
[2025-09-30] MEDS: VITAMIN C 250 MG PO (08:14)
[2025-09-30] MEDS: PACERONE 200 MG PO (08:15)
[2025-09-30] MEDS: VITAMIN D3 (cholecalciferol) 50 MCG PO (08:15)
[2025-09-30] MEDS: VISBIOME 1 CAP PO (08:15)
[2025-09-30] MEDS: ASPIR LOW (ENTERIC COATED) 81 MG PO (08:15)
[2025-09-30] MEDS: VITAMIN B-12 1000 MCG PO (08:15)
[2025-09-30] MEDS: COLACE 100 MG PO ×2 (08:15→21:06)
[2025-09-30] MEDS: LIDOCAINE 4% PATCH 1 PATCH TOPICAL (08:16)
[2025-09-30] MEDS: MIRALAX 17 GRAMS PO (08:18)
[2025-09-30] MEDS: LOTRIMIN 1% CREAM 1 APPLIC TOPICAL ×2 (08:18→21:09)
[2025-09-30 08:56] LABS: Blood Urea Nitrogen 31 mg/dl (7-17); Calcium 8.7 mg/dl (8.4-10.2); Carbon Dioxide 24 mmol/L (22-30); Chloride 102 mmol/L (98-107); Estimated Creatinine Clearance 42 ml/min; Glucose 84 mg/dl (70-99); Potassium 4.1 mmol/L (3.5-5.1); Sodium 134 mmol/L (135-145); eGFR > 60.00
--- NOTE | 2025-09-30 09:02 | PN.CDI ---
CDI
- -
CDI:
Physician Documentation Request
Admit Date: 09/25/25 16:23
Dear Doctor Elijah,
Patient presented with near syncope to ED.
09/29 Progress note states 'Repeated urine culture with straight cath on 09/26 E. coli and Klebsiella. Initiated on ceftriaxone on 09/27'
09/25 urine culture positive for E-coli
09/25 UA
Laboratory Tests
09/25/25
13:43
Urine Color Yellow
Urine Clarity Slightly cloudy
Ur Occult Blood Reflex 1+ A
Leukocyte Esterase Rfl 2+ A
Urine WBC (Reflex) >100 A
Urine Bacteria (Reflex) Many A
Please clarify the following:
UTI was present on admission
UTI was not present on admission
Unable to determine
Use of terms such as suspected, likely, concern for, or probable (associated with a specific diagnosis that is being evaluated, monitored, or treated as if it exists) are acceptable and can be coded in the inpatient setting, when documented at the
time of discharge.
Thank you,
Shwetha Mejia RN, BSN
CDI Specialist
tiger text
Please use your independent medical judgment in providing your response.
--- NOTE | 2025-09-30 09:14 | PN.CDI ---
CDI
- -
CDI:
Physician Documentation Request
Admit Date: 09/25/25 16:23
Dear Doctor Elijah,
Ceftriaxone was initiated on 09/27 for UTI.
Patient recently has odell catheter that was removed.
Please clarify if a relationship exist between these conditions:
Yes, UTI is related to/associated with/due to recent odell catheter
No, UTI is not related to/associated with/due to recent odell catheter
Unable to determine
Use of terms such as suspected, likely, concern for, or probable (associated with a specific diagnosis that is being evaluated, monitored, or treated as if it exists) are acceptable and can be coded in the inpatient setting, when documented at the
time of discharge.
Thank you,
Shwetha Mejia RN, BSN
CDI Specialist
tiger text
Please use your independent medical judgment in providing your response.
[2025-09-30 09:15] VITALS: BP 116/62; BP 120/80; BP 137/82; PULSE 115; PULSE 119; PULSE 27
[2025-09-30 10:11] VITALS: BP 125/81; PULSE 72
[2025-09-30 11:48] LABS: Glucose - Point of Care 94 mg/dl (70-99)
[2025-09-30] MEDS: SENOKOT 17.2 MG PO (12:38)
--- NOTE | 2025-09-30 15:18 | CM ---
F/U: FAHAD Bradford spoke to Hospitalist who said that patient could be ready soon. FAHAD spoke to [facility] who declined the patient due to PMR consult, plus also patient was about to DC. FAHAD spoke to daughter (Dtr) Lori who was disappointed, but
understands. Patient has had good experience with [facility] and has had bad experiences at SNF. So the plan is to try for [facility] and [facility] (in this order) because the patient really wants to return to this level, but was able to get 3 SNF.
Referral made to all. FAHAD sent message to [facility] liaison stating that according to the daughter, patient was promised a return so the liaison is checking on this. PLAN: Acute Rehab vs. SNF.
[2025-09-30 15:20] VITALS: BP 168/109
--- NOTE | 2025-09-30 15:31 | PTCARENOTE ---
Confirmed with Dr. Nava that 11am midodrine was still to be given with BP of 156/98. Dr. Nava confirmed.
--- NOTE | 2025-09-30 16:57 | PTCARENOTE ---
Patient Saturated bed. PVR is 0.
--- NOTE | 2025-09-30 16:57 | W.PN.HOSP.TC ---
Today's Communication/Plan
-
Improved orthostasis while on increased dose of midodrine
Continue antibiotics to complete total 5-day course of therapy through 10/02. Could be transition to oral at the time of discharge.
PT assessment.
Disposition hopefully back to acute rehab
Assessment / Plan
Assessment / Plan
IMPRESSION:
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
Presyncopal episode
Conditions prior to admission
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
Seizure disorder in the settings of CVA
Left ICA stenosis at 66%
CKD stage IIIa
Chronic CHF preserved EF
CAD, status post CABG x 1
Paroxysmal atrial fibrillation/flutter
Aortic valve replacement with bioprosthetic valve 2017
Hypothyroidism on replacement
Chronic orthostatic hypotension requiring midodrine
Acute urinary retention requiring Godfrey catheter
Enterococcal UTI
PLAN:
Presyncopal episode.
Patient with history of chronic orthostatic hypotension currently on midodrine 10 mg twice daily.
Could be multifactorial in settings of mild dehydration (noted with elevated BUN and creatinine), less likely due to arrhythmia while patient is in a flutter, versus new neurologic event, although with no focal findings upon presentation
Improved with hydration and on increased dose of midodrine.
Episode of atypical chest pain on 09/25 - 09/26 night
She describes pain mostly in the epigastric area which is currently resolved.
No evidence of ischemia on ECG with negative cardiac markers
She is on tapering steroid dose
Suspect dyspepsia
Continue PPI and H2 lencho
If recurrent pain, consider increase PPI to twice daily with addition of Carafate.
Chronic CHF preserved EF.
Echocardiogram 08/22/2025: LVEF 50-55%, well-seated bioprosthetic aortic valve with no evidence of aortic regurgitation mild/moderate MR.
Volume status is compensated, noted mild contraction given increased BUN and creatinine.
Continue holding Lasix given orthostasis. Monitor volume status closely
Paroxysmal A-flutter/A-fib.
Continue amiodarone.
Not on any AV anurag blocking agent prior to patient
CHADS-VASC 8 (CHF, hypertension, CVA, vascular disease, age, female). Not on anticoagulation given amyloid angiopathy and risk of bleeding/recent micro hemorrhagic infarct
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
On presentation patient is generally weak, although with no focal findings on exam.
Follow-up MRI of the brain on 09/26 with chronic microvascular hemorrhages, with no acute changes.
Continue prednisone taper. Corticosteroids initiated on 09/09 with prednisone taper 60 mg daily by 10 mg every week. She is currently on 40 mg daily. Insulin sliding scale with serial Accu-Cheks
Seizure disorder. Continue Keppra
Consider neurology evaluation while inpatient
Continue gabapentin
Urinary retention with prior history of UTI.
Godfrey catheter removed
Patient grossly incontinent.
Noted mild leukocytosis, although afebrile.
Repeated urine culture with straight cath on 09/26 E. coli and Klebsiella. Initiated on ceftriaxone on 09/27. Plan is to complete 5-day course of antibiotics
Hypothyroidism on replacement
Anticipated Discharge: Within 24 hours
Subjective/Interval History
-
Date of Service: September 30, 2025
Objective Data
-
Labs:
Laboratory Results
09/30/25
07:55
Sodium 134 L
Potassium 4.1
Chloride 102
Carbon Dioxide 24
BUN 31 H
Creatinine 0.9
Glucose 84
Calcium 8.7
Vital Signs:
Vital Signs
Temp Pulse Resp BP Pulse Ox
97.3 F 74 16 156/98 98
09/30/25 09:10 09/30/25 03:16 09/30/25 09:10 09/30/25 12:38 09/30/25 09:10
I&O
09/29/25 09/30/25 10/01/25
06:59 06:59 06:59
Intake Total 480 / 480 920 / 920
Output Total 550 / 550
Balance 480 / 480 370 / 370
Physical Exam
-
General: Well Developed and No Apparent Distress
HEENT: Normocephalic, Atraumatic and Moist Mucous Membranes
Respiratory: Clear to Auscultation
Cardiac: Regular Rhythm and S1/S2; Negative Murmur, Rub or Gallop
GI: Soft, Nontender, Nondistended and Normal Bowel Sounds; Negative Organomegaly
Rectal: Deferred by Provider
Musculoskeletal: No Clubbing, No Cyanosis and No Edema
Skin: Negative Rash
Neuro: Nonfocal/Grossly Intact
[2025-09-30 17:10] LABS: Glucose - Point of Care 147 mg/dl (70-99)
[2025-09-30] MEDS: REMOVE LIDOCAINE PATCH 1 PATCH REMOVE (21:08)
[2025-09-30] MEDS: NEURONTIN 200 MG PO (21:09)
[2025-09-30] MEDS: PEPCID 20 MG PO (21:10)
[2025-09-30 21:20] LABS: Glucose - Point of Care 183 mg/dl (70-99)
[2025-09-30 23:49] VITALS: BP 149/88
[2025-10-01] MEDS: ROCEPHIN 1000 MG IV (05:03)
[2025-10-01] MEDS: STERILE WATER FOR INJECTION 10 ML IV (05:03)
[2025-10-01] MEDS: SYNTHROID 62.5 MCG PO (05:04)
[2025-10-01 06:00] VITALS: BMI 28.7
[2025-10-01 07:49] LABS: Glucose - Point of Care 76 mg/dl (70-99)
[2025-10-01] MEDS: NOVOLOG FLEXPEN-LOW RESISTANCE SC ×2 (07:50→17:55)
[2025-10-01] MEDS: MIRALAX 17 GRAMS PO (07:58)
[2025-10-01] MEDS: VITAMIN C 250 MG PO (07:58)
[2025-10-01] MEDS: COLACE 100 MG PO (07:58)
[2025-10-01] MEDS: KEPPRA 1000 MG PO ×2 (07:58→21:18)
[2025-10-01] MEDS: NEURONTIN 100 MG PO ×2 (07:58→15:23)
[2025-10-01] MEDS: VITAMIN B-12 1000 MCG PO (07:58)
[2025-10-01] MEDS: VITAMIN D3 (cholecalciferol) 50 MCG PO (07:58)
[2025-10-01] MEDS: ASPIR LOW (ENTERIC COATED) 81 MG PO (07:59)
[2025-10-01] MEDS: PROTONIX 40 MG PO (07:59)
[2025-10-01] MEDS: PACERONE 200 MG PO (07:59)
[2025-10-01 08:00] VITALS: BP 102/60; BP 137/93; BP 151/94; PULSE 108; PULSE 124; PULSE 91
[2025-10-01 08:01] VITALS: BP 149/94
[2025-10-01] MEDS: LIDOCAINE 4% PATCH 1 PATCH TOPICAL (08:04)
[2025-10-01] MEDS: LOTRIMIN 1% CREAM 1 APPLIC TOPICAL ×2 (08:05→21:19)
[2025-10-01] MEDS: DELTASONE 30 MG PO (08:05)
[2025-10-01] MEDS: VISBIOME 1 CAP PO (08:05)
--- NOTE | 2025-10-01 12:02 | CM ---
Chart reviewed. [facility] unable to accept back, confirmed w/ Dominique/admissions
Reviewed SNF referrals placed yesterday. [facility] has no beds.
Additional acute rehab referrals placed yesterday. [facility] has no beds, [facility] declined admission
spoke w/ patient's daughter, Lori, discussed w/ her [facility] decision and no accepting facility at this time. Lori asking for additional acute and SNF referrals sent. All referrals sent in [facility]
Unsure of how many Medicare days patient has left
Plan: Acute or SNF, depending on who accepts
[2025-10-01 12:03] VITALS: BP 131/80
[2025-10-01 12:03] LABS: Glucose - Point of Care 167 mg/dl (70-99)
[2025-10-01] MEDS: NOVOLOG FLEXPEN-LOW RESISTANCE 1 UNITS SC (12:13)
[2025-10-01] MEDS: SENOKOT 17.2 MG PO (12:14)
--- NOTE | 2025-10-01 14:19 | W.PN.HOSP.TC ---
Today's Communication/Plan
-
Continue supportive care.
Continue antibiotics for UTI, could transition to oral upon discharge.
Pending placement acute versus [facility]
Assessment / Plan
Assessment / Plan
IMPRESSION:
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
Presyncopal episode
Conditions prior to admission
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
Seizure disorder in the settings of CVA
Left ICA stenosis at 66%
CKD stage IIIa
Chronic CHF preserved EF
CAD, status post CABG x 1
Paroxysmal atrial fibrillation/flutter
Aortic valve replacement with bioprosthetic valve 2017
Hypothyroidism on replacement
Chronic orthostatic hypotension requiring midodrine
Acute urinary retention requiring Godfrey catheter
Enterococcal UTI
PLAN:
Presyncopal episode.
Patient with history of chronic orthostatic hypotension currently on midodrine 10 mg twice daily.
Could be multifactorial in settings of mild dehydration (noted with elevated BUN and creatinine), less likely due to arrhythmia while patient is in a flutter, versus new neurologic event, although with no focal findings upon presentation
Improved with hydration and on increased dose of midodrine.
Episode of atypical chest pain on 09/25 - 09/26 night
She describes pain mostly in the epigastric area which is currently resolved.
No evidence of ischemia on ECG with negative cardiac markers
She is on tapering steroid dose
Suspect dyspepsia
Continue PPI and H2 lencho
If recurrent pain, consider increase PPI to twice daily with addition of Carafate.
Chronic CHF preserved EF.
Echocardiogram 08/22/2025: LVEF 50-55%, well-seated bioprosthetic aortic valve with no evidence of aortic regurgitation mild/moderate MR.
Volume status is compensated, noted mild contraction given increased BUN and creatinine.
Continue holding Lasix given orthostasis. Monitor volume status closely
Paroxysmal A-flutter/A-fib.
Continue amiodarone.
Not on any AV anurag blocking agent prior to patient
CHADS-VASC 8 (CHF, hypertension, CVA, vascular disease, age, female). Not on anticoagulation given amyloid angiopathy and risk of bleeding/recent micro hemorrhagic infarct
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
On presentation patient is generally weak, although with no focal findings on exam.
Follow-up MRI of the brain on 09/26 with chronic microvascular hemorrhages, with no acute changes.
Continue prednisone taper. Corticosteroids initiated on 09/09 with prednisone taper 60 mg daily by 10 mg every week. She is currently on 40 mg daily. Insulin sliding scale with serial Accu-Cheks
Seizure disorder. Continue Keppra
Consider neurology evaluation while inpatient
Continue gabapentin
Urinary retention with prior history of UTI.
Godfrey catheter removed
Patient grossly incontinent.
Noted mild leukocytosis, although afebrile.
Repeated urine culture with straight cath on 09/26 E. coli and Klebsiella. Initiated on ceftriaxone on 09/27. Plan is to complete 5-day course of antibiotics
Hypothyroidism on replacement
Anticipated Discharge: Within 24 hours
Subjective/Interval History
-
Date of Service: October 01, 2025
Objective Data
-
Vital Signs:
Vital Signs
Temp Pulse Resp BP Pulse Ox
97.8 F 89 16 131/80 99
10/01/25 08:01 10/01/25 12:14 10/01/25 08:01 10/01/25 12:14 10/01/25 12:07
I&O
09/30/25 10/01/25 10/02/25
06:59 06:59 06:59
Intake Total 920 / 920 240 / 240
Output Total 550 / 550
Balance 370 / 370 240 / 240
Physical Exam
-
General: Well Developed and No Apparent Distress
HEENT: Normocephalic, Atraumatic and Moist Mucous Membranes
Respiratory: Clear to Auscultation
Cardiac: Regular Rhythm and S1/S2; Negative Murmur, Rub or Gallop
GI: Soft, Nontender, Nondistended and Normal Bowel Sounds; Negative Organomegaly
Rectal: Deferred by Provider
Musculoskeletal: No Clubbing, No Cyanosis and No Edema
Skin: Negative Rash
Neuro: Nonfocal/Grossly Intact
[2025-10-01 15:09] VITALS: BP 134/83
[2025-10-01] MEDS: BenGay-Like 1 APPLIC TOPICAL (15:24)
[2025-10-01 17:09] LABS: Glucose - Point of Care 119 mg/dl (70-99)
[2025-10-01] MEDS: COLACE PO (21:10)
[2025-10-01] MEDS: REMOVE LIDOCAINE PATCH 1 PATCH REMOVE (21:19)
[2025-10-01] MEDS: PEPCID 20 MG PO (21:20)
[2025-10-01] MEDS: NEURONTIN 200 MG PO (21:21)
[2025-10-01 21:22] LABS: Glucose - Point of Care 158 mg/dl (70-99)
[2025-10-01 23:44] VITALS: BP 158/97
[2025-10-02] VITALS (8 sets, daily range): BP systolic 145–174; BP diastolic 84–107; PULSE 95–116; O2SAT 97–99; BMI 28.4
[2025-10-02] MEDS: ROCEPHIN 1000 MG IV (03:53)
[2025-10-02] MEDS: STERILE WATER FOR INJECTION 10 ML IV (03:53)
[2025-10-02] MEDS: SYNTHROID 62.5 MCG PO (03:58)
[2025-10-02 08:22] LABS: Glucose - Point of Care 82 mg/dl (70-99)
[2025-10-02] MEDS: NOVOLOG FLEXPEN-LOW RESISTANCE SC ×3 (08:32→16:57)
[2025-10-02] MEDS: MIRALAX 17 GRAMS PO (08:32)
[2025-10-02] MEDS: LIDOCAINE 4% PATCH 1 PATCH TOPICAL (08:32)
[2025-10-02] MEDS: KEPPRA 1000 MG PO ×2 (08:33→21:03)
[2025-10-02] MEDS: VISBIOME 1 CAP PO (08:33)
[2025-10-02] MEDS: VITAMIN B-12 1000 MCG PO (08:33)
[2025-10-02] MEDS: VITAMIN D3 (cholecalciferol) 50 MCG PO (08:33)
[2025-10-02] MEDS: ASPIR LOW (ENTERIC COATED) 81 MG PO (08:33)
[2025-10-02] MEDS: NEURONTIN 100 MG PO ×2 (08:33→15:42)
[2025-10-02] MEDS: DELTASONE 30 MG PO (08:33)
[2025-10-02] MEDS: PROTONIX 40 MG PO (08:33)
[2025-10-02] MEDS: VITAMIN C 250 MG PO (08:33)
[2025-10-02] MEDS: PACERONE 200 MG PO (08:33)
[2025-10-02] MEDS: COLACE 100 MG PO (08:33)
[2025-10-02] MEDS: LOTRIMIN 1% CREAM 1 APPLIC TOPICAL ×2 (08:43→21:05)
--- NOTE | 2025-10-02 09:52 | CM ---
Addendum entered by Sumit Mccabe 10/02/25 12:24:
Confirmed that patient does not have anymore Medicare days for skilled rehab. Updated daughter, Lori, who was somewhat aware of this but wasn't sure.
Received call back from Mary who stated concerns regarding patient's multiple admissions to [facility] but will further discuss w/ daughter
[facility] requesting additional information, sent last PT note and days patient was at [facility].
Will ask therapy to see patient for updated evaluation
Original Note:
CM attempted call to [facility] regarding referral as further discussion was requested, CM left message yesterday and again this morning. CM attempted additional call to Jaime[facility], left message as well
CM attempted call to [facility], left message
CM called [facility] regarding referral, spoke w/ Nati who informed CM that the person assigned to patient's referral is not working today and will have the person following to update referral w/ decision.
CM called [facility], spoke w/ Collette, no available bed
Additional SNF referrals sent in [facility]
Plan: Continue ongoing SNF or acute placement
[2025-10-02 11:36] LABS: Glucose - Point of Care 119 mg/dl (70-99)
[2025-10-02] MEDS: SENOKOT PO (12:14)
--- NOTE | 2025-10-02 14:29 | W.PN.HOSP.TC ---
Today's Communication/Plan
-
Continue midodrine
PT evaluation with discharge planning.
Assessment / Plan
Assessment / Plan
IMPRESSION:
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
Presyncopal episode
Conditions prior to admission
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
Seizure disorder in the settings of CVA
Left ICA stenosis at 66%
CKD stage IIIa
Chronic CHF preserved EF
CAD, status post CABG x 1
Paroxysmal atrial fibrillation/flutter
Aortic valve replacement with bioprosthetic valve 2017
Hypothyroidism on replacement
Chronic orthostatic hypotension requiring midodrine
Acute urinary retention requiring Godfrey catheter
Enterococcal UTI
PLAN:
Presyncopal episode.
Patient with history of chronic orthostatic hypotension currently on midodrine 10 mg twice daily.
Could be multifactorial in settings of mild dehydration (noted with elevated BUN and creatinine), less likely due to arrhythmia while patient is in a flutter, versus new neurologic event, although with no focal findings upon presentation
Improved with hydration and on increased dose of midodrine.
Episode of atypical chest pain on 09/25 - 09/26 night
She describes pain mostly in the epigastric area which is currently resolved.
No evidence of ischemia on ECG with negative cardiac markers
She is on tapering steroid dose
Suspect dyspepsia
Continue PPI and H2 lencho
If recurrent pain, consider increase PPI to twice daily with addition of Carafate.
Chronic CHF preserved EF.
Echocardiogram 08/22/2025: LVEF 50-55%, well-seated bioprosthetic aortic valve with no evidence of aortic regurgitation mild/moderate MR.
Volume status is compensated, noted mild contraction given increased BUN and creatinine.
Continue holding Lasix given orthostasis. Monitor volume status closely
Paroxysmal A-flutter/A-fib.
Continue amiodarone.
Not on any AV anurag blocking agent prior to patient
CHADS-VASC 8 (CHF, hypertension, CVA, vascular disease, age, female). Not on anticoagulation given amyloid angiopathy and risk of bleeding/recent micro hemorrhagic infarct
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
On presentation patient is generally weak, although with no focal findings on exam.
Follow-up MRI of the brain on 09/26 with chronic microvascular hemorrhages, with no acute changes.
Continue prednisone taper. Corticosteroids initiated on 09/09 with prednisone taper 60 mg daily by 10 mg every week. She is currently on 40 mg daily. Insulin sliding scale with serial Accu-Cheks
Seizure disorder. Continue Keppra
Consider neurology evaluation while inpatient
Continue gabapentin
Urinary retention with prior history of UTI.
Godfrey catheter removed
Patient grossly incontinent.
Noted mild leukocytosis, although afebrile.
Repeated urine culture with straight cath on 09/26 E. coli and Klebsiella. Initiated on ceftriaxone on 09/27. Plan is to complete 5-day course of antibiotics through 10/07
Hypothyroidism on replacement
Anticipated Discharge: 24 - 48 hours
Subjective/Interval History
-
Date of Service: October 02, 2025
Objective Data
-
Vital Signs:
Vital Signs
Temp Pulse Resp BP Pulse Ox
97.9 F 99 18 145/98 98
10/02/25 11:30 10/02/25 12:42 10/02/25 11:30 10/02/25 12:42 10/02/25 11:30
I&O
10/01/25 10/02/25 10/03/25
06:59 06:59 06:59
Intake Total 240 / 240 480 / 480
Balance 240 / 240 480 / 480
Physical Exam
-
General: Well Developed and No Apparent Distress
HEENT: Normocephalic, Atraumatic and Moist Mucous Membranes
Respiratory: Clear to Auscultation
Cardiac: Regular Rhythm and S1/S2; Negative Murmur, Rub or Gallop
GI: Soft, Nontender, Nondistended and Normal Bowel Sounds; Negative Organomegaly
Rectal: Deferred by Provider
Musculoskeletal: No Clubbing, No Cyanosis and No Edema
Skin: Negative Rash
Neuro: Nonfocal/Grossly Intact
[2025-10-02 16:55] LABS: Glucose - Point of Care 146 mg/dl (70-99)
[2025-10-02] MEDS: COLACE PO (21:02)
[2025-10-02] MEDS: REMOVE LIDOCAINE PATCH 1 PATCH REMOVE (21:03)
[2025-10-02] MEDS: NEURONTIN 200 MG PO (21:06)
[2025-10-02] MEDS: PEPCID 20 MG PO (21:06)
[2025-10-02] MEDS: BenGay-Like 1 APPLIC TOPICAL (21:10)
[2025-10-02 21:40] LABS: Glucose - Point of Care 117 mg/dl (70-99)
[2025-10-03] MEDS: ROCEPHIN 1000 MG IV (05:03)
[2025-10-03] MEDS: STERILE WATER FOR INJECTION 10 ML IV (05:03)
[2025-10-03] MEDS: SYNTHROID 62.5 MCG PO (05:04)
[2025-10-03 05:19] VITALS: BP 152/104
[2025-10-03 06:00] VITALS: BMI 29.1
[2025-10-03 07:25] VITALS: BP 149/92
[2025-10-03] MEDS: PROTONIX 40 MG PO (08:59)
[2025-10-03] MEDS: LIDOCAINE 4% PATCH 1 PATCH TOPICAL (08:59)
[2025-10-03] MEDS: PACERONE 200 MG PO (08:59)
[2025-10-03] MEDS: COLACE 100 MG PO ×2 (08:59→21:07)
[2025-10-03] MEDS: ASPIR LOW (ENTERIC COATED) 81 MG PO (08:59)
[2025-10-03] MEDS: DELTASONE 30 MG PO (08:59)
[2025-10-03] MEDS: MIRALAX 17 GRAMS PO (09:00)
[2025-10-03] MEDS: NEURONTIN 100 MG PO ×2 (09:00→16:29)
[2025-10-03] MEDS: KEPPRA 1000 MG PO ×2 (09:00→21:07)
[2025-10-03] MEDS: LOTRIMIN 1% CREAM 1 APPLIC TOPICAL ×2 (09:00→21:08)
[2025-10-03] MEDS: VITAMIN B-12 1000 MCG PO (09:00)
[2025-10-03] MEDS: VISBIOME 1 CAP PO (09:00)
[2025-10-03] MEDS: VITAMIN C 250 MG PO (09:00)
[2025-10-03] MEDS: VITAMIN D3 (cholecalciferol) 50 MCG PO (09:00)
[2025-10-03 09:45] VITALS: BP 107/66; BP 136/83; PULSE 107
[2025-10-03] MEDS: NOVOLOG FLEXPEN-LOW RESISTANCE SC ×2 (10:33→11:50)
[2025-10-03 11:43] LABS: Glucose - Point of Care 128 mg/dl (70-99)
[2025-10-03] MEDS: SENOKOT 17.2 MG PO (11:49)
--- NOTE | 2025-10-03 14:22 | CM ---
[facility] declined admission. CM discussed w/ daughter, Lori yesterday possibility of patient discharging home if no accepting facility. Lori mentioned yesterday that her brother will be available tomorrow to assist w/ patient in the home as
she is disabled herself. CM discussed w/ Lori yesterday the idea of LTC for patient, Lori stated patient would just lay in bed so she isn't considering this at this time. CM discussed CRNA/caregivers but didn't seem like this was feasible
financially.
Left Lori a message this afternoon to update regarding [facility] decision and the unfortunate plan to discharge patient home tomorrow
Patient is current / [facility], will resume services at discharge
[facility]

Plan: Home tomorrow, [facility] w/ [facility]
[2025-10-03 15:25] VITALS: BP 165/95
--- NOTE | 2025-10-03 16:34 | W.PN.HOSP.TC ---
Today's Communication/Plan
-
Discharge planning
Assessment / Plan
Assessment / Plan
IMPRESSION:
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
Presyncopal episode
Conditions prior to admission
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
Seizure disorder in the settings of CVA
Left ICA stenosis at 66%
CKD stage IIIa
Chronic CHF preserved EF
CAD, status post CABG x 1
Paroxysmal atrial fibrillation/flutter
Aortic valve replacement with bioprosthetic valve 2017
Hypothyroidism on replacement
Chronic orthostatic hypotension requiring midodrine
Acute urinary retention requiring Godfrey catheter
Enterococcal UTI
PLAN:
Presyncopal episode.
Patient with history of chronic orthostatic hypotension currently on midodrine 10 mg twice daily.
Could be multifactorial in settings of mild dehydration (noted with elevated BUN and creatinine), less likely due to arrhythmia while patient is in a flutter, versus new neurologic event, although with no focal findings upon presentation
Improved with hydration and on increased dose of midodrine.
Episode of atypical chest pain on 09/25 - 09/26 night
She describes pain mostly in the epigastric area which is currently resolved.
No evidence of ischemia on ECG with negative cardiac markers
She is on tapering steroid dose
Suspect dyspepsia
Continue PPI and H2 lencho
If recurrent pain, consider increase PPI to twice daily with addition of Carafate.
Chronic CHF preserved EF.
Echocardiogram 08/22/2025: LVEF 50-55%, well-seated bioprosthetic aortic valve with no evidence of aortic regurgitation mild/moderate MR.
Volume status is compensated, noted mild contraction given increased BUN and creatinine.
Continue holding Lasix given orthostasis. Monitor volume status closely
Persistent A-flutter/A-fib.
Continue amiodarone.
Not on any AV anurag blocking agent prior to patient
CHADS-VASC 8 (CHF, hypertension, CVA, vascular disease, age, female). Not on anticoagulation given amyloid angiopathy and risk of bleeding/recent micro hemorrhagic infarct
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
On presentation patient is generally weak, although with no focal findings on exam.
Follow-up MRI of the brain on 09/26 with chronic microvascular hemorrhages, with no acute changes.
Continue prednisone taper. Corticosteroids initiated on 09/09 with prednisone taper 60 mg daily by 10 mg every week. She is currently on 40 mg daily. Insulin sliding scale with serial Accu-Cheks
Seizure disorder. Continue Keppra
Consider neurology evaluation while inpatient
Continue gabapentin
Urinary tract infection associated with Godfrey catheter present on admission.
Godfrey catheter removed.
Patient remains incontinent.
Urine culture with E. coli and Klebsiella 09/16. Completed course antibiotics with ceftriaxone from 09/27 to 10/02.
Hypothyroidism on replacement
Disposition
Has been able to participate in his physical therapy with improved orthostasis.
Plan is to discharge home with home PT and VNA.
Anticipated Discharge: Within 24 hours
Subjective/Interval History
-
Date of Service: October 03, 2025
Objective Data
-
Vital Signs:
Vital Signs
Temp Pulse Resp BP Pulse Ox
98.1 F 82 18 165/95 97
10/03/25 15:25 10/03/25 15:25 10/03/25 15:25 10/03/25 15:25 10/03/25 15:25
I&O
10/02/25 10/03/25 10/04/25
06:59 06:59 06:59
Intake Total 480 / 480 900 / 900
Balance 480 / 480 900 / 900
Physical Exam
-
General: Well Developed and No Apparent Distress
HEENT: Normocephalic, Atraumatic and Moist Mucous Membranes
Respiratory: Clear to Auscultation
Cardiac: Regular Rhythm and S1/S2; Negative Murmur, Rub or Gallop
GI: Soft, Nontender, Nondistended and Normal Bowel Sounds; Negative Organomegaly
Rectal: Deferred by Provider
Musculoskeletal: No Clubbing, No Cyanosis and No Edema
Skin: Negative Rash
Neuro: Nonfocal/Grossly Intact
[2025-10-03 16:40] LABS: Glucose - Point of Care 215 mg/dl (70-99)
[2025-10-03] MEDS: NOVOLOG FLEXPEN-LOW RESISTANCE 2 UNITS SC (18:12)
[2025-10-03] MEDS: PEPCID 20 MG PO (21:07)
[2025-10-03] MEDS: REMOVE LIDOCAINE PATCH 1 PATCH REMOVE (21:07)
[2025-10-03] MEDS: NEURONTIN 200 MG PO (21:07)
[2025-10-03 21:33] LABS: Glucose - Point of Care 117 mg/dl (70-99)
[2025-10-03 23:28] VITALS: BP 148/83
[2025-10-04] MEDS: SYNTHROID 62.5 MCG PO (05:50)
[2025-10-04 06:00] VITALS: BMI 28.8
[2025-10-04 07:00] VITALS: BP 144/93
[2025-10-04 08:23] LABS: Glucose - Point of Care 81 mg/dl (70-99)
[2025-10-04] MEDS: NOVOLOG FLEXPEN-LOW RESISTANCE SC ×2 (08:26→11:47)
[2025-10-04] MEDS: VITAMIN C 250 MG PO (09:04)
[2025-10-04] MEDS: VITAMIN B-12 1000 MCG PO (09:04)
[2025-10-04] MEDS: PROTONIX 40 MG PO (09:04)
[2025-10-04] MEDS: DELTASONE 30 MG PO (09:04)
[2025-10-04] MEDS: KEPPRA 1000 MG PO (09:04)
[2025-10-04] MEDS: LIDOCAINE 4% PATCH 1 PATCH TOPICAL (09:04)
[2025-10-04] MEDS: NEURONTIN 100 MG PO (09:05)
[2025-10-04] MEDS: COLACE 100 MG PO (09:05)
[2025-10-04] MEDS: ASPIR LOW (ENTERIC COATED) 81 MG PO (09:05)
[2025-10-04] MEDS: MIRALAX 17 GRAMS PO (09:05)
[2025-10-04] MEDS: PACERONE 200 MG PO (09:05)
[2025-10-04] MEDS: VITAMIN D3 (cholecalciferol) 50 MCG PO (09:05)
[2025-10-04] MEDS: VISBIOME 1 CAP PO (09:06)
[2025-10-04] MEDS: LOTRIMIN 1% CREAM 1 APPLIC TOPICAL (09:07)
[2025-10-04 10:06] VITALS: BP 116/69; BP 131/80; BP 139/81; PULSE 103; PULSE 107; PULSE 108
[2025-10-04] MEDS: SENOKOT 17.2 MG PO (11:43)
[2025-10-04 11:44] LABS: Glucose - Point of Care 116 mg/dl (70-99)
--- NOTE | 2025-10-04 12:38 | W.PN.HOSP.TC ---
Today's Communication/Plan
-
Monitor vitals
See plan
Prednisone taper
Discussed with daughter, discharge today
Assessment / Plan
Assessment / Plan
IMPRESSION:
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
Presyncopal episode
Conditions prior to admission
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
Seizure disorder in the settings of CVA
Left ICA stenosis at 66%
CKD stage IIIa
Chronic CHF preserved EF
CAD, status post CABG x 1
Paroxysmal atrial fibrillation/flutter
Aortic valve replacement with bioprosthetic valve 2017
Hypothyroidism on replacement
Chronic orthostatic hypotension requiring midodrine
Acute urinary retention requiring Godfrey catheter
Enterococcal UTI
PLAN:
Presyncopal episode.
Patient with history of chronic orthostatic hypotension currently on midodrine 10 mg twice daily.
Could be multifactorial in settings of mild dehydration (noted with elevated BUN and creatinine), less likely due to arrhythmia while patient is in a flutter, versus new neurologic event, although with no focal findings upon presentation
Improved with hydration and on increased dose of midodrine.
Episode of atypical chest pain on 09/25 - 09/26 night
She describes pain mostly in the epigastric area which is currently resolved.
No evidence of ischemia on ECG with negative cardiac markers
She is on tapering steroid dose
Suspect dyspepsia
Continue PPI and H2 lencho
If recurrent pain, consider increase PPI to twice daily with addition of Carafate.
Chronic CHF preserved EF.
Echocardiogram 08/22/2025: LVEF 50-55%, well-seated bioprosthetic aortic valve with no evidence of aortic regurgitation mild/moderate MR.
Volume status is compensated, noted mild contraction given increased BUN and creatinine.
Continue holding Lasix given orthostasis. Monitor volume status closely
Persistent A-flutter/A-fib.
Continue amiodarone.
Not on any AV anurag blocking agent prior to patient
CHADS-VASC 8 (CHF, hypertension, CVA, vascular disease, age, female). Not on anticoagulation given amyloid angiopathy and risk of bleeding/recent micro hemorrhagic infarct
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
On presentation patient is generally weak, although with no focal findings on exam.
Follow-up MRI of the brain on 09/26 with chronic microvascular hemorrhages, with no acute changes.
Continue prednisone taper. Corticosteroids initiated on 09/09 with prednisone taper 60 mg daily by 10 mg every week. She is currently on 40 mg daily. Insulin sliding scale with serial Accu-Cheks
Seizure disorder. Continue Keppra
Consider neurology evaluation while inpatient
Continue gabapentin
Urinary tract infection associated with Godfrey catheter present on admission.
Godfrey catheter removed.
Patient remains incontinent.
Urine culture with E. coli and Klebsiella 09/16. Completed course antibiotics with ceftriaxone from 09/27 to 10/02.
Hypothyroidism on replacement
Disposition
Has been able to participate in his physical therapy with improved orthostasis.
Plan is to discharge home with home PT and VNA.
General: Well Developed and No Apparent Distress
HEENT: Normocephalic, Atraumatic and Moist Mucous Membranes
Respiratory: Clear to Auscultation
Cardiac: Regular Rhythm and S1/S2
GI: Soft, Nontender, Nondistended and Normal Bowel Sounds
Musculoskeletal: No Edema
Neuro: Nonfocal/Grossly Intact
Anticipated Discharge: Today
Subjective/Interval History
-
Date of Service: October 04, 2025
denies pain
Objective Data
-
Vital Signs:
Vital Signs
Temp Pulse Resp BP Pulse Ox
97.5 F 100 16 144/93 98
10/04/25 09:03 10/04/25 07:00 10/04/25 07:00 10/04/25 07:00 10/04/25 07:00
I&O
10/03/25 10/04/25 10/05/25
06:59 06:59 06:59
Intake Total 900 / 900 720 / 720
Balance 900 / 900 720 / 720
[2025-10-04 15:34] VITALS: BP 157/96
--- NOTE | 2025-10-04 16:31 | CM ---
Pt is cleared for discharge to home today with resumption of [facility].
Plan: Discharge to home with resumption of care with [facility].
Plan: [facility]/ [facility]
== END 2025-10-04 16:19 | disposition home health service (06) | DRG 699 ==
LOC: 4 EAST ACU 16:23
PROVIDERS: Hospitalist; Nurse Practitioner Family; Surgery Trauma Surgery; ADMITTING PHYSICIAN Internal Medicine; ATTENDING PHYSICIAN Internal Medicine; CONSULT PHYSICIAN Internal Medicine; EMERGENCY PHYSICIAN Emergency Medicine; FAMILY PHYSICIAN Family Medicine
DX: T83.511A Infection and inflammatory reaction due to indwelling urethral catheter, initial encounter (principal); E85.4 Organ-limited amyloidosis; I13.0 Hypertensive heart and chronic kidney disease with heart failure and stage 1 through stage 4 chronic kidney disease, or unspecified chronic kidney disease; I48.92 Unspecified atrial flutter; I50.32 Chronic diastolic (congestive) heart failure; Y73.2 Prosthetic and other implants, materials and accessory gastroenterology and urology devices associated with adverse incidents; I48.0 Paroxysmal atrial fibrillation; B96.20 Unspecified Escherichia coli [E. coli] as the cause of diseases classified elsewhere; B96.1 Klebsiella pneumoniae [K. pneumoniae] as the cause of diseases classified elsewhere; E03.9 Hypothyroidism, unspecified; G40.909 Epilepsy, unspecified, not intractable, without status epilepticus; N18.31 Chronic kidney disease, stage 3a; Z86.73 Personal history of transient ischemic attack (TIA), and cerebral infarction without residual deficits; I68.0 Cerebral amyloid angiopathy; N39.0 Urinary tract infection, site not specified; I25.10 Atherosclerotic heart disease of native coronary artery without angina pectoris; Z95.1 Presence of aortocoronary bypass graft; I95.1 Orthostatic hypotension; I65.22 Occlusion and stenosis of left carotid artery; Z87.891 Personal history of nicotine dependence; Z88.3 Allergy status to other anti-infective agents; Z79.82 Long term (current) use of aspirin; Z79.890 Hormone replacement therapy; Z79.899 Other long term (current) drug therapy; Z87.440 Personal history of urinary (tract) infections; Z88.2 Allergy status to sulfonamides; R54 Age-related physical debility; Z88.8 Allergy status to other drugs, medicaments and biological substances; Z95.3 Presence of xenogenic heart valve
CPT/HCPCS: 70553; 80048; 80053; 81003; 81015; 82962; 83036; 83735; 84484; 85025; 87077; 87086; 87186; 93005; 97110; 97116; 97163; 97167; 97530; 97535; 99285

== ENCOUNTER 2025-10-11 16:21 | Observation (INO) | payer MEDICARE, SELFPAY ==
[2025-10-11] VITALS (7 sets, daily range): BP systolic 109–167; BP diastolic 57–117; BMI 28.8
[2025-10-11 11:16] LABS: Hematocrit 37.5 % (37.0-47.0); Hemoglobin 12.6 g/dL (12.0-16.0); Mean Corp Hgb Conc. 33.6 g/dL (33.0-37.0); Mean Corpuscular Volume 96.2 fL (81.0-99.0); Nucleated Red Blood Cells % 0 %; Platelet Count 247 10^3/uL (130-400); Red Cell Dist. Width 15.3 % (11.5-14.5)
[2025-10-11 11:26] LABS: Blood Urea Nitrogen 54 mg/dl (7-17); Calcium 9.3 mg/dl (8.4-10.2); Carbon Dioxide 26 mmol/L (22-30); Chloride 104 mmol/L (98-107); Estimated Creatinine Clearance 31 ml/min; Glucose 83 mg/dl (70-99); Sodium 138 mmol/L (135-145); eGFR 44.64
[2025-10-11 11:36] LABS: Troponin I 0.012 ng/ml
[2025-10-11 14:24] LABS: COVID-19 Antigen Negative (Negative)
--- NOTE | 2025-10-11 14:46 | ED.GENMED ---
History of Present Illness
General
Chief Complaint: Chest Pain
Source: patient and family
Exam Limitations: clinical condition
Time Seen by Provider: 10/11/25 10:50
History of Present Illness
History of Present Illness:
85-year-old female who presents from home via EMS after she reported chest pain this morning. Kelli states that the symptoms started before the son came up this morning. The patient states she has no further chest pain. Kelli however is
more concerned about her change in mental status over the last 3 to 4 days. She was recently at [facility] and prior to that at [facility]. She was discharged after an overnight stay at [facility] emergency department. Kelli
states that at home she has not been able to stand up or maintain her balance and has really not spoken much at all at home. He noticed some myoclonic jerking as well. He states that today in the emergency department she is actually speaking more
than she did the last few days as she was not speaking in full sentences. She does have a history of cognitive decline. She has a host of medical history as well. In the past she has had intracranial hemorrhages and has been off of her
anticoagulation. She has a history of atrial fibrillation. There is a consideration for Watchman procedures. Family is quite concerned that there is something underlying causing everything. Oumou also notes that she was seen in the past at
[facility] due to cognitive decline and question whether there could be some dementia.
Past History
Past History
ED Past Medical History: Arrthythmia (Atrial fibrillation), HTN and Other (Intracranial hemorrhage, seizure, atrial fibrillation, coronary artery disease, valvular disorder, SVT)
ED Past Surgical History: Cardiac (Valve replacement, CABG) and Other
Social History
Tobacco: Former smoker
Alcohol: None
Drug: None
Personal:
Living: with family
Employment: Retired
Family History
Family History: Other
Phy Exam
Physical Exam
Physical Exam:
CONSTITUTIONAL Patient alert and oriented to person, place and oriented to month and year. Well-appearing. Vital signs reviewed. Slightly confused
HEAD atraumatic, normocephalic.
EYES eyelids normal to inspection, Extraocular muscles intact, Conjunctiva normal, Sclera normal.
NECK normal range of motion, Trachea midline, no jugular venous distention.
RESPIRATORY CHEST No respiratory distress noted, Chest expansion equal, Bilateral breath sounds clear.
CARDIOVASCULAR irregularly irregular and tachycardic on exam.
ABDOMEN abdomen nontender, Bowel sounds normal. No distention.
BACK normal inspection, no obvious deformities
UPPER EXTREMITY range of motion normal, Motor strength normal, no cyanosis, no edema.
LOWER EXTREMITY range of motion normal, Motor strength normal, no cyanosis, no edema.
NEURO Speech normal, No focal motor deficits, Cranial Nerves intact to screening exam.
Scores
Heart Score for Chest Pain Patients
STEMI patient?: No
History: Slightly or Non-Suspicious
ECG: Normal
Age: >/= 65 years
Risk Factors: >/= 3 Risk Factors or History of CAD
Troponin: </= Normal Limit
Heart Score for Chest Pain Patients: 4
Heart Score Risk: 20.3% MACE over next 6 weeks
Course
Orders/Labs/Results
Orders:
Orders
10/11/25 Breakfast
Cholesterol Lowering
At Your Request: Full Participation
Does patient need a safe tray?: No
Cholesterol Lowering: Sodium, 2 Gram
10/11/25 10:49
Electrocardiogram (*1) Urgent
Reason for Study: Chest Pain
EKG- Treatment ONCE
10/11/25 11:01
Basic Metabolic Panel Urgent
Complete Blood Count/With Diff Urgent
Troponin I Urgent
10/11/25 11:05
CR Chest - 2 Views Urgent
Comment:
Reason For Exam: cp
10/11/25 11:59
CT Head W/o Iv Contrast Urgent
Comment:
Reason For Exam: change in ms
10/11/25 13:49
COVID-19 Antigen Urgent
Source: Nasal Swab
Influenza A+B Rapid Molecular Urgent
PAIGE Source: Nasal Swab
Specimen Description:
10/11/25 14:34
0.9% Sodium Chloride 1000 ml [Nss] 1,000 ml IV BOLUS
10/11/25 14:43
Urinalysis Reflex To Culture Urgent
Date Specimen was Collected: 10/11/25
Time Specimen was Collected: 13:40
Urine Microscopic Reflex Cult Urgent
10/11/25 15:25
Admit/Transfer Patient As Directed
Co-Sign Provider:
Level of Care: Observation services
Assign to:: Telemetry
Physician / Group: [email or web address]
Diagnosis: chest pain
Reason for Telemetry: Chest Pain syndromes
Date to Stop Telemetry: 10/13/25
Time to Stop Telemetry: 11:00
PRN Pain Medication Management As Directed
May give lesser potent ordered pain med per pt: Yes
preference::
Protocol:: Medication orders for pain may be administered in a
manner that supports deferring to patient preference
when the pt is:
- Requesting an ordered lesser potent pain medication.
Least to most potent pain medications are defined
as: acetaminophen < NSAID < tramadol < opioids
(morphine, oxycodone, hydromorphone).
- Requesting a lesser dose of the same medication IF
ORDERED.
- Requesting a less intrusive route of administration
if both routes are prescribed by the provider (PO <
IV).
10/11/25 15:27
Code Status As Directed
Resuscitation Status: Full Code
10/11/25 15:50
Potassium Urgent
Troponin I Urgent
10/11/25 17:02
Electrocardiogram (*1) Q3H
Reason for Study: Chest Pain
Comment: at admission and Q3H for total of 3, to be done with each troponin
10/11/25 17:02
Activity As Directed
Activity Level: As Tolerated
INT (Intravenous Needle Therapy) As Directed
Comment: maintain peripheral IV access
Intake/ Output As Directed
Frequency: Per unit guidelines
Pneumatic Compression Sleeves As Directed
Type: Thigh high
Vital Signs As Directed
Frequency: q4h
Weight As Directed
Frequency: Daily
Ot Eval And Treat Routine
Pt Eval And Treat Routine
Activity Level: As Tolerated
DX Deep Vein Thrombosis Video Routine
10/11/25 20:00
Docusate Sodium [Colace] 100 mg PO BID
Gabapentin [Neurontin] 100 mg PO BID
Levetiracetam [Keppra] 1,000 mg PO BID
10/11/25 20:02
Electrocardiogram (*1) Q3H
Reason for Study: Chest Pain
Comment: at admission and Q3H for total of 3, to be done with each troponin
10/11/25 22:00
Famotidine [Pepcid] 20 mg PO HS
Gabapentin [Neurontin] 200 mg PO HS
10/11/25 23:02
Electrocardiogram (*1) Q3H
Reason for Study: Chest Pain
Comment: at admission and Q3H for total of 3, to be done with each troponin
10/12/25 06:00
Basic Metabolic Panel IN AM
Cardiovascular Evaluation IN AM
Comprehensive Metabolic Panel IN AM
Levothyroxine [Synthroid] 62.5 mcg PO DAILY@0600
10/12/25 07:00
Midodrine [ProAmatine] 15 mg PO BID@0700,1100
10/12/25 08:00
Amiodarone [Pacerone] 200 mg PO DAILY
Aspirin Low Dose EC [Aspir Low (Enteric Coated)] 81 mg PO DAILY
Lactobac/Bifidobac [Visbiome] 1 cap PO DAILY
Lidocaine [Lidocaine 4% Patch] 1 patch TOPICAL DAILY
Apply Lidocaine patch(s) to:: lower back
Pantoprazole [Protonix] 40 mg PO DAILY
Polyethylene Glycol Powder [Miralax] 17 grams PO DAILY
Prednisone [Deltasone] 20 mg PO DAILY
10/13/25 11:00
DC Protocol for Telemetry ONCE
Abnormal Lab Results
10/11/25 10/11/25
11:01 14:43
WBC 11.8 H 10^3/uL
(4.8-10.8)
RBC 3.90 L 10^6/uL
(4.20-5.40)
MCH 32.3 H pg
(27.0-31.0)
RDW 15.3 H %
(11.5-14.5)
Abs Immat Gran (auto) 0.2 H 10^3/uL
(0-0.05)
Absolute Neuts (auto) 7.9 H 10^3/uL
(1.4-6.5)
Absolute Monos (auto) 1.1 H 10^3/uL
(0.1-0.6)
Immature Gran % 1.9 H %
(0-0.5)
Monocytes % 9.7 H %
(1.7-9.3)
BUN 54 H mg/dl
(7-17)
Creatinine 1.2 H mg/dL
(0.6-1.0)
Urine Bacteria (Reflex) Few A
(Negative)
Urine Albumin (Reflex) 1+ A
(Neg - Trace)
10/11/25 11:01
10/11/25 15:50
Vital Signs
Initial and Last Documented VS:
Initial Vital Signs
Temp Pulse Resp BP Pulse Ox
97.8 F 96 20 167/99 99
10/11/25 10:49 10/11/25 10:49 10/11/25 10:49 10/11/25 10:49 10/11/25 10:49
Last Documented Vital Signs
Temp Pulse Resp BP Pulse Ox
97.7 F 133 16 160/117 98
10/11/25 17:22 10/11/25 17:22 10/11/25 17:22 10/11/25 17:22 10/11/25 17:22
MDM/Problems Addressed
Differential Diagnosis Includes:
Cognitive decline, seizures, TIA, ACS, metabolic derangement, electrolyte derangement, UTI
MDM/Problems Addressed:
Chronic microvascular ischemic changes, atrial fibrillation-chronic
*Radiology
Radiology exam reviewed: preliminary read by ED provider (No obvious intracranial hemorrhage)
*Pulse Oximetry
SaO2: 98
Oxygen Mode of Delivery: Room air
Patient hypoxic: no
*Powerplant Operator Interpretation
Rate: tachycardiac
Interpretation: abnormal
Rhythm: a-fib
*Critical Care Note
Total Time (30-74mins, 75-104mins- exclusive of procedures): Not Applicable
Data Reviewed
Review of Other/Old Records Reveals: Discharge Summary (Prior discharge summary reviewed from October 03, 2025 revealing that the patient was in [facility] re[facility])
Further Testing Considered But Not Given:
Considered EEG but patient is awake and alert
Patient Management
Discussion with other providers: Hospitalist
Escalation/DeEscalation of care consider admission/obs:
Extensive history of this 85-year-old female. She is awake and pleasant on my assessment and has no focal deficits. CT negative. Labs grossly unremarkable. Will repeat the troponin but do not suspect ACS at this time. EKG nonischemic. Could
question whether she had a TIA versus seizures at home to cause her symptoms. At this point, admit. Family was quite concerned about her general recent care over the last several months and getting to 1 because of her symptomatology.
Unfortunately, she has been in and out of the hospital. In addition, I did explain that given her age and host of medical history, it may be multifactorial. Certainly think there is some cognitive decline.
ED Attending Note
-
Portions of this chart may have been created with voice recognition software.� Occasional wrong word or��sound alike� substitutions may have occurred due to the inherent limitations of voice recognition software.
Discharge Plan
Departure
Patient Disposition: Admit
Date of Disposition: 10/11/25
Time of Disposition: 14:47
Admit to: Telemetry
Presentation/result/management discussed w/ accepting MD/DO: Hospitalist
Discharge Problem:
Acute alteration in mental status, Acute dehydration
Interventions
Interventions:
*General Assessment Last Done: 10/11/25 11:07
*Neglect/Abuse Screening Last Done: 10/11/25 10:56
*ED COVID-19 Vaccine History Last Done: 10/11/25 10:56
*ED Influenza Vaccine History Last Done: 10/11/25 10:56
[facility] Fall Risk Assessment Tool Last Done: 10/11/25 10:55
*Risk Screen - Suicide (C-SSRS) Last Done: 10/11/25 10:56
*Nursing Disposition Last Done: 10/11/25 17:07
ED- Cardiac Assessment Last Done: 10/11/25 11:07
Discharge Date and Time
Discharge Date/Time: 10/11/25 17:07
--- NOTE | 2025-10-11 14:57 | HPS.HSE ---
Addendum entered and electronically signed by Stanislav Macias MD 10/11/25 15:50:
This is an addendum to the H&P written by Tiffanie Lucero on 10/11/2025. �Patient seen and examined independently with FUSE CUTTER.
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
with bioprosthetic valve in 2018, hypothyroidism, chronic orthostatic hypotension, urinary retention with chronic Godfrey catheter, enterococcal UTI, presenting with sharp chest pain in the morning without radiation lasting 10 minutes. �Grandson
concerned about change in mental status over the past 3 to 4 days.
Patient's mental status currently completely normal. �Only complaint is fatigue.
Patient has not been able to stand or maintain her balance not speaking much as per grandson. �Also myoclonic jerking noticed.
Patient was recently admitted from 09/25 to 10/07 for presyncopal episode. �During that admission she had atypical chest pain attributed to dyspepsia. �She was treated with tapering prednisone.
Vital signs show tachycardia up to 114. �Chest is tender to palpation.
Labs show leukocytosis of 11.8.
Troponin negative. �EKG shows atrial fibrillation. �CT head shows no acute abnormality. �Chest x-ray unremarkable. �Urinalysis negative. �COVID and flu negative.
Suspect chest pain is musculoskeletal. �Trend troponins.
Altered mental status has currently resolved. �Infectious workup is negative.
Original Note:
Family Physician
-
Family Physician: * NONE
Chief Complaint
-
generalized weakness
History of Present Illness
85-year-old female with PMH for A-fib, hypertension, intracranial abnormality, seizure, A-fib, coronary artery disease, valvular disease, SVT presented to us with mid sternum chest pain who presents from home via EMS after she reported chest pain
this morning. the pain woke her up from sleep. she was sob. pain lasted only 10minutes. As per grandson, for past 4 days patient was noted very weak and lethargic. Patient usually walks with a rollator and she was not able to do that for past 4
days. She was not able to stand up on her own or with assistance. Patient denied any headache, dizzy, cough, congestion, fever, chills. Patient denied abdominal pain, nausea, vomiting or diarrhea. Patient denied dysuria materia. Denied any
lower extremities edema.
Admitting for further management
Medical History
Past Medical History
Past Medical History: Reports Other
Additional Past Medical History:
A-fib, coronary artery disease, aortic stenosis, degenerative disc disease, fibromyalgia, spinal stenosis, cyst on spine, palpitation, SVT, cardiac murmur, syncopel
Past Surgical History: Reports Other
Additional Past Surgical History:
Spinal fusion, tonsillectomy, cataract surgery AVR, coronary artery bypass graft, cardioversion
Social History
Tobacco: Former Smoker
Alcohol: None
Drug: None
Living: With Family
Family History
Family History: Not pertinent
Allergies / Home Medications
Allergies reflects when Allergies were last updated in [employer].
Home Medications with original date entered in [employer]
Allergy/Medication List:
Allergies
Allergy/AdvReac Type Severity Reaction Status Date / Time
bee venom protein (honey bee) Allergy Anaphylaxis Verified 10/11/25 10:55
hydromorphone Allergy Vomiting Verified 10/11/25 10:55
nitrofurantoin Allergy rash and Verified 10/11/25 10:55
itch
nitroglycerin Allergy 'bottomed Verified 10/11/25 10:55
out' with
SL
spider venom Allergy 'poisoning' Verified 10/11/25 10:55
sulfamethoxazole Allergy rash and Verified 10/11/25 10:55
itch
trimethoprim Allergy rash and Verified 10/11/25 10:55
itch
Home Medications
midodrine 5 mg tablet 15 mg (3 x 5 mg) PO BID@0700,1100 #120 tabs 10/02/25
Lactobac no.2-Bifidobac no.1-S. thermo 112.5 billion cell capsule (Visbiome) 1 cap PO DAILY #30 caps 10/03/25
aluminum-mag hydroxide-simethicone 200 mg-200 mg-20 mg/5 mL oral susp 30 ml PO QIDPRN PRN gerd #3,000 mL 10/03/25
amiodarone 200 mg tablet (Pacerone) 200 mg PO DAILY Heart Disease/Condition #30 tabs 10/03/25
ascorbic acid (vitamin C) 250 mg tablet (Vitamin C) 250 mg PO DAILY #30 tabs 10/03/25
aspirin 81 mg tablet,delayed release 81 mg PO DAILY Heart Disease/Condition #30 tabs 10/03/25
cholecalciferol (vitamin D3) 50 mcg (2,000 unit) tablet 2,000 unit PO DAILY Supplement #30 tabs 10/03/25
cyanocobalamin (vitamin B-12) 1,000 mcg tablet 1,000 mcg PO DAILY #30 tabs 10/03/25
docusate sodium 100 mg capsule (Colace) 100 mg PO BID Constipation #60 caps 10/03/25
famotidine 20 mg tablet (Pepcid) 20 mg PO HS #60 tabs 10/03/25
gabapentin 100 mg capsule 100 mg PO BID #60 caps 10/03/25
gabapentin 100 mg capsule 200 mg (2 x 100 mg) PO HS #30 caps 10/03/25
levetiracetam 1,000 mg tablet (Keppra) 1,000 mg PO BID #60 tabs 10/03/25
levothyroxine 25 mcg tablet 62.5 mcg (2.5 x 25 mcg) PO DAILY@0600 #30 tabs 10/03/25
lidocaine 4 % topical patch 1 patch topical DAILY left lower back #30 ea 10/03/25
loratadine 10 mg tablet (Claritin) 10 mg PO DAILYPRN PRN constipation #30 tabs 10/03/25
pantoprazole 40 mg tablet,delayed release (Protonix) 40 mg PO DAILY #90 tabs 10/03/25
polyethylene glycol 3350 17 gram oral powder packet 17 g PO DAILY #30 ea 10/03/25
prednisone 10 mg tablet 10 mg PO DIRECTED #36 tabs 10/04/25
Review of Systems
-
Constitutional: Reports No Symptoms
EENT: Reports No Symptoms
Respiratory: Reports Trouble Breathing
Cardiac: Reports Chest Pain
Abdomen/GI: Reports No Symptoms
: Reports No Symptoms
Musculoskeletal: Reports No Symptoms
Skin: Reports No Symptoms
Neurological: Reports No Symptoms
Endocrine: Reports No Symptoms
Hematologic/Lymphatic: Reports No Symptoms
Psych: Reports No Symptoms
Physical Exam
Vital Signs
Vital Signs
Temp Pulse Resp BP Pulse Ox
97.8 F 103 11 111/83 98
10/11/25 10:49 10/11/25 14:30 10/11/25 14:30 10/11/25 14:00 10/11/25 14:48
Physical Exam
General: Well Developed, Well Nourished and No Apparent Distress
HEENT: NormoCephalic, Moist mucous membranes and Atraumatic
Respiratory: Clear
Cardiac: S1/S2 and Regular Rhythm; No Murmur or Rub
GI: Soft, Non Tender, Non Distended and Normal Bowel Sounds; No Organomegaly
Rectal: Deferred by Provider
Musculoskeletal: No Clubbing, No Cyanosis and No Edema
Skin: No Rash
Neuro: AO x 3 and Nonfocal/grossly intact
Psych: Calm
Laboratory Results
-
10/11/25 11:01
Laboratory Results
Total Bilirubin Cancelled 10/11/25 11:01
AST Cancelled 10/11/25 11:01
ALT Cancelled 10/11/25 11:01
Alkaline Phosphatase Cancelled 10/11/25 11:01
Troponin I 0.012 ng/ml 10/11/25 11:01
Data Reviewed
-
Diagnostic Radiology: Report Reviewed by me
CT Scan: Report Reviewed by me
Lab Data: Labs Reviewed by me
Impression/Plan
-
#worsening weakness likely from chronic disease
- UA pending, COVID-negative
- Head CT negative
- Chest x-ray with no acute disease of the chest. Mild cardiomegaly.stable
- PT/OT consulted
#chest pain likely musculoskeletal pain
-trend trop, EKG
# Leukocytosis likely reactive
- WBCs 11.8, patient is afebrile
- Continue to monitor
#Chronic CHF preserved EF.
-Echocardiogram 08/22/2025: LVEF 50-55%, well-seated bioprosthetic aortic valve with no evidence of aortic regurgitation mild/moderate MR.
#Persistent A-flutter/A-fib.
-Continue amiodarone.
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
-Prednisone continued
#Seizure disorder. Continue Keppra
#Hypothyroidism on replacement
# GERD
-Famotidine and Protonix and continue
# Neuropathy
- Gabapentin continue
# Orthostatic hypotension
- Midodrine continued
[2025-10-11 14:58] LABS: Urine Character Clear (Clear)
[2025-10-11 15:08] LABS: Urine Squamous Cell 16-20 /LPF (Few)
[2025-10-11 15:10] LABS: Urine Red Blood Cell 0-2 /HPF (0-2)
[2025-10-11] MEDS: NSS 1000 IV (15:51)
--- NOTE | 2025-10-11 16:03 | EDCM ---
Reviewed chart, met with pt bedside in ED. Lives with her daughter and grandson in apartment, [address]
Pt needs assistance with ADLs, personal care, at baseline ambulates with [facility] but has not been able to past few days.
PMH includes Intracranial hemorrhage, cognitive decline, Afib, HTN, Seizures, CAD
Recently admitted 09/25 to 10/04, also recent adm to [facility].
[facility]RT reviewed, pt unable to sign and declined copy.
Current with [facility] since last admit but unsure if they have restarted yet, eloisa Flowers
Per prior CM notes, pt is out of skilled days for the year.
PCP: Shirley Soriano but she is retiring by the end of the year, no new PCP yet
RX: [facility]
CM will continue to follow for all discharge planning needs
[2025-10-11 16:11] LABS: Potassium 3.9 mmol/L (3.5-5.1)
[2025-10-11 16:26] LABS: Troponin I 0.013 ng/ml
[2025-10-11 19:25] LABS: Troponin I 0.013 ng/ml
[2025-10-11] MEDS: KEPPRA 1000 MG PO (20:29)
[2025-10-11] MEDS: NEURONTIN 100 MG PO (20:32)
[2025-10-11] MEDS: COLACE 100 MG PO (20:32)
[2025-10-11 22:18] LABS: Troponin I 0.014 ng/ml
[2025-10-11] MEDS: PEPCID 20 MG PO (22:32)
[2025-10-11] MEDS: NEURONTIN 200 MG PO (22:32)
[2025-10-12] VITALS (8 sets, daily range): BP systolic 116–157; BP diastolic 68–93; PULSE 90
[2025-10-12 01:45] LABS: Troponin I 0.015 ng/ml
[2025-10-12] MEDS: SYNTHROID 62.5 MCG PO (05:56)
[2025-10-12] MEDS: PROTONIX 40 MG PO (07:07)
[2025-10-12] MEDS: ASPIR LOW (ENTERIC COATED) 81 MG PO (07:07)
[2025-10-12] MEDS: NEURONTIN 100 MG PO ×2 (07:07→19:39)
[2025-10-12] MEDS: DELTASONE 20 MG PO (07:08)
[2025-10-12] MEDS: COLACE 100 MG PO ×2 (07:08→19:39)
[2025-10-12] MEDS: PACERONE 200 MG PO (07:08)
[2025-10-12] MEDS: KEPPRA 1000 MG PO ×2 (07:09→19:39)
[2025-10-12] MEDS: VISBIOME 1 CAP PO (07:09)
[2025-10-12] MEDS: LIDOCAINE 4% PATCH 1 PATCH TOPICAL ×2 (07:09→12:00)
[2025-10-12] MEDS: MIRALAX 17 GRAMS PO (07:10)
--- NOTE | 2025-10-12 08:45 | W.PN.HOSP.TC ---
Today's Communication/Plan
-
PRN and lidocaine patch for aypical chest pain
Lidocaine patch for chronic back discomfort
Telemetry
PT/OT
Assessment / Plan
Assessment / Plan
#Atypical Chest pain
- Likely musculoskeletal pain
- trend trop, EKG
- As needed Tylenol
- Lidocaine patch
#Deconditioning with worsening generalized weakness
- Likely in the context of chronic disease, ICH, worsening dementia
- UA pending, COVID-negative
- Head CT negative for acuity
- Chest x-ray with no acute disease of the chest. Mild cardiomegaly.stable
- PT/OT consulted
- OP palliative eval
# Leukocytosis likely reactive
- WBCs 11.8, patient is afebrile
- Continue to monitor
#Chronic HFpEF.
- Echocardiogram 08/22/2025: LVEF 50-55%, well-seated bioprosthetic aortic valve with no evidence of aortic regurgitation mild/moderate MR.
- Not on any GDMT or standing diuretic, likely due to significant orthostasis
#Persistent AFL/AF.
- Continue amiodarone
- Not anticoagulated due to possible CAA and fall risk
- telemetry
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
- Prednisone continued as previously prescribed
- High risk for recurrent ICH, avoid anticoagulants
#Seizure disorder.
- Continue Keppra
- Seizure precautions
#Hypothyroidism on replacement
- Continue home levothyroxine
- No signs of abnormal thyroid state at this time
#GERD
- Continue home famotidine and Protonix
#Neuropathy
- Gabapentin continue
#Orthostatic hypotension
- Midodrine continued at home dose
- Monitor for orthostatic symptoms
#Chronic back pain
- Additional lidocaine patch to spine
- Tylenol PRN
Diet: Cholesterol-lowering
DVT: SCDs
Code: Full
Dispo: PT pending
Anticipated Discharge: > 48 hours
Subjective/Interval History
-
Date of Service: October 12, 2025
Seen and examined at the bedside. [email or web address]. [id number]
Trop negative x 3. No events on telemetry. No cardiac chest pain
Denies new complaints
Objective Data
-
Labs:
Laboratory Results
10/12/25
08:10
Sodium Pending
Potassium Pending
Chloride Pending
Carbon Dioxide Pending
BUN Pending
Creatinine Pending
Glucose Pending
Calcium Pending
Total Bilirubin Pending
AST Pending
ALT Pending
Alkaline Phosphatase Pending
Vital Signs:
Vital Signs
Temp Pulse Resp BP Pulse Ox
97.9 F 93 12 149/93 98
10/12/25 07:00 10/12/25 07:00 10/12/25 07:00 10/12/25 07:00 10/12/25 07:00
I&O
10/11/25 10/12/25 10/13/25
06:59 06:59 06:59
Intake Total 240 / 240
Output Total 700 / 700
Balance -460 / -460
Review of Systems
-
History Source: Patient
All other systems: Reviewed and negative
Physical Exam
-
General: Well Developed, No Apparent Distress and Appears Chronically Ill
HEENT: Normocephalic, Atraumatic, Moist Mucous Membranes and Anicteric
Respiratory: Clear to Auscultation and Non Labored Respirations; Negative Accessory Resp Muscle Use
Cardiac: S1/S2 and Irregular Rhythm; Negative Murmur, Rub, Gallop or Tachycardic
GI: Soft, Nontender, Nondistended and Normal Bowel Sounds
Musculoskeletal: No Clubbing, No Cyanosis, No Edema and Other (Chest wall tenderness present)
Skin: Warm and Dry; Negative Rash
Neuro: Awake, Alert, Oriented, Nonfocal/Grossly Intact and Central Nerve's Intact
Psych: Calm
Data Reviewed
-
Labs: Labs Reviewed by me and Discussed with Patient
[2025-10-12 08:51] LABS: ALT (SGPT) 35 U/L (0-35); AST (SGOT) 20 U/L (14-36); Albumin 3.5 g/dl (3.5-5.0); Alkaline Phosphatase 92 U/L (38-126); Blood Urea Nitrogen 40 mg/dl (7-17); Calcium 8.6 mg/dl (8.4-10.2); Carbon Dioxide 22 mmol/L (22-30); Chloride 107 mmol/L (98-107); Estimated Creatinine Clearance 41 ml/min; Glucose 76 mg/dl (70-99); HDL Cholesterol 39 mg/dl; LDL Cholesterol, Calculated 160 mg/dl; Potassium 3.7 mmol/L (3.5-5.1); Sodium 137 mmol/L (135-145); Total Protein 6.2 g/dl (6.3-8.2); Very Low Density Lipoprotein 23 mg/dl (0-30); eGFR > 60.00
[2025-10-12] MEDS: TYLENOL 650 MG PO (09:47)
[2025-10-12] MEDS: REMOVE LIDOCAINE PATCH 1 PATCH REMOVE ×2 (19:40)
[2025-10-12] MEDS: NEURONTIN 200 MG PO (21:19)
[2025-10-12] MEDS: PEPCID 20 MG PO (21:19)
[2025-10-13 03:35] VITALS: BP 131/79
[2025-10-13] MEDS: SYNTHROID 62.5 MCG PO (05:13)
[2025-10-13 06:00] VITALS: BMI 29.5
[2025-10-13 07:00] VITALS: BP 141/71
[2025-10-13 08:52] LABS: Blood Urea Nitrogen 38 mg/dl (7-17); Calcium 8.4 mg/dl (8.4-10.2); Carbon Dioxide 24 mmol/L (22-30); Chloride 108 mmol/L (98-107); Estimated Creatinine Clearance 42 ml/min; Glucose 67 mg/dl (70-99); Potassium 3.6 mmol/L (3.5-5.1); Sodium 136 mmol/L (135-145); eGFR > 60.00
[2025-10-13 09:06] LABS: Hematocrit 27.9 % (37.0-47.0); Hemoglobin 9.4 g/dL (12.0-16.0); Mean Corp Hgb Conc. 33.7 g/dL (33.0-37.0); Mean Corpuscular Volume 95.2 fL (81.0-99.0); Nucleated Red Blood Cells % 0 %; Platelet Count 159 10^3/uL (130-400); Red Cell Dist. Width 15.0 % (11.5-14.5)
[2025-10-13] MEDS: ASPIR LOW (ENTERIC COATED) 81 MG PO (09:17)
[2025-10-13] MEDS: KEPPRA 1000 MG PO (09:17)
[2025-10-13] MEDS: NEURONTIN 100 MG PO (09:18)
[2025-10-13] MEDS: PACERONE 200 MG PO (09:18)
[2025-10-13] MEDS: PROTONIX 40 MG PO (09:18)
[2025-10-13] MEDS: VISBIOME 1 CAP PO (09:18)
[2025-10-13] MEDS: DELTASONE 20 MG PO (09:19)
[2025-10-13] MEDS: COLACE 100 MG PO (09:19)
[2025-10-13] MEDS: MIRALAX 17 GRAMS PO (09:19)
[2025-10-13] MEDS: LIDOCAINE 4% PATCH 1 PATCH TOPICAL (09:20)
[2025-10-13] MEDS: LIDOCAINE 4% PATCH TOPICAL ×2 (09:23→09:37)
--- NOTE | 2025-10-13 09:30 | W.PN.HOSP.TC ---
Addendum entered and electronically signed by Rolan Rm MD 10/14/25 16:44:
I personally reviewed and evaluated this patient with the resident. I agree with above unless if otherwise stated below.
I personally reviewed labs and imaging biometrics consultant notes case management note
Chest discomfort musculoskeletal. EKG nonischemic. Opponent is negative. Reproducible chest discomfort with point tenderness
Outpatient follow-up with cardiology
Original Note:
Today's Communication/Plan
-
PT/OT evaluation
Home with home care
Assessment / Plan
Assessment / Plan
Impression
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
valve replacement with bioprosthetic valve in 2018, hypothyroidism, chronic hypotension, urinary retention with chronic Godfrey catheter, enterococcal UTI presented with sharp chest pain that lasted for 10 minutes
Cardiac workup negative-troponin negative x 3, EKG shows atrial fibrillation but no acute ST-T changes,
History of recurrent presyncopal episodes-workup done in the ED, CT head shows no abnormality, chest x-ray unremarkable, urine analysis negative, COVID and flu negative
Currently patient feels better
PT/OT recommended SNF
Assessment/plan
#Atypical Chest pain
- Likely musculoskeletal pain
- trend trop, EKG
- As needed Tylenol
- Lidocaine patch
#Deconditioning with worsening generalized weakness
- Likely in the context of chronic disease, ICH, worsening dementia
-Workup including head CT, urinalysis, COVID, flu, chest x-ray negative
- Chest x-ray with no acute disease of the chest. Mild cardiomegaly.stable
- Home with home care
-Outpatient PT/OT
- OP palliative eval
# Leukocytosis likely reactive
- WBCs 11.8, patient is afebrile
- Continue to monitor
#Chronic HFpEF.
- Echocardiogram 08/22/2025: LVEF 50-55%, well-seated bioprosthetic aortic valve with no evidence of aortic regurgitation mild/moderate MR.
- Not on any GDMT or standing diuretic, likely due to significant orthostasis
#Persistent AFL/AF.
- Continue amiodarone
- Not anticoagulated due to possible CAA and fall risk
- telemetry
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
- Prednisone continued as previously prescribed
- High risk for recurrent ICH, avoid anticoagulants
#Seizure disorder.
- Continue Keppra
- Seizure precautions
#Hypothyroidism on replacement
- Continue home levothyroxine
- No signs of abnormal thyroid state at this time
-Plan to follow-up with primary care physician, dose adjustment as needed
#GERD
- Continue home famotidine and Protonix
#Neuropathy
- Gabapentin continue
#Orthostatic hypotension
- Midodrine continued at home dose
- Monitor for orthostatic symptoms
#Chronic back pain
- Additional lidocaine patch to spine
- Tylenol PRN
Diet: Cholesterol-lowering
DVT: SCDs
Code: Full
Dispo:Home with home care
Anticipated Discharge: Within 24 hours
Subjective/Interval History
-
Date of Service: October 13, 2025
Patient seen and examined at bedside
Alert, oriented, chest pain resolved
Troponin negative x 3, EKG normal, no events on telemetry
No new complaints
Objective Data
-
Labs:
Laboratory Results
10/13/25
07:05
WBC 8.2
Hgb 9.4 L D
Hct 27.9 L
Plt Count 159 D
Sodium 136
Potassium 3.6
Chloride 108 H
Carbon Dioxide 24
BUN 38 H
Creatinine 0.9
Glucose 67 L
Calcium 8.4
Vital Signs:
Vital Signs
Temp Pulse Resp BP Pulse Ox
98.2 F 78 12 141/71 96
10/13/25 07:00 10/13/25 07:00 10/13/25 07:00 10/13/25 07:00 10/13/25 07:00
I&O
10/12/25 10/13/25 10/14/25
06:59 06:59 06:59
Intake Total 240 / 240 240 / 240
Output Total 700 / 700
Balance -460 / -460 240 / 240
Review of Systems
-
All other systems: Reviewed and negative
Physical Exam
-
General: Well Developed, No Apparent Distress and Comfortable
HEENT: Normocephalic, Atraumatic, Moist Mucous Membranes and Anicteric
Respiratory: Clear to Auscultation; Negative Wheezes, Rales or Rhonchi
Cardiac: S1/S2 and Irregular Rhythm; Negative Murmur or Rub
GI: Soft, Nontender, Nondistended and Normal Bowel Sounds
Musculoskeletal: No Clubbing, No Cyanosis, No Edema and Other (Mild chest wall tenderness)
Skin: Warm and Dry
Neuro: Awake, AO x 3, No Motor Deficits and Nonfocal/Grossly Intact
Psych: Calm
--- NOTE | 2025-10-13 10:46 | CM ---
CM reviewed chart, patient seen bedside.
Patient for d/c today.
CM had lengthy conversation with daughter- no more skilled days, will return home with [facility] care.
CM spoke with liaison at [facility], added SW onto referral.
CM discussed with daughter reaching out to [facility]- daughter has information.
Home address confirmed- will require ambulance transport home, scheduled for 1:00 p.m. Daughter updated.
Plan; Home with [facility], 1:00 p.m. ambulance transport
[facility]
[2025-10-13 11:00] VITALS: BP 140/81
[2025-10-13 12:38] LABS: Hematocrit 32.2 % (37.0-47.0); Hemoglobin 10.8 g/dL (12.0-16.0); Mean Corp Hgb Conc. 33.5 g/dL (33.0-37.0); Mean Corpuscular Volume 95.0 fL (81.0-99.0); Platelet Count 169 10^3/uL (130-400); Red Cell Dist. Width 15.0 % (11.5-14.5)
[2025-10-13 14:30] VITALS: BP 139/85
--- NOTE | 2025-10-13 17:58 | W.DCSUMMARY ---
Discharge Summary
Discharge Data
Date of Admission: 10/11/25
Date of Discharge: 10/13/25
-
Pending Results: No
Hospital Course
Discharging Physician :
rachel Rm Shahzadi, Sandal
Disposition :
Home with home care
Primary care physician :
None
Principal Discharge diagnosis :
Atypical Chest pain (Musculoskeletal)
Deconditioning with worsening generalized weakness(recurrent falls)
Chronic Discharge diagnosis :
A-fib, coronary artery disease, aortic stenosis, degenerative disc disease, fibromyalgia, spinal stenosis, cyst on spine, palpitation, SVT, cardiac murmur, syncope
Spinal fusion, tonsillectomy, cataract surgery AVR, coronary artery bypass graft, cardioversion
Former Smoker
Hospital Course :
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
valve replacement with bioprosthetic valve in 2018, hypothyroidism, chronic hypotension, urinary retention with chronic Godfrey catheter, enterococcal UTI presented with sharp chest pain that lasted for 10 minutes With no associated symptoms of
palpitations, diaphoresis, syncope, dizziness.
Cardiac workup negative-troponin negative x 3, EKG shows atrial fibrillation but no acute ST-T changes,Likely musculoskeletal pain, Pain resolved with Tylenol and lidocaine patch
History of recurrent presyncopal episodes likely in the context of chronic disease, ICH, worsening dementia-workup done in the ED, CT head shows no abnormality, chest x-ray unremarkable, urine analysis negative, COVID and flu negative.
Echocardiogram 08/22/2025: LVEF 50-55%, well-seated bioprosthetic aortic valve with no evidence of aortic regurgitation mild/moderate MR.
- Not on any GDMT or standing diuretic, likely due to significant orthostasis
For her persistent atrial fibrillation, amiodarone was continued, she cannot be anticoagulated due to CAA and fall risk
Myeloid angiopathy with recent micro hemorrhagic infarct, prednisone continued as previously prescribed
Keppra continued for seizures
Home medications continued for hypothyroidism, orthostatic hypotension, neuropathy and GERD
Patient vitally and hemodynamically stable to discharge
Outpatient follow-up with primary care physician along with outpatient PT/OT
Important imaging findings :
Head CT 10/11/25
IMPRESSION:
No acute intracranial abnormality noted.
Chest Xray 10/11/25
IMPRESSION:
No acute disease of the chest.
Mild cardiomegaly. Stable
Discharge Plan
-
Patient Disposition: Home with Home Care
Discharge Diagnosis/Procedures: Atypical Chest pain (Musculoskeletal)
Deconditioning with worsening generalized weakness(recurrent falls)
Condition: Fair
Diet: Regular
Activity: With assistance
Driving Restrictions: Not until seen by your Dr
Bathing Restrictions: None
Other Services: VN
Referrals:
Reny Navas MD, Resident [Family Practice Resident Year3, General] - in less than 1 week
Referral Note: Please call at [phone] to schedule appt
[address] [facility]
NONE,* [Family Provider, Internal Medicine]
Prescriptions:
Continued
lidocaine 4 % Adhesive Patch,Medicated
1 patch TOPICAL DAILY Qty: 30 0RF
amiodarone [Pacerone] 200 MG tablet
200 mg PO DAILY Qty: 30 0RF
aspirin 81 MG tablet,delayed release (DR/EC)
81 mg PO DAILY Qty: 30 0RF
docusate sodium [Colace] 100 mg Capsule
100 mg PO BID Qty: 60 0RF
alum-mag hydroxide-simeth 200-200-20 mg/5 mL Suspension
30 ml PO QIDPRN PRN (Reason: gerd) Qty: 3000 0RF
loratadine [Claritin] 10 mg Tablet
10 mg PO DAILYPRN PRN (Reason: constipation) Qty: 30 0RF
cholecalciferol (vitamin D3) 2,000 UNITS tablet
2,000 unit PO DAILY Qty: 30 0RF
prednisone 10 mg tablet
10 mg PO DIRECTED Qty: 36 0RF
Rx Instructions:
Continue 30 mg daily through 10/09/2025
20 mg daily 10/10-10/16
10mg daily 10/17-10/23
polyethylene glycol 3350 17 gram Powder In Packet
17 g PO DAILY Qty: 30 0RF
midodrine 5 mg Tablet
15 mg PO BID@0700,1100 Qty: 120 0RF
cyanocobalamin (vitamin B-12) 1,000 mcg Tablet
1,000 mcg PO DAILY Qty: 30 0RF
levothyroxine 25 mcg Tablet
62.5 mcg PO DAILY@0600 Qty: 30 0RF
famotidine [Pepcid] 20 mg Tablet
20 mg PO HS Qty: 60 0RF
ascorbic acid (vitamin C) [Vitamin C] 250 mg Tablet
250 mg PO DAILY Qty: 30 0RF
pantoprazole [Protonix] 40 mg tablet,delayed release (DR/EC)
40 mg PO DAILY Qty: 90 0RF
gabapentin 100 mg Capsule
200 mg PO HS Qty: 30 0RF
gabapentin 100 mg Capsule
100 mg PO BID Qty: 60 0RF
levetiracetam [Keppra] 1,000 mg tablet
1,000 mg PO BID Qty: 60 0RF
Visbiome 112.5 billion cell Capsule
1 cap PO DAILY Qty: 30 0RF
Discharge Orders:
Discharge Patient (As Directed); Ordered 10/13/25
Ordered By: Sallie Bennett
Discharge Date and Time
Discharge Date/Time: 10/13/25 15:15
Print Language: MONTENEGRIN
== END 2025-10-13 15:15 | disposition home health service (06) ==
LOC: 4 WEST ACU 16:21
PROVIDERS: Internal Medicine; Registered Nurse; ADMITTING PHYSICIAN Hospitalist; ATTENDING PHYSICIAN Hospitalist; EMERGENCY PHYSICIAN Emergency Medicine
DX: R07.89 Other chest pain (principal); R53.1 Weakness; R29.6 Repeated falls; E03.9 Hypothyroidism, unspecified; I95.1 Orthostatic hypotension; E85.4 Organ-limited amyloidosis; G40.909 Epilepsy, unspecified, not intractable, without status epilepticus; K21.9 Gastro-esophageal reflux disease without esophagitis; D72.829 Elevated white blood cell count, unspecified; I50.32 Chronic diastolic (congestive) heart failure; I48.19 Other persistent atrial fibrillation; E86.0 Dehydration; G89.29 Other chronic pain; I11.0 Hypertensive heart disease with heart failure; I25.10 Atherosclerotic heart disease of native coronary artery without angina pectoris; I47.10 Supraventricular tachycardia, unspecified; I68.0 Cerebral amyloid angiopathy; Z11.52 Encounter for screening for COVID-19; Z79.899 Other long term (current) drug therapy; Z87.891 Personal history of nicotine dependence; Z86.73 Personal history of transient ischemic attack (TIA), and cerebral infarction without residual deficits
CPT/HCPCS: 51701; 70450; 71046; 80048; 80053; 80061; 81003; 81015; 84132; 84484; 85025; 85027; 87502; 87811; 93005; 96360; 97162; 97166; 99285; G0378